=== PATIENT | male | born 1970 | race Hispanic/Latino ===

== ENCOUNTER 2018-04-25 10:19 | Observation (INO) | payer BC, SELFPAY ==
--- NOTE | 2018-04-25 11:34 | RAD REPORT ---
EXAM DESCRIPTION: RAD - Chest Pa And Lat (2 Views) - 04/25/2018 11:11 am CLINICAL HISTORY: COUGH Chest pain. COMPARISON: No comparisons FINDINGS: Moderate interstitial lung opacities are identified bilaterally, suspicious for interstiti al pneumonitis. The heart is mildly enlarged in size. No displaced fractures.
--- NOTE | 2018-04-25 12:10 | RAD REPORT ---
EXAM DESCRIPTION: US - Extrem Venous W Compress Dez - 04/25/2018 12:01 pm CLINICAL HISTORY: SOB;Swelling Bilateral leg edema and swelling. COMPARISON: No comparisons TECHNIQUE: Real-time sonographic interrogation of the left and right lower extremity deep venous sys tems was performed. FINDINGS: Normal compressibility, flow augmentation, phasic flow and spontaneous flow is identified in both the left and right lower extremity deep venous systems. IMPRESSION: No sonographic evidence of left or right lower extremity deep venous thrombosis.
[2018-04-25 12:23] LABS: Absolute Lymphocytes (CBC) 1.7 K/uL (0.7-4.9); Absolute Monocytes 0.5 K/uL (0.1-1.3); Absolute Neutrophil 5.7 K/uL (1.8-8.0); Basophils % 1.4 % (0-1.3); Eosinophils % 1.9 % (0-4.4); Lymphocytes % 20.3 % (15.3-44.8); MCH 31.3 pg (27.0-35.0); MCV 93.4 fL (80-100); MPV 10.9 fL (7.6-11.3); Monocytes % 6.4 % (3.3-12.3); RBC Red Blood Cell Count 4.29 M/uL (4.33-5.43)
[2018-04-25 12:29] LABS: Protime INR 1.07
[2018-04-25] MEDS ORDERED: METOPROLOL TARTRATE 5 MG/5 ML INJ IV ONE (13:04)
[2018-04-25 13:15] LABS: Bilirubin Direct 0.2 mg/dL (0-0.2); Bilirubin Total 0.5 mg/dL (0.2-1.0); Magnesium 2.1 mg/dL (1.8-2.4); Potassium 4.4 mmol/L (3.5-5.1)
[2018-04-25 13:19] LABS: Troponin (Emerg Dept Use Only) 0.91 ng/mL (0.0-0.045)
--- NOTE | 2018-04-25 13:34 | EDPHYS ---
Physician Documentation [facility] Name: Nabor Ny Age: 48 yrs Sex: Male : 1970 Arrival Date: 04/25/2018 Time: 10:23 Bed 8 Private MD: None, None ED Physician Randolph Noel HPI: 04/25 15:40 This 48 yrs old Male presents to ER via Ambulatory with complaints of kdr Shortness Of Breath. 15:40 The patient has shortness of breath at rest, with light activity. Onset: The kdr symptoms/episode began/occurred gradually, 1 month(s) ago. Duration: The symptoms are continuous, and are steadily getting worse. The patient's shortness of breath is aggravated by exertion, light activity, supine position. Associated signs and symptoms: Pertinent positives: chills and cold feeling. Severity of symptoms: At their worst the symptoms were mild moderate just prior to arrival, in the emergency department the symptoms are unchanged. The patient has not experienced similar symptoms in the past. The patient has not recently seen a physician. Historical: - Allergies: 10:34 No Known Allergies; aj - Home Meds: 10:34 Victoza 3-Joey 0.6 mg/0.1 mL (18 mg/3 mL) subcutaneous pnij 0.3 mL once daily [Active]; aj Metformin Oral [Active]; Lisinopril Oral [Active]; - PMHx: 10:34 Hypertension; Diabetes - NIDDM; aj - PSHx: 10:34 Knee surgery; aj - Immunization history:: Adult Immunizations up to date. - Social history:: Smoking status: Patient/guardian denies using tobacco. - Ebola Screening: : Patient negative for fever greater than or equal to 101.5 degrees Fahrenheit, and additional compatible Ebola Virus Disease symptoms Patient denies exposure to infectious person Patient denies travel to an Ebola-affected area in the 21 days before illness onset No symptoms or risks identified at this time. ROS: 15:40 Constitutional: Negative for fever, chills, and weight loss, Eyes: Negative for injury, kdr pain, redness, and discharge, Neck: Negative for injury, pain, and swelling, Cardiovascular: Negative for chest pain, palpitations, and edema, Abdomen/GI: Negative for abdominal pain, nausea, vomiting, diarrhea, and constipation, Back: Negative for injury and pain, : Negative for injury, bleeding, discharge, and swelling, MS/Extremity: Negative for injury and deformity, Skin: Negative for injury, rash, and discoloration, Neuro: Negative for headache, weakness, numbness, tingling, and seizure activity. Psych: Negative for depression, anxiety, suicide ideation, homicidal ideation, and hallucinations, Allergy/Immunology: Negative for hives, rash, and allergies, Endocrine: Negative for neck swelling, polydipsia, polyuria, polyphagia, and marked weight changes, Hematologic/Lymphatic: Negative for swollen nodes, abnormal bleeding, and unusual bruising. 15:40 MS/Extremity: Postive for swelling of both lower extrtemities right greater than left 15:40 Respiratory: Positive for cough, dyspnea on exertion, shortness of breath. Exam: 15:40 Constitutional: This is a well developed, well nourished patient who is awake, alert, kdr and in no acute distress. Head/Face: Normocephalic, atraumatic. Eyes: Pupils equal round and reactive to light, extra-ocular motions intact. Lids and lashes normal. Conjunctiva and sclera are non-icteric and not injected. Cornea within normal limits. Periorbital areas with no swelling, redness, or edema. Neck: Trachea midline, no thyromegaly or masses palpated, and no cervical lymphadenopathy. Supple, full range of motion without nuchal rigidity, or vertebral point tenderness. No Meningismus. Chest/axilla: Normal chest wall appearance and motion. Nontender with no deformity. No lesions are appreciated. Cardiovascular: Regular rate and rhythm with a normal S1 and S2. No gallops, murmurs, or rubs. Normal PMI, no JVD. No pulse deficits. Respiratory: Lungs have equal breath sounds bilaterally, clear to auscultation and percussion. No rales, rhonchi or wheezes noted. No increased work of breathing, no retractions or nasal flaring. Abdomen/GI: Soft, non-tender, with normal bowel sounds. No distension or tympany. No guarding or rebound. No evidence of tenderness throughout. Back: No spinal tenderness. No costovertebral tenderness. Full range of motion. Skin: Warm, dry with normal turgor. Normal color with no rashes, no lesions, and no evidence of cellulitis. MS/ Extremity: Pulses equal, no cyanosis. Neurovascular intact. Full, normal range of motion. Neuro: Awake and alert, GCS 15, oriented to person, place, time, and situation. Cranial nerves II-XII grossly intact. Motor strength 5/5 in all extremities. Sensory grossly intact. Cerebellar exam normal. Normal gait. Psych: Awake, alert, with orientation to person, place and time. Behavior, mood, and affect are within normal limits. Vital Signs: 10:34 BP 190 / 126; Pulse 110; Resp 19; Temp 99.3; Pulse Ox 98% on R/A; Weight 99.79 kg; aj Height 5 ft. 5 in. (165.10 cm); 12:53 BP 168 / 107; Pulse 105; Resp 18; Pulse Ox 99% on 2 lpm NC; tw2 13:04 BP 147 / 99; Pulse 92; Resp 17; Pulse Ox 99% on 2 lpm NC; tw2 13:09 BP 139 / 106; Pulse 94; Resp 15; Pulse Ox 97% on 2 lpm NC; tw2 13:18 BP 124 / 109; Pulse 91; Resp 17 S; Pulse Ox 99% ; sg 13:40 BP 141 / 109; Pulse 88; Pulse Ox 99% ; sg 14:02 BP 149 / 110; Pulse 86; Resp 17; Pulse Ox 99% on 3 lpm NC; Pain 0/10; jl7 15:04 BP 156 / 114; Pulse 89; Resp 23; Pulse Ox 99% on 3 lpm NC; jl7 16:00 BP 153 / 113; Pulse 90; Resp 20 S; Pulse Ox 98% on 3 lpm NC; sg 10:34 Body Mass Index 36.61 (99.79 kg, 165.10 cm) aj [place] Coma Score: 16:00 Eye Response: spontaneous(4). Verbal Response: oriented(5). Motor Response: obeys sg commands(6). Total: 15. MDM: 13:33 Patient medically screened. kdr 15:46 Data reviewed: vital signs, nurses notes, lab test result(s), EKG, radiologic studies. kdr Counseling: I had a detailed discussion with the patient and/or guardian regarding: the historical points, exam findings, and any diagnostic results supporting the discharge/admit diagnosis, lab results, radiology results, the need for outpatient follow up. 04/25 11:21 Order name: Basic Metabolic Panel; Complete Time: 13:26 kdr 04/25 11:21 Order name: CBC with Diff; Complete Time: 12:48 kdr 04/25 11:22 Order name: LFT's; Complete Time: 13:26 kdr 04/25 11:22 Order name: Magnesium; Complete Time: 13:26 kdr 04/25 11:22 Order name: NT PRO-BNP; Complete Time: 13:26 kdr 04/25 11:22 Order name: PT-INR; Complete Time: 12:48 kdr 04/25 10:36 Order name: Chest Pa And Lat (2 Views) XRAY; Complete Time: 12:48 aj 04/25 11:22 Order name: Ptt, Activated; Complete Time: 12:48 kdr 04/25 11:22 Order name: Troponin (emerg Dept Use Only); Complete Time: 13:26 kdr 04/25 11:22 Order name: US Extremity Venous W Compression Dez; Complete Time: 12:48 kdr 04/25 14:07 Order name: Urine Dipstick--Ancillary (enter results); Complete Time: 14:22 bd 04/25 14:50 Order name: Urine Microscopic Only kdr 04/25 15:23 Order name: Urine Culture EDMS 04/25 10:40 Order name: EKG; Complete Time: 10:40 snw 04/25 10:40 Order name: EKG - Nurse/Tech; Complete Time: 11:43 snw 04/25 11:22 Order name: Cardiac monitoring; Complete Time: 12:25 kdr 04/25 11:22 Order name: IV Saline Lock; Complete Time: 12:25 kdr 04/25 11:22 Order name: Labs collected and sent; Complete Time: 12:25 kdr 04/25 11:22 Order name: O2 Per Protocol; Complete Time: 11:43 kdr 04/25 11:22 Order name: O2 Sat Monitoring; Complete Time: 11:43 kdr 04/25 11:22 Order name: Urine Dipstick-Ancillary (obtain specimen); Complete Time: 15:16 kdr 04/25 13:33 Order name: Echo with Doppler EDMS 04/25 14:27 Order name: Diet Heart Healthy; Complete Time: 14:28 sg Administered Medications: 13:00 Drug: Lopressor 5 mg Route: IVP; Site: right antecubital; tw2 13:10 Drug: Lopressor 5 mg Route: IVP; Site: right antecubital; sg 13:48 Drug: Lopressor 5 mg Route: IVP; Site: right antecubital; sg 15:16 Follow up: Response: No adverse reaction; Blood pressure is unchanged sg 14:02 Drug: PlaVIX 300 mg Route: PO; sg 15:15 Follow up: Response: No adverse reaction sg 14:02 Drug: Lopressor 25 mg Route: PO; sg 15:15 Follow up: Response: No adverse reaction sg 14:20 Drug: Aspirin Chewable Tablet 324 mg Route: PO; sg 15:15 Follow up: Response: No adverse reaction sg 15:24 Drug: Lasix 40 mg Route: IVP; Site: right antecubital; sg 15:59 Follow up: Response: No adverse reaction sg Disposition: 04/25/18 13:33 Hospitalization ordered by Renata Cruz for Observation. Preliminary diagnosis is CHF, Shortness of breath, cardiac strain. - Bed requested for Telemetry/MedSurg (observation). - Status is Observation. aa5 - Condition is Fair. - Problem is an ongoing problem. - Symptoms have improved. UTI on Admission? No Signatures: Dispatcher [employer] EDMS Keli Lockhart Steven RN Sydney Cowart RN Randolph Pelaez MD MD kdr Therrien, Shelly, FNP-C [employer]-Owenw Trang Bravo RN RN aa5 Mary Jane Cristina RN RN tw2 Corrections: (The following items were deleted from the chart) 11:32 11:23 Chest Single View+RAD.RAD.BRZ ordered. EDVT EDMS 14:57 13:33 Hospitalization Ordered by Renata Cruz MD for Observation. Preliminary bd diagnosis is CHF, Shortness of breath, cardiac strain. Bed requested for Telemetry/MedSurg (observation). Status is Observation. Condition is Fair. Problem is an ongoing problem. Symptoms have improved. UTI on Admission? No. kdr 16:46 14:57 04/25/2018 13:33 Hospitalization Ordered by Renata Cruz MD for Observation. aa5 Preliminary diagnosis is CHF, Shortness of breath, cardiac strain. Bed requested for Telemetry/MedSurg (observation). Status is Observation. Condition is Fair. Problem is an ongoing problem. Symptoms have improved. UTI on Admission? No. bd
--- NOTE | 2018-04-25 13:34 | ER ---
Nurse's Notes [facility] Name: Nabor Ny Age: 48 yrs Sex: Male : 1970 Arrival Date: 04/25/2018 Time: 10:23 Bed 8 Private MD: None, None Diagnosis: CHF, Shortness of breath, cardiac strain Presentation: 04/25 10:31 Presenting complaint: Patient states: Cough for 3 weeks. Transition of care: patient aj was not received from another setting of care. Onset of symptoms was April 03, 2018. Risk Assessment: Do you want to hurt yourself or someone else? Patient reports no desire to harm self or others. Initial Sepsis Screen: Does the patient meet any 2 criteria? No. Patient's initial sepsis screen is negative. Does the patient have a suspected source of infection? No. Patient's initial sepsis screen is negative. Care prior to arrival: None. 10:31 Method Of Arrival: Ambulatory aj 10:31 Acuity: DEBBIE 2 aj 10:31 Note Patient reports poor compliance with HTN medications. aj Triage Assessment: 10:34 General: Appears in no apparent distress. comfortable, Behavior is calm, cooperative, aj appropriate for age. Pain: Denies pain. Neuro: Level of Consciousness is awake, alert, obeys commands, Oriented to person, place, time, situation, Appropriate for age. Respiratory: Reports cough that is non-productive, dry, persistent Airway is patent Respiratory effort is even, unlabored, Respiratory pattern is regular, symmetrical, Onset: The symptoms/episode began/occurred gradually, the patient has mild shortness of breath. Derm: Skin is intact, is healthy with good turgor, Skin is pink, warm \T\ dry. normal. Historical: - Allergies: 10:34 No Known Allergies; aj - Home Meds: 10:34 Victoza 3-Joey 0.6 mg/0.1 mL (18 mg/3 mL) subcutaneous pnij 0.3 mL once daily [Active]; aj Metformin Oral [Active]; Lisinopril Oral [Active]; - PMHx: 10:34 Hypertension; Diabetes - NIDDM; aj - PSHx: 10:34 Knee surgery; aj - Immunization history:: Adult Immunizations up to date. - Social history:: Smoking status: Patient/guardian denies using tobacco. - Ebola Screening: : Patient negative for fever greater than or equal to 101.5 degrees Fahrenheit, and additional compatible Ebola Virus Disease symptoms Patient denies exposure to infectious person Patient denies travel to an Ebola-affected area in the 21 days before illness onset No symptoms or risks identified at this time. Screenin:11 Abuse screen: Denies threats or abuse. Nutritional screening: No deficits noted. tw2 Tuberculosis screening: No symptoms or risk factors identified. Fall Risk None identified. Assessment: 13:10 Reassessment: Patient appears in no apparent distress at this time. Patient and/or sg family updated on plan of care and expected duration. Pain level reassessed. stills feel short of breath but reports small relief with NC o2 Patient denies pain at this time. Patient states symptoms have not improved. 15:12 Reassessment: Patient appears in no apparent distress at this time. Patient and/or sg family updated on plan of care and expected duration. Pain level reassessed. notified of pt BP, orders received to administer Lasix 40 mg IVP daily, first dose to be given in the ER. 15:17 Reassessment: attempt to call report for pt admission, nurse unbailable due to numerous sg recent admits, instructed to please call back in 15 mins. pt and pt family updated on POC. 15:43 Reassessment: Patient appears in no apparent distress at this time. Patient and/or sg family updated on plan of care and expected duration. Pain level reassessed. Patient is alert, oriented x 3, equal unlabored respirations, skin warm/dry/pink. pt given warm blankets, pt room temp adjusted for comfort, awaiting receiving nurse to be available for report at this time, no new orders received, will continue to monitor. 16:10 Reassessment: Patient appears in no apparent distress at this time. Patient and/or sg family updated on plan of care and expected duration. Pain level reassessed. Patient is alert, oriented x 3, equal unlabored respirations, skin warm/dry/pink. awaiting transport to upstairs at this time. Vital Signs: 10:34 BP 190 / 126; Pulse 110; Resp 19; Temp 99.3; Pulse Ox 98% on R/A; Weight 99.79 kg; aj Height 5 ft. 5 in. (165.10 cm); 12:53 BP 168 / 107; Pulse 105; Resp 18; Pulse Ox 99% on 2 lpm NC; tw2 13:04 BP 147 / 99; Pulse 92; Resp 17; Pulse Ox 99% on 2 lpm NC; tw2 13:09 BP 139 / 106; Pulse 94; Resp 15; Pulse Ox 97% on 2 lpm NC; tw2 13:18 BP 124 / 109; Pulse 91; Resp 17 S; Pulse Ox 99% ; sg 13:40 BP 141 / 109; Pulse 88; Pulse Ox 99% ; sg 14:02 BP 149 / 110; Pulse 86; Resp 17; Pulse Ox 99% on 3 lpm NC; Pain 0/10; jl7 15:04 BP 156 / 114; Pulse 89; Resp 23; Pulse Ox 99% on 3 lpm NC; jl7 16:00 BP 153 / 113; Pulse 90; Resp 20 S; Pulse Ox 98% on 3 lpm NC; sg 10:34 Body Mass Index 36.61 (99.79 kg, 165.10 cm) aj [place] Coma Score: 16:00 Eye Response: spontaneous(4). Verbal Response: oriented(5). Motor Response: obeys sg commands(6). Total: 15. ED Course: 10:23 Patient arrived in ED. mr 10:23 None, None is Private Physician. mr 10:33 Triage completed. aj 10:34 Arm band placed on left wrist. Patient placed in waiting room, Patient notified of wait aj time. 10:44 Randolph Noel MD is Attending Physician. kdr 11:08 X-ray completed. Patient tolerated procedure well. Patient moved to radiology sw AMBULATORY. Patient moved back from radiology. 11:09 Chest Pa And Lat (2 Views) XRAY In Process Unspecified. EDMS 11:10 Mary Jane Cristina RN is Primary Nurse. tw2 11:35 Patient taken to ultrasound. via wheelchair. hr 12:00 Ultrasound completed. Patient moved back from ultrasound. hr 12:01 US Extremity Venous W Compression Dez In Process Unspecified. EDMS 12:24 Initial lab(s) drawn, by me, sent to lab. Inserted saline lock: 20 gauge in right jb1 antecubital area, using aseptic technique. Blood collected. 13:10 Report given to RACHEL Noble. tw2 13:10 Patient has correct armband on for positive identification. Bed in low position. Call sg light in reach. Side rails up X2. satellite project site monitor on. Pulse ox on. NIBP on. 13:19 Notified ED physician of a critical lab result(s). Troponin 0.[address] Randolph Woods. dm5 13:23 Primary Nurse role handed off by Mary Jane Cristina RN sg 13:23 Real Hernandez, RN is Primary Nurse. sg 13:32 Renata Cruz MD is Hospitalizing Provider. kdr 15:55 No provider procedures requiring assistance completed. Patient admitted, IV remains in sg place. intact, No redness/swelling at site. Administered Medications: 13:00 Drug: Lopressor 5 mg Route: IVP; Site: right antecubital; tw2 13:10 Drug: Lopressor 5 mg Route: IVP; Site: right antecubital; sg 13:48 Drug: Lopressor 5 mg Route: IVP; Site: right antecubital; sg 15:16 Follow up: Response: No adverse reaction; Blood pressure is unchanged sg 14:02 Drug: PlaVIX 300 mg Route: PO; sg 15:15 Follow up: Response: No adverse reaction sg 14:02 Drug: Lopressor 25 mg Route: PO; sg 15:15 Follow up: Response: No adverse reaction sg 14:20 Drug: Aspirin Chewable Tablet 324 mg Route: PO; sg 15:15 Follow up: Response: No adverse reaction sg 15:24 Drug: Lasix 40 mg Route: IVP; Site: right antecubital; sg 15:59 Follow up: Response: No adverse reaction sg Outcome: 13:33 Decision to Hospitalize by Provider. kdr 15:54 Admitted to Tele accompanied by tech, via wheelchair, room 415, with oxygen, with sg chart, Report called to Francie RAMOS 15:54 Condition: stable 15:54 Instructed on the need for admit, safety practices, Demonstrated understanding of instructions, follow-up care. 16:46 Patient left the ED. aa5 Signatures: Dispatcher [employer] EDMS Barrett Vann Deana, RACHEL RN dm5 Real Hernandez, Sydney Cowart RN, RN RN aj Rittger, Kevin, MD MD kdr Rivera, Peyton mr Kiana Oliveira Trang Brown RN RN aa5 Marilyn Marvin Tara, RN RN tw2 Pamela Thomson RN RN jl7 Corrections: (The following items were deleted from the chart) 10:42 10:31 Acuity: DEBBIE 3 aj aj 15:04 14:02 BP 149 / 110; Pulse 86bpm; Resp 17bpm; Pulse Ox 32% 3 lpm Nasal Cannula; Pain jl7 0; sg
[2018-04-25] MEDS ORDERED: METOPROLOL TAR 25 MG TAB ONE (13:56)
[2018-04-25] MEDS ORDERED: CLOPIDOGREL 75 MG TABLET ONE (13:56)
[2018-04-25 14:19] LABS: Urine Blood 2+ (NEG); Urine Glucose TRACE (NEG); Urine Protein 3+ (NEG); Urine Specific Gravity >1.030 (1.005-1.030); Urine pH 6.5 (5.0-7.0)
[2018-04-25] MEDS ORDERED: ASPIRIN 81 MG CHEWABLE TABLET ONE (14:19)
--- NOTE | 2018-04-25 14:35 | P.HP ---
Certification for Inpatient Patient admitted to: Inpatient With expected LOS: >2 Midnights Practitioner: I am a practitioner with admitting privileges, knowledge of patient current condition, hospital course, and medical plan of care. Services: Services provided to patient in accordance with Admission requirements found in Title 42 Section 412.3 of the Code of Federal Regulations Patient History Date of Service: 04/25/18 Primary Care Provider: None Reason for admission: COugh History of Present Illness: This is a 48-year-old male with significant past medical history of hypertension and diabetes who presented to the ED complaining of having some shortness of breath that has been going on for about 3-4 weeks. Patient's family at bedside states that patient has been having shortness of breath that has got progressively worse to a point where he is not able to lay flat and has been sitting up to sleep at night time on the couch in the living room for past 2-3 weeks. Patient states that he started noticing that his feet were swollen and then got progressively worse as well for 1 week now. Patient states he never had similar symptoms in the past. The patient does say that he has been a smoker for over 15 years and smokes about half a pack a day. Patient also stated that he drinks about 3-4 months to drink today as well. Patient states that he is compliant with his medication at this time. No other complaints to offer. Denies having fever chills nausea vomiting abdominal pain or any chest pain at this time. Allergies No Known Allergies Allergy (Verified 07/08/15 09:40) Home medications list reviewed: Yes Home Medications: Lisinopril [Prinivil] 20 mg PO DAILY 07/08/15 Metformin HCl [Glucophage] 1,000 mg PO BID 07/08/15 Liraglutide [Victoza 2-Joey] 1.8 mg SQ DAILY 04/25/18 - Past Medical/Surgical History Has patient received pneumonia vaccine in the past: No Diabetic: Yes -: HTN -: Diabetes Past Surgical History: Reviewed- Non-Contributory - Family History Family History: Reviewed- Non-Contributory - Social History Smoking Status: Current every day smoker Counseled patient to stop smoking for: more than 10 minutes Smoking therapy provided: Yes Patient receptive to therapy: Yes Alcohol use: No CD- Drugs: No Caffeine use: No Place of Residence: Home Review of Systems 10-point ROS is otherwise unremarkable Physical Examination - Physical Exam General: Alert, Oriented x3, Mild distress HEENT: Atraumatic, PERRLA, EOMI, Sclerae nonicteric Neck: Supple, 2+ carotid pulse no bruit, No LAD, Without JVD or thyroid abnormality Respiratory: Normal air movement, Crackles/rales Cardiovascular: Regular rate/rhythm, Normal S1 S2 Gastrointestinal: Normal bowel sounds, No tenderness Musculoskeletal: Swelling (BL LE swelling noted. ) Integumentary: No rashes Neurological: Normal speech, Normal strength at 5/5 x4 extr, Normal tone Lymphatics: No axilla or inguinal lymphadenopathy - Studies Laboratory Data (last 24 hrs) 04/25/18 12:10: PT 12.6 H, INR 1.07, APTT 33.7 04/25/18 12:10: WBC 8.2, Hgb 13.4 L, Hct 40.0, Plt Count 213 04/25/18 12:10: Sodium 137, Potassium 4.4, BUN 16, Creatinine 1.80 H, Glucose 165 H, Magnesium 2.1, Total Bilirubin 0.5, AST 23, ALT 26, Alkaline Phosphatase 58 Assessment and Plan - Problems (Diagnosis) (1) SOB (shortness of breath) Current Visit: Yes Status: Acute Plan: Shortness of breath with bilateral lower leg swelling. -most likely secondary to volume overload secondary to CHF versus respiratory cause. -continuous pulse ox and oxygen. Wean oxygen as needed. -will get echocardiogram to rule out CHF. -Will start IV Lasix at this time. -Cardiology has also been consulted. (2) CHF (congestive heart failure) Current Visit: Yes Status: Suspected Plan: New onset congestive heart failure at this time. -will get echocardiogram done at this time. -IV Lasix b.i.d. ordered as well. -cardiology consulted as well. (3) HTN (hypertension) Current Visit: Yes Status: Chronic Plan: Restart home medication at this time Qualifiers: Hypertension type: essential hypertension Qualified Code(s): I10 - Essential (primary) hypertension - Plan Patient min to medical-surgical floor for further workup of his acute shortness of breath. Cardiology consultation as well as this time. Discharge Plan: Home Plan to discharge in: 48 Hours - Advance Directives Does patient have a Living Will: No Does patient have a Durable POA for Healthcare: No - Code Status/Comfort Care Code Status Assessed: Yes Critical Care: No
[2018-04-25 15:17] LABS: Urine RBC 20-50 /HPF (NONE SEEN)
[2018-04-25 15:19] LABS: Urine Bacteria <20 /HPF (NONE SEEN)
[2018-04-25 15:20] LABS: Urine Culture Reflex Order REFLEXED
[2018-04-25] MEDS ORDERED: FUROSEMIDE 40 MG/4 ML VIAL ONE (15:25)
[2018-04-25] MEDS: INSULIN -REGULAR HUMAN 50 UNIT/0.5 ML ML SQ SCH ×2 (16:59→21:00)
[2018-04-25] MEDS ORDERED: ONDANSETRON 4 MG/2 ML VIAL IV PRN (16:59)
[2018-04-25] MEDS ORDERED: ACETAMINOPHEN 500 MG TAB PO PRN (16:59)
[2018-04-25] MEDS: ENOXAPARIN 40 MG/0.4 ML SQ SCH (18:24)
[2018-04-25] MEDS: HYDRALAZINE HCL 20 MG/ML VIAL IV PRN (18:24)
[2018-04-25 19:28] LABS: Thyroid Stimulating Hormone 2.84 uIU/mL (0.360-3.740)
[2018-04-25 19:29] LABS: Troponin I 0.78 ng/mL (0.0-0.045)
[2018-04-25] MEDS ORDERED: FUROSEMIDE 40 MG/4 ML VIAL IV SCH (21:00)
[2018-04-25] MEDS: NICOTINE 14 MG/PAT TD SCH (21:15)
[2018-04-26] MEDS: HYDRALAZINE HCL 20 MG/ML VIAL IV PRN (01:48)
[2018-04-26 05:05] LABS: Absolute Lymphocytes (CBC) 1.7 K/uL (0.7-4.9); Absolute Monocytes 0.6 K/uL (0.1-1.3); Absolute Neutrophil 5.7 K/uL (1.8-8.0); Eosinophils % 2.6 % (0-4.4); Hematocrit 39.6 % (39.6-49.0); MCH 31.4 pg (27.0-35.0); MCV 93.4 fL (80-100); MPV 10.7 fL (7.6-11.3); Monocytes % 7.6 % (3.3-12.3); RBC Red Blood Cell Count 4.24 M/uL (4.33-5.43)
[2018-04-26 05:09] LABS: Albumin 2.9 g/dL (3.4-5.0); Bilirubin Total 0.8 mg/dL (0.2-1.0); Magnesium 1.9 mg/dL (1.8-2.4); Phosphorus 2.5 mg/dL (2.5-4.9); Potassium 3.9 mmol/L (3.5-5.1); Protein, Total 6.9 g/dL (6.4-8.2)
[2018-04-26] MEDS ORDERED: POTASSIUM CL SA 10 MEQ TAB PO ONE (05:55)
[2018-04-26] MEDS ORDERED: FUROSEMIDE 40 MG/4 ML VIAL IV SCH ×2 (06:00→09:00)
[2018-04-26 06:40] VITALS: BMI 37.2
[2018-04-26] MEDS: POTASS/SODIUM PHOSPHATE 1 PKT POWD.PACK PO SCH ×3 (06:51→09:26)
[2018-04-26] MEDS: INSULIN -REGULAR HUMAN 50 UNIT/0.5 ML ML SQ SCH ×2 (07:30→11:30)
--- NOTE | 2018-04-26 08:16 | ECHO ---
HEIGHT: 5 ft 5 in WEIGHT: 223 lb 14.4 oz DATE OF STUDY: 04/25/[address]: Renata Cruz MD 2-DIMENSIONAL: YES M.MODE: YES DOPPLER: YES COLOR FLOW: YES TDS: NO PORTABLE: YES DEFINITY: NO BUBBLE STUDY: NO DIAGNOSIS: SHORTNESS OF BREATH CARDIAC HISTORY: CATHERIZATION: NO SURGERY: NO PROSTHETIC VALVE: NO PACEMAKER: NO MEASUREMENTS (cm) DIASTOLIC (NORMALS) SYSTOLIC (NORMALS) IVSd 1.1 (0.6-1.2) LA Diam 4.5 (1.9-4.0) LVEF 25-30% LVIDd 7.0 (3.5-5.7) LVIDs 5.6 (2.0-3.5) %FS % LVPWd 1.1 (0.6-1.2) Ao Diam 3.4 (2.0-3.7) 2 DIMENSIONAL ASSESSMENT: RIGHT ATRIUM: NORMAL LEFT ATRIUM: DILATED RIGHT VENTRICLE: NORMAL LEFT VENTRICLE: DILATED TRICUSPID VALVE: NORMAL MITRAL VALVE: NORMAL PULMONIC VALVE: NORMAL AORTIC VALVE: NORMAL PERICARDIAL EFFUSION: NONE AORTIC ROOT: NORMAL LEFT VENTRICULAR WALL MOTION: SEVERE GLOBAL HYPOKINESIS. DOPPLER/COLOR FLOW: MILD MITRAL AND TRICUSPID REGURGITATION. COMMENTS: SEVERE GLOBAL HYPOKINESIS. MILD MITRAL AND TRICUSPID REGURGITATION. LEFT VENTRICULAR EJECTION FRACTION 25-30%. LEFT VENTRICULAR DILATATION. LEFT ATRIAL ENLARGEMENT. TECHNOLOGIST: Constance CHOWDARY
[2018-04-26] MEDS: NICOTINE 14 MG/PAT TD SCH (08:39)
[2018-04-26] MEDS: ENOXAPARIN 40 MG/0.4 ML SQ SCH (08:39)
[2018-04-26 10:51] VITALS: O2SAT 97
--- NOTE | 2018-04-26 14:26 | P.SSS ---
Patient History Date of Service: 04/26/18 Primary Care Provider: None Reason for admission: COugh History of Present Illness: This is a 48-year-old male with significant past medical history of hypertension and diabetes who presented to the ED complaining of having some shortness of breath that has been going on for about 3-4 weeks. Patient's family at bedside states that patient has been having shortness of breath that has got progressively worse to a point where he is not able to lay flat and has been sitting up to sleep at night time on the couch in the living room for past 2-3 weeks. Patient states that he started noticing that his feet were swollen and then got progressively worse as well for 1 week now. Patient states he never had similar symptoms in the past. The patient does say that he has been a smoker for over 15 years and smokes about half a pack a day. Patient also stated that he drinks about 3-4 months to drink today as well. Patient states that he is compliant with his medication at this time. No other complaints to offer. Denies having fever chills nausea vomiting abdominal pain or any chest pain at this time. Allergies No Known Allergies Allergy (Verified 07/08/15 09:40) Home Medications: Lisinopril [Prinivil] 20 mg PO DAILY 07/08/15 Metformin HCl [Glucophage] 1,000 mg PO BID 07/08/15 Liraglutide [Victoza 2-Joey] 1.8 mg SQ DAILY 04/25/18 - Past Medical/Surgical History Has patient received pneumonia vaccine in the past: No Diabetic: Yes -: HTN -: Diabetes -: kidney stones -: hirschsprung disease large intestine surgery - Family History Family History: Reviewed- Non-Contributory - Family History Father -: Hypertension, Diabetes Mother -: Lung disease, Diabetes, Cancer Notes: lung ca Sister -: Diabetes, Kidney disease Notes: HD sister - Social History Smoking Status: Current every day smoker Alcohol use: Yes CD- Drugs: No Caffeine use: Yes Place of Residence: Home Review of Systems 10-point ROS is otherwise unremarkable Physical Examination - Vital Signs Temperature: 98.9 F Blood Pressure: 158/92 Pulse: 85 Respirations: 18 Pulse Ox (%): 99 - Physical Exam General: Alert, In no apparent distress HEENT: Atraumatic, PERRLA, Mucous membr. moist/pink, EOMI, Sclerae nonicteric Neck: Supple, 2+ carotid pulse no bruit, No LAD, Without JVD or thyroid abnormality Respiratory: Clear to auscultation bilaterally, Normal air movement Cardiovascular: Regular rate/rhythm, Normal S1 S2 Gastrointestinal: Normal bowel sounds, No tenderness Musculoskeletal: No tenderness Integumentary: No rashes Neurological: Normal gait, Normal speech, Normal strength at 5/5 x4 extr, Normal tone, Normal affect Lymphatics: No axilla or inguinal lymphadenopathy - Diagnosis (Problem(s)) (1) SOB (shortness of breath) Onset Date: 04/26/18 Current Visit: Yes Status: Resolved (2) CHF (congestive heart failure) Onset Date: 04/26/18 Current Visit: Yes Status: Acute (3) HTN (hypertension) Onset Date: 04/26/18 Current Visit: Yes Status: Chronic Qualifiers: Hypertension type: essential hypertension Qualified Code(s): I10 - Essential (primary) hypertension Treatment Summary: Overall during the hospital stay patient remained stable Patient was initially admitted to the hospital for shortness of breath most likely related to underlying new onset congestive heart failure. Patient had an echocardiogram done here in the hospital which was consistent with ejection fraction of 30%. Patient probably has CHF secondary to uncontrolled high blood pressure and diabetes. Patient was also educated on abstaining from smoking along with energy drink. Patient demonstrated understanding. Patient was started on IV Lasix while he was admitted here in the hospital. Cardiology was consulted who recommended the patient be placed on PO Lasix 40 b.i.d. along with Coreg 3.125 daily b.i.d., spironolactone 25 mg daily and lisinopril. Patient will be seeing and Cardiology office for outpatient workup for stress test and heart catheterization. Patient had marked resolution of his shortness of breath upon getting IV Lasix that this was discharged home under stable condition. Patient was asked to continue taking his medication as prescribed by the dirt shoveler and all the new medications as given by us from here. Patient stated that he understands and will quit smoking now and not drink energy drinks anymore. - Disposition Disposition: ROUTINE DISCHARGE Condition: GOOD Patient Discharge Instructions: Please f.u with PCP and Cardiology in 1 to 2 week post discharge. New medication: Lasix 40mg bid. lisinopril home dosage continue. Coreg 3.125mg BID. Aldactone 25mg daily. You had a ECHO cardiogram done here in the hospital and was found to have EF of 25 %. You need to stop using monsters and Stop smoking as it will increase your mortality Diet: Regular Activity: Ad vincenzo
[2018-04-26 17:25] VITALS: BP 170/102; TEMP 98.7
--- NOTE | 2018-04-27 09:50 | CON ---
Date of Consultation: 04/26/2018 Reason For Consultation: Congestive heart failure. History Of Present Illness: Mr. Ny is a 48-year-old Latin-Tongan male with history of diabet es and hypertension for which he takes Victoza, lisinopril and Glucophage. Came in with dyspnea on e xertion at short distances. Chest x-ray showed possible interstitial pneumonitis. His BNP was 8004, troponin 0.91, creatinine is 1.9. He was hypertensive at 160/100. Complained of PND, orthopnea, pe ramakrishna edema. No palpitation, no syncope, no chest pain. Denied any fever or chills. Past Medical History: As stated earlier. Allergies: HE IS ALLERGIC TO NO MEDICATION. Review of Systems: Negative. Social History: Positive for alcohol. Medications At Home: Victoza, lisinopril and Glucophage. Family History: Positive for heart disease. Physical Examination: Vital Signs: Stable, afebrile. HEENT: Negative. Neck: Supple with no bruit, JVD, or thyromegaly. Chest: Revealed rales at both bases. Cardiac: Revealed a regular rhythm and rate with S3 gallops. Abdomen: Obese, but benign. Extremities: Revealed 1+ edema. Diagnostic Data: As stated earlier. Venous Doppler was negative. Impression And Plan: 1.Acute systolic congestive heart failure. 2.Diabetes. 3.Hypertension. 4.Renal insufficiency. 5.Elevated BNP and troponin secondary to congestive heart failure. Mr. Ny is unfortunate. We will see what his echocardiogram shows, but he will have to be treat ed rather aggressively with whatever he is taking at home including lisinopril. I will also add Core g and Lasix to his regimen. I am not so sure he is a candidate for Entresto, at this point, his crea tinine is 1.9. We will eventually need a stress test to rule out coronary artery disease. Whenever he is comfortable, he can go home and come to see me in the office. Case was discussed with Dr. Anyi CALDERON/GALEN Voice ID: [id number] Report ID: [id number]
== END 2018-04-26 17:55 | disposition home or self-care (01) ==
LOC: ER 10:19 → SUATTDRO 10:19 → 4TH 13:33
PROVIDERS: ADMIT Family Medicine; ATTEND Family Medicine
DX: I11.0 Hypertensive heart disease with heart failure (principal); I50.21 Acute systolic (congestive) heart failure; E11.9 Type 2 diabetes mellitus without complications; F17.210 Nicotine dependence, cigarettes, uncomplicated; Z82.49 Family history of ischemic heart disease and other diseases of the circulatory system
CPT/HCPCS: 36415; 71046; 80048; 80053; 80076; 81003; 81015; 82962; 83735; 83880; 84100; 84443; 84484; 85025; 85610; 85730; 87086; 87088; 93005; 93306; 93970; 94760; 96374; 96375; 99285; G0378; J0360; J1650

== ENCOUNTER 2018-05-21 12:23 | Inpatient (IN) | payer SELFPAY ==
[2018-05-21 12:56] LABS: Absolute Lymphocytes (CBC) 1.8 K/uL (0.7-4.9); Absolute Monocytes 0.6 K/uL (0.1-1.3); Absolute Neutrophil 4.8 K/uL (1.8-8.0); Basophils % 0.8 % (0-1.3); Eosinophils % 2.9 % (0-4.4); Hematocrit 44.8 % (39.6-49.0); Lymphocytes % 24.2 % (15.3-44.8); MCH 30.4 pg (27.0-35.0); MCV 90.5 fL (80-100); MPV 10.1 fL (7.6-11.3); Monocytes % 7.8 % (3.3-12.3); RBC Red Blood Cell Count 4.95 M/uL (4.33-5.43)
--- NOTE | 2018-05-21 12:58 | EKG ---
Test Date: 2018-05-21 Test Time: 12:46:32 Vendor Management Associate: NEERAJ MEASUREMENT RESULTS: Intervals: Rate: 76 [place]: 184 QRSD: 124 QT: 414 QTc: 465 [place]: P: 25 [place]: 184 QRS: -58 T: 71 INTERPRETIVE STATEMENTS: Normal sinus rhythm Left axis deviation Left ventricular hypertrophy with QRS widening Abnormal ECG Compared to ECG 07/08/2015 09:42:19 T-wave abnormality no longer present Electronically Signed On 05-21-18 12:57:35 CDT by Hermann Nunez
[2018-05-21 13:01] LABS: Protime INR 1.02
[2018-05-21] MEDS ORDERED: FOLIC ACID 5 MG/ML VIAL ONE (13:03)
[2018-05-21] MEDS ORDERED: NA CHLORIDE 0.9% 1,000 ML ONE (13:03)
--- NOTE | 2018-05-21 13:07 | RAD REPORT ---
EXAM DESCRIPTION: CT - Ct Stroke Brain Wo Cont - 05/21/2018 1:00 pm CLINICAL HISTORY: NUMBNESS CVA COMPARISON: No comparisons TECHNIQUE: All CT scans are performed using dose optimization technique as appropriate and may inclu de automated exposure control or mA/KV adjustment according to patient size. FINDINGS: No intracranial hemorrhage, hydrocephalus or extra-axial fluid collection.6 mm low-density area adjacent to the right caudate head. 9 mm low-density area seen along the right periventricular region. These may represent areas of subacute ischemia. The paranasal sinuses and mastoids are clear. The calvarium is intact. IMPRESSION: Rounded areas of diminished density adjacent to the right caudate head and right periven tricular region may represent subacute ischemia. MR brain followup would be recommended.
--- NOTE | 2018-05-21 13:08 | RAD REPORT ---
EXAM DESCRIPTION: RAD - Chest Single View - 05/21/2018 1:03 pm CLINICAL HISTORY: COUGH Chest pain. COMPARISON: Chest Pa And Lat (2 Views) dated 04/25/2018 FINDINGS: Portable technique limits examination quality. The lungs are grossly clear. The heart is normal in size. No displaced fractures. IMPRESSION: No acute intrathoracic process suspected.
[2018-05-21 13:18] LABS: ALT/SGPT 15 U/L (12-78); AST/SGOT 13 U/L (15-37); Albumin 3.7 g/dL (3.4-5.0); Alkaline Phosphatase 55 U/L (45-117); BUN Blood Urea Nitrogen 66 mg/dL (7-18); Bicarbonate 27 mmol/L (21-32); Bilirubin Direct 0.1 mg/dL (0-0.2); Bilirubin Total 0.5 mg/dL (0.2-1.0); C-Reactive Protein < 2.90 mg/L (<3.00); Glucose Level 148 mg/dL (74-106); Lipase 536 U/L (73-393); Magnesium 2.1 mg/dL (1.8-2.4); NT PRO-BNP 1128 pg/mL (<125); Potassium 5.2 mmol/L (3.5-5.1); Protein, Total 7.9 g/dL (6.4-8.2); Sodium Level 133 mmol/L (136-145); Troponin (Emerg Dept Use Only) < 0.02 ng/mL (0.0-0.045)
--- NOTE | 2018-05-21 13:32 | RAD REPORT ---
EXAM DESCRIPTION: MRI - Brain Wo Cont - 05/21/2018 1:19 pm CLINICAL HISTORY: Dizziness;Numbness CVA COMPARISON: Ct Stroke Brain Wo Cont dated 05/21/2018 TECHNIQUE: Multi-sequence, multiplanar MR imaging of the brain was performed without contrast. FINDINGS: No intracranial hemorrhage, hydrocephalus or extra-axial fluid collections.Small T2/FLAIR hyperintensities in the periventricular region are nonspecific. No edema or shift of midline structur es. No findings to suspect brain mass. Rounded area of restricted diffusion is identified in the post erior periventricular white matter measuring 11 x 10 mm. Linear areas of extension of this signal abn ormality into the posterior right basal ganglia noted. ADC map demonstrate is diminished signal in th is region compatible with acute CVA. No hemorrhagic component. Midline structures are normally formed. Mastoid air cells and paranasal sinuses are clear. IMPRESSION: Nonhemorrhagic acute CVA (11 x 10 mm) right posterior periventricular white matter exten ding into the posterior right basal ganglia. Findings were discussed with ER physician Dr. Cuevas 1:30 p.m. 05/21/2018 by telephone.
[2018-05-21] MEDS ORDERED: ASPIRIN 81 MG CHEWABLE TABLET ONE (13:47)
[2018-05-21] MEDS ORDERED: SOD POLYSTYREN SUL 15 GM/60 ML UCUP ONE (14:30)
--- NOTE | 2018-05-21 14:30 | ER ---
Nurse's Notes [facility] Name: Nabor Ny Age: 48 yrs Sex: Male : 1970 Arrival Date: 05/21/2018 Time: 12:27 Bed 5 Private MD: Fermín Huang F Diagnosis: Cerebral infarction;Unspecified kidney failure;Type 2 diabetes mellitus;Essential (primary) hypertension;Hyperkalemia Presentation: 05/21 12:34 Presenting complaint: Patient states: Numbness to his left arm and leg, along with aj1 trouble walking for the past 12 hours. Speech is clear, digital retoucher are equal bilaterally. Smile is even. Drift noted to left arm when patient holds his arms out for 10 seconds. Transition of care: patient was not received from another setting of care. Onset of symptoms was May 21, 2018 at 00:00. Risk Assessment: Do you want to hurt yourself or someone else? Patient reports no desire to harm self or others. Initial Sepsis Screen: Does the patient meet any 2 criteria? No. Patient's initial sepsis screen is negative. Does the patient have a suspected source of infection? No. Patient's initial sepsis screen is negative. Care prior to arrival: None. 12:34 Method Of Arrival: Ambulatory aj1 12:34 Acuity: DEBBIE 3 aj1 Triage Assessment: 12:36 General: Appears in no apparent distress. comfortable, Behavior is calm, cooperative, aj1 appropriate for age. Pain: Denies pain. Neuro: Level of Consciousness is awake, alert, obeys commands, Oriented to person, place, time, situation, Financial Services Consultant are equal bilaterally Moves all extremities. Weakness in left arm(s) leg(s) Gait is unsteady, Speech is normal, Facial symmetry appears normal, Reports numbness in left arm and left leg. Cardiovascular: Patient's skin is warm and dry. Respiratory: Airway is patent Respiratory effort is even, unlabored, Respiratory pattern is regular, symmetrical. Historical: - Allergies: 12:36 No Known Allergies; aj1 - Home Meds: 12:36 lisinopril Oral [Active]; Metformin Oral [Active]; Victoza 3-Joey 0.6 mg/0.1 mL (18 mg/3 aj1 mL) subcutaneous pnij 0.3 mL once daily [Active]; - PMHx: 12:36 Diabetes - NIDDM; Hypertension; aj1 - Immunization history:: Flu vaccine is not up to date. - Social history:: Smoking status: Patient/guardian denies using tobacco. - Ebola Screening: : Patient denies travel to an Ebola-affected area in the 21 days before illness onset. - Family history:: not pertinent. Screenin:48 Abuse screen: Denies threats or abuse. Nutritional screening: No deficits noted. tw2 Tuberculosis screening: No symptoms or risk factors identified. Fall Risk None identified. Assessment: 12:43 Reassessment: Notified Dr. Cuevas of patient with stroke like symptoms that started aj1 12 hours ago. Code stroke called per Dr. Cuevas. 12:49 General: Appears in no apparent distress. well groomed, Behavior is calm, cooperative, tw2 appropriate for age. Pain: Denies pain. Neuro: Level of Consciousness is awake, alert, obeys commands, Oriented to person, place, time, situation, Financial Services Consultant are equal bilaterally Moves all extremities. Gait is unsteady, Speech is normal, Facial symmetry appears normal, pt states "there is just a heaviness to my legs, i feel like i need to drag them and my left arm, it started last night, i was just diagnosed with CHF but i havent been able to see Dr. Nunez because my [employer] insurance has not kicked in yet". Cardiovascular: Denies chest pain, shortness of breath, Heart tones S1 S2 Capillary refill < 3 seconds Patient's skin is warm and dry. Respiratory: Airway is patent Respiratory effort is even, unlabored, Respiratory pattern is regular, symmetrical, Breath sounds are clear bilaterally. GI: No signs and/or symptoms were reported involving the gastrointestinal system. Abdomen is round non-distended, Bowel sounds present X 4 quads. : No signs and/or symptoms were reported regarding the genitourinary system. EENT: No signs and/or symptoms were reported regarding the EENT system. Derm: No signs and/or symptoms reported regarding the dermatologic system. Skin is intact, is healthy with good turgor, Skin is dry, Skin temperature is warm. Musculoskeletal: Range of motion: intact in all extremities. 13:47 Reassessment: Patient appears in no apparent distress at this time. Patient and/or tw2 family updated on plan of care and expected duration. Pain level reassessed. Patient is alert, oriented x 3, equal unlabored respirations, skin warm/dry/pink. Patient states feeling better. Patient states symptoms have improved. 15:13 Reassessment: Patient appears in no apparent distress at this time. Patient and/or tw2 family updated on plan of care and expected duration. Pain level reassessed. Patient is alert, oriented x 3, equal unlabored respirations, skin warm/dry/pink. 16:15 Reassessment: Patient appears in no apparent distress at this time. Patient and/or tw2 family updated on plan of care and expected duration. Pain level reassessed. Patient is alert, oriented x 3, equal unlabored respirations, skin warm/dry/pink. 17:04 Reassessment: Patient appears in no apparent distress at this time. Patient and/or tw2 family updated on plan of care and expected duration. Pain level reassessed. Patient is alert, oriented x 3, equal unlabored respirations, skin warm/dry/pink. Vital Signs: 12:36 BP 139 / 93; Pulse 78; Resp 18; Temp 97.5; Pulse Ox 99% on R/A; Weight 92.99 kg (R); aj1 Height 5 ft. 5 in. (165.10 cm) (R); Pain 0/10; 13:47 BP 145 / 92; Pulse 78; Resp 20; Pulse Ox 99% on R/A; tw2 15:13 BP 151 / 91; Pulse 71; Resp 16; Pulse Ox 100% on R/A; tw2 16:29 BP 137 / 90; Pulse 79; Resp 17; Pulse Ox 100% on R/A; tw2 12:36 Body Mass Index 34.11 (92.99 kg, 165.10 cm) aj1 NIH Stroke Scale Scores: 14:32 NIHSS Score: 2 [facility] ED Course: 12:27 Patient arrived in ED. as 12:28 Fermín Huang MD is Private Physician. as 12:35 Triage completed. aj1 12:36 Arm band placed on Patient placed in an exam room. aj1 12:39 Mary Jane Cristina, RACHEL is Primary Nurse. tw2 12:40 Rios Cuevas MD is Attending Physician. [facility] 12:40 Bed in low position. plastic fixture builder on. Pulse ox on. NIBP on. tw2 12:50 EKG done, by field technical specialist. reviewed by Rios Cuevas MD. at1 13:00 CT Stroke Brain w/o Contrast In Process Unspecified. EDMS 13:00 Patient moved to MRI via wheelchair. ka 13:01 Patient moved to MRI at this time. tw2 13:03 XRAY Chest (1 view) In Process Unspecified. EDMS 13:03 X-ray completed. Portable x-ray completed in exam room. jr1 13:08 Brain Wo Cont In Process Unspecified. EDMS 13:38 MRI completed. Patient tolerated well. Patient moved back from MRI. em2 14:28 Fermín Huang MD is Hospitalizing Provider. mónica 14:37 Patient taken to ultrasound. via wheelchair. tw2 14:57 Ultrasound completed. Patient tolerated well. Patient moved back from ultrasound. lc3 16:28 No provider procedures requiring assistance completed. Patient admitted, IV remains in tw2 place. 16:54 Awaiting: attempted to call report was told by Secretary Adelia that the nurse is on tw2 the phone, left on hold, unable to continue holding d/t critical care pts in the trauma area. Administered Medications: 13:00 Drug: NS 0.9% 1000 ml Route: IV; Rate: 1 bolus; Site: right antecubital; tw2 17:03 Follow up: Response: No adverse reaction; IV Status: Completed infusion; IV Intake: tw2 1000ml 13:00 Drug: foLIC Acid 1 mg Route: IVPB; Site: right antecubital; tw2 13:02 Follow up: Response: No adverse reaction; No adverse reaction, pt states "my symptoms tw2 have resolved, the numbness went away"; IV Status: Completed infusion 13:45 Drug: Aspirin Chewable Tablet 324 mg {Note: ok per Dr. Cuevas.} Route: PO; tw2 14:22 Follow up: Response: No adverse reaction tw2 14:30 Drug: Kayexalate 15 grams Route: PO; tw2 15:11 Follow up: Response: No adverse reaction tw2 15:11 Drug: Zocor 80 mg Route: PO; tw2 17:03 Follow up: Response: No adverse reaction tw2 15:12 Drug: PlaVIX 75 mg Route: PO; tw2 17:03 Follow up: Response: No adverse reaction tw2 Point of Care Testing: Blood Glucose: 12:48 Blood Glucose: 140 mg/dL; tw2 16:34 Blood Glucose: 96 mg/dL; tw2 Ranges: Intake: 17:03 IV: 1000ml; Total: 1000ml. tw2 Outcome: 14:29 Decision to Hospitalize by Provider. mónica 17:02 Admitted to Med/surg accompanied by tech, via wheelchair, room 424, Report called to tw2 RACHEL Gloria 17:02 Condition: stable 17:02 Instructed on the need for admit. 17:21 Patient left the ED. tw2 NIH Stroke Scale - NIH Stroke Score Date: 05/21/2018 Time: 14:32 Total Score = 2 1a. Level of Consciousness (LOC) - 0(Alert) 1b. Level of Consciousness (LOC) (Year \\T\\ Age) - 0(Both) 1c. LOC Commands (Open \\T\\ Closes Eyes/Dredge Operator) - 0(Both) 2. Best Gaze (Lateral Gaze Paresis) - 0(Normal) 3. Visual Field Loss - 0(No visual loss) 4. Facial Palsy - 0(Normal) 5a. Left Arm: Motor (10-second hold) - 0(No drift) 5b. Right Arm: Motor (10-second hold) - 0(No drift) 6a. Left Leg: Motor (5-second hold - always test supine) - 0(No drift) 6b. Right Leg: Motor (5-second hold - always test supine) - 0(No drift) 7. Limb Ataxia (finger/nose \\T\\ heel/marroquin - test with eyes open) - 1(Present in one limb) 8. Sensory Loss (pinprick arms/legs/face) - 1(Mild to moderate loss) 9. Best Language: Aphasia (description/naming/reading) - 0(No aphasia) 10. Dysarthria (speech clarity - read or repeat words) - 0(Normal) 11. Extinction and Inattention (visual/tactile/auditory/spatial/personal) - 0(No abnormality) Initials: mónica Signatures: Dispatcher [employer] Sonal Colmenares, RN RN aj1 Rios Cuevas MD MD cha Ringgold, [place] jr1 Apoorva Callahan Enrique em2 Sydney Abad, wirer passenger car EKG Tat1 Arthur Houston Katelyn ka Wise, Tara, RN RN tw2
--- NOTE | 2018-05-21 14:30 | EDPHYS ---
Physician Documentation [facility] Name: Nabor Ny Age: 48 yrs Sex: Male : 1970 Arrival Date: 05/21/2018 Time: 12:27 Bed 5 Private MD: Fermín Huang F ED Physician Rios Cuevas HPI: 05/21 14:19 This 48 yrs old Male presents to ER via Ambulatory with complaints of Numbness mónica - l arm/leg. 14:19 The patient's problem is reported as weakness, in the left upper extremity, in the left mónica lower extremity. Onset: The symptoms/episode began/occurred last night. Duration: The episode is continuous. Context: the episode(s) was witnessed, by a friend. The symptoms are alleviated by nothing. The symptoms are aggravated by nothing. Associated signs and symptoms: The patient has no apparent associated signs or symptoms. Severity of symptoms: At their worst the symptoms were mild moderate. Patient's baseline: Neuro: alert and fully oriented. The patient has not experienced similar symptoms in the past. Historical: - Allergies: 12:36 No Known Allergies; aj1 - Home Meds: 12:36 lisinopril Oral [Active]; Metformin Oral [Active]; Victoza 3-Joey 0.6 mg/0.1 mL (18 mg/3 aj1 mL) subcutaneous pnij 0.3 mL once daily [Active]; - PMHx: 12:36 Diabetes - NIDDM; Hypertension; aj1 - Immunization history:: Flu vaccine is not up to date. - Social history:: Smoking status: Patient/guardian denies using tobacco. - Ebola Screening: : Patient denies travel to an Ebola-affected area in the 21 days before illness onset. - Family history:: not pertinent. ROS: 14:19 Constitutional: Negative for fever, chills, and weight loss, Eyes: Negative for injury, mónica pain, redness, and discharge, ENT: Negative for injury, pain, and discharge, Neck: Negative for injury, pain, and swelling, Cardiovascular: Negative for chest pain, palpitations, and edema, Respiratory: Negative for shortness of breath, cough, wheezing, and pleuritic chest pain, Abdomen/GI: Negative for abdominal pain, nausea, vomiting, diarrhea, and constipation, Back: Negative for injury and pain, : Negative for injury, bleeding, discharge, and swelling, MS/Extremity: Negative for injury and deformity, Skin: Negative for injury, rash, and discoloration, Psych: Negative for depression, anxiety, suicide ideation, homicidal ideation, and hallucinations, Allergy/Immunology: Negative for hives, rash, and allergies, Endocrine: Negative for neck swelling, polydipsia, polyuria, polyphagia, and marked weight changes, Hematologic/Lymphatic: Negative for swollen nodes, abnormal bleeding, and unusual bruising. 14:19 Neuro: Positive for gait disturbance, numbness, weakness, of the left arm and left leg. Exam: 14:19 Radiologist reports: see report mónica 14:19 Constitutional: This is a well developed, well nourished patient who is awake, alert, and in no acute distress. Head/Face: Normocephalic, atraumatic. Eyes: Pupils equal round and reactive to light, extra-ocular motions intact. Lids and lashes normal. Conjunctiva and sclera are non-icteric and not injected. Cornea within normal limits. Periorbital areas with no swelling, redness, or edema. ENT: Nares patent. No nasal discharge, no septal abnormalities noted. Tympanic membranes are normal and external auditory canals are clear. Oropharynx with no redness, swelling, or masses, exudates, or evidence of obstruction, uvula midline. Mucous membranes moist. Neck: Trachea midline, no thyromegaly or masses palpated, and no cervical lymphadenopathy. Supple, full range of motion without nuchal rigidity, or vertebral point tenderness. No Meningismus. Chest/axilla: Normal chest wall appearance and motion. Nontender with no deformity. No lesions are appreciated. Cardiovascular: Regular rate and rhythm with a normal S1 and S2. No gallops, murmurs, or rubs. Normal PMI, no JVD. No pulse deficits. Respiratory: Lungs have equal breath sounds bilaterally, clear to auscultation and percussion. No rales, rhonchi or wheezes noted. No increased work of breathing, no retractions or nasal flaring. Abdomen/GI: Soft, non-tender, with normal bowel sounds. No distension or tympany. No guarding or rebound. No evidence of tenderness throughout. Back: No spinal tenderness. No costovertebral tenderness. Full range of motion. Skin: Warm, dry with normal turgor. Normal color with no rashes, no lesions, and no evidence of cellulitis. MS/ Extremity: Pulses equal, no cyanosis. Neurovascular intact. Full, normal range of motion. Psych: Awake, alert, with orientation to person, place and time. Behavior, mood, and affect are within normal limits. 14:19 Neuro: Orientation: is normal, appropriate for stated age, no acute changes, Mentation: is normal, appropriate for stated age, no acute changes, Memory: is normal, appropriate for stated age, no acute changes, Cranial nerves: grossly normal, is grossly normal based on the patient's age, no acute changes, Cerebellar function: dysmetria is noted on the left, Motor: is normal, is grossly normal based on the patient's age, no acute changes, moves all fours, strength is normal, Sensation: is normal, no obvious gross deficits, appropriate no acute changes, Gait: not tested. Deep tendon reflexes are 2+ (normal) in the bilateral brachioradialis, bicep, tricep and patellar and Achilles tendons, seizure activity, is not displayed by the patient. 14:32 Neuro: not a tpa candidate, symptoms began last night, [address] patino aspirin and mónica plavix, folic acid, no tpa. Vital Signs: 12:36 BP 139 / 93; Pulse 78; Resp 18; Temp 97.5; Pulse Ox 99% on R/A; Weight 92.99 kg (R); aj1 Height 5 ft. 5 in. (165.10 cm) (R); Pain 0/10; 13:47 BP 145 / 92; Pulse 78; Resp 20; Pulse Ox 99% on R/A; tw2 15:13 BP 151 / 91; Pulse 71; Resp 16; Pulse Ox 100% on R/A; tw2 16:29 BP 137 / 90; Pulse 79; Resp 17; Pulse Ox 100% on R/A; tw2 12:36 Body Mass Index 34.11 (92.99 kg, 165.10 cm) aj1 NIH Stroke Scale Scores: 14:32 NIHSS Score: 2 mónica MDM: 12:41 Patient medically screened. [facility] 14:27 Data reviewed: vital signs, nurses notes, lab test result(s), EKG, radiologic studies, [facility] CT scan, MRI, plain films. 05/21 12:44 Order name: Basic Metabolic Panel; Complete Time: 14:16 mónica 10/02 12:44 Order name: CBC with Diff; Complete Time: 14:16 [facility] 05/21 12:44 Order name: LFT's; Complete Time: 14:16 [facility] 05/21 12:44 Order name: Magnesium; Complete Time: 14:16 [facility] 05/21 12:44 Order name: NT PRO-BNP; Complete Time: 14:16 [facility] 05/21 12:44 Order name: PT-INR; Complete Time: 14:16 [facility] 05/21 12:44 Order name: Troponin (emerg Dept Use Only); Complete Time: 14:16 [facility] 05/21 12:44 Order name: Sed Rate; Complete Time: 14:16 [facility] 05/21 12:44 Order name: CRP; Complete Time: 14:16 [facility] 05/21 12:44 Order name: Lipase; Complete Time: 14:16 [facility] 05/21 14:42 Order name: CKMB Creatine Kinase MB [facility] 05/21 14:42 Order name: CKMB Creatine Kinase MB [facility] 05/21 14:42 Order name: Creatine Phosphokinase [facility] 05/21 14:42 Order name: Creatine Phosphokinase [facility] 05/21 12:44 Order name: XRAY Chest (1 view); Complete Time: 14:16 [facility] 05/21 12:56 Order name: CT Stroke Brain w/o Contrast; Complete Time: 14:16 [facility] 05/21 13:06 Order name: Brain Wo Cont; Complete Time: 14:16 [facility] 05/21 14:27 Order name: US Carotid Artery Bilateral [facility] 05/21 14:42 Order name: Lipid Profile [facility] 05/21 14:42 Order name: Lipid Profile [facility] 05/21 14:42 Order name: Troponin I [facility] 05/21 14:42 Order name: Troponin I [facility] 05/21 15:01 Order name: Glucose, Ancillary Testing [facility] 05/21 15:07 Order name: US [facility] 05/21 12:44 Order name: EKG; Complete Time: 12:45 [facility] 05/21 12:44 Order name: Cardiac monitoring; Complete Time: 12:53 [facility] 05/21 12:44 Order name: EKG - Nurse/Tech; Complete Time: 12:53 [facility] 05/21 12:44 Order name: IV Saline Lock; Complete Time: 12:53 [facility] 05/21 12:44 Order name: Labs collected and sent; Complete Time: 12:53 [facility] 05/21 12:44 Order name: O2 Per Protocol; Complete Time: 12:53 [facility] 05/21 12:44 Order name: O2 Sat Monitoring; Complete Time: 12:53 [facility] 05/21 14:42 Order name: CONS Physician Consult [facility] 05/21 14:42 Order name: NPO [facility] 05/21 14:42 Order name: NPO [facility] 05/21 14:42 Order name: NPO [facility] 05/21 15:10 Order name: Diet Heart Healthy; Complete Time: 15:10 ss Administered Medications: 13:00 Drug: NS 0.9% 1000 ml Route: IV; Rate: 1 bolus; Site: right antecubital; tw2 17:03 Follow up: Response: No adverse reaction; IV Status: Completed infusion; IV Intake: tw2 1000ml 13:00 Drug: foLIC Acid 1 mg Route: IVPB; Site: right antecubital; tw2 13:02 Follow up: Response: No adverse reaction; No adverse reaction, pt states "my symptoms tw2 have resolved, the numbness went away"; IV Status: Completed infusion 13:45 Drug: Aspirin Chewable Tablet 324 mg {Note: ok per Dr. Cuevas.} Route: PO; tw2 14:22 Follow up: Response: No adverse reaction tw2 14:30 Drug: Kayexalate 15 grams Route: PO; tw2 15:11 Follow up: Response: No adverse reaction tw2 15:11 Drug: Zocor 80 mg Route: PO; tw2 17:03 Follow up: Response: No adverse reaction tw2 15:12 Drug: PlaVIX 75 mg Route: PO; tw2 17:03 Follow up: Response: No adverse reaction tw2 Point of Care Testing: Blood Glucose: 12:48 Blood Glucose: 140 mg/dL; tw2 16:34 Blood Glucose: 96 mg/dL; tw2 Ranges: Critical Glucose Levels:Adult <50 mg/dl or >400 mg/dl <40 mg/dl or >180 mg/dl Disposition: 05/21/18 14:29 Hospitalization ordered by Fermín Huang for Inpatient Admission. Preliminary diagnosis are Cerebral infarction, Unspecified kidney failure, Type 2 diabetes mellitus, Essential (primary) hypertension, Hyperkalemia. - Bed requested for Telemetry/MedSurg (Inpatient). - Status is Inpatient Admission. tw2 - Condition is Fair. - Problem is new. - Symptoms have improved. UTI on Admission? No NIH Stroke Scale - NIH Stroke Score Date: 05/21/2018 Time: 14:32 Total Score = 2 1a. Level of Consciousness (LOC) - 0(Alert) 1b. Level of Consciousness (LOC) (Year \\T\\ Age) - 0(Both) 1c. LOC Commands (Open \\T\\ Closes Eyes/Hand Tennis Ball Coverer) - 0(Both) 2. Best Gaze (Lateral Gaze Paresis) - 0(Normal) 3. Visual Field Loss - 0(No visual loss) 4. Facial Palsy - 0(Normal) 5a. Left Arm: Motor (10-second hold) - 0(No drift) 5b. Right Arm: Motor (10-second hold) - 0(No drift) 6a. Left Leg: Motor (5-second hold - always test supine) - 0(No drift) 6b. Right Leg: Motor (5-second hold - always test supine) - 0(No drift) 7. Limb Ataxia (finger/nose \\T\\ heel/marroquin - test with eyes open) - 1(Present in one limb) 8. Sensory Loss (pinprick arms/legs/face) - 1(Mild to moderate loss) 9. Best Language: Aphasia (description/naming/reading) - 0(No aphasia) 10. Dysarthria (speech clarity - read or repeat words) - 0(Normal) 11. Extinction and Inattention (visual/tactile/auditory/spatial/personal) - 0(No abnormality) Initials: mónica Signatures: Dispatcher [employer] [facility] Sonal Mullins RN RN aj1 Bhavana Lim RN RN dw Anderson, Corey, MD MD cha Wise, Tara RN RN tw2 Corrections: (The following items were deleted from the chart) 13:06 12:45 MR STROKE PROTOCOL+MRI.RAD.CARISSA ordered. [facility] EDMS 14:39 14:27 EC Echo Doppler W/Color Flow+ECHO.RAD.CARISSA ordered. [facility] EDMS 15:51 14:29 Hospitalization Ordered by Fermín Huang MD for Inpatient Admission. dw Preliminary diagnosis is Cerebral infarction; Unspecified kidney failure; Type 2 diabetes mellitus; Essential (primary) hypertension; Hyperkalemia. Bed requested for Telemetry/MedSurg (Inpatient). Status is Inpatient Admission. Condition is Fair. Problem is new. Symptoms have improved. UTI on Admission? No. mónica 17:21 15:51 05/21/2018 14:29 Hospitalization Ordered by Fermín Huang MD for tw2 Inpatient Admission. Preliminary diagnosis is Cerebral infarction; Unspecified kidney failure; Type 2 diabetes mellitus; Essential (primary) hypertension; Hyperkalemia. Bed requested for Telemetry/MedSurg (Inpatient). Status is Inpatient Admission. Condition is Fair. Problem is new. Symptoms have improved. UTI on Admission? No. dw
[2018-05-21] MEDS ORDERED: CLOPIDOGREL 75 MG TABLET ONE (14:45)
[2018-05-21] MEDS ORDERED: D50W 25 GM/50 ML SYRINGE IV PRN ×2 (14:48→20:30)
[2018-05-21] MEDS ORDERED: GLUCAGON 1 MG/VIAL IM PRN ×2 (14:48→20:30)
[2018-05-21] MEDS ORDERED: ATORVASTATIN 40 MG TAB PO ONE (15:00)
[2018-05-21] MEDS ORDERED: NA CHLORIDE 0.9% 1,000 ML IV SCH (15:00)
--- NOTE | 2018-05-21 15:05 | RAD REPORT ---
EXAM DESCRIPTION: US - CP - 05/21/2018 2:55 pm CLINICAL HISTORY: Weakness;Dizziness;Numbness CVA COMPARISON: No comparisons TECHNIQUE: Real-time sonographic evaluation of both carotid systems was performed. Doppler interroga tion was performed with waveform tracing bilaterally. FINDINGS: Normal high resistance waveforms are noted in both external carotid arteries. The common c arotid arteries and internal carotid arteries show normal low resistance waveforms. No significant plaquing is suspected. Peak systolic and end diastolic velocity values and the ICA/CCA ratios are in the non-hemodynamically significant range. Antegrade flow seen in both vertebral arteries. Multiple nonspecific lymph nodes are seen in the neck, greater on the right. IMPRESSION: No significant plaquing is seen. No evidence of a hemodynamically significant stenosis.
[2018-05-21] MEDS ORDERED: INSULIN -REGULAR HUMAN 50 UNIT/0.5 ML ML SQ SCH ×2 (16:30)
[2018-05-21] MEDS: FUROSEMIDE 40 MG TABLET PO SCH (18:49)
[2018-05-21] MEDS: ENOXAPARIN 40 MG/0.4 ML SQ SCH (18:52)
[2018-05-21] MEDS: INSULIN -REGULAR HUMAN 50 UNIT/0.5 ML ML SQ SCH (20:39)
[2018-05-21] MEDS: CARVEDILOL 3.125 MG TAB PO SCH (20:40)
[2018-05-21 22:07] VITALS: BMI 34.1
--- NOTE | 2018-05-22 02:53 | HP ---
Date of Admission: 05/21/2018 History Of Present Illness: A 48-year-old male with multiple medical problems including type 2 diabe zoila mellitus and last time I saw the patient was back in August of 2016. The patient apparently mov ed out of state as he said today and he was seeing a physician in [place] and when he came back to this area and last month he was admitted to the hospital because of acute systolic congestive heart failure, was discharged. The patient did not come to follow up with me yet; however, this morning, tiffany dubois woke up with a complaint of feeling weakness in the left upper and lower extremity. He came to [facility] room and was found to have a cerebrovascular accident; however, at this time, the patient comp lained of weakness in the upper and lower extremities have resolved. The patient has no increased sh ortness of breath. No paroxysmal nocturnal dyspnea. No orthopnea. He has no chest pain. Voiced no other complaints. Review of Systems: Cardiovascular: No complaint. Genitourinary: No complaint. Skeletomuscular: No complaint. Neurological: As above. Gastrointestinal: No complaint. Past Medical History: 1.As above. 2.Type 2 diabetes mellitus. 3.Congestive heart failure with recent left ventricular ejection fraction of 26%. 4.Hypertension. Social History: Denies smoking, alcohol, or drug abuse history. Family History: Noncontributory. Medications: Coreg 3.125 mg p.o. b.i.d., Lasix 40 mg p.o. b.i.d., Victoza 1.8 mg subcutaneous daily, lisinopril 20 mg p.o. daily, spironolactone 25 mg p.o. daily, and metformin 1000 mg p.o. b.i.d. Allergies: NO KNOWN DRUG ALLERGIES. Physical Examination: Vital Signs: Blood pressure 140/90, pulse 78, respiratory rate 18, temperature 97.5. Heart: Regular rate and rhythm. No gallop. Neck: Carotid showed no bruit. Chest: Clear to auscultation. Abdomen: Soft, benign. Bowel sounds are normoactive. Extremities: No edema. No cyanosis. Peripheral pulses are felt. Neurological: The patient is alert, oriented x4, ambulating well. His cranial nerves 2 through 12 i ntact. Sensory intact. Motor 5/5 and deep tendon reflexes 2/4. Diagnostic Data: Chest x-ray, no acute pathology. EKG, normal sinus rhythm, left axis deviation, le ft ventricular hypertrophy, QRS widening. MRI of the brain showed nonhemorrhagic acute CVA 11 x 10 m m in the right posterior periventricular white matter extending into the posterior right basal gangli a. Brain CT noted no bleeding also. The patient had carotid ultrasound and doppler showed no signif icant hemodynamic narrowing. On his blood workup, CBC nonrevealing. PT/INR within normal. Chemistr y: Sodium 133, BUN 66, creatinine 2.70, GFR down to 26. BNP 1128. Lipase is 536. Troponin less th an 0.02. Assessment/plan: 1.Right cerebrovascular accident. At this time, no residual weakness affecting the left side. The patient is stable and doing well from that standpoint. Neurology was consulted. We will put the pat ient on neuro checks. Admit him to the hospital. Dr. Vaca will see the patient. 2.The patient has been put on enoxaparin, Lovenox 40 mg subcutaneous daily, put him on insulin slidi ng scale and check his blood sugar fingersticks q.a.c. and h.s. We will hold on his metformin and be cause of his chronic renal insufficiency, I do not think this will be renewed. 3.The patient's potassium is 5.2. We will hold on his lisinopril at this time and we will follow up his potassium. We will also hold on spironolactone and follow up his potassium and then gradually p ut back those medicines and with close monitoring of his potassium. We will continue the patient on Lasix. Monitor his electrolytes and we will continue his carvedilol. Look orders for details. MFS/MODL Voice ID: [id number]
[2018-05-22 04:59] LABS: Absolute Lymphocytes (CBC) 2.4 K/uL (0.7-4.9); Absolute Monocytes 0.5 K/uL (0.1-1.3); Absolute Neutrophil 3.6 K/uL (1.8-8.0); Eosinophils % 2.5 % (0-4.4); Hematocrit 42.7 % (39.6-49.0); Lymphocytes % 35.7 % (15.3-44.8); MCV 91.7 fL (80-100); MPV 10.8 fL (7.6-11.3); Monocytes % 7.5 % (3.3-12.3); RBC Red Blood Cell Count 4.65 M/uL (4.33-5.43)
[2018-05-22 05:17] LABS: BUN Blood Urea Nitrogen 55 mg/dL (7-18); Bicarbonate 23 mmol/L (21-32); CKMB Creatine Kinase MB < 1.0 ng/mL (0.3-3.6); Creatine Phosphokinase 75 U/L (39-308); Glucose Level 113 mg/dL (74-106); HDL Cholesterol 24 mg/dL (40-60); LDL Cholesterol, Calculated 87 (<130); Potassium 4.3 mmol/L (3.5-5.1); Sodium Level 138 mmol/L (136-145); Troponin I < 0.02 ng/mL (0.0-0.045)
[2018-05-22] MEDS: INSULIN -REGULAR HUMAN 50 UNIT/0.5 ML ML SQ SCH ×4 (07:30→21:00)
--- NOTE | 2018-05-22 08:08 | RAD REPORT ---
EXAM DESCRIPTION: CT - Ct Stroke Brain Wo Cont - 05/22/2018 7:39 am CLINICAL HISTORY: Acute onset left-sided weakness, history of recent CVA Exam was initially only available in the exception folder. Findings telephoned to Dr. Bullock 7:42 a.m . CLINICAL HISTORY: MRI May 21, CT head May 21 TECHNIQUE: Axial 5 millimeter thick images of the head were obtained without IV contrast. All CT scans are performed using dose optimization technique as appropriate and may include automated exposure control or mA/KV adjustment according to patient size. FINDINGS: No intracranial hemorrhage has developed. No mass effect, edema or shift of midline struct ures. No acute cortical based infarction seen. There is no cortical edema or sulcal effacement. Approximately 10 mm area of diminished attenuation is seen in the deep periventricular white matter r ight frontal lobe and posterior margin of the basal ganglia. This is the correlate to the acute CVA s een on the recent MRI study. No evidence on CT imaging for extension of the infarction. Patient has p atchy diminished attenuation scattered in the white matter again matching the MRI findings. Mastoid air cells are clear. No new or significant paranasal sinus finding. IMPRESSION: No intracranial hemorrhage is present and no new infarction changes are identifiable. The nonhemorrhagic infarctions seen on the MRI study is identifiable on this study. There is no evide nce for enlargement.
[2018-05-22 08:36] LABS: Urine Appearance CLEAR; Urine Bilirubin NEGATIVE (NEG); Urine Blood 1+ (NEG); Urine Color YELLOW; Urine Glucose NEGATIVE (NEG); Urine Protein 2+ (NEG); Urine Specific Gravity 1.015 (1.005-1.030); Urine Urobilinogen 0.2 mg/dL (0.2-1.0); Urine pH 5.5 (5.0-7.0)
[2018-05-22 08:38] LABS: Urine Microscopic Reflex ORDER UMIC
[2018-05-22 08:40] LABS: Absolute Lymphocytes (CBC) 2.1 K/uL (0.7-4.9); Absolute Monocytes 0.5 K/uL (0.1-1.3); Absolute Neutrophil 3.8 K/uL (1.8-8.0); Eosinophils % 3.3 % (0-4.4); Hematocrit 42.8 % (39.6-49.0); Lymphocytes % 30.7 % (15.3-44.8); MCH 31.1 pg (27.0-35.0); MPV 10.4 fL (7.6-11.3); Monocytes % 7.9 % (3.3-12.3); Potassium 4.6 mmol/L (3.5-5.1)
[2018-05-22 08:43] LABS: Protime INR 1.08
[2018-05-22 08:45] LABS: Urine Bacteria <20 /HPF (NONE SEEN); Urine Culture Reflex Order NOT NEEDED; Urine RBC <5 /HPF (NONE SEEN)
[2018-05-22] MEDS ORDERED: INFLUENZA VACCINE (for 3y+) 0.5 ML DOSE IMVAC ONE (09:00)
[2018-05-22] MEDS: CARVEDILOL 3.125 MG TAB PO SCH ×2 (09:00→17:39)
--- NOTE | 2018-05-22 09:09 | RAD REPORT ---
EXAM DESCRIPTION: RAD - Chest Single View - 05/22/2018 8:25 am CLINICAL HISTORY: Code stroke chest film COMPARISON: May 21 TECHNIQUE: AP portable chest image was obtained 0732 hours . FINDINGS: Lungs are clear. Heart and vasculature are normal. No measurable pleural effusion and no p neumothorax. No gross bony abnormality seen. No acute aortic findings suspected. IMPRESSION: No acute cardiopulmonary process. No significant interval change.
[2018-05-22] MEDS: FUROSEMIDE 40 MG TABLET PO SCH ×2 (10:44→17:36)
[2018-05-22] MEDS: ASPIRIN EC 81 MG TAB PO SCH (10:44)
[2018-05-22] MEDS: CLOPIDOGREL 75 MG TABLET PO SCH (10:44)
--- NOTE | 2018-05-22 10:45 | EKG ---
Test Date: 2018-05-22 Test Time: 07:41:48 Nursing Informatics Analyst: NEERAJ MEASUREMENT RESULTS: Intervals: Rate: 67 WA: 184 QRSD: 120 QT: 426 QTc: 450 [place]: P: 34 WA: 184 QRS: -54 T: 66 INTERPRETIVE STATEMENTS: Normal sinus rhythm Left anterior fascicular block Left ventricular hypertrophy with QRS widening Nonspecific T wave abnormality Abnormal ECG Compared to ECG 05/21/2018 12:46:32 Left anterior fascicular block now present T-wave abnormality now present Left-axis deviation no longer present Electronically Signed On 05-22-18 10:44:40 CDT by Juan Mcclellan
[2018-05-22] MEDS: ENOXAPARIN 40 MG/0.4 ML SQ SCH (10:46)
[2018-05-22] MEDS: LIRAGLUTIDE 18 MG/3 ML SQ SCH (10:53)
[2018-05-22] MEDS: FOLIC ACID 1 MG TABLET PO SCH (14:14)
--- NOTE | 2018-05-22 15:20 | ECHO ---
HEIGHT: 5 ft 5 in WEIGHT: 205 lb 0 oz DATE OF STUDY: 05/22/[address]: Atilio Vaca MD 2-DIMENSIONAL: YES M.MODE: YES DOPPLER: YES COLOR FLOW: YES TDS: PORTABLE: DEFINITY: BUBBLE STUDY: DIAGNOSIS: NEW STROKE, HX CARDIAC. CARDIAC HISTORY: CATHERIZATION: NO SURGERY: NO PROSTHETIC VALVE: NO PACEMAKER: NO MEASUREMENTS (cm) DIASTOLIC (NORMALS) SYSTOLIC (NORMALS) IVSd 0.9 (0.6-1.2) LA Diam 4.1 (1.9-4.0) LVEF 26% LVIDd 6.5 (3.5-5.7) LVIDs 5.7 (2.0-3.5) %FS 12% LVPWd 1.4 (0.6-1.2) Ao Diam 3.7 (2.0-3.7) 2 DIMENSIONAL ASSESSMENT: RIGHT ATRIUM: DILATED LEFT ATRIUM: DILATED RIGHT VENTRICLE: DILATED LEFT VENTRICLE: DILATED TRICUSPID VALVE: NORMAL MITRAL VALVE: NORMAL PULMONIC VALVE: NORMAL AORTIC VALVE: NORMAL PERICARDIAL EFFUSION: NONE AORTIC ROOT: NORMAL LEFT VENTRICULAR WALL MOTION: SEVERE GLOBAL HYPOKENISIS DOPPLER/COLOR FLOW: MILD MITRAL AND TRICUSPID REGURGITATION. NORMAL RIGHT VENTRICULAR SYSTOLIC PRESSURE. COMMENTS: FOUR CHAMBER DILATION. DEPRESSED LEFT VENTRICULAR EJECTION FRACTION. MILD MITRAL AND TRICUSPID REGURGITATION. NO CHANGE SINCE 04-25-2018. TECHNOLOGIST: AV CHOWDARY
--- NOTE | 2018-05-22 17:57 | PN ---
Subjective: The patient this morning reporting that he is feeling heaviness in his left upper and lo wer extremity. However, little bit of tingling in his fingertips on the left side. The patient said that this morning he had genuine and more effort to move his limbs and so he felt that the differenc e between his both sides. He had no other complaint. Objective: Vital Signs: Blood pressure 140/90, pulse 77, temperature 98.1. Heart: Regular rate and rhythm. Chest: Clear to auscultation. Abdomen: Soft, benign. Bowel sounds are active. Extremities: No edema. No cyanosis. Peripheral pulses are felt. Neurological examination: Alert and oriented x4. Cranial nerves 2 through 12 intact. Motor 4/5 on the left upper and lower extremity and 5/5 on the right upper and lower extremity. DTRs 2/4. Babins ki on the left is equal equivocal. Diagnostic Studies: Repeated head CT scan this morning showed no new infarction and no increase in t he infarcted area that was showing yesterday CT. No new change. CBC today is noted. Chemistry; BUN 57, creatinine 2.3. Blood sugar fingersticks noted. Lipid profile also noted. Assessment And Plan: 1.Cerebrovascular accident with left-sided weakness. No apparent. No evolving CVA think at this ti me. The patient had more effort than yesterday to show different in strength between both sides. Ho wever with physical therapy and management I think that weakness will improve. 2.Congestive heart failure. The patient is clinically stable from that standpoint. We will keep hi m on furosemide. 3.Renal insufficiency, chronic have worsened, recently it is have worsened slightly. However, we wi ll monitor his BUN and creatinine, I think it will improve still. 4.Hypertension, controlled. 5.Pending Neurology recommendations. We will continue current treatment. The patient is on Plavix, aspirin and on Lovenox. I think the patient remained stable. The discharge for him tomorrow will b e adequate. Look orders for details. MFS/MODL Voice ID: [id number] Report ID: [id number]
[2018-05-22] MEDS: NICOTINE 14 MG/PAT TD SCH (21:08)
--- NOTE | 2018-05-22 22:12 | CON ---
Reason For Consultation: Consultation called because of stroke. History Of Present Illness: Mr. Ny is a 48-year-old patient with hypertension and aditya betes, who is poorly compliant with medications and has a long history of smoking 1 pack a day for ab out 30 years. The patient was doing well until this weekend on Sunday when he developed some numbnes s of the left leg and arm which he initially ignored that persisted and became worse on Sunday. The patient did not seek medical advice at that point. He eventually was brought in by family after the left arm and leg became weaker and he had difficulty with his coordination, balance, and gait. At [facility] he had imaging including a brain MRI which showed an 11 x 10 mm nonhemorrhagic acut e stroke in the right posterior periventricular white matter region extending into the posterior righ t basal ganglia. His blood pressure on admission was around the 130s to 150s systolic over the 90s d iastolic. He does have a history of congestive heart failure with a low ejection fraction of around 25% to 26%. Blood work included a normal complete blood count with differential. Coagulation panel was unremarkable. Chemistries did show elevated creatinine of 2.3 indicating significant dehydration and renal dysfunction. His sugars did range up to 225. After admission, triglycerides were found e levated 213, LDL cholesterol was 87, HDL cholesterol low at 24. His cholesterol to HDL ratio was munira vated at 6.42. His electrocardiogram showed normal sinus rhythm with left axis deviation. The patient was not taking aspirin or any antiplatelet medication. In the emergency room, he was giv en 2 aspirin and put on Plavix 75 mg along with folic acid, high-dose statin, and DVT prophylaxis wit h Lovenox and admitted. Past Medical History: As indicated above. Allergies: NO KNOWN DRUG ALLERGIES. Medications: At home which the patient is poorly compliant includes lisinopril and metformin along w ith Victoza. Family History: Stroke runs in his family per the patient. Social History: Admits to smoking about a pack a day for perhaps up to 30 years. Review of Systems: He denies any recent fevers, chills, nausea, vomiting, myalgias, arthralgias, rash, headache, weight change. No psychiatric problems or gastrointestinal or genitourinary issues. Physical Examination: Vital Signs: Blood pressure 143/90, pulse of 77, respiratory rate 18, temperature 98.1, oxygen satur ation 96% on room air, weight 205 pounds, height 5 feet 5 inches, BMI 34.1. General: Mr. Ny is resting comfortably in bed. He is in no acute distress. He is normocephal ic, atraumatic. Sclerae are anicteric. Oropharynx is moist and pink. Neck: Supple. Chest: Clear. Heart: Regular. Extremities: Show no edema, cyanosis, or clubbing. Neurological: He is alert and oriented to person, place, time, and situation. He has no expressive or receptive aphasias. He has full visual jones to confrontation. His pupils are equally round and reactive to light and accommodation. His extraocular movements are intact. His facial sensation is intact to light touch, pinprick, and temperature bilaterally. Tongue and palate are in the midline. Hearing intact to finger rub bilaterally. Motor examination, despite the stroke, he has very subtl e weakness in the left arm around 4+ to 5- proximally and distally, on the right side 5/5 strength pr oximally and distally. In the lower extremities, similarly he has 4+/5 strength in the left proximal and distal lower extremity and . Coordination is intact in the upper and lower extremitie s. Reflexes are symmetric at 2+ in the upper and lower extremities. Gait, he does have a tendency t o fall to the left side. He had a negative Romberg test. He has decreased arm swing and stride laura th. His NIH Stroke Scale is 2. Assessment: Mr. Ny is a 48-year-old patient with stroke risk factors of etb-ejlbrtj-gjmcahiqo diabetes mellitus and hypertension, who is poorly compliant with medications along with congestive he art failure and low ejection fraction of around 26%. The patient is not taking antiplatelet medicati ons or statins. Plan: 1.High-dose statin daily. 2.Continue aspirin 81 mg daily. 3.Plavix 75 mg daily. 4.Folate 1 mg daily. 5.DVT prophylaxis with Lovenox 40 mg subcutaneously daily. 6.Continue with Lasix twice daily, although the patient should have his volume status evaluated. 7.The patient will be ambulated with physical therapy and determine the need for physical therapy af ter stroke. At this point, he appears to be well enough for outpatient physical therapy. He has no issues with swallowing and does not require speech therapy. He may also benefit from occupational th erapy. After his discharge, the patient should follow up with Dr. Vaca in clinic in 1 month. YVONNE Voice ID: [id number] Report ID: [id number]
[2018-05-23] MEDS: CARVEDILOL 3.125 MG TAB PO SCH (06:00)
[2018-05-23 06:19] LABS: Potassium 4.1 mmol/L (3.5-5.1)
[2018-05-23] MEDS: INSULIN -REGULAR HUMAN 50 UNIT/0.5 ML ML SQ SCH ×2 (07:30→11:30)
[2018-05-23] MEDS: LIRAGLUTIDE 18 MG/3 ML SQ SCH (09:30)
[2018-05-23] MEDS: ENOXAPARIN 40 MG/0.4 ML SQ SCH (09:34)
[2018-05-23] MEDS: FOLIC ACID 1 MG TABLET PO SCH (09:35)
[2018-05-23] MEDS: CLOPIDOGREL 75 MG TABLET PO SCH (09:35)
[2018-05-23] MEDS: FUROSEMIDE 40 MG TABLET PO SCH (09:35)
[2018-05-23] MEDS: ASPIRIN EC 81 MG TAB PO SCH (09:35)
[2018-05-23] MEDS: NICOTINE 14 MG/PAT TD SCH (09:37)
[2018-05-23 09:45] VITALS: O2SAT 97
[2018-05-23 18:31] VITALS: BP 161/98; TEMP 97.3
--- NOTE | 2018-05-24 04:34 | DS ---
Date of Discharge: 05/23/2018 History Of Present Illness: A 48-year-old male with diabetes and multiple other medical problems, wa s admitted to the hospital because of CVA that is causing left upper and lower extremity weakness. Past Medical History: As per admit note. Social History: As per admit note. Family History: As per admit note. Medications: As per admit note. Allergies: PER ADMIT NOTE. Physical Examination: As per admit note. Diagnostic Data: As per admit note. Hospital Course: The patient was admitted to the hospital, was put through neuro checks. Dr. Triplett ll, Neurology, has seen him and the patient was put on Plavix and aspirin and also Lovenox. The dayanna ent's motor weakness remained at 4/5 in the left upper and lower extremity, being stabilized that he had some numbness also in his left hand and that has not changed over the past 24 hours. The patient is doing well. We will monitor his blood sugar and put him on regular insulin sliding scale. The p krysten has chronic renal insufficiency, so I held on his metformin and Victoza, and we will put him o n Lantus. We will start with 5-10 units subcutaneous daily, and I have asked the patient to check hi s blood sugar fingersticks q.a.c. for 3 days and bring those numbers with him on followup with me nex t week. The patient to continue his blood pressure medication and the rest of his home medicines, ex cept for spironolactone because his potassium was a little bit high when he came in here. I kept him on Lasix 40 mg p.o. b.i.d. and we will check on his chemistry next Sunday when I see him, look orders for details. MFS/MODL Voice ID: [id number] Report ID: [id number]
== END 2018-05-23 17:19 | disposition home or self-care (01) | DRG 66 ==
LOC: ER 12:23 → ERHOLD 14:35 → 4TH 17:02
PROVIDERS: ADMIT Internal Medicine; ATTEND Internal Medicine
DX: I63.9 Cerebral infarction, unspecified (principal); E11.9 Type 2 diabetes mellitus without complications; I50.9 Heart failure, unspecified; I10 Essential (primary) hypertension; F17.200 Nicotine dependence, unspecified, uncomplicated
CPT/HCPCS: 36415; 70450; 70551; 71045; 80048; 80061; 80076; 81003; 81015; 82550; 82553; 82962; 83036; 83690; 83735; 83880; 84484; 85025; 85610; 85652; 85730; 86140; 87086; 87088; 93005; 93306; 93880; 94760; 96361; 96374; 97163; 99285; J1650; J7030

== ENCOUNTER 2018-08-06 08:29 | Day surgery (SDC) | payer OTHER ==
[2018-08-02 10:30] LABS: Potassium 4.6 mmol/L (3.5-5.1)
[2018-08-02 10:43] LABS: Absolute Lymphocytes (CBC) 1.8 K/uL (0.7-4.9); Absolute Monocytes 0.6 K/uL (0.1-1.3); Absolute Neutrophil 4.9 K/uL (1.8-8.0); Basophils % 0.9 % (0-1.3); Eosinophils % 2.2 % (0-4.4); Lymphocytes % 24.1 % (15.3-44.8); MPV 10.6 fL (7.6-11.3); Monocytes % 7.7 % (3.3-12.3); Protime INR 0.99; RBC Red Blood Cell Count 3.87 M/uL (4.33-5.43)
[2018-08-06] MEDS ORDERED: NA CHLORIDE 0.9% 500 ML ONE (08:44)
[2018-08-06] MEDS ORDERED: FENTANYL CITR 100 MCG/2 ML ONE (10:19)
[2018-08-06] MEDS ORDERED: MIDAZOLAM HCL 2 MG/2 ML INJ ONE (10:19)
[2018-08-06] MEDS ORDERED: NA CHLORIDE 0.9% 0 ML ONE (10:19)
[2018-08-06] MEDS ORDERED: ATROPINE SULF 1 MG/10 ML SYR IV ONE (10:19)
[2018-08-06] MEDS ORDERED: ACETAMINOPHEN 325 MG TABLET ONE (11:31)
[2018-08-06 12:15] VITALS: O2SAT 99
[2018-08-06] MEDS ORDERED: HEPA 1000U/500MLS 1,000 UNIT/500 ML BAG IV ONE (12:34)
--- NOTE | 2018-08-06 12:34 | OP ---
Surgeon: Hermann Nunez MD Delivery Crew Worker: Allan Sotelo. Procedure: Left heart catheterization with selective coronary arteriogram and left ventriculogram. Indication: New onset congestive heart failure with ejection fraction of 25-30%. That was noted on April 2018. Procedure In Detail: The patient was brought into the labor contract analyst today as an outpatient, prepped and d raped in the routine sterile fashion, given 4 mg of Versed and 50 mg of fentanyl for sedation. 6-Matthew nch sheath introduced in the right common femoral artery. Angiography there was normal. Angio-Seal was used to close the case. Simona catheter left and right were used, 6-Canadian, to do the injection for the left main and the right main. He was found to have normal coronary arteries. Left ventricu logram was done showing an ejection fraction about 40-45%, improved, since April 2018, on appropr iate medication. His end-diastolic pressure was 4 mmHg. There were no complications. Blood Loss: 5 cc. Total conscious sedation was 30 minutes. Final Diagnosis: Idiopathic dilated cardiomyopathy, improving, normal coronaries. Plan: To continue medical therapy with PHILIP inhibitors, aspirin lisinopril, and beta-blockers. He wi ll be going home today in 2 hours after bedrest and see me in the office in 2 weeks. KVNG/GALEN Voice ID: [id number] Report ID: [id number]
[2018-08-06 12:38] VITALS: BP 147/83; TEMP 98.4
== END 2018-08-06 12:36 | disposition home or self-care (01) ==
LOC: CCL 08:29
DX: I42.0 Dilated cardiomyopathy (principal); I11.0 Hypertensive heart disease with heart failure; I50.21 Acute systolic (congestive) heart failure; E78.6 Lipoprotein deficiency; E11.9 Type 2 diabetes mellitus without complications; I25.2 Old myocardial infarction; Z79.82 Long term (current) use of aspirin; Z79.02 Long term (current) use of antithrombotics/antiplatelets; Z79.4 Long term (current) use of insulin; Z79.899 Other long term (current) drug therapy; Z86.73 Personal history of transient ischemic attack (TIA), and cerebral infarction without residual deficits; Z87.891 Personal history of nicotine dependence
CPT/HCPCS: 36415; 80048; 82962; 85025; 85610; 85730; 93458; C1760; C1893; J0583; J2250; J3010

== ENCOUNTER 2022-05-12 14:37 | Inpatient (IN) | payer SELFPAY ==
[2022-05-12 15:46] LABS: Absolute Lymphocytes (CBC) 1.5 K/uL (0.7-4.9); Lymphocytes % 13.3 % (15.3-44.8); MCV 85.1 fL (80-100); MPV 9.1 fL (7.6-11.3); RBC Red Blood Cell Count 3.76 M/uL (4.33-5.43)
[2022-05-12 15:46] LABS: Specific Gravity 1.011 (1.005-1.030); Urine Bilirubin NEGATIVE (Negative); Urine Blood 2+ (Negative); Urine Clarity Clear (Clear); Urine Color Light-Yellow (Yellow); Urine Glucose 4+ (Over) (Negative); Urine Protein 3+ (Negative); Urine RBC <5 /HPF (None Seen); Urine Urobilinogen Normal (Normal)
[2022-05-12 15:54] LABS: SARS-CoV-2 Antigen Rapid Res Negative (Negative)
[2022-05-12 16:03] LABS: UR PROTEIN 890.9 mg/dL (<11.9); Urine Protein/Creatinine Ratio 8.33 ratio (<0.15)
[2022-05-12 16:03] LABS: ALT/SGPT 16 U/L (12-78); AST/SGOT 6 U/L (15-37); Albumin 2.2 g/dL (3.4-5.0); Alkaline Phosphatase 71 U/L (45-117); BUN Blood Urea Nitrogen 84 mg/dL (7-18); Bicarbonate 27 mmol/L (21-32); Bilirubin Total 0.3 mg/dL (0.2-1.0); Creatine Phosphokinase 200 U/L (39-308); Glomerular Filtration Rate 6 ml/min (=/>90); Glucose Level 220 mg/dL (74-106); Protein, Total 6.6 g/dL (6.4-8.2); Sodium Level 132 mmol/L (136-145)
[2022-05-12 16:05] LABS: Bilirubin Direct < 0.1 mg/dL (0-0.2)
[2022-05-12 16:12] LABS: Potassium 2.5 mmol/L (3.5-5.1)
[2022-05-12] MEDS ORDERED: NACHLORIDE 0.45% 1,000 ML IV SCH ×2 (17:00→18:00)
[2022-05-12] MEDS ORDERED: GLUCAGON 1 MG/VIAL IM PRN (17:25)
[2022-05-12] MEDS ORDERED: DEXTROSE 10%-WATER 500 ML IV BAG IV PRN (17:32)
--- NOTE | 2022-05-12 17:55 | RAD REPORT ---
EXAM DESCRIPTION: RAD - Chest Pa And Lat (2 Views) - 05/12/2022 5:46 pm CLINICAL HISTORY: direct admit Chest pain. COMPARISON: Chest Single View dated 05/22/2018; Chest Single View dated 05/21/2018; Chest Pa And Lat ( 2 Views) dated 04/25/2018 FINDINGS: The lungs are clear. Small hiatal hernia. The heart is normal in size. No displaced fractu res. IMPRESSION: No acute or concerning finding suspected.
[2022-05-12] MEDS ORDERED: POLYETHYL GLY 3350 17 GM/DOSE PO PRN (18:00)
[2022-05-12] MEDS ORDERED: LOPERAMIDE HCL 2 MG CAPSULE PO PRN (18:00)
[2022-05-12] MEDS ORDERED: DIPHENHYDRAMINE 25 MG TAB/CAP PO PRN (18:00)
[2022-05-12] MEDS ORDERED: PNEUMOCOCCAL VACCINE 0.5 ML IMVAC ONE (18:00)
[2022-05-12] MEDS ORDERED: ONDANSETRON 4 MG (ODT) TAB PO PRN (18:00)
[2022-05-12] MEDS ORDERED: KCL 20 MEQ/100 mL IVPB 20 MEQ/100 ML BAG IV SCH (18:00)
[2022-05-12] MEDS ORDERED: ACETAMINOPHEN 325 MG TABLET PO PRN (18:00)
[2022-05-12] MEDS ORDERED: POTASSIUM CL SA 10 MEQ TAB PO SCH (18:00)
[2022-05-12] MEDS ORDERED: ONDANSETRON 4 MG/2 ML VIAL IV PRN (18:00)
[2022-05-12] MEDS: ENOXAPARIN 30 MG/0.3 ML SQ SCH (18:18)
[2022-05-12] MEDS: KCL 20 MEQ/100 mL IVPB 20 MEQ/100 ML BAG IV SCH ×2 (20:00→22:00)
[2022-05-12] MEDS ORDERED: NA CHLORIDE 0.9% 500 ML with POTASSIUM CL 40 MEQ IV ONE ×2 (20:00)
[2022-05-12] MEDS: INSULIN -REGULAR HUMAN 50 UNIT/0.5 ML ML SQ SCH (21:22)
[2022-05-12] MEDS: NACHLORIDE 0.45% 1,000 ML IV SCH (22:43)
[2022-05-13 03:38] LABS: Specific Gravity 1.009 (1.005-1.030); Urine Bacteria <20 /HPF (<20); Urine Bilirubin NEGATIVE (Negative); Urine Blood 1+ (Negative); Urine Clarity Clear (Clear); Urine Color Colorless (Yellow); Urine Glucose 4+ (Over) (Negative); Urine Mucus Slight /HPF (None Seen); Urine Protein 3+ (Negative); Urine RBC <5 /HPF (None Seen); Urine Urobilinogen Normal (Normal); Urine pH 6.5 (5.0-7.0)
[2022-05-13 04:20] LABS: Albumin 1.9 g/dL (3.4-5.0); Phosphorus 7.5 mg/dL (2.5-4.9); Potassium 2.7 mmol/L (3.5-5.1)
[2022-05-13] MEDS: INSULIN -REGULAR HUMAN 50 UNIT/0.5 ML ML SQ SCH ×4 (08:41→21:36)
[2022-05-13] MEDS: ENOXAPARIN 30 MG/0.3 ML SQ SCH (08:41)
[2022-05-13] MEDS: NACHLORIDE 0.45% 1,000 ML IV SCH (09:04)
[2022-05-13] MEDS ORDERED: POTASSIUM CL 40 MEQ in NA CHLORIDE 0.9% 500 ML IV SCH (10:00)
--- NOTE | 2022-05-13 11:01 | RAD REPORT ---
EXAM DESCRIPTION: US - Abdomen Pelvis Scan US - 05/13/2022 8:03 am CLINICAL HISTORY: High blood pressure renal failure COMPARISON: Abdomen Pelvis Scan US dated 07/03/2018 FINDINGS: The bilateral kidneys are normal in size, the right measuring 9.0 x 5.2 x 5.0 cm and the l eft measuring 10.3 x 6.2 x 4.7 cm. Aortic velocity: 45 cm/second Right proximal renal artery: 60 cm/second Right mid renal artery: 34 cm/second Right distal renal artery: 20 cm/second Right renal arcuate artery resistive index: 0.8 Right renal artery / aorta ratio: 1.3 Left proximal renal artery: 77 cm/second Left mid renal artery: 59 cm/second Left distal renal artery: 24 cm/second Left renal arcuate artery resistive index: 0.8 Left renal artery/aorta ratio: 1.8 Normal waveforms demonstrated within the bilateral renal arteries. IMPRESSION: No evidence of hemodynamically significant stenosis within the bilateral renal arteries.
--- NOTE | 2022-05-13 11:06 | RAD REPORT ---
EXAM DESCRIPTION: US - Urinary Bladder - 05/13/2022 8:04 am CLINICAL HISTORY: Check for PVR Pelvic pain COMPARISON: CT MULTIPLANAR RECONSTRUCTION dated 05/04/2015 TECHNIQUE: Real-time sonographic evaluation of the urinary bladder with pre and postvoid volume miguel urements was performed. FINDINGS: Prostate gland is mildly prominent projecting into the bladder base. No bladder mass or ur eterocele is evident. Prevoid bladder volume 200 mL. Postvoid bladder volume 35 mL. IMPRESSION: Mild PVR is noted.
--- NOTE | 2022-05-13 14:54 | P.PN ---
Subjective Date of Service: 05/13/22 Chief Complaint: FEELS BETTER. Subjective: Improving HE HAS NO CHEST PAIN. HIS FATIGUE IS LOT BETTER. Review of Systems 10-point ROS is otherwise unremarkable General: Weakness Physical Examination - Vital Signs Temperature: 98.4 F Blood Pressure: 167/85 Pulse: 76 Respirations: 16 Pulse Ox (%): 97 - Physical Exam General: Oriented x2, Comatose HEENT: Atraumatic, PERRLA, EOMI Neck: Supple, JVD not distended Respiratory: Clear to auscultation bilaterally, Normal air movement Cardiovascular: Regular rate/rhythm, Normal S1 S2 Gastrointestinal: Normal bowel sounds, No tenderness Musculoskeletal: No tenderness Integumentary: No rashes Neurological: Normal speech, Normal tone, Normal affect Lymphatics: No axilla or inguinal lymphadenopathy - Studies Laboratory Data (last 24 hrs) 05/13/22 08:05: Potassium 2.8 L* 05/13/22 03:30: Sodium 135 L, Potassium 2.7 L*, BUN 79 H, Creatinine 8.44 H*, Glucose 221 H, Phosphorus 7.5 H 05/12/22 16:43: WBC Cancelled, Hgb Cancelled, Hct Cancelled, Plt Count Cancelled 05/12/22 15:07: Sodium Cancelled, Potassium Cancelled, BUN Cancelled, Creatinine Cancelled, Glucose Cancelled, Magnesium 1.7 L, Total Bilirubin Cancelled, AST Cancelled, ALT Cancelled, Alkaline Phosphatase Cancelled 05/12/22 15:07: Sodium 132 L, Potassium 2.5 L*, BUN 84 H, Creatinine 9.21 H*, Glucose 220 H, Total Bilirubin 0.3, AST 6 L, ALT 16, Alkaline Phosphatase 71 05/12/22 15:07: WBC 11.40 H, Hgb 10.7 L, Hct 32.0 L, Plt Count 322 Medications List Reviewed: Yes Assessment And Plan - Current Problems (Diagnosis) (1) Dehydration Current Visit: Yes Status: Acute Plan: IV FLUIDS STABLE. REAT IS DOWN TO 8. (2) Hypokalemia Current Visit: Yes Status: Acute Plan: REPLACE K. DAILY CHECK. (3) Nephrotic syndrome Current Visit: Yes Status: Acute Plan: THIS IS NEW ISSUE NEED TO BE CONFIRED. MAY NEED RENAL BIOSPY. RENAL DOCTOR ON CASE.
[2022-05-13 17:34] LABS: Absolute Lymphocytes (CBC) 1.4 K/uL (0.7-4.9); Hematocrit 29.9 % (39.6-49.0); Lymphocytes % 14.4 % (15.3-44.8); MCV 87.1 fL (80-100); MPV 8.8 fL (7.6-11.3); RBC Red Blood Cell Count 3.43 M/uL (4.33-5.43)
[2022-05-13 17:51] LABS: Magnesium 1.5 mg/dL (1.8-2.4); Potassium 2.8 mmol/L (3.5-5.1)
[2022-05-13] MEDS: KCL 20 MEQ/100 mL IVPB 20 MEQ/100 ML BAG IV SCH ×2 (18:44→21:14)
[2022-05-13] MEDS ORDERED: KCL 20 MEQ/100 mL IVPB 200 ML IV ONE (18:52)
--- NOTE | 2022-05-13 20:25 | CON ---
Date of Consultation: 05/13/2022 Chief Complaint: Severe acute kidney injury, elevated BUN and creatinine. History Of Present Illness: The patient has multiple medical problems including history of diabetes mellitus and hypertension. Previously he was treated for congestive heart failure and required hospital admission. Back in 2018, serum creatinine level was 1.4-1.6. On arrival to the hospital, patient had severe hyperazotemia and creatinine level was 9.2, BUN 85, sodium 132, potassium 2.5, chloride 92, and CO2 27. The patient has diabetes mellitus and his hemoglobin A1c previously was checked in 2018 and was 7.6. The patient has history of noncompliance. Renal ultrasound was done on admission and did not show obstructive uropathy and there is no evidence of renal artery stenosis. Patient had bladder scan done to rule out increased postvoid residual, but there was mild volume residual noted although prevoid bladder volume was 200 and postvoid bladder was 35 mL. The patient denies difficulty with urination and he denies prostate problems. He previously had a cardiac catheterization done back in 2018 and was diagnosed with congestive heart failure. Recently, his medication was changed and routine lab work showed severe hyperazotemia and advanced kidney insufficiency and acute kidney injury was a concern and patient was admitted to the hospital. Patient states that the urine output has not declined. He was not using nonsteroidal anti-inflammatory medication in the recent past and he did not have exposure to contrast. Back in 2018, his ultrasound also did not show hydronephrosis. He although has history of hypertension, diabetes mellitus, and history of smoking 1 pack per day for at least 35 years. The patient has history of nonhemorrhagic acute stroke in 2018. He was seen by a neurologist in the hospital and MRI of the brain showed 11 x 10 mm small nonhemorrhagic acute stroke in the right posterior periventricular white matter region extending into posterior right basal ganglia. On admission his blood pressure was somewhat elevated. Patient has severe congestive heart failure with low ejection fraction about 25%-26% and this was diagnosed back in 2018. During this admission cardiac echo is pending and Cardiology consultation was requested. In 2019, creatinine level on occasion was up to 2.3 and at that time, patient had volume depletion and was treated for acute kidney injury. The patient is not a good historian, although he said that recently his medications were changed and subsequently he was found to have worsening of the renal function. The patient previously when he was diagnosed with congestive heart failure, Lasix was recommended. He was on Plavix as well as aspirin and statin daily. Review of Systems: General: Denies fever or chills. Eyes: Denies vision changes. Ears, Nose and Throat: Denies sore throat or earache. Respiratory: Denies PND or orthopnea. Cardiovascular: Denies chest pain, palpitations, or syncope. GI: Denies nausea or vomiting. : Denies dysuria or hematuria. Musculoskeletal: Denies muscle aches or joint swelling. All other systems reviewed and all are negative. Past Medical History: Diabetes mellitus, hypertension, coronary artery disease, hyperlipidemia, history of myocardial infarction, congestive heart failure, severe systolic dysfunction, and chronic kidney disease stage 3 advancing to stage 4. Social History: Denies tobacco, alcohol, or illicit drugs. Physical Examination: General: Patient is oriented x3, not in acute distress. Eyes: Anicteric sclerae. EOMI. Ears, Nose, Mouth and Throat: Oral mucosa moist. No pallor. Neck: Supple. No bruits. Lungs: Clear to auscultation bilaterally. Heart: S1, S2. Abdomen: Soft. Extremities: No edema. Laboratory Data: Sodium 135, potassium 2.7, creatinine level 8.4, BUN 79, glucose 221. Magnesium 1.7. On 12 of May, potassium 2.5, sodium 132, creatinine 9.21, glucose 220. Hemoglobin is 10.7, hematocrit 32.0, platelet count is 322. Impression And Plan: 1. Chronic kidney disease associated with severe proteinuria. Urinalysis did not show hematuria, although there is a positive blood on the urinalysis. Patient will have CK level evaluated to rule out rhabdomyolysis. Patient has severe proteinuria and plan is to rule out monoclonal gammopathy of unknown significance. Proteinuria may represent diabetic kidney disease, although other etiology like membranous glomerulonephritis may need to be ruled out and patient may need a renal biopsy. The patient presented to the hospital with severe hypovolemia and is started on IV fluids. He has nonoliguric urine output. He will continue IV fluids and he will have potassium replacement and hypokalemia likely is secondary to diuretic. Currently, he is not fluid overloaded and tolerated IV fluids. 2. Hypokalemia. Replace potassium. Check magnesium and continue to address electrolytes disorder accordingly. 3. Diabetes mellitus. Continue insulin. The patient is not a candidate for metformin due to chronic kidney disease. 4. Nephrotic syndrome. Patient has severe proteinuria. Workup is started to rule out monoclonal gammopathy of unknown significance. Patient may need a renal biopsy. 5. Acute kidney injury on chronic kidney disease. Monitor renal function and plan dialysis if renal function does not improve. EB/MODL Voice ID: [id number] Report ID: [id number] LUIS
[2022-05-13] MEDS: HYDRALAZINE HCL 25 MG TABLET PO SCH (21:09)
[2022-05-13] MEDS ORDERED: HYDRALAZINE HCL 25 MG TABLET ONE (21:17)
[2022-05-13] MEDS: cloNIDine HCL 0.1 MG TAB PO PRN (23:03)
[2022-05-13] MEDS ORDERED: cloNIDine HCL 0.1 MG TAB ONE (23:12)
[2022-05-14] MEDS: NACHLORIDE 0.45% 1,000 ML IV SCH ×3 (01:03→15:00)
[2022-05-14] MEDS: cloNIDine HCL 0.1 MG TAB PO PRN ×5 (01:08→21:00)
[2022-05-14] MEDS ORDERED: cloNIDine HCL 0.1 MG TAB ONE ×3 (01:11→08:56)
[2022-05-14] MEDS: KCL 20 MEQ/100 mL IVPB 20 MEQ/100 ML BAG IV SCH ×3 (01:30→07:42)
[2022-05-14] MEDS ORDERED: KCL 20 MEQ/100 mL IVPB 100 ML IV ONE ×2 (04:49→07:50)
[2022-05-14] MEDS: ENOXAPARIN 30 MG/0.3 ML SQ SCH (08:48)
[2022-05-14] MEDS: HYDRALAZINE HCL 25 MG TABLET PO SCH ×3 (08:48→20:59)
[2022-05-14] MEDS: INSULIN -REGULAR HUMAN 50 UNIT/0.5 ML ML SQ SCH ×4 (08:48→21:00)
[2022-05-14] MEDS: INSULIN GLARGINE 100 UNIT/ML SQ SCH (10:32)
[2022-05-14] MEDS: CLOPIDOGREL 75 MG TABLET PO SCH (10:32)
[2022-05-14] MEDS ORDERED: CLOPIDOGREL 75 MG TABLET ONE (10:36)
[2022-05-14] MEDS ORDERED: INSULIN GLARGINE 100 UNIT/ML SQ ONE (10:37)
[2022-05-14] MEDS ORDERED: POTASSIUM 25 MEQ EFFERV TAB PO ONE (14:03)
--- NOTE | 2022-05-14 14:58 | P.PN ---
Subjective Date of Service: 05/14/22 Chief Complaint: FEELS BETTER. Subjective: Improving HE HAS NO CHEST PAIN. HIS FATIGUE IS LOT BETTER. HE IS BETTER. DENIES PAIN. NO FEVER. Review of Systems 10-point ROS is otherwise unremarkable General: Weakness, Malaise Physical Examination - Vital Signs Temperature: 97.4 F Blood Pressure: 147/82 Pulse: 58 Respirations: 16 Pulse Ox (%): 99 - Physical Exam General: Oriented x3, Mild distress, Obese HEENT: Atraumatic, PERRLA, EOMI Neck: Supple, JVD not distended Respiratory: Clear to auscultation bilaterally, Normal air movement Cardiovascular: Regular rate/rhythm, Normal S1 S2 Gastrointestinal: Normal bowel sounds, No tenderness Musculoskeletal: No tenderness Integumentary: No rashes Neurological: Normal speech, Normal tone, Normal affect Lymphatics: No axilla or inguinal lymphadenopathy - Studies Laboratory Data (last 24 hrs) 05/14/22 13:05: Potassium 3.2 L 05/14/22 01:27: Potassium 2.9 L* 05/13/22 17:30: Magnesium Cancelled 05/13/22 17:19: Potassium 2.8 L*, Magnesium 1.5 L 05/13/22 17:19: WBC 9.60, Hgb 10.1 L, Hct 29.9 L, Plt Count 279 Medications List Reviewed: Yes Assessment And Plan - Current Problems (Diagnosis) (1) Dehydration Current Visit: Yes Status: Acute Plan: IV FLUIDS STABLE. REAT IS DOWN TO 8. (2) Hypokalemia Current Visit: Yes Status: Acute Plan: REPLACE K. DAILY CHECK. REPLACE. K MAY HAVE THIS FROM PRIMARY HYPERALDOSTERONISM AND SO WILL NEED ALDACTONE WHEN CREATININE COMES DOWN. (3) Nephrotic syndrome Current Visit: Yes Status: Chronic Plan: THIS IS NEW ISSUE NEED TO BE CONFIRED. MAY NEED RENAL BIOSPY. RENAL DOCTOR ON CASE. BIOPSY LATER WHEN STABLE.
[2022-05-14 16:58] VITALS: BMI 33.6
[2022-05-14 17:08] LABS: Absolute Lymphocytes (CBC) 1.5 K/uL (0.7-4.9); Hematocrit 31.5 % (39.6-49.0); Lymphocytes % 17.5 % (15.3-44.8); MCV 87.4 fL (80-100); MPV 9.2 fL (7.6-11.3); RBC Red Blood Cell Count 3.61 M/uL (4.33-5.43)
[2022-05-14] MEDS ORDERED: POTASSIUM CL SA 10 MEQ TAB PO ONE (20:42)
[2022-05-14] MEDS: ATORVASTATIN 40 MG TAB PO SCH (20:59)
[2022-05-14] MEDS: carvediloL 12.5 MG TAB PO SCH (21:00)
[2022-05-14] MEDS ORDERED: MAGNESIUM SULFATE 1 gm IVPB 1 GM/100 ML BAG IV ONE (21:48)
--- NOTE | 2022-05-15 01:55 | PN ---
Date of Progress Note: 05/14/2022 Chief Complaint: Severe acute kidney injury, nonoliguric, elevated BUN and creatinine. The patient has multiple medical problems including history of diabetes mellitus with renal manifestation, hypert ension. Previously, he was treated for congestive heart failure, the compensation required hospital admission for severe shortness of breath back in 2019, creatinine level was ranging from 1.4-1.6 elenita esponding with chronic kidney disease stage 3. The patient was found to have hyperazotemia. Creatin ine level was 9.2, BUN 85. Electrolytes as follows. Sodium 142, potassium 2.5, chloride 92, CO2 27. The patient has history of diabetes mellitus, and hemoglobin A1c was checked back in 2019 was 7.6. He has history of noncompliance. Renal ultrasound did not show obstructive uropathy, although there was some indication of increased postvoid residual volume. The patient denies dysuria, hematuria. Patient has nonoliguric urine output. Renal ultrasound previously did not show hydronephrosis and at this time, there is no hydronephrosis. The patient on previous occasion back in 2018 was admitted f or non-hemorrhagic acute stroke. Review of Systems: Denies fever or chills. Physical Examination: Lungs: Clear to auscultation bilaterally. Heart: S1, S2. Abdomen: Soft. Extremities: No edema. Impression And Plan: 1.Chronic kidney disease with severe proteinuria associated with acute kidney injury of unknown etio logy. The patient has nonoliguric urine output, very severe proteinuria, nephrotic syndrome patient will need renal biopsy and kidney function has improved. 2.Patient is treated for hypokalemia and likely he has hypokalemia secondary to diuretic effect. 3.Diabetes mellitus. Continue insulin. 4.Nephrotic syndrome. Patient is undergoing workup to rule out monoclonal gammopathy of unknown sig nificance. The patient may need a renal biopsy and plan is to consider dialysis if renal function do es not improve. EB/MODL Voice ID: [id number] Report ID: [id number]
[2022-05-15 03:07] LABS: Absolute Lymphocytes (CBC) 1.6 K/uL (0.7-4.9); Hematocrit 29.9 % (39.6-49.0); Lymphocytes % 15.5 % (15.3-44.8); MCV 86.5 fL (80-100); RBC Red Blood Cell Count 3.46 M/uL (4.33-5.43)
[2022-05-15 03:26] LABS: Potassium 3.2 mmol/L (3.5-5.1)
[2022-05-15] MEDS ORDERED: POTASSIUM CL SA 10 MEQ TAB PO ONE ×2 (03:37→19:21)
[2022-05-15] MEDS: NACHLORIDE 0.45% 1,000 ML IV SCH ×2 (04:05→17:15)
[2022-05-15] MEDS: INSULIN -REGULAR HUMAN 50 UNIT/0.5 ML ML SQ SCH ×4 (07:30→21:45)
[2022-05-15] MEDS ORDERED: CLOPIDOGREL 75 MG TABLET PO SCH (09:00)
[2022-05-15] MEDS ORDERED: INSULIN GLARGINE 100 UNIT/ML SQ SCH ×2 (09:00)
[2022-05-15] MEDS ORDERED: ASPIRIN EC 81 MG TAB PO SCH (09:00)
[2022-05-15] MEDS: ENOXAPARIN 30 MG/0.3 ML SQ SCH (09:09)
[2022-05-15] MEDS: CLOPIDOGREL 75 MG TABLET PO SCH (09:10)
[2022-05-15] MEDS: HYDRALAZINE HCL 25 MG TABLET PO SCH ×3 (09:10→21:40)
[2022-05-15] MEDS: carvediloL 12.5 MG TAB PO SCH ×2 (09:10→21:41)
[2022-05-15] MEDS: INSULIN GLARGINE 100 UNIT/ML SQ SCH (09:10)
[2022-05-15 17:17] LABS: Absolute Lymphocytes (CBC) 1.2 K/uL (0.7-4.9); Hematocrit 30.5 % (39.6-49.0); Lymphocytes % 10.2 % (15.3-44.8); MCV 87.4 fL (80-100); MPV 8.9 fL (7.6-11.3); RBC Red Blood Cell Count 3.49 M/uL (4.33-5.43)
--- NOTE | 2022-05-15 18:30 | P.PN ---
Subjective Date of Service: 05/15/22 Chief Complaint: FEELS BETTER. Subjective: Improving HE HAS NO CHEST PAIN. HIS FATIGUE IS LOT BETTER. HE IS BETTER. DENIES PAIN. NO FEVER. HE HAS NO NEW ISSUES. Physical Examination - Vital Signs Temperature: 97.9 F Blood Pressure: 155/82 Pulse: 71 Respirations: 14 Pulse Ox (%): 99 - Physical Exam General: Oriented x3, Mild distress HEENT: Atraumatic, PERRLA, EOMI Neck: Supple, JVD not distended Respiratory: Clear to auscultation bilaterally, Normal air movement Cardiovascular: Regular rate/rhythm, Normal S1 S2 Gastrointestinal: Normal bowel sounds, No tenderness Musculoskeletal: No tenderness Integumentary: No rashes Neurological: Normal speech, Normal tone, Normal affect Lymphatics: No axilla or inguinal lymphadenopathy - Studies Laboratory Data (last 24 hrs) 05/15/22 16:59: Magnesium 1.8 05/15/22 16:59: WBC 11.60 H, Hgb 10.0 L, Hct 30.5 L, Plt Count 258 05/15/22 09:32: Potassium 3.6 05/15/22 03:00: Potassium Cancelled 05/15/22 02:45: Sodium 133 L, Potassium 3.2 L, BUN 77 H, Creatinine 6.70 H*, Glucose 160 H 05/15/22 02:45: WBC 10.50, Hgb 10.2 L, Hct 29.9 L, Plt Count 258 05/14/22 20:04: Potassium 3.1 L Medications List Reviewed: Yes Assessment And Plan - Current Problems (Diagnosis) (1) Dehydration Current Visit: Yes Status: Acute Plan: IV FLUIDS STABLE. REAT IS DOWN TO 8. IMPROVING WELL SO FAR (2) Hypokalemia Current Visit: Yes Status: Acute Plan: REPLACE K. DAILY CHECK. REPLACE. K MAY HAVE THIS FROM PRIMARY HYPERALDOSTERONISM AND SO WILL NEED ALDACTONE WHEN CREATININE COMES DOWN. (3) Nephrotic syndrome Current Visit: Yes Status: Chronic Plan: THIS IS NEW ISSUE NEED TO BE CONFIRED. MAY NEED RENAL BIOSPY. RENAL DOCTOR ON CASE. BIOPSY LATER WHEN STABLE. (4) Uncontrolled hypertension Current Visit: Yes Status: Chronic Plan: HE MAY HAVE PRIMARY HYPERALDOSTERONISM. WILL FU WITH MEDS AFTER CREAT IS CORRECTED.
[2022-05-15] MEDS: ATORVASTATIN 40 MG TAB PO SCH (21:42)
[2022-05-16 03:35] VITALS: O2SAT 99
[2022-05-16 04:54] LABS: Absolute Lymphocytes (CBC) 1.2 K/uL (0.7-4.9); Hematocrit 28.9 % (39.6-49.0); Lymphocytes % 10.2 % (15.3-44.8); MCV 86.6 fL (80-100); MPV 9.2 fL (7.6-11.3); RBC Red Blood Cell Count 3.34 M/uL (4.33-5.43)
--- NOTE | 2022-05-16 04:58 | PN ---
Date of Progress Note: 05/15/2022 Chief Complaint: Severe acute kidney injury, nonoliguric. Over the last 48 hours, renal function moody s improved somewhat. Patient is treated for severe hypokalemia. Potassium level has improved. Prio r to this admission, the patient was using diuretics for leg edema and history of congestive heart fa ilure. Patient has history of noncompliance. He has history of diabetes mellitus back in 2019. Hem oglobin level was 7.6. Creatinine level was ranging from 1.4-1.6 on previous occasion, although duri ng this admission creatinine level is severely elevated and BUN was 85, creatinine 9.2 on admission. Patient does not have uremic symptomatology. Review of Systems: Denies fever or chills. Physical Examination: Lungs: Clear to auscultation bilaterally. Heart: S1-S2. Abdomen: Soft. Extremities: No edema. Impression And Plan: 1.Chronic kidney disease with severe proteinuria associated with acute kidney injury of unknown etio logy, likely ATN secondary to diuretics, although there is severe proteinuria. Patient may need biop sy and this can be done in 7-10 days. Patient was taken off aspirin. Patient is treated for hypokal emia; likely hypokalemia is secondary to diuretic effect, although hyperaldosteronism is 1 of the dif ferential diagnosis. 2.Diabetes mellitus, continue insulin. 3.Nephrotic syndrome, patient is undergoing workup to rule out monoclonal gammopathy of unknown significance and biopsy will be scheduled for next week. EB/MODL Voice ID: [id number] Report ID: [id number]
[2022-05-16 05:20] LABS: Potassium 3.4 mmol/L (3.5-5.1)
[2022-05-16] MEDS ORDERED: POTASSIUM CL SA 10 MEQ TAB PO ONE (05:27)
[2022-05-16] MEDS: NACHLORIDE 0.45% 1,000 ML IV SCH ×2 (06:35→10:09)
[2022-05-16] MEDS: INSULIN -REGULAR HUMAN 50 UNIT/0.5 ML ML SQ SCH ×4 (07:30→21:00)
[2022-05-16] MEDS: INSULIN GLARGINE 100 UNIT/ML SQ SCH (09:00)
[2022-05-16] MEDS: carvediloL 12.5 MG TAB PO SCH ×2 (09:25→21:23)
[2022-05-16] MEDS: CLOPIDOGREL 75 MG TABLET PO SCH (09:25)
[2022-05-16] MEDS: HYDRALAZINE HCL 25 MG TABLET PO SCH ×3 (09:25→21:23)
[2022-05-16] MEDS: ENOXAPARIN 30 MG/0.3 ML SQ SCH (09:26)
--- NOTE | 2022-05-16 11:53 | RAD REPORT ---
EXAM DESCRIPTION: RAD - Chest Single View - 05/16/2022 11:39 am CLINICAL HISTORY: COPD COMPARISON: Chest Pa And Lat (2 Views) dated 05/12/2022; Chest Single View dated 05/22/2018; Chest Sin gle View dated 05/21/2018; Chest Pa And Lat (2 Views) dated 04/25/2018 FINDINGS: Lines: None. Lungs: No evidence of edema or pneumonia. Pleural: No significant pleural effusions or pneumothorax. Cardiac: The heart size is within normal limits. Mediastinum: Within normal limits. Bones: No acute fractures. Other: None IMPRESSION: No acute cardiopulmonary disease.
[2022-05-16] MEDS ORDERED: CALCITROL 0.25 MCG CAP PO SCH (14:00)
[2022-05-16 14:05] LABS: CKMB Creatine Kinase MB 3.2 ng/mL (1.0-3.6); Troponin High Sensitivity 11.9 pg/mL (<58.9)
--- NOTE | 2022-05-16 14:37 | PN ---
Date of Progress Note: 05/16/2022 Subjective: The patient was admitted with acute kidney injury possibly secondary to progression of d isease/prerenal secondary to over diuresis. The patient was started on gentle hydration. Kidney fun ction gradually started improving. The patient has significant proteinuria with some hematuria witho ut any RBC, even though rhabdo has been ruled out. Upon admission, creatinine was 9.2, currently mery n to 6, still GFR below 15. The patient does not have any shortness of breath. No hyperkalemia. No acidosis. The patient last time had aspirin was before he got admitted. Physical Examination: Vital Signs: When I saw the patient; blood pressure 143/71, pulse of 72, afebrile. Chest: Clear to auscultation. Heart: S1, S2. Regular. Abdomen: Soft, nontender. Extremity: Trace edema. Neurologic: No focality. Laboratory Data: Sodium 133, potassium 3.4, bicarb 21, BUN 59, creatinine 6.4, GFR of 10, calcium 7. 7. Serum protein electrophoresis is still pending. PTH 822. Aldosterone still pending. Plasma layne in activity still pending. Urinalysis negative for infection, positive for blood. Renal ultrasound showed no hydronephrosis, normal size kidney 04/29.3. Chest x-ray; no cardiomegaly, no congestion as of today. Current Medications: The patient on include; 1.Plavix. 2.Lovenox. 3.Carvedilol 12.5. 4.Clonidine. 5.Hydralazine. 6.Zofran. 7.Normal saline at 75 per hour. Assessment And Plan: 1.Acute kidney injury, normal-sized kidney, proteinuric with hematuria, possible secondary to preren al given the significant decline in the kidney function with only marginal improvement in the GFR and presence of proteinuria and hematuria. We will proceed with kidney biopsy. The patient's last aspi rin he received was as home medications. I am going to hold Plavix and keep holding aspirin . We will plan for kidney biopsy on Sunday, decrease IV fluid to 50 per hour, plan to discontinue an d we will continue to monitor the patient. We will follow up serology and serum protein electrophore sis. 2.Hypertension, controlled, optimal. Keep avoiding any PHILIP inhibitor or ARB. Keep holding diuresis . 3.Edema, possible secondary to nephrotic range of proteinuria. We will follow up quantification of proteinuria and we will follow up urine protein electrophoresis and serum protein electrophoresis, es pecially with the presence of the anemia. Keep holding PHILIP inhibitor. 4.Anemia with the presence of acute kidney injury as above. We will follow up serum protein electro phoresis. 5.Hypokalemia. We will continue supplement. I am going to check magnesium level for the patient. 6.Secondary hyperparathyroidism. We will start the patient on calcitriol. 7.Diabetes as by primary. MARY/GALEN Voice ID: [id number] Report ID: [id number]
[2022-05-16 17:06] LABS: Troponin High Sensitivity 12.5 pg/mL (<58.9)
--- NOTE | 2022-05-16 17:27 | EKG ---
Test Date: 2022-05-16 Test Time: 08:39:05 Die Repair: NEERAJ MEASUREMENT RESULTS: Intervals: Rate: 72 ND: 188 QRSD: 100 QT: 424 QTc: 464 [place]: P: 50 ND: 188 QRS: -47 T: -13 INTERPRETIVE STATEMENTS: Normal sinus rhythm Left axis deviation Inferior infarct, age undetermined Abnormal ECG Compared to ECG 05/22/2018 07:41:48 Left-axis deviation now present Myocardial infarct finding now present Left anterior fascicular block no longer present Left ventricular hypertrophy no longer present T-wave abnormality no longer present Electronically Signed On 05-16-22 17:26:09 CDT by Shay Cai
[2022-05-16 17:54] LABS: Albumin, (SPE) 2.3 g/dL (3.8-4.8); Alpha-1-Globulins 0.3 g/dL (0.2-0.3); Gamma Globulins 0.9 g/dL (0.8-1.7); INTERPRETATION REPORT
[2022-05-16] MEDS: ATORVASTATIN 40 MG TAB PO SCH (21:24)
--- NOTE | 2022-05-16 21:43 | CON ---
Date of Consultation: 05/16/2022 Reason For Consultation: Questionable cardiac event. History Of Present Illness: This is a 52-year-old male with advanced kidney disease and being worked up. This morning, he had an episode of diaphoresis and nausea and he has a history of diabetes, so primary care physician was concerned for cardiac event. Patient again denies having any chest pain a nd troponin is negative. Past Medical History: Advanced kidney failure, diabetes, hypertension. Medications: Refer reconciliation sheet for detailed list. Allergies: NO KNOWN DRUG ALLERGIES. Family History: No premature coronary artery disease or cancer. Social History: Does not smoke or drink. Does not use any drugs. Review of Systems: All systems reviewed are negative. Physical Examination: Vital Signs: Temperature is 98.1, pulse 72, breathing at 18, blood pressure 143/71, saturating 97% o n room air. General: Pleasant young male, in no apparent distress. Head and Neck: Pupils are equal and reactive to light. Intact eye movements. No JVD. No cervical lymphadenopathy. Neck is supple. Thyroid is not enlarged. Lungs: Clear to auscultation bilaterally. No rhonchi, rales, or crackles. No accessory muscle use. Heart: Regular rate and rhythm. No extra sounds. Abdomen: Soft, nontender. Bowel sounds positive. No organomegaly. No masses or hernia. No rigidi ty or rebound. Extremities: No edema, clubbing, or cyanosis. Intact pulses. Skin: No rashes. Neurologic: Alert, awake, and oriented x3. No acute focal deficit appreciated. Lymph Nodes: No cervical or axillary lymphadenopathy. Investigations: Troponin is 3.2, BUN is 59, creatinine 6.45. Assessment And Recommendations: Nausea and diaphoresis with multiple risk factors. First set of car diac enzymes negative. EKG without specific abnormalities. Repeat one more set of cardiac enzymes. If negative, no further cardiac workup will be required during this hospital stay and I will follow the patient as an outpatient. /GALEN Voice ID: [id number] Report ID: [id number]
--- NOTE | 2022-05-16 21:52 | P.PN ---
Subjective Date of Service: 05/16/22 Chief Complaint: DIAPHORESIS TODAY WITH NAUSEA Subjective: Improving HE HAS NO CHEST PAIN. HIS FATIGUE IS LOT BETTER. HE IS BETTER. DENIES PAIN. NO FEVER. HE HAS NO NEW ISSUES. HE IS BETTER EXCEPT FOR DIAPHORESIS AND NAUSEA THIS AM. I DID EKG CE AND ASKED FOR DR. VINES TO SEE HIM. Physical Examination - Vital Signs Temperature: 98.0 F Blood Pressure: 140/81 Pulse: 70 Respirations: 18 Pulse Ox (%): 98 - Physical Exam General: Mild distress HEENT: Atraumatic, PERRLA, EOMI Neck: Supple, JVD not distended Respiratory: Clear to auscultation bilaterally, Normal air movement Cardiovascular: Regular rate/rhythm, Normal S1 S2 Gastrointestinal: Normal bowel sounds, No tenderness Musculoskeletal: No tenderness Integumentary: No rashes Neurological: Normal speech, Normal tone, Normal affect Lymphatics: No axilla or inguinal lymphadenopathy - Studies Laboratory Data (last 24 hrs) 05/16/22 13:24: Potassium 4.1 D 05/16/22 04:20: Sodium 133 L, Potassium 3.4 L, BUN 59 H, Creatinine 6.45 H*, Glucose 144 H 05/16/22 04:20: WBC 12.10 H, Hgb 9.8 L, Hct 28.9 L, Plt Count 265 Medications List Reviewed: Yes Assessment And Plan - Current Problems (Diagnosis) (1) Dehydration Current Visit: Yes Status: Acute Plan: IV FLUIDS STABLE. REAT IS DOWN TO 8. IMPROVING WELL SO FAR (2) Hypokalemia Current Visit: Yes Status: Acute Plan: REPLACE K. DAILY CHECK. REPLACE. K MAY HAVE THIS FROM PRIMARY HYPERALDOSTERONISM AND SO WILL NEED ALDACTONE WHEN CREATININE COMES DOWN. K US UP TO 4. HE WAS SEVERELY AND INTRACELLULAR DEPLETION AND TOOK DAYS TO CORRECT. (3) Nephrotic syndrome Current Visit: Yes Status: Chronic Plan: THIS IS NEW ISSUE NEED TO BE CONFIRED. MAY NEED RENAL BIOSPY. RENAL DOCTOR ON CASE. BIOPSY LATER WHEN STABLE. (4) Uncontrolled hypertension Current Visit: Yes Status: Chronic Plan: HE MAY HAVE PRIMARY HYPERALDOSTERONISM. WILL FU WITH MEDS AFTER CREAT IS CORRECTED. BP BETTER. (5) Diabetes mellitus Onset Date: 05/22/18 Current Visit: No Status: Acute Plan: GLUCOSE IS LOT BETTER WITH INSULIN.
[2022-05-17 01:19] LABS: Troponin High Sensitivity 14.6 pg/mL (<58.9)
[2022-05-17] MEDS: NACHLORIDE 0.45% 1,000 ML IV SCH (01:30)
[2022-05-17 04:10] LABS: Absolute Lymphocytes (CBC) 1.7 K/uL (0.7-4.9); Hematocrit 27.2 % (39.6-49.0); Lymphocytes % 18.4 % (15.3-44.8); MCV 87.7 fL (80-100); MPV 8.8 fL (7.6-11.3); RBC Red Blood Cell Count 3.11 M/uL (4.33-5.43)
[2022-05-17 04:32] LABS: Rheumatoid Factor NEG (NEG)
[2022-05-17 05:11] LABS: Albumin 1.7 g/dL (3.4-5.0); Ferritin 140.5 ng/mL (26-388); Folic Acid, (Folate) 8.8 ng/mL (3.1-17.5); Magnesium 1.7 mg/dL (1.8-2.4); Phosphorus 5.8 mg/dL (2.5-4.9); Potassium 3.5 mmol/L (3.5-5.1); Thyroid Stimulating Hormone 3.11 uIU/mL (0.360-3.740); Uric Acid 7.5 mg/dL (3.5-7.2)
[2022-05-17] MEDS: INSULIN -REGULAR HUMAN 50 UNIT/0.5 ML ML SQ SCH ×3 (07:30→16:30)
[2022-05-17 08:36] LABS: KAPPA LIGHT CHAIN, FREE SERUM 143.6 mg/L (3.3-19.4)
[2022-05-17] MEDS ORDERED: POTASSIUM CL SA 10 MEQ TAB PO ONE (09:00)
[2022-05-17] MEDS: INSULIN GLARGINE 100 UNIT/ML SQ SCH (09:00)
[2022-05-17] MEDS: HYDRALAZINE HCL 25 MG TABLET PO SCH ×2 (10:40→13:00)
[2022-05-17] MEDS: carvediloL 12.5 MG TAB PO SCH (10:40)
[2022-05-17] MEDS: ENOXAPARIN 30 MG/0.3 ML SQ SCH (10:41)
[2022-05-17] MEDS ORDERED: EPOETIN ALFA-EPBX 10,000 UNIT/ML VIAL SQ ONE (13:00)
[2022-05-17 16:25] VITALS: BP 154/82; TEMP 98
[2022-05-17] MEDS ORDERED: CALCIUM CARBONATE CHEW 500MG TAB PO SCH (16:30)
--- NOTE | 2022-05-17 16:31 | PN ---
Date of Progress Note: 05/17/2022 Subjective: The patient was admitted with acute kidney injury secondary to over-diuresis apparently on chronic kidney disease. The patient found to have nephrotic range of proteinuria. Kidney functio n not improved. The patient did not have any clear insult except the diuresis, but after hydration, kidney function stayed the same. The patient had good kidney function back in 2019. Physical Examination: Vital Signs: When I saw the patient; blood pressure 152/72, pulse of 72, afebrile. The patient had good urine output of 2700. Chest: Clear to auscultation. Heart: S1, S2. Regular. Abdomen: Soft, nontender. Extremity: Trace edema. Neurological: Alert, oriented x3. No tremor. No focality. Laboratory Data: WBC 9.5, H and H 9.3/27.2. Sodium 132, potassium 3.5, bicarb 21, BUN 60, creatinin e 6.4, uric acid 7.5, calcium 7.7, phosphorus 5.8, magnesium 1.7. Iron saturation of 30, albumin 1.7 . Corrected calcium is 9.3. PTH 328. Current Medications: The patient on include Lovenox, diphenhydramine, atorvastatin, carvedilol 12.5 b.i.d. clonidine 0.1 p.r.n., hydralazine 50 t.i.d., Tylenol, Zofran, insulin, normal saline. Assessment And Plan: 1.Acute kidney injury on chronic kidney disease, nephrotic range proteinuria. Serology still pendin g. No significant ratio between kappa and lambda, only 0.7. Possible it is secondary to progression of diabetes nephropathy. The patient not funded. We will plan for kidney biopsy and we will follow up. 2.Hypertension, controlled, optimal. Continue current treatment. 3.Secondary hyperparathyroidism. Continue binder. For the time being, I am going to start the dayanna ent on calcium carbonate. Continue calcitriol. 4.Anemia of chronic kidney disease. We will start the patient on Retacrit. Light chain disease has been ruled out. 5.Nephrotic range of proteinuria, possible secondary to diabetes. Light chain disease has been rule d out. Serology is pending. We will follow up with kidney biopsy. MIKAL Voice ID: [id number] Report ID: [id number]
[2022-05-19 15:28] LABS: HIV AG/AB 4TH GEN Non-reactive (Non-reactive)
== END 2022-05-17 17:12 | disposition home or self-care (01) | DRG 683 ==
LOC: 4TH 16:25 → OBSVTOIN 05-13 10:44
PROVIDERS: ADMIT Internal Medicine; ATTEND Internal Medicine
DX: N17.9 Acute kidney failure, unspecified (principal); I50.22 Chronic systolic (congestive) heart failure; I13.2 Hypertensive heart and chronic kidney disease with heart failure and with stage 5 chronic kidney disease, or end stage renal disease; N18.5 Chronic kidney disease, stage 5; E11.22 Type 2 diabetes mellitus with diabetic chronic kidney disease; D63.1 Anemia in chronic kidney disease; E87.6 Hypokalemia; N25.81 Secondary hyperparathyroidism of renal origin; E86.0 Dehydration; I25.2 Old myocardial infarction; I25.10 Atherosclerotic heart disease of native coronary artery without angina pectoris; T50.2X5A Adverse effect of carbonic-anhydrase inhibitors, benzothiadiazides and other diuretics, initial encounter; R31.9 Hematuria, unspecified; Z79.4 Long term (current) use of insulin; Z86.73 Personal history of transient ischemic attack (TIA), and cerebral infarction without residual deficits; Z79.82 Long term (current) use of aspirin; Z79.02 Long term (current) use of antithrombotics/antiplatelets; Z87.891 Personal history of nicotine dependence; Z79.899 Other long term (current) drug therapy; Z20.822 Contact with and (suspected) exposure to COVID-19
CPT/HCPCS: 36415; 71045; 71046; 76857; 80048; 80069; 80076; 81001; 82088; 82550; 82553; 82570; 82607; 82728; 82746; 82947; 83520; 83540; 83735; 83880; 83935; 83970; 84132; 84156; 84165; 84166; 84244; 84300; 84443; 84466; 84484; 84550; 85025; 85044; 85302; 86021; 86038; 86160; 86225; 86334; 86430; 86704; 86706; 86803; 87040; 87340; 87389; 87811; 93005; 93975; G0378; G0379; J1650; J1815; J3475; J3480; J7040; Q5106

== ENCOUNTER 2022-06-06 07:06 | Emergency (ER) | payer SELFPAY ==
[2022-06-06] MEDS ORDERED: D10W 250 ML IV ONE (07:45)
[2022-06-06 07:52] LABS: Absolute Lymphocytes (CBC) 0.5 K/uL (0.7-4.9); Hematocrit 27.3 % (39.6-49.0); Lymphocytes % 5.4 % (15.3-44.8); MCV 89.4 fL (80-100); MPV 8.2 fL (7.6-11.3); RBC Red Blood Cell Count 3.06 M/uL (4.33-5.43)
[2022-06-06 07:53] LABS: Protime INR 1.13
[2022-06-06 08:23] LABS: Albumin 1.6 g/dL (3.4-5.0); Bilirubin Direct 0.1 mg/dL (0-0.2); Bilirubin Total 0.4 mg/dL (0.2-1.0); Magnesium 1.8 mg/dL (1.8-2.4); Protein, Total 5.5 g/dL (6.4-8.2); Troponin High Sensitivity 17.1 pg/mL (<58.9)
[2022-06-06 08:24] LABS: Potassium 2.8 mmol/L (3.5-5.1)
[2022-06-06] MEDS ORDERED: POTASSIUM 25 MEQ EFFERV TAB ONE (08:48)
--- NOTE | 2022-06-06 08:56 | ER ---
Nurse's Notes [facility] Name: Nabor Ny Age: 52 yrs Sex: Male : 1970 Arrival Date: 06/06/2022 Time: 07:21 Bed 6 Private MD: Diagnosis: Hypokalemia;Adverse effect of insulin and oral hypoglycemic [antidiabetic] drugs;End stage renal disease-on HD T,TH,SAT Presentation: 06/06 07:14 Chief complaint: EMS states: toned out for unresponsive PT. Upon arrival FBS was 27, tp1 EMS inserted 22 G RAC, administered D10 250 mL bolus, FBS 241. PT denies pain. 07:14 Method Of Arrival: EMS: [facility] tp1 07:14 Coronavirus screen: Vaccine status: Patient reports receiving the 2nd dose of the covid tp1 vaccine. Ebola Screen: Patient denies exposure to infectious person. Patient denies travel to an Ebola-affected area in the 21 days before illness onset. Initial Sepsis Screen: Does the patient meet any 2 criteria? No. Patient's initial sepsis screen is negative. Does the patient have a suspected source of infection? No. Patient's initial sepsis screen is negative. Risk Assessment: Do you want to hurt yourself or someone else? Patient reports no desire to harm self or others. Onset of symptoms was June 06, 2022. 07:14 Acuity: DEBBIE 3 tp1 07:14 Care prior to arrival: Medication(s) given: D10 250 mL IV initiated. 22 GA, in the tp1 right antecubital area, Glucose check: 27. Triage Assessment: 07:14 General: Appears in no apparent distress. comfortable, Behavior is calm, cooperative, tp1 drowsy. Pain: Denies pain. EENT: No signs and/or symptoms were reported regarding the EENT system. Neuro: Level of Consciousness is awake, alert, obeys commands, Oriented to person, place, time, situation. Cardiovascular: Patient's skin is warm and dry. Cardiovascular: Dialysis shunt: port located to the right subclavian, dressing dry and clean. . Respiratory: Airway is patent Respiratory effort is even, unlabored. GI: Abdomen is round non-distended, Abd is soft and non tender. : No signs and/or symptoms were reported regarding the genitourinary system. Derm: Skin is pink, warm \T\ dry. Bruising that is dark purple, on right lower quadrant. Musculoskeletal: Circulation, motion, and sensation intact. Historical: - Allergies: 07:29 No Known Allergies; tp1 - Home Meds: 07:29 lisinopril Oral [Active]; tp1 07:35 sodium bicarbonate 650 mg Oral tab [Active]; calcitriol 0.25 mcg oral cap [Active]; vg1 atorvastatin 20 mg oral tab [Active]; carvedilol 12.5 mg oral tab [Active]; clopidogrel 75 mg oral tab [Active]; Lantus 35 units Sub-Q daily [Active]; hydralazine 25 mg Oral tab 3 x/day [Active]; - PMHx: 07:29 Diabetes - NIDDM; Hypertension; kidney disease; Hirschsprung's disease; Kidney stone; tp1 - PSHx: :29 Colostomy; tp1 - Immunization history:: Client reports receiving the 2nd dose of the Covid vaccine. - Social history:: Smoking status: Patient denies any tobacco usage or history of. Screenin:14 Abuse screen: Denies threats or abuse. Denies injuries from another. Nutritional tp1 screening: No deficits noted. Tuberculosis screening: No symptoms or risk factors identified. Fall Risk No fall in past 12 months (0 pts). No secondary diagnosis (0 pts). IV access (20 points). Ambulatory Aid- None/Bed Rest/Nurse Assist (0 pts). Gait- Normal/Bed Rest/Wheelchair (0 pts) Mental Status- Oriented to own ability (0 pts). Assessment: 07:14 Reassessment: see triage assessment. tp1 07:40 Reassessment: PT CO nausea and unable to eat, provider notified. tp1 08:15 Reassessment: Patient appears in no apparent distress at this time. No changes from tp1 previously documented assessment. Patient and/or family updated on plan of care and expected duration. Pain level reassessed. Patient is alert, oriented x 3, equal unlabored respirations, skin warm/dry/pink. 08:40 Reassessment: meal tray at bedside. tp1 Vital Signs: 07:14 BP 158 / 38; Pulse 60; Resp 16; Temp 97.2; Pulse Ox 95% on R/A; Weight 88.45 kg; Height tp1 5 ft. 5 in. (165.10 cm); Pain 0/10; 08:45 BP 172 / 80; Pulse 58; Resp 16; Pulse Ox 98% on R/A; tp1 07:14 Body Mass Index 32.45 (88.45 kg, 165.10 cm) tp1 ED Course: 07:14 Arm band placed on. tp1 07:14 Patient has correct armband on for positive identification. Bed in low position. Call tp1 light in reach. Adult w/ patient. 07:21 Patient arrived in ED. vg1 07:22 Toma Delgado, RN is Primary Nurse. tp1 07:28 Rios Cuevas MD is Attending Physician. [facility] 07:29 Triage completed. tp1 07:34 Maintain EMS IV. Dressing intact. Good blood return noted. Site clean \T\ dry. Gauge \T\ tp 1 site: 22G RAC. 08:44 XRAY Chest (1 view) In Process Unspecified. EDMS 09:01 No provider procedures requiring assistance completed. tp1 09:23 IV discontinued, intact, bleeding controlled, No redness/swelling at site. Pressure tp1 dressing applied. Administered Medications: 07:50 Drug: D10 in Water [2 mL/kg] 250 ml Route: IVP; Site: right antecubital; tp1 09:24 Follow up: Response: Blood sugar is elevated tp1 09:18 Drug: Potassium Effervescent Tablet 50 mEq Route: PO; tp1 09:24 Follow up: Response: Medication administered at discharge. tp1 Medication: 09:00 VIS not applicable for this client. tp1 Outcome: 08:56 Discharge ordered by . [facility] 09:23 Discharged to home ambulatory, with family. tp1 09:23 Condition: good 09:23 Discharge instructions given to patient, family, Instructed on discharge instructions, follow up and referral plans. Demonstrated understanding of instructions, follow-up care. 09:23 Patient left the ED. tp1 Signatures: Dispatcher [employer] EDRios Lara MD MD cha Garcia, Victoria, RN RN vg1 Toma Delgado, RACHEL RN tp1
--- NOTE | 2022-06-06 08:56 | EDPHYS ---
Physician Documentation [facility] Name: Nabor Ny Age: 52 yrs Sex: Male : 1970 Arrival Date: 06/06/2022 Time: 07:21 Bed 6 Private MD: ED Physician Rios Cuevas HPI: 06/06 08:51 This 52 yrs old Male presents to ER via EMS with complaints of Low Blood Sugar.mónica 08:51 The patient or guardian reports hypoglycemia. Onset: The symptoms/episode mónica began/occurred just prior to arrival, this morning. Associated signs and symptoms: Pertinent positives: anorexia. Current symptoms: In the emergency department the patient's symptoms have improved, mildly. The patient has experienced similar episodes in the past, several times. Historical: - Allergies: 07:29 No Known Allergies; tp1 - Home Meds: 07:29 lisinopril Oral [Active]; tp1 07:35 sodium bicarbonate 650 mg Oral tab [Active]; calcitriol 0.25 mcg oral cap [Active]; vg1 atorvastatin 20 mg oral tab [Active]; carvedilol 12.5 mg oral tab [Active]; clopidogrel 75 mg oral tab [Active]; Lantus 35 units Sub-Q daily [Active]; hydralazine 25 mg Oral tab 3 x/day [Active]; - PMHx: 07:29 Diabetes - NIDDM; Hypertension; kidney disease; Hirschsprung's disease; Kidney stone; tp1 - PSHx: 07:29 Colostomy; tp1 - Immunization history:: Client reports receiving the 2nd dose of the Covid vaccine. - Social history:: Smoking status: Patient denies any tobacco usage or history of. ROS: 08:53 Constitutional: Negative for fever, chills, and weight loss, Eyes: Negative for injury, mónica pain, redness, and discharge, ENT: Negative for injury, pain, and discharge, Neck: Negative for injury, pain, and swelling, Cardiovascular: Negative for chest pain, palpitations, and edema, Respiratory: Negative for shortness of breath, cough, wheezing, and pleuritic chest pain, Abdomen/GI: Negative for abdominal pain, nausea, vomiting, diarrhea, and constipation, Back: Negative for injury and pain, : Negative for injury, bleeding, discharge, and swelling, MS/Extremity: Negative for injury and deformity, Skin: Negative for injury, rash, and discoloration, Psych: Negative for depression, anxiety, suicide ideation, homicidal ideation, and hallucinations, Allergy/Immunology: Negative for hives, rash, and allergies, Endocrine: Negative for neck swelling, polydipsia, polyuria, polyphagia, and marked weight changes, Hematologic/Lymphatic: Negative for swollen nodes, abnormal bleeding, and unusual bruising. 08:53 Neuro: Positive for altered mental status. 08:53 Endocrine: Exam: 08:53 Constitutional: This is a well developed, well nourished patient who is awake, alert, mónica and in no acute distress. Head/Face: Normocephalic, atraumatic. Eyes: Pupils equal round and reactive to light, extra-ocular motions intact. Lids and lashes normal. Conjunctiva and sclera are non-icteric and not injected. Cornea within normal limits. Periorbital areas with no swelling, redness, or edema. ENT: Nares patent. No nasal discharge, no septal abnormalities noted. Tympanic membranes are normal and external auditory canals are clear. Oropharynx with no redness, swelling, or masses, exudates, or evidence of obstruction, uvula midline. Mucous membranes moist. Neck: Trachea midline, no thyromegaly or masses palpated, and no cervical lymphadenopathy. Supple, full range of motion without nuchal rigidity, or vertebral point tenderness. No Meningismus. Chest/axilla: Normal chest wall appearance and motion. Nontender with no deformity. No lesions are appreciated. Cardiovascular: Regular rate and rhythm with a normal S1 and S2. No gallops, murmurs, or rubs. Normal PMI, no JVD. No pulse deficits. Respiratory: Lungs have equal breath sounds bilaterally, clear to auscultation and percussion. No rales, rhonchi or wheezes noted. No increased work of breathing, no retractions or nasal flaring. Abdomen/GI: Soft, non-tender, with normal bowel sounds. No distension or tympany. No guarding or rebound. No evidence of tenderness throughout. Back: No spinal tenderness. No costovertebral tenderness. Full range of motion. Male : Normal genitalia with no discharge or lesions. Skin: Warm, dry with normal turgor. Normal color with no rashes, no lesions, and no evidence of cellulitis. MS/ Extremity: Pulses equal, no cyanosis. Neurovascular intact. Full, normal range of motion. Neuro: Awake and alert, GCS 15, oriented to person, place, time, and situation. Cranial nerves II-XII grossly intact. Motor strength 5/5 in all extremities. Sensory grossly intact. Cerebellar exam normal. Normal gait. Psych: Awake, alert, with orientation to person, place and time. Behavior, mood, and affect are within normal limits. 08:53 ECG was reviewed by the Attending Physician. Vital Signs: 07:14 BP 158 / 38; Pulse 60; Resp 16; Temp 97.2; Pulse Ox 95% on R/A; Weight 88.45 kg; Height tp1 5 ft. 5 in. (165.10 cm); Pain 0/10; 08:45 BP 172 / 80; Pulse 58; Resp 16; Pulse Ox 98% on R/A; tp1 07:14 Body Mass Index 32.45 (88.45 kg, 165.10 cm) tp1 MDM: 07:29 Patient medically screened. [facility] 06/06 07:33 Order name: Basic Metabolic Panel; Complete Time: 08:36 [facility] 06/06 07:33 Order name: CBC with Diff; Complete Time: 08:36 [facility] 06/06 07:33 Order name: LFT's; Complete Time: 08:36 [facility] 06/06 07:33 Order name: Magnesium; Complete Time: 08:36 [facility] 06/06 07:33 Order name: NT PRO-BNP; Complete Time: 08:36 [facility] 06/06 07:33 Order name: PT-INR; Complete Time: 08:36 [facility] 06/06 07:33 Order name: Troponin HS; Complete Time: 08:36 [facility] 06/06 07:33 Order name: XRAY Chest (1 view) [facility] 06/06 07:33 Order name: EKG; Complete Time: 07:34 [facility] 06/06 07:33 Order name: Cardiac monitoring; Complete Time: 07:35 [facility] 06/06 07:33 Order name: Diet Regular; Complete Time: 07:34 [facility] 06/06 07:36 Order name: Glucose, Ancillary Testing; Complete Time: 08:36 [facility] 06/06 07:33 Order name: EKG - Nurse/Tech; Complete Time: 08:35 [facility] 06/06 07:33 Order name: IV Saline Lock; Complete Time: 08:35 [facility] 06/06 07:33 Order name: Labs collected and sent; Complete Time: 08:35 [facility] 06/06 07:33 Order name: O2 Per Protocol; Complete Time: :35 [facility] 06/06 07:33 Order name: O2 Sat Monitoring; Complete Time: :35 mónica EC:53 Rate is 55 beats/min. Rhythm is regular. QRS [place] is Normal. [place] interval is prolonged mónica at 230 msec. QRS interval is normal. QT interval is normal. No Q waves. T waves are Normal. No ST changes noted. Clinical impression: Abnormal EKG without significant change and No evidence of ischemia. Administered Medications: 07:50 Drug: D10 in Water [2 mL/kg] 250 ml Route: IVP; Site: right antecubital; tp1 09:24 Follow up: Response: Blood sugar is elevated tp1 09:18 Drug: Potassium Effervescent Tablet 50 mEq Route: PO; tp1 09:24 Follow up: Response: Medication administered at discharge. tp1 Disposition Summary: 06/06/22 08:56 Discharge Ordered Location: Home mónica Problem: new mónica Symptoms: have improved mónica Condition: Stable mónica Diagnosis - Hypokalemia mónica - Adverse effect of insulin and oral hypoglycemic [antidiabetic] drugs mónica - End stage renal disease - on HD T,TH,SAT mónica Followup: mónica - With: Private Physician - When: Today - Reason: Recheck today's complaints, Continuance of care, Re-evaluation by your physician Discharge Instructions: - Discharge Summary Sheet mónica - Potassium Content of Foods mónica - Hypoglycemia mónica - Dialysis mónica - Chronic Kidney Disease, Adult, Rsgq-de-Xaue mónica - Chronic Kidney Disease, Adult mónica - Hypoglycemia, Rivh-ca-Dkju mónica - Hypokalemia mónica - Eating Plan for Dialysis, Hnho-cl-Zmct mónica - Hemodialysis mónica - Eating Plan for Dialysis mónica - Hemodialysis, Tvel-es-Auup mónica - Preventing Hypoglycemia mónica Forms: - Medication Reconciliation Form mónica - Thank You Letter mónica - Antibiotic Education mónica - Prescription Opioid Use mónica Signatures: Dispatcher [employer] Rios Bearden MD MD cha Garcia, Victoria, RN RN vg1 Toma Delgado RN RN tp1
[2022-06-06 09:36] VITALS: TEMP 97.2
[2022-06-06 09:37] VITALS: BP 172/80; O2SAT 98
--- NOTE | 2022-06-06 09:46 | RAD REPORT ---
EXAM DESCRIPTION: RAD - Chest Single View - 06/06/2022 8:42 am CLINICAL HISTORY: COUGH Chest pain. COMPARISON: Chest Single View dated 05/23/2022; Chest Single View dated 05/21/2022; Chest Single View dated 05/16/2022; Chest Pa And Lat (2 Views) dated 05/12/2022 FINDINGS: Portable technique limits examination quality. The lungs are grossly clear. The heart is mildly enlarged in size. No displaced fractures.Right-sided venous catheter its tip in the SVC. IMPRESSION: No acute intrathoracic process suspected.
--- NOTE | 2022-06-06 14:01 | EKG ---
Test Date: 2022-06-06 Test Time: 07:54:08 Pest Control Operator: BARDLEY MEASUREMENT RESULTS: Intervals: Rate: 55 [place]: 230 QRSD: 104 QT: 504 QTc: 482 [place]: P: 29 [place]: 230 QRS: -54 T: -33 INTERPRETIVE STATEMENTS: Sinus bradycardia with 1st degree AV block Left axis deviation Inferior infarct, age undetermined Anterolateral infarct, age undetermined Abnormal ECG Compared to ECG 05/22/2022 09:33:57 First degree AV block now present Sinus rhythm no longer present Myocardial infarct finding still present Electronically Signed On 06-06-22 14:00:12 CDT by Shay Cai
== END 2022-06-06 09:23 | disposition home or self-care (01) ==
LOC: ER 07:06
DX: E87.6 Hypokalemia (principal); T38.3X5A Adverse effect of insulin and oral hypoglycemic [antidiabetic] drugs, initial encounter; E11.22 Type 2 diabetes mellitus with diabetic chronic kidney disease; I12.0 Hypertensive chronic kidney disease with stage 5 chronic kidney disease or end stage renal disease; N18.6 End stage renal disease; Z99.2 Dependence on renal dialysis
CPT/HCPCS: 36415; 71045; 80048; 80076; 82947; 83735; 83880; 84484; 85025; 85610; 93005; 99283

== ENCOUNTER 2022-09-16 15:02 | Emergency (ER) | payer OTHER ==
--- OUTSIDE RECORDS SUMMARY | 2022-09-16 15:08 | XMS REPORT | Continuity of Care Document ---
:1970 Author Organization [facility] t Address [address] [place] [address] Care Team Providers Name Role Phone Marisol Callahan Attending Clinician Unavailable Triny RN, Leighann Attending Clinician Unavailable JARAD EVERETT Attending Clinician Unavailable Payers Payer Name Policy Type Policy Number Effective Date Expiration Date S ource MEDICARE A B [id number] 2022 00:00:00 MEDICARE PART A [id number] 2022 AND B 00:00:00 Problems This patient has no known problems. Allergies, Adverse Reactions, Alerts This patient has no known allergies or adverse reactions. Social History Social Habit Start Date Stop Date Quantity Comments Source Sex Ass[birth year] YALA Stein [facility] Medications This patient has no known medications. Vital Signs Vital Name Observation Time Observation Value Comments Source Body weight 2022-08-31 07:34:00 88.996 kg [facility] BMI 2022-08-31 07:34:00 31.67 kg/m2 [facility] Body height 2022-08-31 07:34:00 167.6 cm [facility] Procedures Procedure Date / Time Performed Performing Clinician Malachi dubois HEPATITIS B SURFACE 2022-05-17 03:53:00 [facility] ANTIGEN [facility] HEPATITIS B SURFACE 2022-05-17 03:53:00 [facility] ANTIBODY [facility] HEPATITIS B CORE 2022-05-17 03:53:00 [facility] s ANTIBODY, TOTAL [facility] HEPATITIS C PCR, 2022-05-17 03:53:[address] [facility] Plan of Care Planned Activity Planned Date Details Comments Source Future Scheduled 2022-08-[address] [facility] Test 00:00:00 (12+) [code = Medical Center DEPRESSION SCREENING (12+)] Future Scheduled 2022-08-20 Medicare IPPE (WELCOME [facility] 00:00:00 TO MEDICARE) [code = [facility] Medicare IPPE (WELCOME TO MEDICARE)] Future Scheduled 2022-04-20 INFLUENZA VACCINE (#1) [facility] 00:00:00 [code = INFLUENZA Medical Ce nter VACCINE (#1)] Future Scheduled 2022 SHINGLES VACCINES ([address] [facility] Test 00:00:00 2) [code = SHINGLES Medical Center VACCINES (1 of 2)] Future Scheduled 2007 Lipid panel (procedure) [facility] Test 00:00:00 [code = 41662665] Medical Ce nter Future Scheduled 1991 DTAP/TDAP/TD VACCINES [facility] 00:00:00 (1 - Tdap) [code = Medical C enter DTAP/TDAP/TD VACCINES (1 - Tdap)] Future Scheduled [address] [facility] Test 00:00:00 Counseling and Medical Cente r Screening (12+) [code = Tobacco Cessation Counseling and Screening (12+)] Future Scheduled 1970 COVID-19 VACCINE (#1) [facility] 00:00:00 [code = COVID-[address] VACCINE (#1)] Future Scheduled 1972 CT Colonography (combo) [facility] Test 00:00:00 [code = CT Colonography [facility] (combo)] Future Scheduled 1970 Screening for malignant [facility] Test 00:00:00 neoplasm of colon Medical Ce nter (procedure) [code = 510995550] Future Scheduled 1970 Screening for malignant [facility] Test 00:00:00 neoplasm of colon Medical Ce nter (procedure) [code = 793738149] Future Scheduled 1970 Screening for malignant [facility] Test 00:00:00 neoplasm of colon Medical Ce nter (procedure) [code = 475243861] Future Scheduled 1972 Screening for malignant [facility] Test 00:00:00 neoplasm of colon Medical Ce nter (procedure) [code = 247876259] Future Scheduled 1970 Sigmoidoscopy [code = [facility] 00:[facility] S[facility]oscopy] Medical Cente r Encounters Start End Encounter Admission Attending Care Care Encounter Source Date/Time Date/Time Type Type Clinicians Facility Department ID 2022-07-11 Outpatient [facility] [id number] [place] 14:53:52 [id number] [facility] 2022-07-05 Outpatient [facility] [id number] [place] 08:31:43 [id number] [facility] 2022-06-19 Outpatient [facility] [id number] [place] 16:57:00 [id number] [facility] 2022-06-16 Outpatient [facility] [id number] [place] 10:28:00 [id number] [facility] 2022-09-28 2022-09-28 Outpatient [facility] [id number] [address] [place] [address] 00:00:00 00:00:00 2022-09-05 2022-09-05 Mauro Callahan [facility] [id number] 20 [id number] AYLA Garcia 00:00:00 00:00:00 [facility] 2022-08-31 2022-08-31 Mauro Callahan [facility] [id number] [id number] 00:00:00 00:00:00 [facility] 2022-08-31 2022-08-31 Abstract Triny [facility] [id number] AYLA Garcia 00:00:00 00:00:00 [facility] 2022-08-31 2022-08-31 [place] [facility] [id number] 00:00:00 00:00:00 [facility] 2022-08-31 2022-08-31 [place] [facility] [id number] 00:00:00 00:00:00 [facility] 2022-08-29 2022-08-29 Outpatient [facility] [id number] [place] 10:30:00 10:30:00 [facility] 2022-07-04 2022-07-05 Outpatient KARLOS, [facility] [id number] [place] 13:30:00 08:32:27 [facility] 2022-06-26 2022-06-26 Outpatient KARLOS, [facility] [id number] [place] 10:15:00 10:15:00 [facility] 2022-05-17 2022-05-17 Lab [facility] [id number] [facility] 00:00:00 00:00:00 [facility] Results Test Description Test Time Test Comments Results Result Comments Source Hepatitis C PCR, Quantitative 2022-05-19 14:24:46 Test Item Value Reference Range Interpretation Comme nts HCV PCR, Quantitative (test code HCV RNA not detected HCV RNA not d etected = 84826-5) PREMA (test code = PREMA) This test uses a Real-Time Polymerase Chain Reaction (RT-PCR) methodology and was performed using FARSHAD Ampliprep/FARSHAD TaqMan HCV test kit version 2.0 ([employer]). Reportable range for this assay is 15 - 100,000,000 IU per mL (1.18 - 8.00 Log IU/mL). Lab Interpretation (test code = Normal 87476-9) [facility] [id number] 14:24:46 Test Item Value Reference Range Interpretation Comments HCV RESULT COMPONENT HCV RNA not detected HCV RNA not detected (BEAKER) (test code = 2699) This test uses a Real-Time Polymerase Chain Reaction (RT-PCR) methodology and was performed using F[employer]SHAD Ampliprep/FARSHAD TaqMan HCV test kit version 2.0 ([employer]).Reportable range for this assay is 15 - 100,000,000 IU per mL (1.18 - 8.00 Log IU/mL).Hepatitis B surface [id number] 16:31:21 Test Item Value Reference Range Interpretation Comments Hep B S Ab (test code <8.0 See_Comment [Auto mated = 27428-2) message] The system which generated this result transmit fletcher reference range : <8.0 mIU/mL. e reference range was not used to interpret this result as normal/abnormal . PREMA (test code = PREMA) Content Development Specialist ID - ED Lab Interpretation Normal (test code = 00631-2) [facility] [id number] 16:31:21 Test Item Value Reference Range Interpretation Comments HEPATITIS B SURFACE ANTIBODY < mIU/mL <8.0 (BEAKER) (test code = 647) Content Development Specialist ID - EDHepatitis B surface [id number] 16:21:45 Test Item Value Reference Range Interpretation Comments Hepatitis B surface Nonreactive Nonreactive antigen (test code = 5195-3) PREMA (test code = PREMA) Specimen is considered negative for HBsAg. Lab Interpretation (test Normal code = 25343-5) [facility] antibody, [id number] 16:21:45 Test Item Value Reference Range Interpretation Comments Hep B Core Total Ab (test Nonreactive Nonreactive code = 09776-3) PREMA (test code = PREMA) Content Development Specialist ID - ED Lab Interpretation (test Normal code = 96768-1) [facility] [id number] 16:21:45 Test Item Value Reference Range Interpretation Comments HEPATITIS B SURFACE ANTIGEN (2) Nonreactive Nonreactive (BEAKER) (test code = 2585) Specimen is considered negative for HBsAg.HEPATITIS B CORE ANTIBODY, TOTAL 2022-05-17 16:21:45 Test Item Value Reference Range Interpretation Comments HEPATITIS B CORE TOTAL ANTIBODY Nonreactive Nonreactive (BEAKER) (test code = 497) Content Development Specialist ID - ED
--- NOTE | 2022-09-16 16:55 | RAD REPORT ---
EXAM DESCRIPTION: CT - Head Brain Wo Cont - 09/16/2022 4:40 pm CLINICAL HISTORY: Head injury status post fall COMPARISON: 2018 TECHNIQUE: Computed axial tomography of the head was obtained. IV contrast was not requested. All CT scans are performed using dose optimization technique as appropriate and may include automated exposure control or mA/KV adjustment according to patient size. FINDINGS: An intracranial bleed is not seen . The ventricles are normal in caliber. No extra-axial fluid collection is noted. 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 Small old infarction right arboleda radiata. Fluid within the sinuses/ mastoids is not seen. IMPRESSION: No acute intracranial abnormality is seen. If patient's symptoms persist MRI of the bra in would be recommended.
--- NOTE | 2022-09-16 16:55 | RAD REPORT ---
EXAM DESCRIPTION: RAD - Thoracic Spine Ap/Lat - 09/16/2022 4:05 pm CLINICAL HISTORY: Back pain FINDINGS: The bones are osteoporotic. Mild to moderate spondylosis involves the thoracic spine. No fracture or dislocation is seen. Limited evaluation of T1 secondary to overlying shoulders
--- NOTE | 2022-09-16 17:37 | ER ---
Nurse's Notes [facility] Name: Nabor Ny Age: 52 yrs Sex: Male : 1970 Arrival Date: 09/16/2022 Time: 15:06 Bed 9 Private MD: Deepak Harvey V Diagnosis: Fall on same level from slipping, tripping and stumbling without subsequent striking against object;Pain in thoracic spine;Pain in left shoulder Presentation: 09/16 15:09 Chief complaint: Fell out of golf cart and landed supine, c/o upper back and left hb shoulder pain /10. Unknown LOC. Coronavirus screen: At this time, the client does not indicate any symptoms associated with coronavirus-19. Ebola Screen: No symptoms or risks identified at this time. Initial Sepsis Screen: Does the patient meet any 2 criteria? No. Patient's initial sepsis screen is negative. Does the patient have a suspected source of infection? No. Patient's initial sepsis screen is negative. Risk Assessment: Do you want to hurt yourself or someone else? Patient reports no desire to harm self or others. Onset of symptoms was September 16, 2022. 15:09 Method Of Arrival: Ambulatory hb 15:09 Acuity: DEBBIE 3 hb Triage Assessment: 15:26 General: Appears in no apparent distress. uncomfortable, Behavior is calm, cooperative, eh3 appropriate for age. Pain: Complains of pain in left trapezius, left scapular area and right scapular area. Historical: - Allergies: 15:10 No Known Allergies; hb - Home Meds: 15:25 atorvastatin 20 mg Oral tab [Active]; calcitriol 0.25 mcg Oral cap [Active]; carvedilol eh3 12.5 mg Oral tab [Active]; hydralazine 25 mg Oral tab 3 x/day [Active]; Lantus 35 units Sub-Q daily [Active]; Metformin Oral [Active]; sodium bicarbonate 650 mg Oral tab [Active]; Victoza 3-Joey 0.6 mg/0.1 mL (18 mg/3 mL) subcutaneous pnij 0.3 mL once daily [Active]; 15:38 lisinopril 10 mg oral tab once daily [Active]; eh3 - PMHx: 15:25 Diabetes - NIDDM; Hirschsprung's disease; Hypertension; kidney disease; Kidney stone; eh3 - PSHx: 15:25 Colostomy; eh3 - Immunization history:: Adult Immunizations up to date. - Social history:: Smoking status: Patient denies any tobacco usage or history of. Screenin:27 [facility] ED Fall Risk Assessment (Adult) History of falling in the last 3 months, eh3 including since admission Yes- single mechanical fall (1 pt) Confusion or Disorientation No (0 pts) Intoxicated or Sedated No (0 pts) Impaired Gait No (0 pts) Mobility Assist Device Used No (0 pt) Altered Elimination No (0 pt) Score/Fall Risk Level 0 - 2 = Low Risk. Abuse screen: Denies threats or abuse. Denies injuries from another. Nutritional screening: No deficits noted. Tuberculosis screening: No symptoms or risk factors identified. Assessment: 15:20 General: Appears in no apparent distress. uncomfortable, Behavior is calm, cooperative, eh3 appropriate for age. Pain: Complains of pain in right scapular area and left scapular area and left shoulder, left knee Aggravated by back pain aggravated upon inspiration. Neuro: Level of Consciousness is awake, alert, obeys commands, Oriented to person, place, time, situation. Cardiovascular: Capillary refill < 3 seconds Patient's skin is warm and dry. Respiratory: Airway is patent Respiratory effort is even, unlabored, Respiratory pattern is regular, symmetrical. GI: No signs and/or symptoms were reported involving the gastrointestinal system. GI: Abdomen is round non-distended. : No signs and/or symptoms were reported regarding the genitourinary system. EENT: No signs and/or symptoms were reported regarding the EENT system. Derm: No signs and/or symptoms reported regarding the dermatologic system. Skin is pink, warm \T\ dry. Musculoskeletal: Circulation, motion, and sensation intact. Range of motion: intact in all extremities. 16:15 Reassessment: Patient appears in no apparent distress at this time. Patient and/or eh3 family updated on plan of care and expected duration. Pain level reassessed. Patient is alert, oriented x 3, equal unlabored respirations, skin warm/dry/pink. 17:15 Reassessment: Patient appears in no apparent distress at this time. Patient and/or eh3 family updated on plan of care and expected duration. Pain level reassessed. Patient is alert, oriented x 3, equal unlabored respirations, skin warm/dry/pink. Vital Signs: 15:09 BP 175 / 86; Pulse 70; Resp 16; Temp 97.7; Pulse Ox 100% ; Weight 86.18 kg; Height 5 hb ft. 5 in. (165.10 cm); Pain 7/10; 15:30 BP 185 / 81; Pulse 68; Resp 18; Pulse Ox 98% on R/A; eh3 16:15 BP 186 / 80; Pulse 69; Resp 16; Pulse Ox 99% on R/A; eh3 17:15 BP 185 / 81; Pulse 71; Resp 18; Pulse Ox 100% on R/A; eh3 15:09 Body Mass Index 31.62 (86.18 kg, 165.10 cm) hb ED Course: 15:06 Patient arrived in ED. rg4 15:06 Deepak Harvey MD is Private Physician. rg4 15:10 Triage completed. hb 15:10 Arm band placed on. hb 15:11 Sandra Betancur [facility]C [facility]. kb 15:11 Randolph Noel MD is Attending Physician. kb 15:25 Conchita Suarez RN is Primary Nurse. eh3 15:27 Patient has correct armband on for positive identification. Bed in low position. Call eh3 light in reach. Side rails up X2. Pulse ox on. NIBP on. Door closed. Noise minimized. Warm blanket given. 16:06 Thoracic Spine Ap/Lat In Process Unspecified. EDMS 16:42 CT Head Brain wo Cont In Process Unspecified. EDMS 17:59 No provider procedures requiring assistance completed. Patient did not have IV access eh3 during this emergency room visit. Administered Medications: No medications were administered Medication: 17:59 VIS not applicable for this client. eh3 Outcome: 17:36 Discharge ordered by . kb 18:00 Discharged to home ambulatory, with family. eh3 18:00 Condition: stable 18:00 Discharge instructions given to patient, family, Instructed on discharge instructions, follow up and referral plans. medication usage, Demonstrated understanding of instructions, follow-up care, medications, Prescriptions given X 1. 18:00 Patient left the ED. eh3 Signatures: Dispatcher [employer] EDMS Sandra Betancur FNP-C FNP-Ckb Baxter, Heather RN RN Nguyen Moe 4 Conchita Suarez RN RN 3 Corrections: (The following items were deleted from the chart) : 15:25 Home Meds: clopidogrel 75 mg Oral tab; 3 3 39 15:25 Home Meds: lisinopril Oral; 3 3
--- NOTE | 2022-09-16 17:37 | EDPHYS ---
Physician Documentation [facility] Name: Nabor Ny Age: 52 yrs Sex: Male : 1970 Arrival Date: 09/16/2022 Time: 15:06 Bed 9 Private MD: Deepak Harvey V ED Physician Randolph Noel HPI: 09/16 22:52 This 52 yrs old Male presents to ER via Ambulatory with complaints of Fall kb Injury. 22:52 Details of fall: The patient fell from a height, out of golfcart. Onset: The kb symptoms/episode began/occurred just prior to arrival. Associated injuries: The patient sustained injury to the head, pain, upper back injury, pain, pain with movement, tenderness, posterior aspect of left shoulder, abrasion. Severity of symptoms: At their worst the symptoms were mild, moderate, in the emergency department the symptoms are unchanged. The patient has not experienced similar symptoms in the past. The patient has not recently seen a physician. Patient reports he fell out of golf cart in the garage just prior to arrival onto left side. Reports abrasion to posterior left shoulder, pain to thoracic spine. Reports he hit his head on the wall in the garage. denies LOC.. Historical: - Allergies: 15:10 No Known Allergies; hb - Home Meds: 15:25 atorvastatin 20 mg Oral tab [Active]; calcitriol 0.25 mcg Oral cap [Active]; carvedilol eh3 12.5 mg Oral tab [Active]; hydralazine 25 mg Oral tab 3 x/day [Active]; Lantus 35 units Sub-Q daily [Active]; Metformin Oral [Active]; sodium bicarbonate 650 mg Oral tab [Active]; Victoza 3-Joey 0.6 mg/0.1 mL (18 mg/3 mL) subcutaneous pnij 0.3 mL once daily [Active]; 15:38 lisinopril 10 mg oral tab once daily [Active]; eh3 - PMHx: 15:25 Diabetes - NIDDM; Hirschsprung's disease; Hypertension; kidney disease; Kidney stone; eh3 - PSHx: 15:25 Colostomy; eh3 - Immunization history:: Adult Immunizations up to date. - Social history:: Smoking status: Patient denies any tobacco usage or history of. ROS: 22:52 Constitutional: Negative for fever, chills, and weight loss. kb 22:52 Back: Positive for pain at rest, pain with movement, of the thoracic area. 22:52 MS/extremity: Positive for abrasion, of the posterior aspect of left shoulder. 22:52 Neuro: Positive for headache. 22:52 All other systems are negative. Exam: 22:52 Constitutional: This is a well developed, well nourished patient who is awake, alert, kb and in no acute distress. Head/Face: Normocephalic, atraumatic. Eyes: Pupils equal round and reactive to light, extra-ocular motions intact. Lids and lashes normal. Conjunctiva and sclera are non-icteric and not injected. Cornea within normal limits. Periorbital areas with no swelling, redness, or edema. ENT: Moist Mucous membranes Cardiovascular: Regular rate and rhythm with a normal S1 and S2. No gallops, murmurs, or rubs. No pulse deficits. Respiratory: Respirations even and unlabored. No increased work of breathing. Talking in full sentences Abdomen/GI: Soft, non-tender. No distention Skin: Warm, dry with normal turgor. Normal color. MS/ Extremity: Pulses equal, no cyanosis. Neurovascular intact. Full, normal range of motion. Neuro: Awake and alert, GCS 15, oriented to person, place, time, and situation. Moves all extremities. Normal gait. Psych: Awake, alert, with orientation to person, place and time. Behavior, mood, and affect are within normal limits. 22:52 Back: vertebral tenderness, is appreciated at T5 and T6. 22:52 Skin: injury, abrasion(s), small abrasion noted, of the posterior aspect of left shoulder. Vital Signs: 15:09 BP 175 / 86; Pulse 70; Resp 16; Temp 97.7; Pulse Ox 100% ; Weight 86.18 kg; Height 5 hb ft. 5 in. (165.10 cm); Pain 7/10; 15:30 BP 185 / 81; Pulse 68; Resp 18; Pulse Ox 98% on R/A; eh3 16:15 BP 186 / 80; Pulse 69; Resp 16; Pulse Ox 99% on R/A; eh3 17:15 BP 185 / 81; Pulse 71; Resp 18; Pulse Ox 100% on R/A; eh3 15:09 Body Mass Index 31.62 (86.18 kg, 165.10 cm) MDM: 15:12 Patient medically screened. kb 22:52 Differential diagnosis: abrasion, closed head injury, contusion, fracture. Data kb reviewed: vital signs, nurses notes. Counseling: I had a detailed discussion with the patient and/or guardian regarding: the historical points, exam findings, and any diagnostic results supporting the discharge/admit diagnosis, radiology results, the need for outpatient follow up, a family practitioner, to return to the emergency department if symptoms worsen or persist or if there are any questions or concerns that arise at home. 09/16 15:34 Order name: Thoracic Spine Ap/Lat; Complete Time: 16:56 EDRI 09/16 15:43 Order name: CT Head Brain wo Cont; Complete Time: 16:56 kb Administered Medications: No medications were administered Disposition Summary: 09/16/22 17:36 Discharge Ordered Location: Home kb Condition: Stable kb Diagnosis - Fall on same level from slipping, tripping and stumbling without subsequent kb striking against object - Pain in thoracic spine kb - Pain in left shoulder kb Followup: kb - With: Emergency Department - When: As needed - Reason: Recheck today's complaints, Continuance of care, Re-evaluation by your physician Followup: kb - With: Private Physician - When: 2 - 3 days - Reason: Recheck today's complaints, Continuance of care, Re-evaluation by your physician Discharge Instructions: - Discharge Summary Sheet kb - Musculoskeletal Pain kb - Shoulder Pain, [id number] kb Forms: - Medication Reconciliation Form kb - Thank You Letter kb - Antibiotic Education kb - Prescription Opioid Use kb Prescriptions: - Cyclobenzaprine 10 mg Oral Tablet - take 1 tablet by ORAL route every 8 hours As needed; 21 tablet; Refills: 0, kb Product Selection Permitted Signatures: Dispatcher [employer] EDRI Sandra Betancur FNP-C FNP-Ckb Baxter, Heather, RN RN Conchita Barnett RN RN 3 Corrections: (The following items were deleted from the chart) 15:39 15:25 Home Meds: clopidogrel 75 mg Oral tab; 3 3 15:39 15:25 Home Meds: lisinopril Oral; 3 3
[2022-09-16 18:11] VITALS: TEMP 97.7
[2022-09-16 18:14] VITALS: BP 185/81; O2SAT 100
== END 2022-09-16 18:00 | disposition home or self-care (01) ==
LOC: ER 15:02
DX: M54.6 Pain in thoracic spine (principal); M25.512 Pain in left shoulder; W01.0XXA Fall on same level from slipping, tripping and stumbling without subsequent striking against object, initial encounter; I10 Essential (primary) hypertension; E11.9 Type 2 diabetes mellitus without complications
CPT/HCPCS: 70450; 72070; 99283

== ENCOUNTER 2022-10-10 10:35 | Inpatient (IN) | payer OTHER ==
--- OUTSIDE RECORDS SUMMARY | 2022-10-10 10:38 | XMS REPORT | Continuity of Care Document ---
:1970 Author Organization [facility] t Address [address] [place] [address] Care Team Providers Name Role Phone JARAD EVERETT Attending Clinician Unavailable Conchita Gauthier MA Attending Clinician Unavailable Leighann Agosto RN Attending Clinician Unavailable Marisol Callahan Attending Clinician Unavailable Payers Payer Name Policy Type Policy Number Effective Date Expiration Date S [email or web address] MEDICARE PART A [id number] 2022 AND B 00:00:00 Problems This patient has no known problems. Allergies, Adverse Reactions, Alerts This patient has no known allergies or adverse reactions. Social History Social Habit Start Date Stop Date Quantity Comments Source Sex Assigned At [birth year] [facility]x 00:00:00 00:00:00 [facility] Medications This patient has no known medications. Vital Signs Vital Name Observation Time Observation Value Comments Source Body height 2022-08-31 07:34:00 167.6 cm [facility] Body weight 2022-08-31 07:34:00 88.996 kg [facility] BMI 2022-08-31 07:34:00 31.67 kg/m2 [facility] Procedures Procedure Date / Time Performed Performing Clinician Malachi dubois HEPATITIS B SURFACE 2022-05-17 03:53:00 [facility] ANTIGEN [facility] HEPATITIS B SURFACE 2022-05-17 03:53:00 [facility] ANTIBODY [facility] HEPATITIS B CORE 2022-05-17 03:53:00 [facility] s ANTIBODY, TOTAL [facility] HEPATITIS C PCR, 2022-05-17 03:53:[address] [facility] Plan of Care Planned Activity Planned Date Details Comments Source Future Scheduled 2022-08-[address] [facility] 00:00:00 (12+) [code = [facility] DEPRESSION SCREENING (12+)] Future Scheduled 2022-08-20 Medicare IPPE (WELCOME [facility] 00:00:00 TO MEDICARE) [code = [facility] Medicare IPPE (WELCOME TO MEDICARE)] Future Scheduled 2022-08-[address] [facility] 00:00:00 (12+) [code = [facility] DEPRESSION SCREENING (12+)] Future Scheduled 2022-08-20 Medicare IPPE (WELCOME [facility] 00:00:00 TO MEDICARE) [code = Medical Center Medicare IPPE (WELCOME TO MEDICARE)] Future Scheduled 2022-04-20 INFLUENZA VACCINE (#1) [facility] 00:00:00 [code = INFLUENZA Medical Ce [facility]ter VACCINE (#1)] Future Scheduled 2022-04-20 INFLUENZA VACCINE (#1) [facility] 00:00:00 [code = INFLUENZA Medical Ce nter VACCINE (#1)] Future Scheduled 2022 SHINGLES VACCINES ([address] [facility] 00:00:00 2) [code = SHINGLES [facility] VACCINES (1 of 2)] Future Scheduled 2022 SHINGLES VACCINES ([address] [facility] 00:00:00 2) [code = SHINGLES [facility] VACCINES (1 of 2)] Future Scheduled 2007 Lipid panel (procedure) [facility] 00:00:00 [code = 50311504] Medical Ce nter Future Scheduled 2007 Lipid panel (procedure) [facility] 00:00:00 [code = 98763894] Medical Ce nter Future Scheduled 1991 DTAP/TDAP/TD VACCINES [facility] 00:00:00 (1 - Tdap) [code = Medical C enter DTAP/TDAP/TD VACCINES (1 - Tdap)] Future Scheduled 1991 DTAP/TDAP/TD VACCINES [facility] 00:00:00 (1 - Tdap) [code = Medical C enter DTAP/TDAP/TD VACCINES (1 - Tdap)] Future Scheduled [address] [facility] 00:00:00 [facility] Screening (12+) [code = Tobacco Cessation Counseling and Screening (12+)] Future Scheduled [address] [facility] 00:00:00 [facility] r Screening (12+) [code = Tobacco Cessation Counseling and Screening (12+)] Future Scheduled 1972 COVID-19 VACCINE (#1) [facility] 00:00:00 [code = COVID-[address] VACCINE (#1)] Future Scheduled 1972 COVID-19 VACCINE (#1) [facility] 00:00:00 [code = COVID-[address] VACCINE (#1)] Future Scheduled 1972 CT Colonography (combo) [facility] 00:00:00 [code = CT Colonography [facility] (combo)] Future Scheduled 1972 Screening for malignant [facility] 00:00:00 neoplasm of colon Medical Ce [facility]ter (procedure) [code = 938028171] Future Scheduled 1972 Screening for malignant [facility] 00:00:00 neoplasm of colon Medical Ce [facility]ter (procedure) [code = 378308148] Future Scheduled 1972 Screening for malignant [facility] 00:00:00 neoplasm of colon Medical Ce [facility]ter (procedure) [code = 286656592] Future Scheduled 1972 Screening for malignant [facility] 00:00:00 neoplasm of colon Medical Ce [facility]ter (procedure) [code = 967432118] Future Scheduled 1970 Sigmoidoscopy [code = [facility] S[facility]oscopy] Medical Cente r Future Scheduled 1972 CT Colonography (combo) [facility] 00:00:00 [code = CT Colonography [facility] (combo)] Future Scheduled 1972 Screening for malignant [facility] 00:00:00 neoplasm of colon Medical Ce nter (procedure) [code = 374538677] Future Scheduled 1972 Screening for malignant [facility] 00:00:00 neoplasm of colon Medical Ce [facility]ter (procedure) [code = 367687498] Future Scheduled 1972 Screening for malignant [facility] 00:00:00 neoplasm of colon Medical Ce nter (procedure) [code = 565322674] Future Scheduled 1972 Screening for malignant [facility] 00:00:00 neoplasm of colon Medical Ce nter (procedure) [code = 323546214] Future Scheduled 1970 Sigmoidoscopy [code = [facility] 00:[facility] S[facility]oscopy] Medical Cente r Encounters Start End Encounter Admission Attending Care Care Encounter Source Date/Time Date/Time Type Type Clinicians Facility Department ID 2022-09-28 Outpatient [facility] [id number] [place] 11:17:06 [id number] [facility] 2022-09-22 Outpatient [facility] [id number] [place] 13:29:04 [id number] [facility] 2022-09-20 Outpatient [facility] [id number] [place] 10:03:28 [id number] [facility] 2022-07-11 Outpatient [facility] [id number] [place] 14:53:52 [id number] [facility] 2022-07-05 Outpatient [facility] [id number] [place] 08:31:43 [id number] [facility] 2022-06-19 Outpatient [facility] [id number] [place] 16:57:00 [id number] [facility] 2022-06-16 Outpatient [facility] [id number] [place] 10:28:00 [id number] [facility] 2022-11-07 2022-11-07 [id number] [place] 09:30:00 09:30:00 JARAD [facility] 2022-10-12 2022-10-12 Outpatient [facility] [id number] [place] 13:00:00 13:00:00 [facility] 2022-10-09 2022-10-09 Documentat Abrahan [facility] [id number] [facility] 00[facility]00 [facility] 2022-10-07 2022-10-07 Abstract Triny [facility] [id number] 00:[facility] 00[facility]00 [facility] 2022-09-28 2022-09-28 Outpatient [facility] [id number] [facility] 00:00:00 00:00:00 2022-09-05 2022-09-05 Mauro Callahan [facility] [id number] [facility] 00[facility]00 [facility] 2022-09-05 2022-09-05 Mauro Callahan [facility] [id number] [id number] [facility] 00[facility]00 [facility] 2022-08-31 2022-08-31 Abstract [place] [facility] [id number] 00:[facility] 00:00:00 [facility] 2022-08-31 2022-08-31 Mauro Callahan [facility] [id number] [id number] 00:[facility] 00:00:00 [facility] 2022-08-31 2022-08-31 Abstract Triny [facility] [id number] 00:00[facility]00 00:00:00 [facility] 2022-08-31 2022-08-31 Mauro Callahan [facility] [id number] 00:[facility] 00:00:00 [facility] 2022-08-31 2022-08-31 Sky Agosto [facility] [id number] 00:00[facility]00 00:00:00 [facility] 2022-08-31 2022-08-31 Telephone [place] [facility] [id number] 00:[facility] 00:00:00 [facility] 2022-08-31 2022-08-31 Abstract [place] [facility] [id number] 00:00[facility]00 00:00:00 [facility] 2022-08-31 2022-08-31 Telephone [place] [facility] [id number] 00:[facility] 00:00:00 [facility] 2022-08-29 2022-08-29 Outpatient KARLOS, [facility] [id number] [place] 10:30:00 10:30:00 [facility] 2022-07-04 2022-07-05 Outpatient KARLOS, [facility] [id number] [place] 13:30:00 08:32:27 [facility] 2022-06-26 2022-06-26 [facility] [id number] [place] 10:15:00 10:15:00 [facility] 2022-05-17 2022-05-17 Lab [facility] [id number] 00:00[facility]00 00:00:00 [facility] 2022-05-17 2022-05-17 Lab [facility] [id number] 00:00:00 00:00:00 [facility] Results Test Description Test Time Test Comments Results Result Comments Source Hepatitis C PCR, Quantitative 2022-05-19 14:24:46 Test Item Value Reference Range Interpretation Comme nts HCV PCR, Quantitative (test code HCV RNA not detected HCV RNA not d etected = 59177-4) PREMA (test code = PREMA) This test uses a Real-Time Polymerase Chain Reaction (RT-PCR) methodology and was performed using FARSHAD Ampliprep/FARSHAD TaqMan HCV test kit version 2.0 ([employer]). Reportable range for this assay is 15 - 100,000,000 IU per mL (1.18 - 8.00 Log IU/mL). Lab Interpretation (test code = Normal 73952-4) [facility] C PCR, [id number] 14:24:46 Test Item Value Reference Range Interpretation Comments HCV PCR, Quantitative HCV RNA not detected HCV RNA not (test code = 11040-7) detected PREMA (test code = PREMA) This test uses a Real-Time Polymerase Chain Reaction (RT-PCR) methodology and was performed using FARSHAD Ampliprep/FARSHAD TaqMan HCV test kit version 2.0 ([employer]). Reportable range for this assay is 15 - 100,000,000 IU per mL (1.18 - 8.00 Log IU/mL). Lab Interpretation Normal (test code = 89070-5) [facility] C PCR, [id number] 14:24:46 Test Item Value Reference Range Interpretation Comments HCV RESULT COMPONENT HCV RNA not detected HCV RNA not detected (SHARAKER) (test code = 2699) This test uses a Real-Time Polymerase Chain Reaction (RT-PCR) methodology and was performed using FARSHAD Ampliprep/FARSHAD TaqMan HCV test kit version 2.0 ([employer]).Reportable range for this assay is 15 - 100,000,000 IU per mL (1.18 - 8.00 Log IU/mL).Hepatitis B surface [id number] 16:31:21 Test Item Value Reference Range Interpretation Comments Hep B S Ab (test code <8.0 See_Comment [Auto mated = 26221-5) message] The system which generated this result transmit fletcher reference range : <8.0 mIU/mL. Th e reference range was not used to interpret this result as normal/abnormal . 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 Th e reference range was not used to interpret this result as normal/abnormal . 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 Lab Interpretation (test Normal code = 22449-7) [facility] B core antibody, [id number] 16:21:45 Test Item Value Reference Range Interpretation Comments Hep B Core Total Ab (test Nonreactive Nonreactive code = 85635-7) PREMA (test code = PREMA) [employer] Director [employer] ID - ED Lab Interpretation (test Normal code = 28410-5) [facility] [id number] 16:21:45 Test Item Value Reference Range Interpretation Comments Hepatitis B surface Nonreactive Nonreactive antigen (test code = 5195-3) PREMA (test code = PREMA) Specimen is considered negative for HBsAg. Lab Interpretation (test Normal code = 45640-8) [facility] antibody, [id number] 16:21:45 Test Item Value Reference Range Interpretation Comments Hep B Core Total Ab (test Nonreactive Nonreactive code = 25491-5) PREMA (test code = PREMA) [employer] Director [employer] ID - ED Lab Interpretation (test Normal code = 43286-3) [facility] [id number] 16:21:45 Test Item Value Reference Range Interpretation Comments HEPATITIS B SURFACE ANTIGEN (2) Nonreactive Nonreactive (BEAKER) (test code = 2585) Specimen is considered negative for HBsAg.HEPATITIS B CORE ANTIBODY, TOTAL 2022-05-17 16:21:45 Test Item Value Reference Range Interpretation Comments HEPATITIS B CORE TOTAL ANTIBODY Nonreactive Nonreactive (BEAKER) (test code = 497) [employer] - ED
[2022-10-10 11:33] LABS: Absolute Lymphocytes (CBC) 1.3 K/uL (0.7-4.9); Hematocrit 36.1 % (39.6-49.0); Lymphocytes % 16.4 % (15.3-44.8); MCV 89.1 fL (80-100); MPV 8.3 fL (7.6-11.3); RBC Red Blood Cell Count 4.05 M/uL (4.33-5.43)
[2022-10-10] MEDS ORDERED: HYDRALAZINE HCL 20 MG/ML VIAL ONE ×3 (11:34→14:08)
[2022-10-10 11:37] LABS: Protime INR 1.18
--- NOTE | 2022-10-10 11:37 | ER ---
Nurse's Notes [facility] Name: Nabor Ny Age: 52 yrs Sex: Male : 1970 Arrival Date: 10/10/2022 Time: 10:36 Bed 5 Private MD: Deeapk Harvey V Diagnosis: Essential (primary) hypertension;End stage renal disease-on hd ;Weakness;Anorexia;Hypokalemia-Hypophosphatemia Presentation: 10/10 10:36 Chief complaint: Patient states: "I haven't been able to eat well for the past month [facility] because I get nausea". Pt's states "sometimes he goes 2 or 3 days without eating and when he finally eats it's only a little bit". Pt reports he had endoscopy scheduled for this morning with Dr. Nance but was unable to completed due to "low potassium level". Reports last Dialysis was yesterday and reports he has not taken home meds in 3 days. 10:36 Coronavirus screen: nausea. Ebola Screen: Patient denies travel to an Ebola-affected [facility] area in the 21 days before illness onset. Initial Sepsis Screen: Does the patient meet any 2 criteria? No. Patient's initial sepsis screen is negative. Does the patient have a suspected source of infection? No. Patient's initial sepsis screen is negative. Risk Assessment: Do you want to hurt yourself or someone else? Patient reports no desire to harm self or others. Onset of symptoms was 2022. 10:36 Acuity: DEBBIE 2 aa5 10:36 Method Of Arrival: Ambulatory aa5 Historical: - Allergies: 10:36 No Known Allergies; aa5 - Home Meds: 13:56 atorvastatin 20 mg Oral tab [Active]; calcitriol 0.25 mcg Oral cap [Active]; carvedilol ph 12.5 mg Oral tab [Active]; hydralazine 25 mg Oral tab 3 x/day [Active]; Lantus 35 units Sub-Q daily [Active]; lisinopril 10 mg Oral tab once daily [Active]; Metformin Oral [Active]; sodium bicarbonate 650 mg Oral tab [Active]; Victoza 3-Joey 0.6 mg/0.1 mL (18 mg/3 mL) subcutaneous pnij 0.3 mL once daily [Active]; - PMHx: 10:36 Diabetes - NIDDM; Hirschsprung's disease; Hypertension; kidney disease; Kidney stone; aa5 Renal Failure; Dialysis; CVA; CHF 2018; - PSHx: 10:36 Colostomy; Dialysis catheter; aa5 - Immunization history:: Adult Immunizations unknown. - Social history:: Smoking status: Reported history of juuling and/or vaping. - Family history:: not pertinent. Screenin:54 [facility] ED Fall Risk Assessment (Adult) History of falling in the last 3 months, ph including since admission No falls in past 3 months (0 pts) Confusion or Disorientation No (0 pts) Intoxicated or Sedated No (0 pts) Impaired Gait No (0 pts) Mobility Assist Device Used No (0 pt) Altered Elimination Yes (1 pt) Score/Fall Risk Level 0 - 2 = Low Risk Oriented to surroundings, Maintained a safe environment, Hourly rounding (assess needs \\T\\ fall precautionary measures) done. Abuse screen: Denies threats or abuse. Denies injuries from another. Nutritional screening: No deficits noted. Tuberculosis screening: No symptoms or risk factors identified. Assessment: 11:00 General: Appears in no apparent distress. comfortable, well groomed, Behavior is calm, ph cooperative, appropriate for age, Denies fever. Pain: Denies pain. Cardiovascular: Reports fatigue, lightheadedness, nausea, Capillary refill < 3 seconds in bilateral fingers Patient's skin is warm and dry. Dialysis shunt: in the anterior aspect of right upper chest. Respiratory: Airway is patent Respiratory effort is even, labored. GI: Reports nausea, Patient currently denies abdominal pain, diarrhea, vomiting. : No signs and/or symptoms were reported regarding the genitourinary system. Derm:. Musculoskeletal: Circulation, motion, and sensation intact. Range of motion: intact in all extremities. 13:52 Reassessment: Patient appears in no apparent distress at this time. Patient and/or ph family updated on plan of care and expected duration. Pain level reassessed. Pt resting quietly w/ eyes closed, respirations even and unlabored. Vital Signs: 10:36 BP 223 / 113; Pulse 65; Resp 18 S; Temp 98.7(O); Pulse Ox 100% on R/A; Weight 83.91 kg aa5 (R); Height 5 ft. 5 in. (165.10 cm) (R); Pain 0/10; 13:02 BP 196 / 92; Pulse 72; Resp 16; Pulse Ox 98% on R/A; sg5 13:45 BP 189 / 97; Pulse 76; Resp 18; Temp 97.9; Pulse Ox 97% on R/A; ph 14:17 BP 185 / 83; Pulse 81; Resp 18; Temp 97.9; Pulse Ox 97% on R/A; ph 10:36 Body Mass Index 30.79 (83.91 kg, 165.10 cm) aa5 ED Course: 10:36 Patient arrived in ED. rg4 10:36 Deepak Harvey MD is Private Physician. rg4 10:36 Arm band placed on. aa5 10:37 Rios Cuevas MD is Attending Physician. mónica 10:50 Triage completed. aa5 10:54 Patient has correct armband on for positive identification. Bed in low position. Call ph light in reach. Side rails up X 1. Client placed on continuous cardiac and pulse oximetry monitoring. NIBP monitoring applied. 11:26 Chary Suarez, RN is Primary Nurse. ph 11:36 Deepak Harvey MD is Hospitalizing Provider. mónica 13:43 No provider procedures requiring assistance completed. Patient admitted, IV remains in ph place. Administered Medications: 11:45 Drug: hydrALAZINE 10 mg Route: IVP; Site: left antecubital; ph 14:51 Follow up: Response: No adverse reaction ph 13:42 Drug: Potassium Effervescent Tablet 25 mEq Route: PO; ph 14:50 Follow up: Response: No adverse reaction ph 13:42 Drug: Phos-NaK Packet 280 mg-160 mg-250 mg 1 packets Route: PO; ph 14:50 Follow up: Response: No adverse reaction ph 14:14 Drug: hydrALAZINE 20 mg Route: IVP; Site: left antecubital; ph 14:50 Follow up: Response: No adverse reaction ph 14:14 Drug: Coreg (carvedilol) 12.5 mg Route: PO; ph 14:50 Follow up: Response: No adverse reaction ph 14:14 Drug: Lisinopril 10 mg Route: PO; ph 14:50 Follow up: Response: No adverse reaction ph 14:49 Not Given (Other Intervention Used): hydrALAZINE 20 mg IVP once ph Medication: 10:55 VIS not applicable for this client. ph Outcome: 11:37 Decision to Hospitalize by Provider. mónica 14:51 Admitted to Med/surg accompanied by tech, family with patient, via wheelchair, with ph chart. 14:51 Condition: good 14:51 Patient left the ED. ph Signatures: Rios Cuevas MD MD cha Calderon, Audri, RN RN aa5 Chary Suarez RN RN ph Garcia, Rubi 4 Tita Navas RN RN sg5
--- NOTE | 2022-10-10 11:38 | EDPHYS ---
Physician Documentation [facility] Name: Nabor Ny Age: 52 yrs Sex: Male : 1970 Arrival Date: 10/10/2022 Time: 10:36 Bed 5 Private MD: Deepak Moreira V ED Physician Rios Cuevas HPI: 10/10 11:32 This 52 yrs old Male presents to ER via Ambulatory with complaints of Sent by mónica Moreira, Abnormal Lab Results. 11:32 The patient presents with anorexia. Onset: The symptoms/episode began/occurred 7 day(s) mónica ago. The patient presents to the emergency department with nausea. Onset: The symptoms/episode began/occurred 7 day(s) ago. Possible causes: unknown. The symptoms are aggravated by nothing. The symptoms are alleviated by nothing. weak, loosing weight, no pain. Associated signs and symptoms: Pertinent positives: anorexia, nausea. Modifying factors: The symptoms are alleviated by nothing, the symptoms are aggravated by nothing. Severity of pain: At its worst the pain was very mild in the emergency department the pain is unchanged. Historical: - Allergies: 10:36 No Known Allergies; aa5 - Home Meds: 13:56 atorvastatin 20 mg Oral tab [Active]; calcitriol 0.25 mcg Oral cap [Active]; carvedilol ph 12.5 mg Oral tab [Active]; hydralazine 25 mg Oral tab 3 x/day [Active]; Lantus 35 units Sub-Q daily [Active]; lisinopril 10 mg Oral tab once daily [Active]; Metformin Oral [Active]; sodium bicarbonate 650 mg Oral tab [Active]; Victoza 3-Joey 0.6 mg/0.1 mL (18 mg/3 mL) subcutaneous pnij 0.3 mL once daily [Active]; - PMHx: 10:36 Diabetes - NIDDM; Hirschsprung's disease; Hypertension; kidney disease; Kidney stone; aa5 Renal Failure; Dialysis; CVA; CHF 2018; - PSHx: 10:36 Colostomy; Dialysis catheter; aa5 - Immunization history:: Adult Immunizations unknown. - Social history:: Smoking status: Reported history of juuling and/or vaping. - Family history:: not pertinent. ROS: 11:32 Constitutional: Negative for fever, chills, and weight loss, Eyes: Negative for injury, mónica pain, redness, and discharge, ENT: Negative for injury, pain, and discharge, Neck: Negative for injury, pain, and swelling, Cardiovascular: Negative for chest pain, palpitations, and edema, Respiratory: Negative for shortness of breath, cough, wheezing, and pleuritic chest pain, Back: Negative for injury and pain, : Negative for injury, bleeding, discharge, and swelling, MS/Extremity: Negative for injury and deformity, Neuro: Negative for headache, weakness, numbness, tingling, and seizure, Psych: Negative for depression, anxiety, suicide ideation, homicidal ideation, and hallucinations, Allergy/Immunology: Negative for hives, rash, and allergies, Endocrine: Negative for neck swelling, polydipsia, polyuria, polyphagia, and marked weight changes, Hematologic/Lymphatic: Negative for swollen nodes, abnormal bleeding, and unusual bruising. 11:32 Abdomen/GI: Positive for anorexia. 11:32 Skin: Positive for pallor. Exam: 11:32 Constitutional: This is a well developed, well nourished patient who is awake, alert, mónica and in no acute distress. Head/Face: Normocephalic, atraumatic. Eyes: Pupils equal round and reactive to light, extra-ocular motions intact. Lids and lashes normal. Conjunctiva and sclera are non-icteric and not injected. Cornea within normal limits. Periorbital areas with no swelling, redness, or edema. ENT: Nares patent. No nasal discharge, no septal abnormalities noted. Tympanic membranes are normal and external auditory canals are clear. Oropharynx with no redness, swelling, or masses, exudates, or evidence of obstruction, uvula midline. Mucous membranes moist. Neck: Trachea midline, no thyromegaly or masses palpated, and no cervical lymphadenopathy. Supple, full range of motion without nuchal rigidity, or vertebral point tenderness. No Meningismus. Chest/axilla: Normal chest wall appearance and motion. Nontender with no deformity. No lesions are appreciated. Cardiovascular: Regular rate and rhythm with a normal S1 and S2. No gallops, murmurs, or rubs. Normal PMI, no JVD. No pulse deficits. Respiratory: Lungs have equal breath sounds bilaterally, clear to auscultation and percussion. No rales, rhonchi or wheezes noted. No increased work of breathing, no retractions or nasal flaring. Abdomen/GI: Soft, non-tender, with normal bowel sounds. No distension or tympany. No guarding or rebound. No evidence of tenderness throughout. Back: No spinal tenderness. No costovertebral tenderness. Full range of motion. Male : Normal genitalia with no discharge or lesions. MS/ Extremity: Pulses equal, no cyanosis. Neurovascular intact. Full, normal range of motion. Neuro: Awake and alert, GCS 15, oriented to person, place, time, and situation. Cranial nerves II-XII grossly intact. Motor strength 5/5 in all extremities. Sensory grossly intact. Cerebellar exam normal. Normal gait. Psych: Awake, alert, with orientation to person, place and time. Behavior, mood, and affect are within normal limits. 11:32 Skin: Appearance: Color: pale, Temperature: normal temperature, Moisture: normal moisture, petechiae, not noted, ecchymosis, not noted. Vital Signs: 10:36 BP 223 / 113; Pulse 65; Resp 18 S; Temp 98.7(O); Pulse Ox 100% on R/A; Weight 83.91 kg aa5 (R); Height 5 ft. 5 in. (165.10 cm) (R); Pain 0/10; 13:02 BP 196 / 92; Pulse 72; Resp 16; Pulse Ox 98% on R/A; sg5 13:45 BP 189 / 97; Pulse 76; Resp 18; Temp 97.9; Pulse Ox 97% on R/A; ph 14:17 BP 185 / 83; Pulse 81; Resp 18; Temp 97.9; Pulse Ox 97% on R/A; ph 10:36 Body Mass Index 30.79 (83.91 kg, 165.10 cm) aa5 MDM: 10:37 Patient medically screened. mónica 11:35 Differential diagnosis: diverticulitis, viral gastroenteritis, gastroenteritis, bowel mónica obstruction, Cholelithiasis, diverticulitis, non-specific abd pain, pancreatitis, Prostatitis, urinary tract infection. Data reviewed: vital signs, nurses notes, lab test result(s), EKG, radiologic studies, plain films. Consideration of Admission/Observation Patient was admitted/placed on observation. Management of patient was discussed with the following: Primary Care Provider: dr moreira. Test considered but Not performed: CT: ct abd pelvis, dr moreira will order. Care significantly affected by the following chronic conditions: Diabetes, Hypertension, Chronic Kidney Disease. 10/10 11:03 Order name: Basic Metabolic Panel [facility] 10/10 11:03 Order name: CBC with Diff [facility] 10/10 11:03 Order name: LFT's [facility] 10/10 11:03 Order name: Magnesium [facility] 10/10 11:03 Order name: NT PRO-BNP [facility] 10/10 11:03 Order name: PT-INR [facility] 10/10 11:03 Order name: Troponin HS [facility] 10/10 11:03 Order name: Lipase [facility] 10/10 11:03 Order name: Phosphorus [facility] 10/10 11:03 Order name: SARS RAPID [facility] 10/10 11:34 Order name: CBC with Automated Diff; Complete Time: 11:55 EDMN 10/10 11:37 Order name: Protime (+INR); Complete Time: 11:55 EDMN 10/10 11:44 Order name: SARS-COV-2 Antigen Rapid; Complete Time: 11:55 EDMN 10/10 12:04 Order name: Basic Metabolic Panel; Complete Time: 12:18 EDMN 10/10 11:03 Order name: XRAY Chest (1 view) [facility] 10/10 11:03 Order name: EKG; Complete Time: 11:04 [facility] 10/10 12:04 Order name: Liver (Hepatic) Function; Complete Time: 12:18 EDMN 10/10 12:04 Order name: Phosphorus; Complete Time: 12:19 EDMN 10/10 12:04 Order name: Troponin High Sensitivity; Complete Time: 12:19 EDMN 10/10 12:04 Order name: NT PRO-BNP; Complete Time: 12:19 EDMN 10/10 12:04 Order name: Magnesium; Complete Time: 12:19 EDMN 10/10 12:04 Order name: Lipase; Complete Time: 12:19 EDMN 10/10 12:29 Order name: RAD; Complete Time: 13:58 EDMN 10/10 11:03 Order name: Cardiac monitoring; Complete Time: 11:27 [facility] 10/10 11:03 Order name: EKG - Nurse/Tech; Complete Time: 14:16 [facility] 10/10 11:03 Order name: IV Saline Lock; Complete Time: 11:27 [facility] 10/10 11:03 Order name: Labs collected and sent; Complete Time: 11:27 mónica 10/10 11:03 Order name: O2 Per Protocol; Complete Time: : mónica 10/10 11:03 Order name: O2 Sat Monitoring; Complete Time: : mónica Administered Medications: 11:45 Drug: hydrALAZINE 10 mg Route: IVP; Site: left antecubital; ph 14:51 Follow up: Response: No adverse reaction ph 13:42 Drug: Potassium Effervescent Tablet 25 mEq Route: PO; ph 14:50 Follow up: Response: No adverse reaction ph 13:42 Drug: Phos-NaK Packet 280 mg-160 mg-250 mg 1 packets Route: PO; ph 14:50 Follow up: Response: No adverse reaction ph 14:14 Drug: hydrALAZINE 20 mg Route: IVP; Site: left antecubital; ph 14:50 Follow up: Response: No adverse reaction ph 14:14 Drug: Coreg (carvedilol) 12.5 mg Route: PO; ph 14:50 Follow up: Response: No adverse reaction ph 14:14 Drug: Lisinopril 10 mg Route: PO; ph 14:50 Follow up: Response: No adverse reaction ph 14:49 Not Given (Other Intervention Used): hydrALAZINE 20 mg IVP once ph Disposition Summary: 10/10/22 11:37 Hospitalization Ordered Provider: Deepak Moreira cha Condition: Fair mónica Problem: new mónica Symptoms: have improved mónica Bed/Room Type: Standard mónica Hospitalization Status: Inpatient Admission(10/10/22 13:59) mónica Location: Telemetry/MedSurg (Inpatient)(10/10/22 13:59) mónica Room Assignment: (10/10/22 13:59) mónica Diagnosis - Essential (primary) hypertension mónica - End stage renal disease - on hd mónica - Weakness mónica - Anorexia mónica - Hypokalemia - Hypophosphatemia mónica Forms: - Medication Reconciliation Form mónica - SBAR form mónica Signatures: Dispatcher [employer] Rios Bearden MD MD cha Calderon, Audri, RN RN aa5 Chary Suarez RN RN Arron Cardona RN RACHEL [email or web address] Corrections: (The following items were deleted from the chart) 13:09 11:37 mónica ja1 13:59 11:37 Observation mónica mónica 13:59 11:37 Telemetry/MedSurg (observation) formerly [facility], 1928–1983 :59 13:09 231 ja1 mónica
[2022-10-10 11:43] LABS: SARS-CoV-2 Antigen Rapid Res Negative (Negative)
[2022-10-10 12:02] LABS: ALT/SGPT < 10 U/L (16-61); AST/SGOT 8 U/L (15-37); Albumin 1.8 g/dL (3.4-5.0); Alkaline Phosphatase 65 U/L (45-117); BUN Blood Urea Nitrogen 12 mg/dL (7-18); Bicarbonate 27 mmol/L (21-32); Bilirubin Direct 0.3 mg/dL (0-0.2); Bilirubin Total 0.5 mg/dL (0.2-1.0); Glomerular Filtration Rate 13 ml/min (=/>90); Glucose Level 123 mg/dL (74-106); Lipase 55 U/L (73-393); Magnesium 1.8 mg/dL (1.6-2.4); NT PRO-BNP 41919 pg/mL (<125); Phosphorus 2.2 mg/dL (2.5-4.9); Protein, Total 5.5 g/dL (6.4-8.2); Sodium Level 136 mmol/L (136-145)
[2022-10-10 12:03] LABS: Potassium 2.7 mmol/L (3.5-5.1)
--- NOTE | 2022-10-10 12:29 | RAD REPORT ---
EXAM DESCRIPTION: RAD - Chest Single View - 10/10/2022 11:50 am CLINICAL HISTORY: COUGH Chest pain. COMPARISON: Chest Single View dated 06/06/2022; Chest Single View dated 05/23/2022; Chest Single View dated 05/21/2022; Chest Single View dated 05/16/2022 FINDINGS: Portable technique limits examination quality. Mild interstitial pulmonary edema. The heart is mildly enlarged in size. No displaced fractures.Right -sided dialysis catheter has tip in the SVC. IMPRESSION: Mild CHF.
--- NOTE | 2022-10-10 12:39 | P.HP ---
Certification for Inpatient Patient admitted to: Inpatient With expected LOS: >2 Midnights Practitioner: I am a practitioner with admitting privileges, knowledge of patient current condition, hospital course, and medical plan of care. Services: Services provided to patient in accordance with Admission requirements found in Title 42 Section 412.3 of the Code of Federal Regulations Patient History Date of Service: 10/10/22 Reason for admission: WEAK, NOT EATING, SEVERE INTRACTABLE NAUSEA. History of Present Illness: I ASKED HIM TO COME TO ER WITH SYMPTOMS ABOVE THAT ARE FAILING TO IMPROVE ON OUTPATIENT BASIS. HE IS NOT EATING AT ALL FOR DAYS. HE HAS EDEMA THAT IS FROM LOW ALBUMIN. HE HAS SEVERE NAUSEA AND WAS TO HAVE EGD TODAY BUT COULD NOT BE DONE HE HAS VERY LOW K. HE ALSO HAS DM WITH CKD ON HD NOW. Allergies No Known Allergies Allergy (Verified 07/08/15 09:40) Home medications list reviewed: Yes Home Medications: Atorvastatin Calcium 20 mg PO BEDTIME 05/12/22 Carvedilol [Coreg] 12.5 mg PO BID 05/12/22 Clopidogrel Bisulfate [Clopidogrel] 75 mg PO DAILY 05/12/22 Insulin Glargine,Hum.rec.anlog [Lantus Solostar] 35 units SQ DAILY 05/12/22 Calcitrol [Rocaltrol*] 0.25 mcg PO DIRECTED #30 cap 05/17/22 Sodium Bicarbonate 650 mg PO BID #30 tab 05/17/22 Hydralazine [Apresoline*] 25 mg PO TID 05/22/22 - Past Medical/Surgical History Diabetic: Yes -: HTN -: Diabetes metformin & juanvia -: CVA with initally numbness to left side 05/21/18 -: CHF -: kidney stones -: hirschsprung disease large intestine surgery - Family History Father -: Hypertension, Diabetes Mother -: Lung disease, Diabetes, Cancer Notes: lung ca Sister -: Diabetes, Kidney disease Notes: HD sister - Social History Alcohol use: Yes CD- Drugs: No Caffeine use: No Review of Systems 10-point ROS is otherwise unremarkable General: Weakness, Malaise Gastrointestinal: Nausea Physical Examination - Physical Exam General: Oriented x3, Mild distress, Moderate distress HEENT: Atraumatic, PERRLA, Mucous membr. moist/pink, EOMI, Sclerae nonicteric Neck: Supple, 2+ carotid pulse no bruit, No LAD, Without JVD or thyroid abnormality Respiratory: Clear to auscultation bilaterally, Normal air movement Cardiovascular: Regular rate/rhythm, Normal S1 S2, Edema Gastrointestinal: Normal bowel sounds, No tenderness Musculoskeletal: No tenderness Integumentary: No rashes Neurological: Normal gait, Normal speech, Normal strength at 5/5 x4 extr, Normal tone, Normal affect Lymphatics: No axilla or inguinal lymphadenopathy - Studies Laboratory Data (last 24 hrs) 10/10/22 11:22: PT 13.0 H, INR 1.18 10/10/22 11:22: WBC 8.00, Hgb 12.0 L, Hct 36.1 L, Plt Count 194 10/10/22 11:22: Sodium 136, Potassium 2.7 L*, BUN 12, Creatinine 5.06 H*, Glucose 123 H, Phosphorus 2.2 L, Magnesium 1.8, Total Bilirubin 0.5, AST 8 L, ALT < 10 L, Alkaline Phosphatase 65, Lipase 55 L Assessment and Plan - Problems (Diagnosis) (1) Severe nausea Current Visit: Yes Status: Acute Plan: EGD PENDING REPLACE K. DAILY LAB PROTONIX IV DAILY. CT CHEST ABDOMEN AND PELVIS IT IS NOT CLEAR WHY HE HAS QUIT EATING (2) Anorexia Current Visit: Yes Status: Acute (3) Weight loss, unintentional Current Visit: Yes Status: Acute (4) Anasarca associated with disorder of kidney Current Visit: Yes Status: Chronic Plan: DR. Saul ON CASE HE HAS DIABETIC NEPHROTIC SYNDROME AND NOW MALNUTRITION ON TOP OF THAT (5) Diabetes mellitus with stage 5 chronic kidney disease Current Visit: Yes Status: Chronic Plan: CONT HD. - Advance Directives Does patient have a Living Will: No Does patient have a Durable POA for Healthcare: No
[2022-10-10] MEDS ORDERED: POTASSIUM 25 MEQ EFFERV TAB ONE (13:04)
[2022-10-10] MEDS ORDERED: POTASS/SODIUM PHOSPHATE 1 PKT POWD.PACK ONE (13:43)
[2022-10-10] MEDS ORDERED: carvediloL 6.25 MG TAB ONE (14:07)
[2022-10-10] MEDS ORDERED: lisinopriL 10 MG TAB ONE (14:07)
[2022-10-10 15:02] VITALS: BMI 30.7
[2022-10-10] MEDS ORDERED: METOCLOPRAMIDE 10 MG/2mL INJ IV PRN (15:05)
[2022-10-10] MEDS ORDERED: KCL 20 MEQ/100 mL IVPB 20 MEQ/100 ML BAG IV SCH (15:07)
--- NOTE | 2022-10-10 15:10 | P.CNS ---
Date of Consult: 10/10/22 Reason for Consult: ESRD , hypokalemia Chief Complaint: WEAK, NOT EATING, SEVERE INTRACTABLE NAUSEA. History of Present Illness: A 52 Y/o with PMHx of ESRD on HD MWF via [facility]DC, HTN , obesity , DM with retinopathy pt presented with nausea, vomiting , hypokalemia and HTN Pt with Hx of chronic nausea, vomiting and poor oral intake, he was scheduled for EGD today, yesterday seen by Dr Harvey, noticed to have facial edema, labs today showed low potassium of 2.7 and SBP >200, pt sent to ER ROS Head and Neck: No red eye. No ear pain. GI: nausea, voimiting : No polyuria. No dysuria. No hematuria. Photographer Motion Picture: No vaginal discharge. Respiratory: denied shortness of breath.or cough Cardiovascular: No chest pain. or leg swelling. Endocrine: No polydipsia. Skin: No rash. Neuro: Has weakness. Wobbly gait. Musculoskeletal: Generalized fatigue. Physical exam General: Awake, NAD HEENT: Atraumatic, Normocephalic Neck: Supple, no elevated JVD Respiratory: rt basal rales Cardiovascular: No rubs, No murmurs Gastrointestinal: Soft and benign, Non-distended Musculoskeletal: No clubbing Integumentary: No warmth Neurological: Normal tone, Sensation intact Lymphatics: No axilla or inguinal lymphadenopathy Urinary: Other (no bladder distention) A/P # ESRD on HD MWF HD tomorrow renal diet renal dose meds #Hypokalemia. will replace HD with 4k bath #DM SSI #HTN Bp elevatd cont current meds will add Nifedipine #nausea will add reglan pt was scheduled for EGD Allergies No Known Allergies Allergy (Verified 07/08/15 09:40) Home Medications: Atorvastatin Calcium 20 mg PO BEDTIME 05/12/22 Carvedilol [Coreg] 12.5 mg PO BID 05/12/22 Clopidogrel Bisulfate [Clopidogrel] 75 mg PO DAILY 05/12/22 Insulin Glargine,Hum.rec.anlog [Lantus Solostar] 35 units SQ DAILY 05/12/22 Calcitrol [Rocaltrol*] 0.25 mcg PO DIRECTED #30 cap 05/17/22 Sodium Bicarbonate 650 mg PO BID #30 tab 05/17/22 Hydralazine [Apresoline*] 25 mg PO TID 05/22/22 - Past Medical/Surgical History Diabetic: Yes -: HTN -: Diabetes metformin & juanvia -: CVA with initally numbness to left side 05/21/18 -: CHF -: kidney stones -: hirschsprung disease large intestine surgery - Family History Father Medical History: Hypertension, Diabetes Mother Medical History: Lung disease, Diabetes, Cancer Notes: lung ca Sister Medical History: Diabetes, Kidney disease Notes: HD sister - Social History Alcohol use: Yes CD- Drugs: No Caffeine use: No Physical Examination Temp Pulse Resp BP Pulse Ox 97.9 F 81 18 185/83 H 10/10/22 14:17 10/10/22 14:17 10/10/22 14:17 10/10/22 14:17 Laboratory Data (last 24 hrs) 10/10/22 11:22: PT 13.0 H, INR 1.18 10/10/22 11:22: WBC 8.00, Hgb 12.0 L, Hct 36.1 L, Plt Count 194 10/10/22 11:22: Sodium 136, Potassium 2.7 L*, BUN 12, Creatinine 5.06 H*, Glucose 123 H, Phosphorus 2.2 L, Magnesium 1.8, Total Bilirubin 0.5, AST 8 L, ALT < 10 L, Alkaline Phosphatase 65, Lipase 55 L
[2022-10-10] MEDS ORDERED: NA CHLORIDE 0.9% 250 ML ONE (15:20)
[2022-10-10] MEDS ORDERED: ONDANSETRON 4 MG/2 ML VIAL IV PRN (16:04)
[2022-10-10] MEDS ORDERED: ACETAMINOPHEN 500 MG TAB PO PRN (16:04)
[2022-10-10] MEDS ORDERED: MORPHINE 2 MG/ML SYR IV PRN (16:28)
[2022-10-10] MEDS: HYDRALAZINE HCL 25 MG TABLET PO SCH ×2 (16:39→21:19)
[2022-10-10 17:45] LABS: Potassium 2.9 mmol/L (3.5-5.1); Troponin High Sensitivity 38.5 pg/mL (<58.9)
[2022-10-10] MEDS: POTASSIUM 25 MEQ EFFERV TAB PO SCH (21:18)
[2022-10-10] MEDS: lisinopriL 20 MG TAB PO SCH (21:19)
[2022-10-10] MEDS: NIFEDIPINE XL 60 MG TABLET PO SCH (21:19)
[2022-10-11 03:54] LABS: Absolute Lymphocytes (CBC) 1.6 K/uL (0.7-4.9); Lymphocytes % 17.9 % (15.3-44.8); MCV 88.6 fL (80-100); MPV 8.7 fL (7.6-11.3); RBC Red Blood Cell Count 3.84 M/uL (4.33-5.43)
[2022-10-11 04:16] LABS: Magnesium 1.8 mg/dL (1.6-2.4)
[2022-10-11 04:24] LABS: Potassium 2.9 mmol/L (3.5-5.1)
[2022-10-11 05:26] LABS: Hepatitis B Surface Ab - Quant < 3.10 mIU/mL (<8.0); Hepatitis B surface AG Interp. Nonreactive (Nonreactive)
[2022-10-11] MEDS ORDERED: ONDANSETRON 4 MG (ODT) TAB PO PRN (06:33)
[2022-10-11] MEDS ORDERED: CALCITROL 0.25 MCG CAP PO SCH (07:00)
[2022-10-11] MEDS ORDERED: KCL 20 MEQ/100 mL IVPB 20 MEQ/100 ML BAG IV SCH (07:00)
[2022-10-11] MEDS: carvediloL 12.5 MG TAB PO SCH ×2 (09:00→20:00)
[2022-10-11] MEDS: NIFEDIPINE XL 60 MG TABLET PO SCH ×2 (09:00→20:02)
[2022-10-11] MEDS: lisinopriL 20 MG TAB PO SCH ×2 (09:00→20:02)
[2022-10-11] MEDS: HYDRALAZINE HCL 25 MG TABLET PO SCH ×3 (09:00→20:02)
[2022-10-11] MEDS ORDERED: lisinopriL 20 MG TAB PO SCH (09:00)
[2022-10-11] MEDS: MEGESTROL 40 MG TAB PO SCH (09:22)
[2022-10-11] MEDS: ASPIRIN EC 81 MG TAB PO SCH (09:22)
[2022-10-11] MEDS: POTASSIUM 25 MEQ EFFERV TAB PO SCH ×3 (09:22→20:32)
[2022-10-11] MEDS ORDERED: CLONIDINE 0.1 MG/PATCH TD SCH ×2 (11:00→16:00)
[2022-10-11] MEDS: METOCLOPRAMIDE 10 MG/2mL INJ IV SCH ×2 (12:08→16:42)
[2022-10-11 12:43] VITALS: O2SAT 97
--- NOTE | 2022-10-11 14:05 | PN ---
Date of Progress Note: 10/11/2022 Subjective: The patient was admitted with malnourish, intractable nausea and vomiting. The patient supposed to have EGD yesterday, was postponed because of the blood pressure and the hypertension. Th e patient still has nausea. According to the patient, the patient has nausea, not related to the aditya lysis, persistent all days, not related to specific food. Physical Examination: Vital Signs: Blood pressure 147/70, pulse of 86, afebrile. Chest: Clear to auscultation. Heart: S1, S2. Regular. Abdomen: Soft, nontender. Extremity: No edema. Neuro: Alert. No focality. Laboratory Data: Hemoglobin 11.3. Sodium 137, potassium 3.3, bicarb 26, BUN 13, creatinine 5.7, GFR of 11, calcium 7.6, magnesium 1.8. Current Medications: The patient on include carvedilol 12.5 b.i.d., atorvastatin, lisinopril 20 b.i. d., nifedipine 60 b.i.d., pantoprazole, KCl, multivitamin, and calcitriol. Assessment And Plan: 1.End-stage renal disease. We will continue the patient on dialysis Sunday[facility] Sunday[facility] We will follow up. 2.Secondary hyperparathyroidism. Continue calcitriol. 3.Hypokalemia. The patient is going to be having supplement and we will dialyze on high potassium b ath. 4.Hyponatremia, going to be corrected with dialysis. 5.Hypertension. Given the need for EGD, I am going to avoid rebound. I am going to place the patie nt on clonidine patch and we will follow up the patient. 6.Possible gastroparesis. We will follow up with GI, plan for EGD. We will follow up CT. We will dialyze after CT. I am going to start the patient on pantoprazole. I am going to start the patient on metoclopramide as scheduled. 7.Malnourished. The patient is going to be started on PPN. MA/MODL Voice ID: [id number] Report ID: [id number]
[2022-10-11] MEDS ORDERED: POTASSIUM CL SA 10 MEQ TAB PO ONE (16:19)
[2022-10-11] MEDS ORDERED: AA 4.25 %/D5W/ELECTROLYTES 2,000 ML, Lipids 20% 250 ML with MULTIVITAMINS INJ 10 ML IV SCH ×3 (17:00)
[2022-10-11] MEDS ORDERED: PANTOPRAZOLE 40MG TABLET PO SCH (21:00)
[2022-10-11] MEDS ORDERED: ATORVASTATIN 20 MG TAB PO SCH (21:00)
--- NOTE | 2022-10-11 21:30 | P.PN ---
Subjective Date of Service: 10/11/22 Chief Complaint: WEAK, NOT EATING, SEVERE INTRACTABLE NAUSEA. Subjective: No new changes Review of Systems 10-point ROS is otherwise unremarkable General: Weakness Physical Examination - Vital Signs Temperature: 99.0 F Blood Pressure: 153/67 Pulse: 87 Respirations: 18 Pulse Ox (%): 94 - Physical Exam General: Oriented x3, Mild distress HEENT: Atraumatic, PERRLA, EOMI Neck: Supple, JVD not distended Respiratory: Clear to auscultation bilaterally, Normal air movement Cardiovascular: Regular rate/rhythm, Normal S1 S2 Gastrointestinal: Normal bowel sounds, No tenderness Musculoskeletal: No tenderness Integumentary: No rashes Neurological: Normal speech, Normal tone, Normal affect Lymphatics: No axilla or inguinal lymphadenopathy - Studies Medications List Reviewed: Yes Assessment And Plan - Current Problems (Diagnosis) (1) Severe nausea Current Visit: Yes Status: Acute Plan: EGD PENDING REPLACE K. DAILY LAB PROTONIX IV DAILY. CT CHEST ABDOMEN AND PELVIS IT IS NOT CLEAR WHY HE HAS QUIT EATING CT SCAN DONE REPORT IS STILL NOT READY I WILL CALL RADIOLOGIST. NEEDS EGD OUTPATIENT. HE IS NOT DEPRESSED. (2) Anorexia Current Visit: Yes Status: Acute (3) Weight loss, unintentional Current Visit: Yes Status: Acute (4) Anasarca associated with disorder of kidney Current Visit: Yes Status: Chronic Plan: DR. Saul ON CASE HE HAS DIABETIC NEPHROTIC SYNDROME AND NOW MALNUTRITION ON TOP OF THAT (5) Diabetes mellitus with stage 5 chronic kidney disease Current Visit: Yes Status: Chronic Plan: CONT HD. K IS NORMAL NOW.
--- NOTE | 2022-10-12 08:14 | RAD REPORT ---
EXAM DESCRIPTION: CTChest Abdomen Pelvis W Cont - 10/11/2022 9:01 am CLINICAL HISTORY: ESRD COMPARISON: No comparisons TECHNIQUE: CT of the chest, abdomen, and pelvis was performed with IV contrast. All CT scans are performed using dose optimization technique as appropriate and may include automated exposure control or mA/KV adjustment according to patient size. FINDINGS: Thorax: Chest Wall: No abnormal mass right IJ approach dialysis catheter. Lungs: No acute abnormality. Pleura: Small pleural effusions and underlying atelectasis. Gabbi/Mediastinum: No lymphadenopathy. Aorta/Pulmonary Arteries: Unremarkable Heart: Normal size. Abdomen/Pelvis: Liver: No acute abnormality or suspicious lesions. Biliary: No biliary ductal dilatation. Stomach: No significant focal abnormality. Duodenum: No significant focal abnormality. Pancreas: No significant abnormality. Spleen: No significant abnormality. Adrenal: No suspicious lesions. Kidney/ureter: No hydronephrosis. No renal calculi. Retroperitoneum: No retroperitoneal adenopathy. Vascular: No aneurysm. Atherosclerosis. Bowel: No significant focal abnormality. Peritoneum: No ascites or free air. Bladder: Grossly unremarkable. Reproductive: No adnexal masses. Bones: No acute fracture. Other: Body wall edema. IMPRESSION: No acute findings within the chest, abdomen, or pelvis. Anasarca including small pleural effusions and body wall edema.
[2022-10-12] MEDS: carvediloL 12.5 MG TAB PO SCH (08:17)
[2022-10-12] MEDS: METOCLOPRAMIDE 10 MG/2mL INJ IV SCH (08:17)
[2022-10-12] MEDS: POTASSIUM 25 MEQ EFFERV TAB PO SCH (08:18)
[2022-10-12] MEDS: ASPIRIN EC 81 MG TAB PO SCH (08:18)
[2022-10-12] MEDS: lisinopriL 20 MG TAB PO SCH (08:18)
[2022-10-12] MEDS: MEGESTROL 40 MG TAB PO SCH (08:18)
[2022-10-12] MEDS: NIFEDIPINE XL 60 MG TABLET PO SCH (08:18)
[2022-10-12] MEDS: HYDRALAZINE HCL 25 MG TABLET PO SCH (08:19)
[2022-10-12 10:01] VITALS: BP 156/76; TEMP 98.7
--- NOTE | 2022-10-12 11:44 | RAD REPORT ---
EXAM DESCRIPTION: MRI - Brain Wo Cont - 10/12/2022 11:28 am CLINICAL HISTORY: CVA/vomiting COMPARISON: MRI 2018 TECHNIQUE: Axial, sagittal, and coronal magnetic resonance images of the brain were obtained. FINDINGS: Small old infarct right periventricular white matter. Old left occipital lobe infarct. Old lacunar infarcts right caudate, left thalamus and left basal ganglia Diffusion-weighted/ADC mapping does not reveal evidence of acute infarction. The ventricles are normal caliber. An extra-axial fluid collection is not noted. Fluid within the sinuses/mastoids is not seen IMPRESSION: No acute intracranial abnormality noted
[2022-10-12] MEDS ORDERED: AA 4.25 %/D5W/ELECTROLYTES 2,000 ML IV SCH (17:00)
--- NOTE | 2022-10-12 21:25 | P.DS ---
Admission Date: 10/10/22 Discharge Date: 10/12/22 Disposition: ROUTINE DISCHARGE Discharge Condition: FAIR Reason for Admission: WEAK, NOT EATING, SEVERE INTRACTABLE NAUSEA. - Problems (1) Severe nausea Status: Acute (2) Anorexia Status: Acute (3) Weight loss, unintentional Status: Acute (4) Anasarca associated with disorder of kidney Status: Chronic (5) Diabetes mellitus with stage 5 chronic kidney disease Status: Chronic Brief History of Present Illness: I ASKED HIM TO COME TO ER WITH SYMPTOMS ABOVE THAT ARE FAILING TO IMPROVE ON OUTPATIENT BASIS. HE IS NOT EATING AT ALL FOR DAYS. HE HAS EDEMA THAT IS FROM LOW ALBUMIN. HE HAS SEVERE NAUSEA AND WAS TO HAVE EGD TODAY BUT COULD NOT BE DONE HE HAS VERY LOW K. HE ALSO HAS DM WITH CKD ON HD NOW. Hospital Course: ARIELLA HAS SVERE NAUSEA AND NOT ABLE TO EAT. ALL ORAL MEDS FAILED. HE HAD SEVERE LOW K AND HIGH BP AND SO WAS SENT TO ER. HE FEELS NO DIFFERENT WE DID C CHEST ABDOMEN WITH NORMAL FINDINGS AND SAME FOR MRI BRAIN. I TALKED TO DR. DE PAZ AND HE WILL DO EGD ON SUNDAY OR SUNDAY. Vital Signs/Physical Exam: Temp Pulse Resp BP Pulse Ox 98.7 F 79 18 156/76 H 95 10/12/22 08:00 10/12/22 08:00 10/12/22 08:00 10/12/22 08:00 10/12/22 08:00 Laboratory Data at Discharge: WBC 8.90 K/uL (4.3-10.9) 10/11/22 03:19 Hgb 11.3 g/dL (13.6-17.9) L 10/11/22 03:19 Hct 34.0 % (39.6-49.0) L 10/11/22 03:19 Plt Count 210 K/uL (152-406) 10/11/22 03:19 PT 13.0 SECONDS (9.5-12.5) H 10/10/22 11:22 INR 1.18 10/10/22 11:22 Sodium 137 mmol/L (136-145) 10/11/22 03:19 Potassium 3.3 mmol/L (3.5-5.1) L 10/12/22 03:32 BUN 13 mg/dL (7-18) 10/11/22 03:19 Creatinine 5.78 mg/dL (0.70-1.30) H* 10/11/22 03:19 Glucose 101 mg/dL (74-106) 10/11/22 03:19 Phosphorus 2.2 mg/dL (2.5-4.9) L 10/10/22 11:22 Magnesium Cancelled 10/11/22 06:00 Total Bilirubin 0.5 mg/dL (0.2-1.0) 10/10/22 11:22 AST 8 U/L (15-37) L 10/10/22 11:22 ALT < 10 U/L (16-61) L 10/10/22 11:22 Alkaline Phosphatase 65 U/L (45-117) 10/10/22 11:22 Lipase 55 U/L (73-393) L 10/10/22 11:22 Home Medications: Atorvastatin Calcium 20 mg PO BEDTIME 05/12/22 Carvedilol [Coreg] 12.5 mg PO BID 05/12/22 Calcitrol [Rocaltrol*] 0.25 mcg PO DIRECTED #30 cap 05/17/22 Hydralazine [Apresoline*] 0.5 tab PO TID 05/22/22 Lisinopril [Zestril] 20 mg PO BID 10/11/22 Megestrol [Megace*] 40 mg PO DAILY 10/11/22 Metoclopramide [Reglan*] 5 mg PO TID 10/11/22 Ondansetron [Zofran (Odt)*] 4 mg PO Q6H PRN 10/11/22 Pantoprazole [Protonix Tab] 40 mg PO BEDTIME 10/11/22 Followup: Deepak Harvey MD [Primary Care Provider] - 1 Week
== END 2022-10-12 12:05 | disposition home or self-care (01) | DRG 641 ==
LOC: ER 10:35 → ERHOLD 12:06 → 2ND 14:17
PROVIDERS: ADMIT Internal Medicine; ATTEND Internal Medicine
PROC: 5A1D70Z Performance of Urinary Filtration, Intermittent, Less than 6 Hours Per Day (ICD-10-PCS; principal; 2022-10-11)
PROC: 3E0336Z Introduction of Nutritional Substance into Peripheral Vein, Percutaneous Approach (ICD-10-PCS; 2022-10-11)
DX: E87.6 Hypokalemia (principal); I12.0 Hypertensive chronic kidney disease with stage 5 chronic kidney disease or end stage renal disease; N18.5 Chronic kidney disease, stage 5; N25.81 Secondary hyperparathyroidism of renal origin; E87.1 Hypo-osmolality and hyponatremia; E11.22 Type 2 diabetes mellitus with diabetic chronic kidney disease; E11.319 Type 2 diabetes mellitus with unspecified diabetic retinopathy without macular edema; E83.39 Other disorders of phosphorus metabolism; R63.4 Abnormal weight loss; R63.0 Anorexia; Z79.4 Long term (current) use of insulin; Z93.3 Colostomy status; Z99.2 Dependence on renal dialysis; Z79.02 Long term (current) use of antithrombotics/antiplatelets; Z79.84 Long term (current) use of oral hypoglycemic drugs; Z68.30 Body mass index [BMI] 30.0-30.9, adult; Z86.73 Personal history of transient ischemic attack (TIA), and cerebral infarction without residual deficits; Z79.899 Other long term (current) drug therapy; Z20.822 Contact with and (suspected) exposure to COVID-19
CPT/HCPCS: 36415; 70551; 71045; 71260; 74177; 80048; 80076; 82947; 83690; 83735; 83880; 84100; 84132; 84484; 85025; 85610; 86706; 87340; 87811; 90935; 96374; 99285; J0360; J1644; J2765; J3480; J7050; Q0162; Q9967

== ENCOUNTER 2022-11-10 12:07 | Emergency (ER) | payer OTHER ==
--- OUTSIDE RECORDS SUMMARY | 2022-11-10 12:20 | XMS REPORT | Continuity of Care Document ---
:1970 Author Organization [facility] t Address [address] [place] [address] [place] [address] Care Team Providers Name Role Phone JARAD EVERETT Attending Clinician Unavailable AGAPITO HOWARD Attending Clinician Unavailable Chanel Morrissey Attending Clinician Unavailable Conchita Gauthier MA Attending Clinician Unavailable Leighann Agosto RN Attending Clinician Unavailable Marisol Callahan Attending Clinician Unavailable Payers Payer Name Policy Type Policy Number Effective Date Expiration Date [facility]IC[facility] PART A [id number] 2022 AND B 00:00:00 [employer] MEDICARE [id number] 2022 ADV 00:00:00 Problems This patient has no known problems. Allergies, Adverse Reactions, Alerts This patient has no known allergies or adverse reactions. Social History Social Habit Start Date Stop Date Quantity Comments Source Sex Assigned At [birth year] [facility] Medications This patient has no known medications. Vital Signs Vital Name Observation Time Observation Value Comments Source Body height 2022-08-31 07:34:00 167.6 cm [facility] Body weight 2022-08-31 07:34:00 88.996 kg [facility] BMI 2022-08-31 07:34:00 31.67 kg/m2 [facility] Procedures Procedure Date / Time Performed Performing Clinician Malachi dubois HEPATITIS B SURFACE 2022-05-17 03:53:00 [facility] ANTIGEN [facility] HEPATITIS B SURFACE 2022-05-17 03:53:[address] [facility] HEPATITIS B CORE 2022-05-17 03:53:[address] [facility] ANTIBODY, TOTAL [facility] Center HEPATITIS C PCR, 2022-05-17 03:53:[address] [facility] QUANTITATIVE [facility] Plan of Care Planned Activity Planned Date [...] Center VACCINES (1 of 2)] Future Scheduled 2022 SHINGLES VACCINES ([address] [facility] Test 00:00:00 2) [code = SHINGLES Medical Center VACCINES (1 of 2)] Future Scheduled 2022 SHINGLES VACCINES ([address] [facility] Test 00:00:00 2) [facility] Future Scheduled 2007 Lipid panel (procedure) [facility] Test 00:00:00 [code = 66764634] Medical Ce nter Future Scheduled 2007 Lipid panel (procedure) [facility] Test 00:00:00 [code = 30563876] Medical Ce nter Future Scheduled 2007 Lipid panel (procedure) [facility] Test 00:00:00 [code = 29979281] Medical Ce nter Future Scheduled 1991 DTAP/TDAP/TD [...] Test 00:00:00 [code = CT [facility] ([facility])] Future Scheduled 1972 Screening for malignant [facility] Test 00:00:00 neoplasm of colon Medical Ce nter (procedure) [code = 364495916] Future Scheduled 1972 Screening for malignant [facility] Test 00:00:00 neoplasm of colon Medical Ce [facility]ter (procedure) [code = 149818463] Future Scheduled 1972 Screening for malignant [facility] Test 00:00:00 neoplasm of colon Medical Ce [facility]ter (procedure) [code = 086153687] Future Scheduled 1972 Screening for malignant [facility] Test 00:00:00 neoplasm of colon Medical Ce nter (procedure) [code = 024126474] Future Scheduled 1970 Sigmoidoscopy [facility]code = [facility]] Medical Cent[facility] r Future Scheduled 1972 CT Colonography (combo) [facility] Test 00:00:00 [code = CT Colonography Medi [facility] (combo)] Future Scheduled 1972 Screening for malignant [facility] Test 00:00:00 neoplasm of colon Medical Ce nter (procedure) [code = 958202965] Future Scheduled 1972 Screening for malignant [facility] Test 00:00:00 neoplasm of colon Medical Ce nter (procedure) [code = 944526133] Future Scheduled 1972 Screening for malignant [facility] Test 00:00:00 neoplasm of colon Medical Ce nter (procedure) [code = 122841981] Future Scheduled 1972 Screening for malignant [facility] Test 00:00:00 neoplasm of colon Medical Ce nter (procedure) [code = 438844160] Future Scheduled 1972 Sigmoidoscopy [facility]code = [facility] 00:[facility] S[facility]oidoscopy] Medical Cente r Future Scheduled 1972 CT Colonography (combo) [facility] Test 00:00:00 [code = CT Colonography [facility] (combo)] Future Scheduled 1972 Screening for malignant [facility] Test 00:00:00 neoplasm of colon Medical Ce nter (procedure) [code = 397806767] Future Scheduled 1972 Screening for malignant [facility] Test 00:00:00 neoplasm of colon Medical Ce nter (procedure) [code = 653672518] Future Scheduled 1972 Screening for malignant [facility] Test 00:00:00 neoplasm of colon Medical Ce nter (procedure) [code = 263606163] Future Scheduled 1972 Screening for malignant [facility] Test 00:00:00 neoplasm of colon Medical Ce nter (procedure) [code = 897553832] Future Scheduled 1972 Sigmoidoscopy [facility]code [facility] 00:[facility] S[facility]oscopy] Medical Yolette r Encounters Start End Encounter Admission Attending Care Care Encounter Source Date/Time Date/Time Type Type Clinicians Facility Department ID 2022-11-[address] [facility] [id number] [place] 10:41:29 [id number] [facility] 2022-09-[address] [facility] [id number] [place] 11:17:06 [id number] [facility] 2022-09-[address] [facility] [id number] [place] 13:29:04 [id number] [facility] 2022-09-[address] [facility] [id number] [place] 10:03:28 [id number] [facility] 2022-07-[address] [facility] [id number] [place] 14:53:52 [id number] [facility] 2022-07-[address] [facility] [id number] [place] 08:31:43 [id number] [facility] 2022-06-[address] [facility] [id number] [place] 16:57:00 [id number] [facility] 2022-06-[address] [facility] [id number] [place] 10:28:00 [id number] [facility] 2023-01-02 2023-01-[address] [facility] [id number] [place] 09:30:00 09:30:00 JARAD [facility] 2022-12-19 2022-12-19 Outpatient [facility] [id number] [facility] 00:00:00 00:00:00 BHAMIDIPATI 2022-12-19 2022-12-19 Outpatient [facility] [id number] [facility] 00:00:00 00:00:00 BHAMIDIPATI 2022-12-19 2022-12-19 Outpatient [facility], [facility] [id number] [facility] 00:00:00 00:00:00 BHAMIDIPATI 2022-12-19 2022-12-19 Outpatient [facility] [id number] [facility] 00:00:00 00:00:00 AMIDIPATI 2022-12-12 2022-12-[address] [facility] [id number] 13:00:00 13:00:00 Health 2022-11-09 2022-11-09 Outpatient EL [facility] [id number] [facility] 00:00:00 00:00:00 2022-11-09 2022-11-09 Outpatient EL [facility] [id number] [facility] 00:00:00 00:00:00 2022-11-09 2022-11-09 Outpatient EL [facility] [id number] [facility] 00:00:00 00:00:00 2022-11-09 2022-11-09 Outpatient EL [facility] [id number] [facility] 00:00:00 00:00:00 2022-11-09 2022-11-09 Outpatient EL [facility] [id number] [facility] 00:00:00 00:00:00 2022-11-07 2022-11-07 Outpatient [facility] [id number] [place] 09:30:00 09:30:00 [facility] 2022-11-07 2022-11-07 Telephone Ghanshyam [facility] [id number] [facility] 00[facility]00 [facility] 2022-10-19 2022-10-19 Telephone Ghanshyam [facility] [id number] [facility] 00[facility]00 [facility] 2022-10-12 2022-10-[address] [facility] [id number] [place] 13:00:00 13:00:00 Health 2022-10-09 2022-10-09 Documenttiff Gauthier [facility] [id number] 00:00[facility] 00:00:00 [facility] 2022-10-09 2022-10-09 Documenttiff Gauthier [facility] [id number] 00:[facility] 00:00:00 [facility] 2022-10-07 2022-10-07 Abstract Triny [facility] [id number] 00:00[facility]00 00:00:00 [facility] 2022-10-07 2022-10-07 Sky Agosto [facility] [id number] 00:00[facility]00 00:00:00 [facility] 2022-09-28 2022-09-28 Outpatient [facility] [id number] [facility] 00:00:00 00:00:00 2022-09-05 2022-09-05 Mauro Callahan [facility] [id number] 00:00[facility]00 00:00:00 [facility] 2022-09-05 2022-09-05 Mauro Callahan [facility] [id number] 00:00:00 00:00:00 [facility] 2022-08-31 2022-08-31 [place] [facility] [id number] 00:00:00 00:00:00 [facility] 2022-08-31 2022-08-31 Abstract [place] [facility] [id number] 00:00[facility]00 00:00:00 [facility] 2022-08-31 2022-08-31 Mauro Callahan [facility] [id number] 00:[facility] 00:00:00 [facility] 2022-08-31 2022-08-31 Sky Agosto [facility] [id number] 00:00[facility]00 00:00:00 [facility] 2022-08-31 2022-08-31 Abstract [place] [facility] [id number] 00:00:00 00:00:00 [facility] 2022-08-31 2022-08-31 Documentat [place] [facility] [id number] 00:00[facility]00 00:00:00 [facility] 2022-08-31 2022-08-31 Abstract Triny [facility] [id number] 00:00:00 00:00:00 [facility] 2022-08-31 2022-08-31 Telephone [place] [facility] [id number] 00:00[facility]00 00:00:00 [facility] 2022-08-29 2022-08-29 Outpatient [facility] [id number] [place] 10:30:00 10:30:00 [facility] 2022-07-04 2022-07-05 Outpatient [facility] [id number] UT 13:30:00 08:32:27 [facility] 2022-06-26 2022-06-26 Outpatient [facility] [id number] [place] 10:15:00 10:15:00 [facility] 2022-05-17 2022-05-17 Lab [facility] [id number] 00:00[facility]00 00:00:00 [facility] 2022-05-17 2022-05-17 Lab [facility] [id number] 00:00:00 00:00:00 [facility] Results Test Description Test Time Test Comments Results Result Comments Source Hepatitis C PCR, Quantitative 2022-05-19 14:24:46 Test Item Value Reference Range Interpretation Comme nts HCV PCR, Quantitative (test code HCV RNA not detected HCV RNA not d etected = 92777-2) PREMA (test code = PREMA) This test uses a Real-Time Polymerase Chain Reaction (RT-PCR) methodology and was performed using FARSHAD Juristatiprep/FARSHAD TaqMan HCV test kit version 2.0 ([employer]). Reportable range for this assay is 15 - 100,000,000 IU per mL (1.18 - 8.00 Log IU/mL). Lab Interpretation (test code = Normal 14518-2) [facility] C PCR, [id number] 14:24:46 Test Item Value Reference Range Interpretation Comments HCV PCR, Quantitative HCV RNA not detected HCV RNA not (test code = 70294-1) detected PREMA (test code = PREMA) This test uses a Real-Time Polymerase Chain Reaction (RT-PCR) methodology and was performed using F[employer] Ampliprep/FARSHAD TaqMan HCV test kit version 2.0 ([employer]). Reportable range for this assay is 15 - 100,000,000 IU per mL (1.18 - 8.00 Log IU/mL). Lab Interpretation Normal (test code = 03816-8) [facility] C PCR, [id number] 14:24:46 Test Item Value Reference Range Interpretation Comments HCV PCR, Quantitative HCV RNA not detected HCV RNA not (test code = 34048-6) detected PREMA (test code = PREMA) This test uses a Real-Time Polymerase Chain Reaction (RT-PCR) methodology and was performed using F[employer] Ampliprep/FARSHAD TaqMan HCV test kit version 2.0 ([employer]). Reportable range for this assay is 15 - 100,000,000 IU per mL (1.18 - 8.00 Log IU/mL). Lab Interpretation Normal (test code = 98602-7) [facility] C PCR, [id number] 14:24:46 Test Item Value Reference Range Interpretation Comments HCV RESULT COMPONENT HCV RNA not detected HCV RNA not detected (BEAKER) (test code = 2699) This test uses a Real-Time Polymerase Chain Reaction (RT-PCR) methodology and was performed using F[employer] Ampliprep/FARSHAD TaqMan HCV test kit version 2.0 ([employer]).Reportable range for this assay is 15 - 100,000,000 IU per mL (1.18 - 8.00 Log IU/mL).Hepatitis B surface [id number] 16:31:21 Test Item Value Reference Range Interpretation Comments Hep B S Ab (test code See_Comment [Auto mated = 48672-9) message] The system which generated this result transmit fletcher reference range : <8.0 mIU/mL. Th e reference range was not used to interpret this result as normal/abnormal . PREMA (test code = PREMA) Splicer Helper ID - ED Lab Interpretation Normal (test code = 20573-0) [facility] [id number] 16:31:21 Test Item Value Reference Range Interpretation Comments Hep B S Ab (test code <8.0 See_Comment [Auto mated = 50148-9) message] The system which generated this result transmit fletcher reference range : <8.0 mIU/mL. Th e reference range was not used to interpret this result as normal/abnormal . PREMA (test code = PREMA) Splicer Helper ID - ED Lab Interpretation Normal (test code = 97435-0) [facility] B surface [id number] 16:31:21 Test Item Value Reference Range Interpretation Comments Hep B S Ab (test code <8.0 See_Comment [Auto mated = 13475-4) message] The system which generated this result transmit fletcher reference range : <8.0 mIU/mL. Th e reference range was not used to interpret this result as normal/abnormal . PREMA (test code = PREMA) Splicer Helper ID - ED Lab Interpretation Normal (test code = 12632-4) [facility] B SURFACE [id number] 16:31:21 Test Item Value Reference Range Interpretation Comments HEPATITIS B SURFACE ANTIBODY < mIU/mL <8.0 (BEAKER) (test code = 647) Splicer Helper ID - EDHepatitis B surface [id number] 16:21:45 Test Item Value Reference Range Interpretation Comments Hepatitis B surface Nonreactive Nonreactive antigen (test code = 5195-3) PREMA (test code = PREMA) Specimen is considered negative for HBsAg. Lab Interpretation (test Normal code = 26419-3) [facility], [id number] 16:21:45 Test Item Value Reference Range Interpretation Comments Hep B Core Total Ab (test Nonreactive Nonreactive code = 40950-3) PREMA (test code = PREMA) Splicer Helper ID - ED Lab Interpretation (test Normal code = 18224-9) [facility] [id number] 16:21:45 Test Item Value Reference Range Interpretation Comments Hepatitis B surface Nonreactive Nonreactive antigen (test code = 5195-3) PREMA (test code = PREMA) Specimen is considered negative for HBsAg. Lab Interpretation (test Normal code = 60516-4) [facility], [id number] 16:21:45 Test Item Value Reference Range Interpretation Comments Hep B Core Total Ab (test Nonreactive Nonreactive code = 69262-2) PREMA (test code = PREMA) Splicer Helper ID - ED Lab Interpretation (test Normal code = 99269-1) [facility] [id number] 16:21:45 Test Item Value Reference Range Interpretation Comments Hepatitis B surface Nonreactive Nonreactive antigen (test code = 5195-3) PREMA (test code = PREMA) Specimen is considered negative for HBsAg. Lab Interpretation (test Normal code = 50222-5) [facility], [id number] 16:21:45 Test Item Value Reference Range Interpretation Comments Hep B Core Total Ab (test Nonreactive Nonreactive code = 10861-9) PREMA (test code = PREMA) Splicer Helper ID - ED Lab Interpretation (test Normal code = 15554-7) [facility] [id number] 16:21:45 Test Item Value Reference Range Interpretation Comments HEPATITIS B SURFACE ANTIGEN (2) Nonreactive Nonreactive (BEAKER) (test code = 2585) Specimen is considered negative for HBsAg.HEPATITIS B CORE ANTIBODY, TOTAL 2022-05-17 16:21:45 Test Item Value Reference Range Interpretation Comments HEPATITIS B CORE TOTAL ANTIBODY Nonreactive Nonreactive (BEAKER) (test code = 497) Splicer Helper ID - ED
--- NOTE | 2022-11-10 12:47 | RAD REPORT ---
EXAM DESCRIPTION: CT - Abdomen Pelvis Wo Contrast - 11/10/2022 12:32 pm CLINICAL HISTORY: Abdominal pain COMPARISON: September 2019. TECHNIQUE: Computed axial tomography of the abdomen and pelvis was obtained. IV and oral contrast we re not requested. All CT scans are performed using dose optimization technique as appropriate and may include automated exposure control or mA/KV adjustment according to patient size. FINDINGS: The evaluation of solid organs, vessels and bowel is limited secondary to the lack of con trast administration. The liver, spleen, pancreas, adrenals and kidneys appear grossly normal. The wall of the rectum appears thickened. No evidence diverticulitis. Diffuse edema within subcutaneous tissues Borderline thickening of the appendix. No surrounding edema. This is unchanged from the prior exam an d presumably is not significant. This should correlated clinically Trace amount ascites IMPRESSION: Wall of the rectum appears thickened. This may indicate inflammation.
[2022-11-10 14:25] LABS: Absolute Lymphocytes (CBC) 0.9 K/uL (0.7-4.9); Hematocrit 34.1 % (39.6-49.0); Lymphocytes % 14.7 % (15.3-44.8); MCV 88.2 fL (80-100); MPV 9.8 fL (7.6-11.3); RBC Red Blood Cell Count 3.87 M/uL (4.33-5.43)
[2022-11-10] MEDS ORDERED: AMLODIPINE 10 MG TAB ONE (14:37)
[2022-11-10 14:53] LABS: Bilirubin Total 0.5 mg/dL (0.2-1.0); Magnesium 1.9 mg/dL (1.6-2.4); Potassium 3.2 mEq/L (3.5-5.1); Protein, Total 5.7 g/dL (6.4-8.2); Troponin High Sensitivity 18.2 pg/mL (<58.9)
[2022-11-10] MEDS ORDERED: POTASSIUM CL SA 10 MEQ TAB PO ONE (15:21)
--- NOTE | 2022-11-10 16:01 | ER ---
Nurse's Notes [facility] Name: Nabor Ny Age: 52 yrs Sex: Male : 1970 Arrival Date: 11/10/2022 Time: 12:11 Bed 19 Private MD: Deepak Harvey V Diagnosis: Nausea;Hypokalemia Presentation: 11/10 12:24 Chief complaint: Nausea and decreased appetite x 3 months, has had 30 pound jl7 unintentional weight loss in that time due to nausea. HD MWF, last session was Sunday, with 1L off. Coronavirus screen: At this time, the client does not indicate any symptoms associated with coronavirus-19. Ebola Screen: No symptoms or risks identified at this time. Initial Sepsis Screen: Does the patient meet any 2 criteria? No. Patient's initial sepsis screen is negative. Does the patient have a suspected source of infection? No. Patient's initial sepsis screen is negative. Risk Assessment: Do you want to hurt yourself or someone else? Patient reports no desire to harm self or others. Onset of symptoms was August 2022. 12:24 Method Of Arrival: Wheelchair jl7 12:24 Acuity: DEBBIE 3 jl7 Historical: - Allergies: 12:25 No Known Allergies; jl7 - Immunization history:: Adult Immunizations up to date. - Family history:: not pertinent. - Social history:: Smoking status: Patient denies any tobacco usage or history of. Screenin:58 [facility] ED Fall Risk Assessment (Adult) History of falling in the last 3 months, kr3 including since admission No falls in past 3 months (0 pts) Confusion or Disorientation No (0 pts) Intoxicated or Sedated No (0 pts) Impaired Gait Yes (1 pt) Mobility Assist Device Used Yes (1 pt) Altered Elimination Yes (1 pt) Score/Fall Risk Level 3 or more points = High Risk Oriented to surroundings, Maintained a safe environment, Educated pt \T\ family on fall prevention, incl call for assistance when getting out of bed, Assessed \T\ reinforced patient's understanding of fall precautions, Provided non-skid footwear, Hourly rounding (assess needs \T\ fall precautionary measures) done, Used ambulatory aids as needed (educated on \T\ assisted with), Implemented a Fall Risk Plan of Care, Offered frequent toileting (1:1 observation), Remained with patient while ambulating, Utilized family, sitter, or virtual auto phone installer as indicated. Abuse screen: Denies threats or abuse. Nutritional screening: No deficits noted. Tuberculosis screening: No symptoms or risk factors identified. Assessment: 13:21 Reassessment: moved to er 19. kr3 13:25 General: Appears in no apparent distress. uncomfortable, Behavior is calm, cooperative, kr3 appropriate for age. Pain: Complains of pain in abdomen. Neuro: Level of Consciousness is awake, alert, obeys commands, Oriented to person, place, time, situation. Cardiovascular: Patient's skin is warm and dry. Respiratory: Airway is patent Respiratory effort is even, unlabored, Respiratory pattern is regular, symmetrical. GI: Abdomen is round non-distended. : No signs and/or symptoms were reported regarding the genitourinary system. EENT: No signs and/or symptoms were reported regarding the EENT system. Derm: No signs and/or symptoms reported regarding the dermatologic system. 14:25 Reassessment: Patient appears in no apparent distress at this time. Patient and/or kr3 family updated on plan of care and expected duration. Pain level reassessed. Patient is alert, oriented x 3, equal unlabored respirations, skin warm/dry/pink. 15:26 Reassessment: Patient appears in no apparent distress at this time. Patient and/or kr3 family updated on plan of care and expected duration. Pain level reassessed. Patient is alert, oriented x 3, equal unlabored respirations, skin warm/dry/pink. 15:59 GI: Bowel sounds present X 4 quads. kr3 Vital Signs: 12:24 BP 186 / 88; Pulse 74; Resp 16; Temp 98.3; Pulse Ox 99% on R/A; Weight 79.38 kg; Height jl7 5 ft. 5 in. ; Pain 0/10; 13:30 BP 217 / 95; Pulse 67; Resp 17; Pulse Ox 99% on R/A; kr3 14:30 BP 214 / 88; Pulse 66; Resp 17; Pulse Ox 98% on R/A; kr3 15:15 BP 195 / 91; Pulse 72; Resp 17; Pulse Ox 98% on R/A; kr3 16:01 BP 198 / 85; Pulse 69; Resp 17; Pulse Ox 98% on R/A; kr3 12:24 Body Mass Index 29.12 (79.38 kg, 165.1 cm) jl7 12:24 Pain Scale: Adult jl7 ED Course: 12:11 Patient arrived in ED. mr 12:11 Deepak Harvey MD is Private Physician. mr 12:13 Matthias Adkins MD is Attending Physician. rt 12:25 Triage completed. jl7 12:26 Arm band placed on. jl7 12:34 CT Abd/Pelvis - Without Contrast In Process Unspecified. EDMS 13:13 Yolie Maloney, RACHEL is Primary Nurse. kr3 13:18 Patient has correct armband on for positive identification. Placed in gown. Bed in low mm9 position. Call light in reach. Side rails up X 1. Adult w/ patient. Warm blanket given. Pulse ox on. NIBP on. 13:25 Inserted saline lock: 22 gauge in right forearm, using aseptic technique. Blood kr3 collected. 15:13 Deepak Harvey MD is Referral Physician. rt 15:13 Silverio Reyes MD is Referral Physician. rt 15:59 No provider procedures requiring assistance completed. IV discontinued, intact, kr3 bleeding controlled, No redness/swelling at site. Pressure dressing applied. Administered Medications: 14:41 Drug: amLODIPine PO 10 mg Route: PO; kr3 15:23 Follow up: Response: No adverse reaction kr3 15:20 Drug: Potassium Chloride PO 40 mEq Route: PO; kr3 16:00 Follow up: Response: No adverse reaction kr3 Medication: 16:00 VIS not applicable for this client. kr3 Outcome: 15:13 Discharge ordered by . rt 15:59 Discharged to home via wheelchair. kr3 15:59 Condition: stable 15:59 Discharge instructions given to patient, Instructed on discharge instructions, follow up and referral plans. Demonstrated understanding of instructions, follow-up care. 16:01 Patient left the ED. kr3 Signatures: Dispatcher [employer] EDMA Annie MartinPamela, RACHEL RN jl7 Yolie Maloney, RACHEL RN kr3 Peyton Callahan mm9 Matthias Adkins MD MD rt Corrections: (The following items were deleted from the chart) 12:26 12:24 Chief complaint: Nausea and decreased appetite x 3 months, has had 30 pound jl7 unintentional weight loss in that time due to nausea. jl7
--- NOTE | 2022-11-10 16:01 | EDPHYS ---
Physician Documentation [facility] Name: Nabor Ny Age: 52 yrs Sex: Male : 1970 Arrival Date: 11/10/2022 Time: 12:11 Bed 19 Private MD: Deepak Harvey V ED Physician Matthias Adkins HPI: 11/10 14:22 This 52 yrs old Male presents to ER via Wheelchair with complaints of rt Decreased Appetite, Abdominal Pain. 14:22 Patient who is on Sunday dialysis presents to the ED with nausea, rt decreased appetite for about 3 months now. Patient went to dialysis today, they did not start dialysis, requesting that he come to the ED to have his levels checked. He denies any significant abdominal pain. He denies other acute complaints at this time, symptoms are moderate in severity, no other aggravating or alleviating factors.. Historical: - Allergies: 12:25 No Known Allergies; jl7 - Immunization history:: Adult Immunizations up to date. - Family history:: not pertinent. - Social history:: Smoking status: Patient denies any tobacco usage or history of. ROS: 14:22 Constitutional: Negative for fever, chills, and weight loss, Cardiovascular: Negative rt for chest pain, palpitations, and edema, Respiratory: Negative for shortness of breath, cough, wheezing, and pleuritic chest pain, MS/Extremity: Negative for injury and deformity, Skin: Negative for injury, rash, and discoloration, Neuro: Negative for headache, weakness, numbness, tingling, and seizure, Psych: Negative for depression, anxiety, suicide ideation, homicidal ideation, and hallucinations. 14:22 Constitutional: Positive for weight loss, Negative for fatigue. 14:22 Abdomen/GI: Positive for Nausea, decreased appetite. Exam: 14:22 Constitutional: This is a well developed, well nourished patient who is awake, alert, rt and in no acute distress. Head/Face: Normocephalic, atraumatic. Chest/axilla: Normal chest wall appearance and motion. Nontender with no deformity. No lesions are appreciated. Cardiovascular: Regular rate and rhythm with a normal S1 and S2. No gallops, murmurs, or rubs. Normal PMI, no JVD. No pulse deficits. Respiratory: Lungs have equal breath sounds bilaterally, clear to auscultation and percussion. No rales, rhonchi or wheezes noted. No increased work of breathing, no retractions or nasal flaring. Abdomen/GI: Soft, non-tender, with normal bowel sounds. No distension or tympany. No guarding or rebound. No evidence of tenderness throughout. MS/ Extremity: Pulses equal, no cyanosis. Neurovascular intact. Full, normal range of motion. Neuro: Awake and alert, GCS 15, oriented to person, place, time, and situation. Cranial nerves II-XII grossly intact. Motor strength 5/5 in all extremities. Sensory grossly intact. Cerebellar exam normal. Normal gait. Psych: Awake, alert, with orientation to person, place and time. Behavior, mood, and affect are within normal limits. 14:22 ECG was reviewed by the Attending Physician. Vital Signs: 12:24 BP 186 / 88; Pulse 74; Resp 16; Temp 98.3; Pulse Ox 99% on R/A; Weight 79.38 kg; Height jl7 5 ft. 5 in. ; Pain 0/10; 13:30 BP 217 / 95; Pulse 67; Resp 17; Pulse Ox 99% on R/A; kr3 14:30 BP 214 / 88; Pulse 66; Resp 17; Pulse Ox 98% on R/A; kr3 15:15 BP 195 / 91; Pulse 72; Resp 17; Pulse Ox 98% on R/A; kr3 16:01 BP 198 / 85; Pulse 69; Resp 17; Pulse Ox 98% on R/A; kr3 12:24 Body Mass Index 29.12 (79.38 kg, 165.1 cm) jl7 12:24 Pain Scale: Adult jl7 MDM: 12:34 Patient medically screened. rt 15:14 Differential diagnosis: cholecystitis, pancreatitis, Electrolyte disturbance. rt 15:14 Data reviewed: vital signs, nurses notes, lab test result(s), EKG, radiologic studies. rt Consideration of Admission/Observation Escalation of care including admission/observation considered. Management of patient was discussed with the following: Office Services Assistant: Spoke with nephrology, recommends 1 dose of oral potassium and then discharge.. Primary Care Provider: Spoke with patient's primary care, no indications for admission at this time, patient to follow-up for elective cholecystectomy.. I considered the following discharge prescriptions or medication management in the emergency department Medications were administered in the Emergency Department. See MAR. Test considered but Not performed: Ultrasound Unremarkable LFTs, ultrasound of the gallbladder not indicated. Care significantly affected by the following chronic conditions: Chronic Kidney Disease. Counseling: I had a detailed discussion with the patient and/or guardian regarding: the historical points, exam findings, and any diagnostic results supporting the discharge/admit diagnosis, lab results, radiology results, the need for outpatient follow up. 11/10 12:22 Order name: CBC with Diff; Complete Time: 14:53 rt 11/10 12:22 Order name: CMP; Complete Time: 14:53 rt 11/10 12:22 Order name: Troponin High Sensitivity; Complete Time: 14:53 rt 11/10 12:22 Order name: Magnesium; Complete Time: 14:53 rt 11/10 12:22 Order name: CT Abd/Pelvis - Without Contrast; Complete Time: 12:53 rt 11/10 12:22 Order name: EKG; Complete Time: 12:23 rt 11/10 12:22 Order name: EKG - Nurse/Tech; Complete Time: 14:16 rt EC: Rate is 70 beats/min. Rhythm is regular, Normal Sinus Rhythm with No ectopy. QRS [place] rt is Normal. ID interval is normal. QRS interval is normal. QT interval is normal. Clinical impression: NSR w/ Non-specific ST/T Changes. Administered Medications: 14:41 Drug: amLODIPine PO 10 mg Route: PO; kr3 15:23 Follow up: Response: No adverse reaction kr3 15:20 Drug: Potassium Chloride PO 40 mEq Route: PO; kr3 16:00 Follow up: Response: No adverse reaction kr3 Disposition Summary: 11/10/22 15:13 Discharge Ordered Location: Home rt Problem: an ongoing problem rt Symptoms: are unchanged rt Condition: Stable rt Diagnosis - Nausea rt - Hypokalemia rt Followup: rt - With: Deepak Harvey MD - When: 5 - 6 days - Reason: Followup: rt - With: Silverio Reyes MD - When: 5 - 6 days - Reason: Discharge Instructions: - Discharge Summary Sheet rt - Nausea, Adult rt - Hypokalemia rt Forms: - Medication Reconciliation Form rt - Thank You Letter rt - Antibiotic Education rt - Prescription Opioid Use rt Signatures: Dispatcher [employer] EDPamela Novak, RN RN jl7 Yolie Maloney, RN RN kr3 Matthias Adkins MD MD rt
[2022-11-10 16:23] VITALS: TEMP 98.3
[2022-11-10 16:30] VITALS: O2SAT 98
[2022-11-10 16:32] VITALS: BP 198/85
--- NOTE | 2022-11-13 12:35 | EKG ---
Test Date: 2022-11-10 Test Time: 14:03:21 Visual Associate: JEANNIE MEASUREMENT RESULTS: Intervals: Rate: 70 VT: 184 QRSD: 104 QT: 460 QTc: 496 [place]: P: 58 VT: 184 QRS: -63 T: -3 INTERPRETIVE STATEMENTS: Normal sinus rhythm Left anterior fascicular block Compared to ECG 06/06/2022 07:54:08 Left anterior fascicular block now present Sinus bradycardia no longer present First degree AV block no longer present Left-axis deviation no longer present Myocardial infarct finding no longer present Electronically Signed On 11-13-22 12:28:09 CDT by Shay Cai
== END 2022-11-10 16:01 | disposition home or self-care (01) ==
LOC: ER 12:07
DX: R11.0 Nausea (principal); E87.6 Hypokalemia; Z99.2 Dependence on renal dialysis
CPT/HCPCS: 36415; 74176; 80053; 83735; 84484; 85025; 93005; 99284

== ENCOUNTER 2022-12-31 16:26 | Inpatient (IN) | payer OTHER ==
--- OUTSIDE RECORDS SUMMARY | 2022-12-31 16:37 | XMS REPORT | Continuity of Care Document ---
:1970 Author Organization [facility] t Address [address] [place] [address] [place] [id number] Care Team Providers Name Role Phone KARLOS JARAD Attending Clinician Unavailable Adan Brenner MD Attending Clinician ADAN BRENNER Attending Clinician Unavailable AGAPITO HOWARD Attending Clinician Unavailable Chanel Morrissey Attending Clinician Unavailable Conchita Gauthier MA Attending Clinician Unavailable Leighann Agosto RN Attending Clinician Unavailable Marisol Callahan Attending Clinician Unavailable Payers Payer Name Policy Type Policy Number Effective Date Expiration Date S [email or web address] MEDICARE PART A [id number] 2022 2022 AND B 00:00:00 00:00:00 [employer] MEDICARE [id number] 2022 ADVANTAGE PPO 00:00:00 Problems This patient has no known problems. Allergies, Adverse Reactions, Alerts Allergy Allergy Status Severity Reaction(s) Onset Inactive Treating Comm ents Source Name Type Date Date Clinician NO KNOWN Allergy Active [facility] Social History Social Habit Start Date Stop Date Quantity Comments Source Sex Assigned At [birth year] [facility] 00:[facility]:00 [facility]00 [facility] Medications Ordered Filled Start Stop Current Ordering Indication Dosage Frequency Signature Comments Components Source Medication Medication Date Date Medication? Clinician (SIG) Name Name metoclopram 10mg [id number] Take [address] [facility] HCl 5-04 05- [id number] tablet (10 [facility] (REGLAN) 10 00:00: 23:59 3D mg total) Medical MG tablet 00 :00 by mouth Center in the morning and 1 tablet (10 mg total) at noon and 1 tablet (10 mg total) in the evening. Do all this for 5 days. metoclopram 0 2023- No 10mg Take [address] [facility] HCl -11 22-04 tablet (10 [facility] (REGLAN) 10 00:00: 00:00 mg total) Medical MG tablet 00 :00 by mouth Center every 6 (six) hours for 8 days. chlorproMAZ Yes Take by [facility]E 3-30 mouth. [facility] (THORAZINE) 00:00: Medica l 25 MG 00 Center tablet potassium Yes 10meq QD Take 1 [facility] chloride 3-13 tablet (10 [facility] (KLOR-CON-M 00:00: mEq total) Medical ) 10 MEQ CR 00 by mouth Cent er tablet in the morning. lisinopriL [address] [facility] (PRINIVIL,Z 2-22 [facility] ESTRIL) 20 00:00: Medical MG tablet 00 Center pantoprazol 0 Yes AT BEDTIME [facility] e 2-22 [facility] (PROTONIX) 00:00: Medical 40 MG 00 Center tablet hydrALAZINE Yes TWICE [facility] (APRESOLINE 9-28 DAILY [facility] ) 25 MG 00:00: Medical tablet 00 [place] calcitrioL [address] [facility] (ROCALTROL) 9-27 Directed Luke [facility] 0.25 MCG 00:00: Medical capsule 00 [place] carvediloL [address] [facility] (Coreg) 9-22 DAILY [facility] 12.5 MG 00:00: Medical tablet 00 Center Vital Signs Vital Name Observation Time Observation Value Comments Source HEIGHT 2022-12-20 16:09:00 165.1 cm WEIGHT 2022-12-20 16:09:00 79.379 kg HEIGHT 2022-12-20 16:09:00 165.1 cm WEIGHT 2022-12-20 16:09:00 79.379 kg HEIGHT 2022-12-20 16:09:00 165.1 cm WEIGHT 2022-12-20 16:09:00 79.379 kg Systolic blood 2022-12-21 03:00:00 197 mm[Hg] [facility] Diastolic blood 2022-12-21 03:00:00 105 mm[Hg] [facility] Heart rate 2022-12-21 03:00:00 84 /min [facility] Body temperature 2022-12-21 03:00:00 36.89 Mony [facility] Respiratory rate 2022-12-21 03:00:00 18 /min [facility] Oxygen saturation in 2022-12-21 03:00:00 99 /min [facility] Arterial blood by Medical Ce nter Pulse oximetry Body height 2022-12-20 16:09:00 165.1 cm [facility] Body weight 2022-12-20 16:09:00 79.379 kg [facility] BMI 2022-12-20 16:09:00 29.12 kg/m2 [facility] Body height 2022-08-31 07:34:00 167.6 cm [facility] Body weight 2022-08-31 07:34:00 88.996 kg [facility] BMI 2022-08-31 07:34:00 31.67 kg/m2 [facility] Procedures Procedure Date / Time Performed Performing Clinician Sour e HIGH SENSITIVITY 2022-12-20 23:22:00 Adan Brenner [facility] TROPONIN I [facility] CT BRAIN WITHOUT IV 2022-12-20 22:57:00 Mark Wren [facility] CONTRAST [facility] CT NECK SOFT TISSUE 2022-12-20 22:57:00 Adan Brenner [facility] WITHOUT IV CONTRAST Medical [facility] er CT CHEST WITHOUT IV 2022-12-20 22:57:00 Adan Brenner [facility] CONTRAST [facility] CT ABDOMEN/PELVIS 2022-12-20 22:57:[address] [facility] S [facility] WITHOUT IV CONTRAST Medical [facility] er XR CHEST 1 VIEW PORTABLE 2022-12-20 16:42:00 Mark Wren [facility] / BEDSIDE [facility] Center CBC W/PLT COUNT & AUTO 2022-12-20 16:19:00 Mark Wren [facility] DIFFERENTIAL [facility] BASIC METABOLIC PANEL 2022-12-20 16:19:00 Mark Wren C HI [facility] HEPATIC FUNCTION PANEL 2022-12-20 16:19:00 Mark Wren [facility] LIPASE 2022-12-20 16:19:00 Mark Wren [facility] PROTHROMBIN TIME/INR 2022-12-20 16:19:00 Mark Wren CH I [facility] HIGH SENSITIVITY 2022-12-20 16:19:00 Mark Wren [facility] TROPONIN I [facility] B-TYPE NATRIURETIC 2022-12-20 16:19:00 Mark Wren [facility] FACTOR (BNP) Medical Center MAGNESIUM 2022-12-20 16:19:00 Mark Wren [facility] PHOSPHORUS 2022-12-20 16:19:00 Mark Wren [facility] BLOOD GAS, VENOUS 2022-12-20 16:19:00 Mark Wren [facility] CBC W/PLT COUNT & AUTO 2022-12-20 16:19:00 Mark Wren [facility] DIFFERENTIAL [facility] HEPATITIS B SURFACE 2022-05-17 03:53:00 [facility] ANTIGEN [facility] HEPATITIS B SURFACE 2022-05-17 03:53:00 [facility] ANTIBODY [facility] Center HEPATITIS B CORE 2022-05-17 03:53:00 [facility] s ANTIBODY, TOTAL [facility] Center HEPATITIS C PCR, 2022-05-17 03:53:00 [facility] s QUANTITATIVE [facility] Center Plan of Care Planned Activity Planned Date Details Comments Source Future Scheduled 2023-04-[address] [facility] Test 00:00:00 (Season Ended) [code = Medic al Center INFLUENZA VACCINE (Season Ended)] Future Scheduled 2023-04-[address] [facility] Test 00:00:00 (Season Ended) [code = Medic al Center INFLUENZA VACCINE (Season Ended)] Future Scheduled 2022-08-[address] [facility] 00:00:00 [code = 17009930] Medical Ce nter Future Scheduled 2007 Lipid panel (procedure) [facility] Test 00:00:00 [code = 44085042] Medical Ce nter Future Scheduled 2007 Lipid panel (procedure) [facility] Test 00:00:00 [code = 57246062] Medical Ce nter Future Scheduled 2007 Lipid panel (procedure) [facility] Test 00:00:00 [code = 10477556] Medical Ce nter Future Scheduled 2007 Lipid panel (procedure) [facility] Test 00:00:00 [code = 02130119] Medical Ce nter Future Scheduled 1991 DTAP/TDAP/TD [...] colon Medical Ce nter (procedure) [code = 673735311] Future Scheduled 1972 Screening for malignant [facility] Test 00:00:00 neoplasm of colon Medical Ce nter (procedure) [code = 882722617] Future Scheduled 1972 Screening for malignant [facility] Test 00:00:00 neoplasm of colon Medical Ce nter (procedure) [code = 318835284] Future Scheduled 1972 Screening for malignant [facility] Test 00:00:00 neoplasm of colon Medical Ce nter (procedure) [code = 596595775] Future Scheduled 1970 Sigmoidoscopy [code = [facility] 00:00:00 Sigmoidoscopy] Medical Cente r Future Scheduled 1972 CT Colonography (combo) [facility] Test 00:00:00 [code = CT Colonography [facility] (combo)] Future Scheduled 1972 Screening for malignant [facility] Test 00:00:00 neoplasm of colon Medical Ce nter (procedure) [code = 453227282] Future Scheduled 1972 Screening for malignant [facility] Test 00:00:00 neoplasm of colon Medical Ce nter (procedure) [code = 140812558] Future Scheduled 1972 Screening for malignant [facility] Test 00:00:00 neoplasm of colon Medical Ce nter (procedure) [code = 212665385] Future Scheduled 1972 Screening for malignant [facility] Test 00:00:00 neoplasm of colon Medical Ce nter (procedure) [code = 494896910] Future Scheduled 1970 Sigmoidoscopy [code = [facility] 00:00:00 Sigmoidoscopy] Medical Cente r Future Scheduled 1972 CT Colonography (combo) [facility] Test 00:00:00 [code = CT Colonography [facility] (combo)] Future Scheduled 1972 Screening for malignant [facility] Test 00:00:00 neoplasm of colon Medical Ce nter (procedure) [code = 062439141] Future Scheduled 1972 Screening for malignant [facility] Test 00:00:00 neoplasm of colon Medical Ce nter (procedure) [code = 363918404] Future Scheduled 1972 Screening for malignant [facility] Test 00:00:00 neoplasm of colon Medical Ce nter (procedure) [code = 661437567] Future Scheduled 1972 Screening for malignant [facility] Test 00:00:00 neoplasm of colon Medical Ce nter (procedure) [code = 418444566] Future Scheduled 1970 Sigmoidoscopy [code = [facility] 00:00:00 Sigmoidoscopy] [facility] Yolette kelly Future Scheduled 1972 CT Colonography (combo) [facility] Test 00:00:00 [code = CT Colonography [facility] (combo)] Future Scheduled 1972 Screening for malignant [facility] Test 00:00:00 neoplasm of colon Medical Ce nter (procedure) [code = 465095906] Future Scheduled 1972 Screening for malignant [facility] Test 00:00:00 neoplasm of colon Medical Ce nter (procedure) [code = 867514400] Future Scheduled 1972 Screening for malignant [facility] Test 00:00:00 neoplasm of colon Medical Ce nter (procedure) [code = 498329660] Future Scheduled 1972 Screening for malignant [facility] Test 00:00:00 neoplasm of colon Medical Ce nter (procedure) [code = 444192019] Future Scheduled 1970 Sigmoidoscopy [code = [facility] 00:00:00 Sigmoidoscopy] [facility] Yolette kelly Future Scheduled 1972 CT Colonography (combo) [facility] Test 00:00:00 [code = CT Colonography Medi [facility] (combo)] Future Scheduled 1972 Screening for malignant [facility] Test 00:00:00 neoplasm of colon Medical Ce nter (procedure) [code = 389392422] Future Scheduled 1972 Screening for malignant [facility] Test 00:00:00 neoplasm of colon Medical Ce nter (procedure) [code = 704847832] Future Scheduled 1972 Screening for malignant [facility] Test 00:00:00 neoplasm of colon Medical Ce nter (procedure) [code = 934517000] Future Scheduled 1972 Screening for malignant [facility] Test 00:00:00 neoplasm of colon Medical Ce nter (procedure) [code = 794262417] Future Scheduled 1970 Sigmoidoscopy [code = [facility] 00:00:00 Sigmoidoscopy] Medical Cente r Encounters Start End Encounter Admission Attending Care Care Encounter Source Date/Time Date/Time Type Type Clinicians Facility Department ID 2022-11-28 Outpatient [facility] [id number] [place] 08:29:08 [id number] [facility] 2022-11-24 Outpatient [facility] [id number] [place] 08:28:47 [id number] [facility] 2022-11-10 Outpatient [facility] [id number] [place] 10:41:29 [id number] [facility] 2022-09-28 Outpatient [facility] [id number] [place] 11:17:06 [id number] [facility] 2022-09-22 Outpatient [facility] [id number] [place] 13:29:04 [id number] [facility] 2022-09-20 Outpatient [facility] [id number] [place] 10:03:28 [id number] [facility] 2022-07-11 Outpatient [facility] [id number] [place] 14:53:52 [id number] [facility] 2022-07-05 Outpatient [facility] [id number] [place] 08:31:43 [id number] [facility] 2022-06-19 Outpatient [facility] [id number] [place] 16:57:00 [id number] [facility] 2022-06-16 Outpatient [facility] [id number] [place] 10:28:00 [id number] [facility] 2023-01-02 2023-01-02 Outpatient [facility] [id number] [place] 09:30:00 09:30:00 JARAD [facility] 2022-12-20 2022-12-21 Emergency [place], [facility] [id number] [facility] 17:50:00 03:58:00 Adan [facility] 2022-12-20 2022-12-21 Emergency ER JOSE BRENNER Emergency [id number] [facility] 17:50:00 03:58:00 ADAN 2022-12-19 2022-12-19 Outpatient EL LEE, [facility] [id number] [facility] 00:00:00 00:00:00 BHAMIDIPATI 2022-12-19 2022-12-19 Outpatient [facility] LEE, [facility] [id number] [facility] 00:00:00 00:00:00 BHAMIDIPATI 2022-12-19 2022-12-19 Outpatient EL LEE, [facility] [id number] [facility] 00:00:00 00:00:00 BHAMIDIPATI 2022-12-19 2022-12-19 Outpatient EL LEE, [facility] [id number] [facility] 00:00:00 00:00:00 AMIDIPATI 2022-12-12 2022-12-12 Outpatient [facility] [id number] [place] 13:00:00 13:00:00 [facility] 2022-11-09 2022-11-09 Outpatient EL [facility] [id number] [facility] 00:00:00 00:00:00 2022-11-09 2022-11-09 Outpatient EL [facility] [id number] [facility] 00:00:00 00:00:00 2022-11-09 2022-11-09 Outpatient EL [facility] [id number] [facility] 00:00:00 00:00:00 2022-11-09 2022-11-09 Outpatient EL [facility] [id number] [facility] 00:00:00 00:00:00 2022-11-09 2022-11-09 Outpatient EL [facility] [id number] [facility] 00:00:00 00:00:00 2022-11-07 2022-11-07 Outpatient [facility] [id number] [place] 09:30:00 09:30:00 [facility] 2022-11-07 2022-11-07 Telephone Ghanshyam [facility] [id number] 00:[facility] 00[facility]00[facility]00 [facility] 2022-11-07 2022-11-07 Telephone Ghanshyam [facility] [id number] 00:[facility] 00:00:00 [facility] 2022-10-19 2022-10-19 Rishi Morrissey [facility] [id number] 00:[facility] 00:00:00 [facility] 2022-10-19 2022-10-19 Rishi Morrissey [facility] [id number] 00:00[facility] 00:00:00 [facility] 2022-10-12 2022-10-12 Outpatient [facility] [id number] [place] 13:00:00 13:00:00 Health 2022-10-09 2022-10-09 Mauro Gauthier [facility] [id number] 00:00[facility]00 00:00:00 [facility] 2022-10-09 2022-10-09 Mauro Gauthier [facility] [id number] 00:00[facility]00 00:00:00 [facility] 2022-10-07 2022-10-07 Sky Agosto [facility] [id number] 00:00:00 00:00:00 [facility] 2022-10-07 2022-10-07 Sky Agosto [facility] [id number] 00:00:00 00:00:00 [facility] 2022-09-28 2022-09-28 Outpatient SLE SLE [id number] [facility] 00:00:00 00:00:00 2022-09-05 2022-09-05 Mauro Callahan [facility] [id number] 00:00[facility] 00:00:00 [facility] 2022-09-05 2022-09-05 Mauro Callahan [facility] [id number] 00:00[facility] 00:00:00 [facility] 2022-08-31 2022-08-31 [place] [facility] [id number] 00:00:00 00:00:00 [facility] 2022-08-31 2022-08-31 Abstract [place] [facility] [id number] 00:00:00 00:00:00 [facility] 2022-08-31 2022-08-31 Documentat [place] [facility] [id number] 00:00:00 00:00:00 [facility] 2022-08-31 2022-08-31 Abstract Triny [facility] [id number] 00:00:00 00:00:00 [facility] 2022-08-31 2022-08-31 Telephone [place] [facility] [id number] 00:00[facility]00 00:00:00 [facility] 2022-08-31 2022-08-31 Abstract [place] [facility] [id number] 00:00:00 00:00:00 [facility] 2022-08-31 2022-08-31 Documenttiff Callahan [facility] [id number] 00:00[facility]00 00:00:00 [facility] 2022-08-31 2022-08-31 Abstract Triny [facility] [id number] 00:00:00 00:00:00 [facility] 2022-08-29 2022-08-29 Outpatient [facility] [id number] [place] 10:30:00 10:30:00 [facility] 2022-07-04 2022-07-05 Outpatient [facility] [id number] UT 13:30:00 08:32:27 [facility] 2022-06-26 2022-06-26 Outpatient [facility] [id number] [place] 10:15:00 10:15:00 [facility] 2022-05-17 2022-05-17 Lab [facility] [id number] 00:00:00 00:00:00 [facility] 2022-05-17 2022-05-17 [facility] [id number] 00:00:00 00:00:00 [facility] Results Test Description Test Time Test Comments Results Result [facility] e Comments CT, CHEST, 2022-12-21 Unlisted Reason WITHOUT CONTRAST 00:53:00 for Exam - Click Yes and Enter [facility] Below[facility] 1970 Sex: M FI NAL REPORT CLINICAL HISTORY: Unlisted Reason for Exam FINDINGS: Multiple axial images of the chest, abdomen and pelvis were performed without IV contrast. Oral contrast was not given. This exam was performed according to our departmental dose-optimization program, which includes automated exposure control, adjustment of the mA and/or kV according to patient size and/or use of the iterative reconstruction technique. Comparison: None. Chest: Lung parenchyma: Bilateral dependent/compressive atelectasis. Pleural effusion: Moderate right and small left pleural effusions. Pneumothorax: None. Tracheobronchial tree: No significant findings. Pulmonary vasculature: No significant findings. Cardiac contours and great vessels: Atherosclerotic calcifications of the coronary arteries. Low density blood in the cardiac chambers suggesting anemia. Mediastinum: No significant findings. Lymph Nodes: No adenopathy in the mediastinum or rosa. Skeleton: Age indeterminate mild compression deformity of the superior endplate of T5. Other:Tunneled right IJ dialysis catheter in place. Diffuse subcutaneous edema. Abdomen and pelvis: Liver: No significant findings. Gallbladder and biliary tree: Prior cholecystectomy. Spleen: No significant findings. Adrenal Glands: No significant findings. Kidneys and ureters: No significant findings. Stomach and Duodenum: No significant findings. Pancreas: No significant findings. Bowel: No significant findings. Appendix: Nonvisualized Bladder: No significant findings. Major vascular structures: Scattered atherosclerotic calcifications. Reproductive organs: No significant findings. Other: Diffuse subcutaneous edema. Skeleton: No acute bony abnormality. IMPRESSION: Moderate right and small left pleural effusions. Diffuse subcutaneous edema. CT evidence of anemia. Prior cholecystectomy. Age indeterminate mild compression deformity of the superior endplate of T5. Please correlate with history. Signed: Scooter Clay MDReport Verified Date/Time: 12/21/2022 00:53:49 , ABDOMEN 2022-12-21 Unlisted Reason 00:53:00 for Exam - Click Yes and Enter [facility] Reason [facility] Below->NoProtocol CENTERName: Kandy FREY : 1970 Specify:->Standar Sex: d ProtocolWill M this procedure require oral FI contrast?->No NAL REPORT CLINICAL HISTORY: Unlisted Reason for Exam FINDINGS: Multiple axial images of the chest, abdomen and pelvis were performed without IV contrast. Oral contrast was not given. This exam was performed according to our departmental dose-optimization program, which includes automated exposure control, adjustment of the mA and/or kV according to patient size and/or use of the iterative reconstruction technique. Comparison: None. Chest: Lung parenchyma: Bilateral dependent/compressive atelectasis. Pleural effusion: Moderate right and small left pleural effusions. Pneumothorax: None. Tracheobronchial tree: No significant findings. Pulmonary vasculature: No significant findings. Cardiac contours and great vessels: Atherosclerotic calcifications of the coronary arteries. Low density blood in the cardiac chambers suggesting anemia. Mediastinum: No significant findings. Lymph Nodes: No adenopathy in the mediastinum or rosa. Skeleton: Age indeterminate mild compression deformity of the superior endplate of T5. Other:Tunneled right IJ dialysis catheter in place. Diffuse subcutaneous edema. Abdomen and pelvis: Liver: No significant findings. Gallbladder and biliary tree: Prior cholecystectomy. Spleen: No significant findings. Adrenal Glands: No significant findings. Kidneys and ureters: No significant findings. Stomach and Duodenum: No significant findings. Pancreas: No significant findings. Bowel: No significant findings. Appendix: Nonvisualized Bladder: No significant findings. Major vascular structures: Scattered atherosclerotic calcifications. Reproductive organs: No significant findings. Other: Diffuse subcutaneous edema. Skeleton: No acute bony abnormality. IMPRESSION: Moderate right and small left pleural effusions. Diffuse subcutaneous edema. CT evidence of anemia. Prior cholecystectomy. Age indeterminate mild compression deformity of the superior endplate of T5. Please correlate with history. Signed: Scooter Clay MDReport Verified Date/Time: 12/21/2022 00:53:49 , SOFT TISSUE 2022-12-21 Unlisted Reason NECK, WO CONTRAST 00:31:00 for Exam - Click Yes and Enter [facility] Reason [facility] Below->YesUnliste CENTERName: jaclyn FREY Reason for ARIELLA : 1970 Exam->dysphagia Sex: nausea M FI NAL REPORT CT, SOFT TISSUE NECK, WO CONTRAST INDICATION: "Unlisted Reason for Examdysphagia nausea" TECHNIQUE: Noncontrast CT images of the cervical soft tissues were obtained. Multiplanar reformatted images were generated. DOSE REDUCTION: Dose modulation, iterative reconstruction, and/or weight-based adjustment of the mA/kV was utilized to reduce the radiation dose to as low as reasonably achievable. COMPARISON: None FINDINGS: The nasopharynx, oropharynx, hypopharynx are clear. The parotid glands, submandibular glands, and thyroid gland are unremarkable. The tonsillar tissue is normal. There is atherosclerotic calcification of the carotid arteries. The skull base and orbits are unremarkable. No acute abnormality of the cervical spine. There are mild cervical degenerative changes, most prominent at C5-C6 without mild associated canal and neural foraminal stenosis. There are multiple missing and partially eroded teeth. IMPRESSION: Examination is limited by the lack of IV contrast. No acute abnormality to explain the patient's symptoms. Signed: Scooter Clay MDReport Verified Date/Time: 12/21/2022 00:31:39 SENSITIVITY TROPONIN I 2022-12-20 23:51:26 Test Item Value Reference Range Interpretation Comme nts HIGH SENSITIVITY TROPONIN I (test code = 2115262) 29 pg/ml <=35 Optical Coating Technician ID - ADMINThe HEAD BONE GRINDER STAT High Sensitivity Troponin-I results should be used in conjunction with other diagnostic information such as ECG, clinical observations and information, and patientsymptoms to aid in the diagnosis of MO. CT, BRAIN, WITHOUT [id number] 23:11:00 [facility] : 1970 Sex: MFINAL REPORT CLINICAL HISTORY: Mental status change, unknown cause COMPARISON: None Multiple axial images of the brain were performed without IV contrast. This exam was performed according to our departmental dose- optimization program, which includes automated exposure control, adjustment of the mA and/or kV according to patient size and/or use of the iterative reconstruction technique. Intracranial hemorrhage: None. Brain parenchyma: Chronic postischemic changes in the left occipital lobe.Diffuse parenchymal volume loss. Scattered subcortical and periventricular non-specific white matter and deep doss matter hypodensities suggestive of microangiopathy. Ventricles, sulci and basal cisterns: Normal for age. Extra-axial spaces: Normal. Midline shift: None. Visualized vasculature: Atherosclerotic calcifications. Cranium: No significant findings. Skullbase: No significant findings. Paranasal sinuses: No significant findings. IMPRESSION: No definite acute intracranial abnormality. There is no mass lesion, intracranial hemorrhage or CT evidence of acute stroke. Chronic postischemic, microvascular and involutional changes. Please note that CT is insensitive in the detection of acute ischemia. Signed: Scooter Clay MDReport Verified Date/Time: 12/20/2022 23:11:58 RAD, CHEST, 1 VIEW, NON [id number] 17:49:00Reason for exam:->Nausea and vomitingShould this be performed at the bedside?->Yes[facility] : 1970 Sex: MFINAL REPORT AP view of the chest dated 12/20/2022 CLINICAL INFORMATION: Nausea and vomiting Comment: Heart is normal in size. Right IJ central venous catheter is present. Pulmonary vasculature is unremarkable. Lungs are clear. No pulmonary infiltrate, pneumothorax, or pleural effusion is present. Impression: No active cardiopulmonary disease. Signed: Luna Stroy MDReport Verified Date/Time:12/20/2022 17:49:19 B-TYPE NATRIURETIC FACTOR (BNP)2022-12-20 17:29:28 Test Item Value Reference Range Interpretation Comments B-TYPE NATRIURETIC PEPTIDE 1169 pg/mL 0-100 H (BEAKER) (test code = 700) Optical Coating Technician ID - ADMINBASIC METABOLIC [id number] 17:27:26 Test Item Value Reference Range Interpretation Comments SODIUM (BEAKER) 130 meq/L 136-145 L (test code = 381) POTASSIUM 4.2 meq/L 3.5-5.1 Specimen marked ly (BEAKER) (test hemolyzed code = 379) CHLORIDE (BEAKER) 99 meq/L 98-107 (test code = 382) CO2 (BEAKER) 26 meq/L 22-29 (test code = 355) BLOOD UREA 8 mg/dL 7-21 NITROGEN (BEAKER) (test code = 354) CREATININE 3.63 mg/dL 0.57-1.25 H Specimen marked ly (BEAKER) (test hemolyzed code = 358) GLUCOSE RANDOM 111 mg/dL 70-105 H (BEAKER) (test code = 652) CALCIUM (BEAKER) 7.4 mg/dL 8.4-10.2 L (test code = 697) EGFR (BEAKER) 20 Interpretatio n of eGFR (test code = mL/min/1.73 values Stage De scription 1092) sq m Result G1 Amanda l or high >=90 G2 Mildly decreased 60-89 G3a Mildl y to moderately 45-5 9 G3b Moderately to s everely 30-44 G4 Severl y decreased 15-29 G5 Kidney failure <15Reported eGF R is based on the CKD-EPI 2020 equation that d oes not use a race coefficientEsti mated GFR is not as accur ate as Creatinine Citlaly concepcion in predicting glom erular filtration rate . Estimated GFR is not appl icable for dialysis patien ts Optical Coating Technician ID - ADMINHIGH SENSITIVITY TROPONIN [id number] 17:27:21 Test Item Value Reference Range Interpretation Comments HIGH SENSITIVITY TROPONIN I (test 19 pg/ml <=35 code = 9576190) Optical Coating Technician ID - ADMINThe HEAD BONE GRINDER STAT High Sensitivity Troponin-I results should be used in conjunction with other diagnostic information such as ECG, clinical observations and information, and patientsymptoms to aid in the diagnosis of MO. [id number] 17:25:00 Test Item Value Reference Range Interpretation Comments LIPASE (BEAKER) (test code = 749) 14 U/L 8-78 Optical Coating Technician ID - [id number] 17:24:59 Test Item Value Reference Range Interpretation Comments MAGNESIUM (BEAKER) 1.6 mg/dL 1.6-2.6 Specimen markedly (test code = 627) hemolyzed Optical Coating Technician ID - [id number] 17:24:59 Test Item Value Reference Range Interpretation Comments PHOSPHORUS (BEAKER) 1.6 mg/dL 2.3-4.7 L Specimen markedly (test code = 604) hemolyzed Optical Coating Technician ID - ADMINHEPATIC FUNCTION [id number] 17:24:59 Test Item Value Reference Range Interpretation Comments TOTAL PROTEIN (BEAKER) 5.9 gm/dL 6.0-8.3 L Speci men markedly (test code = 770) hemolyzed ALBUMIN (BEAKER) (test 2.0 g/dL 3.5-5.0 L Speci men markedly code = 1145) hemolyzed BILIRUBIN TOTAL 0.7 mg/dL 0.2-1.2 Specimen mar kedly (BEAKER) (test code = hemoly zed 377) BILIRUBIN DIRECT 0.2 mg/dL 0.1-0.5 Specimen ma rkedly (BEAKER) (test code = hemoly zed 706) ALKALINE PHOSPHATASE 60 U/L 40-150 (BEAKER) (test code = 346) AST (SGOT) (BEAKER) 18 U/L 5-34 Specimen markedly (test code = 353) hemolyzed ALT (SGPT) (BEAKER) 6 U/L 6-55 Specimen markedly (test code = 347) hemolyzed Optical Coating Technician ID - ADMINPROTHROMBIN [id number] 17:02:15 Test Item Value Reference Range Interpretation Comments PROTIME (BEAKER) (test code = 15.8 seconds 11.9-14.2 H 759) INR (BEAKER) (test code = 370) 1.29 <=5.90 RECOMMENDED COUMADIN/WARFARIN INR THERAPY RANGESSTANDARD DOSE: 2.0 - 3.0 Includes: PROPHYLAXIS for venous thrombosis, systemic embolization; TREATMENT for venous thrombosis and/or pulmonary embolus.HIGH RISK: Target INR is 2.5-3.5 for patients with mechanical heart valves.CBC W/PLT COUNT & AUTO [id number] 16:56:02 Test Item Value Reference Range Interpretation Comments WHITE BLOOD CELL COUNT (BEAKER) 7.1 K/ L 3.5-10.5 (test code = 775) RED BLOOD CELL COUNT (BEAKER) 3.20 M/ L 4.63-6.08 L (test code = 761) HEMOGLOBIN (BEAKER) (test code = 9.8 GM/DL 13.7-17.5 L 410) HEMATOCRIT (BEAKER) (test code = 28.6 % 40.1-51.0 L 411) MEAN CORPUSCULAR VOLUME (BEAKER) 89 fL 79-92 (test code = 753) MEAN CORPUSCULAR HEMOGLOBIN 30.6 pg 25.7-32.2 (BEAKER) (test code = 751) MEAN CORPUSCULAR HEMOGLOBIN CONC 34.3 GM/DL 32.3-36.5 (BEAKER) (test code = 752) RED CELL DISTRIBUTION WIDTH 19.3 % 11.6-14.4 H (BEAKER) (test code = 412) PLATELET COUNT (BEAKER) (test 237 K/CU MM 150-450 code = 756) MEAN PLATELET VOLUME (BEAKER) 13.1 fL 9.4-12.4 H (test code = 754) NUCLEATED RED BLOOD CELLS 0 /100 WBC 0-0 (BEAKER) (test code = 413) NEUTROPHILS RELATIVE PERCENT 83 % (BEAKER) (test code = 429) LYMPHOCYTES RELATIVE PERCENT 10 % (BEAKER) (test code = 430) MONOCYTES RELATIVE PERCENT 6 % (BEAKER) (test code = 431) EOSINOPHILS RELATIVE PERCENT 0 % (BEAKER) (test code = 432) BASOPHILS RELATIVE PERCENT 0 % (BEAKER) (test code = 437) NEUTROPHILS ABSOLUTE COUNT 5.88 K/ L 1.78-5.38 H (BEAKER) (test code = 670) LYMPHOCYTES ABSOLUTE COUNT 0.72 K/ L 1.32-3.57 L (BEAKER) (test code = 414) MONOCYTES ABSOLUTE COUNT (BEAKER) 0.39 K/ L 0.30-0.82 (test code = 415) EOSINOPHILS ABSOLUTE COUNT 0.02 K/ L 0.04-0.54 L (BEAKER) (test code = 416) BASOPHILS ABSOLUTE COUNT (BEAKER) 0.02 K/ L 0.01-0.08 (test code = 417) IMMATURE GRANULOCYTES-RELATIVE 0.60 % 0.00-1.00 PERCENT (BEAKER) (test code = 2801) BLOOD GAS, [id number] 16:42:18 Test Item Value Reference Range Interpretation Comments PH VENOUS (BEAKER) (test code = 7.46 7.32-7.42 H 701) PCO2 VENOUS (BEAKER) (test code = 41 mm Hg 41-51 755) PO2 VENOUS (BEAKER) (test code = 33 mm Hg 25-40 702) O2 SATURATION VENOUS (BEAKER) 67.0 % 40.0-70.0 (test code = 703) HCO3 VENOUS (BEAKER) (test code = 28 mmol/L 21-29 705) BASE EXCESS VENOUS (BEAKER) (test 4.0 mmol/L -2.0-3.0 H code = 704) PATIENT TEMPERATURE (BEAKER) (test 37.0 code = 1818) FIO2 (BEAKER) (test code = 1819) 21.0 Hepatitis C PCR, [id number] 14:24:46 Test Item Value Reference Range Interpretation Comments HCV PCR, Quantitative HCV RNA not detected HCV RNA not (test code = 08313-0) detected PREMA (test code = PREMA) This test uses a Real-Time Polymerase Chain Reaction (RT-PCR) methodology and was performed using FARSHAD Ampliprep/FARSHAD TaqMan HCV test kit version 2.0 ([employer]). Reportable range for this assay is 15 - 100,000,000 IU per mL (1.18 - 8.00 Log IU/mL). Lab Interpretation Normal (test code = 65116-7) [facility], [id number] 14:24:46 Test Item Value Reference Range Interpretation Comments HCV PCR, Quantitative HCV RNA not detected HCV RNA not (test code = 02570-8) detected PREMA (test code = PREMA) This test uses a Real-Time Polymerase Chain Reaction (RT-PCR) methodology and was performed using FAR[employer] Ampliprep/FARSHAD TaqMan HCV test kit version 2.0 ([employer]). Reportable range for this assay is 15 - 100,000,000 IU per mL (1.18 - 8.00 Log IU/mL). Lab Interpretation Normal (test code = 08636-9) [facility] C PCR, [id number] 14:24:46 Test Item Value Reference Range Interpretation Comments HCV PCR, Quantitative HCV RNA not detected HCV RNA not (test code = 48884-6) detected PREMA (test code = PREMA) This test uses a Real-Time Polymerase Chain Reaction (RT-PCR) methodology and was performed using [employer] Ampliprep/FARSHAD TaqMan HCV test kit version 2.0 ([employer]). Reportable range for this assay is 15 - 100,000,000 IU per mL (1.18 - 8.00 Log IU/mL). Lab Interpretation Normal (test code = 91396-2) [facility] C PCR, [id number] 14:24:46 Test Item Value Reference Range Interpretation Comments HCV PCR, Quantitative HCV RNA not detected HCV RNA not (test code = 27962-5) detected PREMA (test code = PREMA) This test uses a Real-Time Polymerase Chain Reaction (RT-PCR) methodology and was performed using [employer] Ampliprep/FAR[employer]AD TaqMan HCV test kit version 2.0 ([employer]). Reportable range for this assay is 15 - 100,000,000 IU per mL (1.18 - 8.00 Log IU/mL). Lab Interpretation Normal (test code = 87516-6) [facility] C PCR, [id number] 14:24:46 Test Item Value Reference Range Interpretation Comments HCV PCR, Quantitative HCV RNA not detected HCV RNA not (test code = 49753-8) detected PREMA (test code = PREMA) This test uses a Real-Time Polymerase Chain Reaction (RT-PCR) methodology and was performed using F[employer] Ampliprep/FARSHAD TaqMan HCV test kit version 2.0 ([employer]). Reportable range for this assay is 15 - 100,000,000 IU per mL (1.18 - 8.00 Log IU/mL). Lab Interpretation Normal (test code = 13165-3) [place] C PCR, [id number] 14:24:46 Test Item Value Reference Range Interpretation Comments HCV RESULT COMPONENT HCV RNA not detected HCV RNA not detected (SHARAKER) (test code = 2699) This test uses a Real-Time Polymerase Chain Reaction (RT-PCR) methodology and was performed using [employer] Ampliprep/FARSHAD TaqMan HCV test kit version 2.0 ([employer]).Reportable range for this assay is 15 - 100,000,000 IU per mL (1.18 - 8.00 Log IU/mL).Hepatitis B surface [id number] 16:31:21 Test Item Value Reference Range Interpretation Comments Hep B S Ab (test code See_Comment [Auto mated = 13064-2) message] The system which generated this result transmit fletcher reference range : <8.0 mIU/mL. Th e reference range was not used to interpret this result as normal/abnormal . PREMA (test code = PREMA) Optical Coating Technician ID - ED Lab Interpretation Normal (test code = 21860-2) [facility] B surface [id number] 16:31:21 Test Item Value Reference Range Interpretation Comments Hep B S Ab (test code <8.0 See_Comment [Auto mated = 38563-5) message] The system which generated this result transmit fletcher reference range : <8.0 mIU/mL. Th e reference range was not used to interpret this result as normal/abnormal . PREMA (test code = PREMA) Optical Coating Technician ID - ED Lab Interpretation Normal (test code = 58021-6) [facility] B surface [id number] 16:31:21 Test Item Value Reference Range Interpretation Comments Hep B S Ab (test code <8.0 See_Comment [Auto mated = 23897-5) message] The system which generated this result transmit fletcher reference range : <8.0 mIU/mL. Th e reference range was not used to interpret this result as normal/abnormal . PREMA (test code = PREMA) Optical Coating Technician ID - ED Lab Interpretation Normal (test code = 73795-0) [facility] [id number] 16:31:21 Test Item Value Reference Range Interpretation Comments Hep B S Ab (test code See_Comment [Auto mated = 00067-5) message] The system which generated this result transmit fletcher reference range : <8.0 mIU/mL. Th e reference range was not used to interpret this result as normal/abnormal . PREMA (test code = PREMA) Optical Coating Technician ID - ED Lab Interpretation Normal (test code = 89383-5) [facility] surface [id number] 16:31:21 Test Item Value Reference Range Interpretation Comments Hep B S Ab (test code See_Comment [Auto mated = 12186-2) message] The system which generated this result transmit fletcher reference range : <8.0 mIU/mL. Th e reference range was not used to interpret this result as normal/abnormal . PREMA (test code = PREMA) Optical Coating Technician ID - ED Lab Interpretation Normal (test code = 22220-8) [facility] [id number] 16:31:21 Test Item Value Reference Range Interpretation Comments HEPATITIS B SURFACE ANTIBODY < mIU/mL <8.0 (BEAKER) (test code = 647) Optical Coating Technician [facility] surface [id number] 16:21:45 Test Item Value Reference Range Interpretation Comments Hepatitis B surface Nonreactive Nonreactive antigen (test code = 5195-3) PREMA (test code = PREMA) Specimen is considered negative for HBsAg. Lab Interpretation (test Normal code = 79873-8) [facility] B core antibody, [id number] 16:21:45 Test Item Value Reference Range Interpretation Comments Hep B Core Total Ab (test Nonreactive Nonreactive code = 90432-0) PREMA (test code = PREMA) Optical Coating Technician ID - ED Lab Interpretation (test Normal code = 41334-8) [facility] surface [id number] 16:21:45 Test Item Value Reference Range Interpretation Comments Hepatitis B surface Nonreactive Nonreactive antigen (test code = 5195-3) PREMA (test code = PREMA) Specimen is considered negative for HBsAg. Lab Interpretation (test Normal code = 91145-3) [facility] B core antibody, [id number] 16:21:45 Test Item Value Reference Range Interpretation Comments Hep B Core Total Ab (test Nonreactive Nonreactive code = 72145-3) PREMA (test code = PREMA) Optical Coating Technician ID - ED Lab Interpretation (test Normal code = 20857-5) [facility] [id number] 16:21:45 Test Item Value Reference Range Interpretation Comments Hepatitis B surface Nonreactive Nonreactive antigen (test code = 5195-3) PREMA (test code = PREMA) Specimen is considered negative for HBsAg. Lab Interpretation (test Normal code = 89816-9) [facility] B core antibody, [id number] 16:21:45 Test Item Value Reference Range Interpretation Comments Hep B Core Total Ab (test Nonreactive Nonreactive code = 15286-9) PREMA (test code = PREMA) Optical Coating Technician ID - ED Lab Interpretation (test Normal code = 99530-1) [facility] surface [id number] 16:21:45 Test Item Value Reference Range Interpretation Comments Hepatitis B surface Nonreactive Nonreactive antigen (test code = 5195-3) PREMA (test code = PREMA) Specimen is considered negative for HBsAg. Lab Interpretation (test Normal code = 17312-5) [facility], [id number] 16:21:45 Test Item Value Reference Range Interpretation Comments Hep B Core Total Ab (test Nonreactive Nonreactive code = 40436-9) PREMA (test code = PREMA) Optical Coating Technician ID - ED Lab Interpretation (test Normal code = 90473-4) [facility] [id number] 16:21:45 Test Item Value Reference Range Interpretation Comments Hepatitis B surface Nonreactive Nonreactive antigen (test code = 5195-3) PREMA (test code = PREMA) Specimen is considered negative for HBsAg. Lab Interpretation (test Normal code = 33159-5) [facility] antibody, [id number] 16:21:45 Test Item Value Reference Range Interpretation Comments Hep B Core Total Ab (test Nonreactive Nonreactive code = 82532-8) PREMA (test code = PREMA) Optical Coating Technician ID - ED Lab Interpretation (test Normal code = 16143-0) [facility] [id number] 16:21:45 Test Item Value Reference Range Interpretation Comments HEPATITIS B SURFACE ANTIGEN (2) Nonreactive Nonreactive (BEAKER) (test code = 2585) Specimen is considered negative for HBsAg.HEPATITIS B CORE ANTIBODY, TOTAL 2022-05-17 16:21:45 Test Item Value Reference Range Interpretation Comments HEPATITIS B CORE TOTAL ANTIBODY Nonreactive Nonreactive (BEAKER) (test code = 497) Optical Coating Technician ID - ED
[2022-12-31] MEDS ORDERED: ONDANSETRON 4 MG/2 ML VIAL ONE (17:05)
[2022-12-31 17:07] LABS: Absolute Lymphocytes (CBC) 0.7 K/uL (0.7-4.9); Hematocrit 25.4 % (39.6-49.0); Lymphocytes % 12.1 % (15.3-44.8); MCV 90.3 fL (80-100); MPV 9.9 fL (7.6-11.3); RBC Red Blood Cell Count 2.81 M/uL (4.33-5.43)
[2022-12-31 17:09] LABS: Protime INR 1.28
--- NOTE | 2022-12-31 17:15 | RAD REPORT ---
EXAM DESCRIPTION: CT - Head Brain Wo Cont - 12/31/2022 5:07 pm CLINICAL HISTORY: SLURRED SPEECH Headache, drowsiness COMPARISON: Renal Ultrasound-Complete dated 11/05/2017Head Brain Wo Cont dated 09/16/2022; Head Brain Wo Cont dated 05/21/2022 TECHNIQUE: All CT scans are performed using dose optimization technique as appropriate and may inclu de automated exposure control or mA/KV adjustment according to patient size. FINDINGS: No intracranial hemorrhage, hydrocephalus or extra-axial fluid collection.Mild generalized brain atrophy is present with mild periventricular and deep white matter chronic microvascular ische jae changes.No areas of brain edema or evidence of midline shift. The paranasal sinuses and mastoids are clear. The calvarium is intact. IMPRESSION: No acute intracranial abnormality.
[2022-12-31 17:34] LABS: AST/SGOT 10 U/L (15-37); Albumin 1.6 g/dL (3.4-5.0); Alkaline Phosphatase 61 U/L (45-117); BUN Blood Urea Nitrogen 8 mg/dL (7-18); Bicarbonate 29 mEq/L (21-32); Bilirubin Direct 0.3 mg/dL (0-0.2); Bilirubin Indirect, Calculated 0.4 mg/dL (0.2-0.8); Bilirubin Total 0.7 mg/dL (0.2-1.0); Glomerular Filtration Rate 23 ml/min (=/>90); Glucose Level 98 mg/dL (74-106); Magnesium 1.4 mg/dL (1.6-2.4); Potassium 3.5 mEq/L (3.5-5.1); Protein, Total 4.7 g/dL (6.4-8.2); Sodium Level 131 mEq/L (136-145)
[2022-12-31 17:39] LABS: ALT/SGPT < 10 U/L (16-61); NT PRO-BNP > 35000 pg/mL (<125)
[2022-12-31 17:41] LABS: Blood Morphology Comment NOT SEEN (NOT SEEN); Platelet Estimate DECR; White Blood Cell Scan OK (OK)
[2022-12-31 17:42] LABS: Troponin High Sensitivity 120.8 pg/mL (<58.9)
--- NOTE | 2022-12-31 18:17 | RAD REPORT ---
EXAM DESCRIPTION: RAD - Chest Single View - 12/31/2022 6:05 pm CLINICAL HISTORY: hx Chest pain. COMPARISON: Chest Single View dated 10/10/2022; Chest Single View dated 06/06/2022; Chest Single View dated 05/23/2022; Chest Single View dated 05/21/2022 FINDINGS: Portable technique limits examination quality. Mild interstitial pulmonary edema. Trace bilateral pleural effusions. The heart is mildly prominent i n size. No displaced fractures.Right-sided venous catheter tip in the SVC. IMPRESSION: Mild CHF.
[2022-12-31] MEDS ORDERED: MAGNESIUM SULFATE 1 gm IVPB 1 GM/100 ML BAG IV ONE (18:27)
[2022-12-31] MEDS ORDERED: ENOXAPARIN 80 MG/0.8 ML SQ ONE (19:38)
--- NOTE | 2022-12-31 20:11 | EDPHYS ---
Physician Documentation [facility] Name: Nabor Ny Age: 52 yrs Sex: Male : 1970 Arrival Date: 12/31/2022 Time: 16:26 Bed 6 Private MD: ED Physician Randolph Noel HPI: 12/31 17:11 This 52 yrs old Male presents to ER via EMS with complaints of General snw Weakness. 17:12 Onset: The symptoms/episode began/occurred gradually, yesterday. Duration: This was a snw single incident. Context: the episode(s) was witnessed, by family, , occurred at home, Possible contributing factors include: Dialysis Sun, Sun, Sunday. Had full dialysis Sunday (4 hours), some nausea and fatigue on Sunday with some slurred speech.. Severity of symptoms: At their worst the symptoms were moderate. The patient has not experienced similar symptoms in the past. Pt has hx of CVA. Historical: - Allergies: 16:42 No Known Allergies; ld1 - Home Meds: 16:42 carvedilol 12.5 mg Oral tab [Active]; lisinopril 10 mg Oral tab once daily [Active]; ld1 hydralazine 25 mg Oral tab 3 x/day [Active]; calcitriol 0.25 mcg Oral cap [Active]; pantoprazole 20 mg oral tablet, delayed release (enteric coated) daily [Active]; Klor-Con 10 10 mEq Oral tablet, extended release daily [Active]; ondansetron HCl 4 mg Oral tablet 4 times per day [Active]; - PMHx: 16:42 CHF 2018; CVA; Diabetes - NIDDM; Dialysis; Hirschsprung's disease; Hypertension; kidney ld1 disease; Kidney stone; RENAL FAILURE; - PSHx: 16:42 Colostomy; Dialysis Catheter; Cholecystectomy; ld1 - Immunization history:: Adult Immunizations up to date, Client reports receiving the 2nd dose of the Covid vaccine. - Social history:: Smoking status: Patient denies any tobacco usage or history of. Patient/guardian denies using alcohol. ROS: 17:11 Constitutional: Negative for fever, chills, and weight loss, Eyes: Negative for injury, snw pain, redness, and discharge, ENT: Negative for injury, pain, and discharge, Neck: Negative for injury, pain, and swelling, Cardiovascular: Negative for chest pain, palpitations, and edema, Respiratory: Negative for shortness of breath, cough, wheezing, and pleuritic chest pain, Abdomen/GI: Negative for abdominal pain, nausea, vomiting, diarrhea, and constipation, Back: Negative for injury and pain, : Negative for injury, bleeding, discharge, and swelling, MS/Extremity: Negative for injury and deformity, Skin: Negative for injury, rash, and discoloration, Psych: Negative for depression, anxiety, suicide ideation, homicidal ideation, and hallucinations. 17:11 Neuro: Positive for speech changes, weakness, generalized weakness, slurred speech, and mildly edematous tongue. Exam: 17:07 Eyes: Pupils equal round and reactive to light, extra-ocular motions intact. Lids and snw lashes normal. Conjunctiva and sclera are non-icteric and not injected. Cornea within normal limits. Periorbital areas with no swelling, redness, or edema. 17:07 Neck: Trachea midline, no thyromegaly or masses palpated, and no cervical lymphadenopathy. Supple, full range of motion without nuchal rigidity, or vertebral point tenderness. No Meningismus. Chest/axilla: Normal chest wall appearance and motion. Nontender with no deformity. No lesions are appreciated. 17:07 Respiratory: Lungs have equal breath sounds bilaterally, clear to auscultation and percussion. No rales, rhonchi or wheezes noted. No increased work of breathing, no retractions or nasal flaring. 17:07 Back: No spinal tenderness. No costovertebral tenderness. Full range of motion. Skin: Warm, dry with normal turgor. Normal color with no rashes, no lesions, and no evidence of cellulitis. MS/ Extremity: Pulses equal, no cyanosis. Neurovascular intact. Full, normal range of motion. Psych: Awake, alert, with orientation to person, place and time. Behavior, mood, and affect are within normal limits. 17:07 Constitutional: The patient appears alert, awake, anxious. 17:07 Head/face: Noted is swelling, that is moderate, of the right cheek. 17:07 ENT: Nose: is normal, Mouth: Oral mucosa: normal, Tongue: is swollen. 17:07 Cardiovascular: Rate: tachycardic, Pulses: no pulse deficits are appreciated, Heart sounds: murmur, systolic, grade 3 over 6, Edema: 1+ edema to level of left ankle and right ankle. 17:07 Abdomen/GI: Inspection: scar(s), recent cholecystectomy, area with 1/4 area of serous drainage to proximal area of scar. 17:07 Neuro: Orientation: is normal, Mentation: is normal, Motor: is grossly normal based on the patient's age, Gait: not tested. Abnormal movements: there are no abnormal movements. 20:11 Radiologist reports: negative for acute snw Vital Signs: 16:39 BP 185 / 104; Pulse 96; Resp 11; Temp 98.7(O); Pulse Ox 100% on R/A; Weight 79.38 kg; ld1 Height 5 ft. 5 in. ; Pain 0/10; 17:30 BP 185 / 102; Pulse 87; Resp 17; Pulse Ox 99% on R/A; eh3 18:00 BP 190 / 105; Pulse 87; Resp 12; Pulse Ox 98% on R/A; eh3 18:30 BP 170 / 124; Pulse 86; Resp 18; Pulse Ox 98% on R/A; eh3 19:00 BP 185 / 105; Pulse 85; Resp 12; Pulse Ox 98% on R/A; eh3 19:30 BP 184 / 105; Pulse 84; Resp 12; Pulse Ox 99% on R/A; eh3 20:00 BP 179 / 104; Pulse 84; Resp 10; Pulse Ox 99% on R/A; eh3 20:30 BP 171 / 104; Pulse 85; Resp 12; Pulse Ox 98% on R/A; eh3 21:00 BP 184 / 110; Pulse 90; Resp 12; Pulse Ox 98% on R/A; eh3 16:39 Body Mass Index 29.12 (79.38 kg, 165.1 cm) ld1 16:39 Pain Scale: Adult ld1 NIH Stroke Scale Scores: 17:07 NIHSS Score: 1 snw MDM: 16:35 Patient medically screened. snw 18:11 Differential diagnosis: CVA, TIA, metabolic disorder. Data reviewed: vital signs, snw nurses notes, lab test result(s), EKG, radiologic studies. Consideration of Admission/Observation Escalation of care including admission/observation considered. will await completion of lab results. 19:23 Management of patient was discussed with the following: Primary Care Provider: Dr. shala Harvey. awaiting return call. I considered the following discharge prescriptions or medication management in the emergency department Medications were administered in the Emergency Department. See MAR. Historians other than the Patient: Spouse/Significant Other: . 12/31 16:42 Order name: Basic Metabolic Panel; Complete Time: 17:44 snw 12/31 16:42 Order name: CBC with Diff; Complete Time: 17:44 snw 12/31 16:42 Order name: LFT's; Complete Time: 17:44 snw 12/31 16:42 Order name: Magnesium; Complete Time: 17:44 snw 12/31 16:42 Order name: NT PRO-BNP; Complete Time: 17:44 snw 12/31 16:42 Order name: PT-INR; Complete Time: 17:13 snw 12/31 16:42 Order name: Troponin HS; Complete Time: 17:44 snw 12/31 17:10 Order name: CBC Smear Scan; Complete Time: 17:44 EDMS 12/31 16:42 Order name: CT Head Brain wo Cont; Complete Time: 17:18 snw 12/31 16:42 Order name: XRAY Chest (1 view); Complete Time: 18:26 snw 12/31 16:42 Order name: EKG; Complete Time: 16:43 snw 12/31 16:42 Order name: Cardiac monitoring; Complete Time: 16:45 snw 12/31 16:42 Order name: EKG - Nurse/Tech; Complete Time: 17:29 snw 12/31 16:42 Order name: IV Saline Lock; Complete Time: 16:59 w 12/31 16:42 Order name: Labs collected and sent; Complete Time: 16:59 snw 12/31 16:42 Order name: O2 Per Protocol; Complete Time: 16:45 snw 12/31 16:42 Order name: O2 Sat Monitoring; Complete Time: 16:45 snw EC:35 Rate is 86 beats/min. Rhythm is irregular. Left axis deviation noted. QT interval is snw prolonged. Clinical impression: Abnormal EKG without significant change. Administered Medications: 17:00 Drug: Ondansetron IVP 4 mg Route: IVP; Site: right antecubital; ld1 18:00 Follow up: Response: No adverse reaction eh3 17:00 Not Given (Duplicate Order): Ondansetron PO 4 mg PO once ld1 18:28 Drug: Magnesium Sulfate IVPB 500 mg Route: IVPB; Infused Over: 1 hrs; Site: right eh3 antecubital; 19:30 Follow up: Response: No adverse reaction; IV Status: Completed infusion; IV Intake: [id number] 20:15 Drug: Enoxaparin Sub-Q 80 mg Route: Sub-Q; Site: right lower abdomen; eh3 21:00 Follow up: Response: No adverse reaction eh3 Disposition Summary: 12/31/22 20:11 Hospitalization Ordered Hospitalization Status: Inpatient Admission snw Provider: Deepak Harvey [place] Location: Telemetry/MedSurg (Inpatient) snw Condition: Fair snw Problem: an acute exacerbation snw Symptoms: have worsened snw Bed/Room Type: Standard snw Room Assignment: 215(12/31/22 20:26) cg Diagnosis - Subsequent non-ST elevation (NSTEMI) myocardial infarction snw - Hypertensive heart and chronic kidney disease with heart failure and with stage 5 snw chronic kidney disease, or end stage renal disease - Muscle weakness (generalized) snw - Anemia in chronic kidney disease snw Forms: - Medication Reconciliation Form snw - SBAR form snw NIH Stroke Scale - NIH Stroke Score Date: 12/31/2022 Time: 17:07 Total Score = 1 10. Dysarthria (speech clarity - read or repeat words) - 0(Normal) 11. Extinction and Inattention (visual/tactile/auditory/spatial/personal) - 0(No abnormality) 1a. Level of Consciousness (LOC) - 0(Alert) 1b. Level of Consciousness (LOC) (Month \T\ Age) - 0(Both) 1c. LOC Commands (Open \T\ Closes Eyes/Camp Dining Room Attendant) - 0(Both) 2. Best Gaze (Lateral Gaze Paresis) - 0(Normal) 3. Visual Field Loss - 0(No visual loss) 4. Facial Palsy - 0(Normal) 5a. Left Arm: Motor (10-second hold) - 0(No drift) 5b. Right Arm: Motor (10-second hold) - 0(No drift) 6a. Left Leg: Motor (5-second hold - always test supine) - 0(No drift) 6b. Right Leg: Motor (5-second hold - always test supine) - 0(No drift) 7. Limb Ataxia (finger/nose \T\ heel/marroquin - test with eyes open) - 0(Absent) 8. Sensory Loss (pinprick arms/legs/face) - 0(Normal) 9. Best Language: Aphasia (description/naming/reading) - 1(Mild to moderate aphasia) Initials: snw Signatures: Dispatcher [employer] EDMS Rere Henao, DELIVERY RECRUITER-C DELIVERY RECRUITER-Csnw Sarah Moe, RN RN cg Kelsea Rosa RN RN ld1 Conchita Suarez RN RN eh3 Corrections: (The following items were deleted from the chart) 20:26 20:11 snw cg
--- NOTE | 2022-12-31 20:11 | ER ---
Nurse's Notes [facility] Name: Nabor Ny Age: 52 yrs Sex: Male : 1970 Arrival Date: 12/31/2022 Time: 16:26 Bed 6 Private MD: Diagnosis: Subsequent non-ST elevation (NSTEMI) myocardial infarction;Hypertensive heart and chronic kidney disease with heart failure and with stage 5 chronic kidney disease, or end stage renal disease;Muscle weakness (generalized);Anemia in chronic kidney disease Presentation: 12/31 16:39 Chief complaint: EMS states: toned out to patient home for general weakness. Pt reports ld1 tongue feeling "weird", weakness, loss of appetite. Coronavirus screen: At this time, the client does not indicate any symptoms associated with coronavirus-19. Ebola Screen: No symptoms or risks identified at this time. Initial Sepsis Screen: Does the patient meet any 2 criteria? No. Patient's initial sepsis screen is negative. Does the patient have a suspected source of infection? No. Patient's initial sepsis screen is negative. Risk Assessment: Do you want to hurt yourself or someone else? Patient reports no desire to harm self or others. Onset of symptoms was December 31, 2022. 16:39 Method Of Arrival: EMS: [facility] ld1 16:39 Acuity: DEBBIE 3 ld1 Triage Assessment: 16:42 General: Appears in no apparent distress. comfortable, Behavior is calm, cooperative, ld1 appropriate for age. Pain: Denies pain. EENT: No signs and/or symptoms were reported regarding the EENT system. Neuro: Level of Consciousness is awake, alert, obeys commands, Oriented to person, place, time, situation. Cardiovascular: Capillary refill < 3 seconds Patient's skin is warm and dry. Respiratory: Airway is patent Respiratory effort is even, unlabored. GI: Abdomen is round non-distended. : No signs and/or symptoms were reported regarding the genitourinary system. Derm: No signs and/or symptoms reported regarding the dermatologic system. Musculoskeletal: No signs and/or symptoms reported regarding the musculoskeletal system. Historical: - Allergies: 16:42 No Known Allergies; ld1 - Home Meds: 16:42 carvedilol 12.5 mg Oral tab [Active]; lisinopril 10 mg Oral tab once daily [Active]; ld1 hydralazine 25 mg Oral tab 3 x/day [Active]; calcitriol 0.25 mcg Oral cap [Active]; pantoprazole 20 mg oral tablet, delayed release (enteric coated) daily [Active]; Klor-Con 10 10 mEq Oral tablet, extended release daily [Active]; ondansetron HCl 4 mg Oral tablet 4 times per day [Active]; - PMHx: 16:42 CHF 2018; CVA; Diabetes - NIDDM; Dialysis; Hirschsprung's disease; Hypertension; kidney ld1 disease; Kidney stone; RENAL FAILURE; - PSHx: 16:42 Colostomy; Dialysis Catheter; Cholecystectomy; ld1 - Immunization history:: Adult Immunizations up to date, Client reports receiving the 2nd dose of the Covid vaccine. - Social history:: Smoking status: Patient denies any tobacco usage or history of. Patient/guardian denies using alcohol. Screenin:44 [facility] ED Fall Risk Assessment (Adult) History of falling in the last 3 months, ld1 including since admission No falls in past 3 months (0 pts). Abuse screen: Denies threats or abuse. Denies injuries from another. Nutritional screening: No deficits noted. Tuberculosis screening: No symptoms or risk factors identified. Assessment: 16:44 Reassessment: See triage assessment. ld1 17:30 Reassessment: Patient appears in no apparent distress at this time. Patient and/or eh3 family updated on plan of care and expected duration. Pain level reassessed. Patient is alert, oriented x 3, equal unlabored respirations, skin warm/dry/pink. 18:30 Reassessment: Patient appears in no apparent distress at this time. Patient and/or eh3 family updated on plan of care and expected duration. Pain level reassessed. Patient is alert, oriented x 3, equal unlabored respirations, skin warm/dry/pink. 19:30 Reassessment: Patient appears in no apparent distress at this time. Patient and/or eh3 family updated on plan of care and expected duration. Pain level reassessed. Patient is alert, oriented x 3, equal unlabored respirations, skin warm/dry/pink. 20:30 Reassessment: Patient appears in no apparent distress at this time. Patient and/or eh3 family updated on plan of care and expected duration. Pain level reassessed. Patient is alert, oriented x 3, equal unlabored respirations, skin warm/dry/pink. 21:04 Reassessment: Nurse to nurse report received by Zack on 2nd floor. 3 21:30 Reassessment: Patient appears in no apparent distress at this time. Patient and/or 3 family updated on plan of care and expected duration. Pain level reassessed. Patient is alert, oriented x 3, equal unlabored respirations, skin warm/dry/pink. Vital Signs: 16:39 BP 185 / 104; Pulse 96; Resp 11; Temp 98.7(O); Pulse Ox 100% on R/A; Weight 79.38 kg; ld1 Height 5 ft. 5 in. ; Pain 0/10; 17:30 BP 185 / 102; Pulse 87; Resp 17; Pulse Ox 99% on R/A; eh3 18:00 BP 190 / 105; Pulse 87; Resp 12; Pulse Ox 98% on R/A; eh3 18:30 BP 170 / 124; Pulse 86; Resp 18; Pulse Ox 98% on R/A; eh3 19:00 BP 185 / 105; Pulse 85; Resp 12; Pulse Ox 98% on R/A; eh3 19:30 BP 184 / 105; Pulse 84; Resp 12; Pulse Ox 99% on R/A; eh3 20:00 BP 179 / 104; Pulse 84; Resp 10; Pulse Ox 99% on R/A; eh3 20:30 BP 171 / 104; Pulse 85; Resp 12; Pulse Ox 98% on R/A; eh3 21:00 BP 184 / 110; Pulse 90; Resp 12; Pulse Ox 98% on R/A; eh3 16:39 Body Mass Index 29.12 (79.38 kg, 165.1 cm) ld1 16:39 Pain Scale: Adult ld1 NIH Stroke Scale Scores: 17:07 NIHSS Score: 1 snw ED Course: 16:30 Patient arrived in ED. ld1 16:34 [facility]C [facility] snw 16:34 Randolph Noel MD is Attending Physician. snw 16:42 Triage completed. ld1 16:42 Arm band placed on right wrist. ld1 16:44 Patient has correct armband on for positive identification. Placed in gown. Bed in low ld1 position. Call light in reach. Side rails up X2. site monitor on. Pulse ox on. NIBP on. Door closed. Noise minimized. Warm blanket given. 16:44 No provider procedures requiring assistance completed. ld1 16:59 Conchita Suarez, RN is Primary Nurse. 3 16:59 Inserted saline lock: 20 gauge in right antecubital area, using aseptic technique. 3 Blood collected. 17:09 CT Head Brain wo Cont In Process Unspecified. EDMS 18:07 XRAY Chest (1 view) In Process Unspecified. EDMS 20:10 Deepak Harvey MD is Hospitalizing Provider. snw 21:40 Patient admitted, IV remains in place. 3 Administered Medications: 17:00 Drug: Ondansetron IVP 4 mg Route: IVP; Site: right antecubital; ld1 18:00 Follow up: Response: No adverse reaction 3 17:00 Not Given (Duplicate Order): Ondansetron PO 4 mg PO once ld1 18:28 Drug: Magnesium Sulfate IVPB 500 mg Route: IVPB; Infused Over: 1 hrs; Site: right 3 antecubital; 19:30 Follow up: Response: No adverse reaction; IV Status: Completed infusion; IV Intake: [id number] 20:15 Drug: Enoxaparin Sub-Q 80 mg Route: Sub-Q; Site: right lower abdomen; 3 21:00 Follow up: Response: No adverse reaction [facility] Medication: 21:40 VIS not applicable for this client. 3 Intake: 19:30 IV: 25ml; Total: 25ml. 3 Outcome: 20:11 Decision to Hospitalize by Provider. snw 21:40 Patient left the ED. 3 21:40 Admitted to Med/surg accompanied by nurse, family with patient, via stretcher, room 3 215, Report called to Zack 21:40 Condition: stable 21:40 Instructed on the need for admit. NIH Stroke Scale - NIH Stroke Score Date: 12/31/2022 Time: 17:07 Total Score = 1 10. Dysarthria (speech clarity - read or repeat words) - 0(Normal) 11. Extinction and Inattention (visual/tactile/auditory/spatial/personal) - 0(No abnormality) 1a. Level of Consciousness (LOC) - 0(Alert) 1b. Level of Consciousness (LOC) (Month \\T\\ Age) - 0(Both) 1c. LOC Commands (Open \\T\\ Closes Eyes/Chemist Steroids) - 0(Both) 2. Best Gaze (Lateral Gaze Paresis) - 0(Normal) 3. Visual Field Loss - 0(No visual loss) 4. Facial Palsy - 0(Normal) 5a. Left Arm: Motor (10-second hold) - 0(No drift) 5b. Right Arm: Motor (10-second hold) - 0(No drift) 6a. Left Leg: Motor (5-second hold - always test supine) - 0(No drift) 6b. Right Leg: Motor (5-second hold - always test supine) - 0(No drift) 7. Limb Ataxia (finger/nose \\T\\ heel/marroquin - test with eyes open) - 0(Absent) 8. Sensory Loss (pinprick arms/legs/face) - 0(Normal) 9. Best Language: Aphasia (description/naming/reading) - 1(Mild to moderate aphasia) Initials: snw Signatures: Dispatcher [employer] EDMS Rere Henao, SOREN-C FURNACE ERECTOR-Csnw Kelsea Rosa RN RN ld1 Conchita Suarez, RACHEL RN 3 Corrections: (The following items were deleted from the chart) 22:01 21:50 Patient left the ED. 3 3 22:05 18:57 BP 170 / 124; Pulse 86bpm; Resp 18bpm; Pulse Ox 98% RA; ld1 3
[2022-12-31] MEDS ORDERED: ACETAMINOPHEN 500 MG TAB PO PRN (21:18)
[2022-12-31 22:08] VITALS: BMI 29.1
[2022-12-31] MEDS: HYDRALAZINE HCL 25 MG TABLET PO SCH (23:13)
[2023-01-01 04:13] LABS: Absolute Lymphocytes (CBC) 1.2 K/uL (0.7-4.9); Hematocrit 23.7 % (39.6-49.0); Lymphocytes % 21.8 % (15.3-44.8); MCV 90.2 fL (80-100); MPV 10.3 fL (7.6-11.3); RBC Red Blood Cell Count 2.63 M/uL (4.33-5.43)
[2023-01-01 04:35] LABS: Potassium 3.6 mEq/L (3.5-5.1)
[2023-01-01 04:37] LABS: Troponin High Sensitivity 100.3 pg/mL (<58.9)
[2023-01-01] MEDS ORDERED: COSYNTROPIN 0.25 MG VIAL IV ONE (08:00)
[2023-01-01] MEDS ORDERED: SODIUM CHLORIDE 0.9% 10ML INJ IV ONE (08:00)
[2023-01-01] MEDS: CALCITROL 0.25 MCG CAP PO SCH (09:00)
[2023-01-01] MEDS: ASPIRIN EC 81 MG TAB PO SCH (09:00)
[2023-01-01] MEDS: HYDRALAZINE HCL 25 MG TABLET PO SCH ×3 (09:00→20:38)
[2023-01-01] MEDS ORDERED: HYDRALAZINE HCL 25 MG TABLET PO SCH (09:00)
[2023-01-01] MEDS ORDERED: lisinopriL 20 MG TAB PO SCH (09:00)
[2023-01-01] MEDS: carvediloL 12.5 MG TAB PO SCH ×2 (09:00→20:38)
--- NOTE | 2023-01-01 11:44 | EKG ---
Test Date: 2022-12-31 Test Time: 17:30:50 Process Controls Technician: HEATHER MEASUREMENT RESULTS: Intervals: Rate: 86 OR: 184 QRSD: 98 QT: 398 QTc: 476 Mcbee: P: 71 OR: 184 QRS: -49 T: 34 INTERPRETIVE STATEMENTS: Sinus rhythm with occasional premature ventricular complexes Left axis deviation Nonspecific T wave abnormality Prolonged QT Abnormal ECG Compared to ECG 11/10/2022 14:03:21 Ventricular premature complex(es) now present Left-axis deviation now present T-wave abnormality now present Prolonged QT interval now present Left anterior fascicular block no longer present Electronically Signed On 01-01-23 11:41:35 CDT by Hermann Nunez
[2023-01-01 12:23] LABS: Hepatitis B surface AG Interp. Nonreactive (Nonreactive)
[2023-01-01 12:24] LABS: Hepatitis B Surface Ab - Quant < 3.10 mIU/mL (<8.0)
[2023-01-01] MEDS: dexAMETHasone 4 MG/ML VIAL IV SCH ×2 (14:04→17:18)
[2023-01-01] MEDS ORDERED: ENOXAPARIN 80 MG/0.8 ML SQ SCH (18:00)
--- NOTE | 2023-01-01 18:41 | P.HP ---
Certification for Inpatient Patient admitted to: Inpatient With expected LOS: >2 Midnights Practitioner: I am a practitioner with admitting privileges, knowledge of patient current condition, hospital course, and medical plan of care. Services: Services provided to patient in accordance with Admission requirements found in Title 42 Section 412.3 of the Code of Federal Regulations Patient History Date of Service: 01/01/23 Reason for admission: SPEECH IS SLURRED History of Present Illness: ARIELLA TOLD ME THAT HIS TONGUE IS BIG AND SPEECH IS SLURRING . ER PA THOUGHT OF STROKE AND ORDERED TESTS FOR STROKE. THEY DID TROPONIN AND BNP ALSO. HE HAS CHRONIC NAUSEA BUT NO CHEST PAIN. ARIELLA HAS HAD SEVERE NAUSEA FOR MONTHS. HIS HIDA WAS POSITIVE. CAROLINE WAS TAKEN OUT AND ONE DAY HE FELT WELL BUT AFTER THAT CONTINUED TO HAVE NAUSEA THAT IS CONSTANT AND HE IS NOT EATING. HE HAS NO CHEST PAIN BUT HE IS FATIGUED. HE HAD EGD, SONOGRAM. CT SCAN ALL DONE SO FAR. Allergies No Known Allergies Allergy (Verified 11/23/22 15:26) Home medications list reviewed: Yes Home Medications: Carvedilol [Coreg] 12.5 mg PO BID 05/12/22 Calcitrol [Rocaltrol*] 0.25 mcg PO DIRECTED #30 cap 05/17/22 Hydralazine [Apresoline*] 25 mg PO BID 05/22/22 Lisinopril [Zestril] 20 mg PO DAILY 10/11/22 Pantoprazole [Protonix Tab] 40 mg PO BEDTIME 10/11/22 Potassium Chloride [K-Dur] 10 meq PO DAILY 11/23/22 Zinc Gluconate [Zinc] 50 mg PO BID 11/23/22 - Past Medical/Surgical History Has patient received pneumonia vaccine in the past: Yes Diabetic: Yes -: CHF -: CVA 2018 -: Diabetes -: CKD -: HTN -: vaping -: kidney stones -: hirschsprung disease large intestine surgery - Family History Father -: Hypertension, Diabetes Mother -: Lung disease, Diabetes, Cancer Notes: lung ca Sister -: Diabetes, Kidney disease Notes: HD sister - Social History Smoking Status: Current every day smoker Alcohol use: Yes CD- Drugs: No Caffeine use: No Review of Systems 10-point ROS is otherwise unremarkable General: Weakness, Malaise Physical Examination - Vital Signs Temperature: 97.8 F Blood Pressure: 152/82 Pulse: 109 Respirations: 16 Pulse Ox (%): 94 - Physical Exam General: Oriented x3, Mild distress (TONGUE IS ENLARGED. ) HEENT: Atraumatic, PERRLA, Mucous membr. moist/pink, EOMI, Sclerae nonicteric Neck: Supple, 2+ carotid pulse no bruit, No LAD, Without JVD or thyroid abnormality Respiratory: Clear to auscultation bilaterally, Normal air movement Cardiovascular: Regular rate/rhythm, Normal S1 S2 Gastrointestinal: Normal bowel sounds, No tenderness Musculoskeletal: No tenderness Integumentary: No rashes Neurological: Normal gait, Normal speech, Normal strength at 5/5 x4 extr, Normal tone, Normal affect Lymphatics: No axilla or inguinal lymphadenopathy Assessment and Plan - Problems (Diagnosis) (1) Angioedema Current Visit: Yes Status: Acute Plan: THIS IS FROM LISINOPRIL I STOPPED IT AND GAVE HIM IV STEORIDS. IT SHOULD IMPROVE. (2) Chronic kidney disease, stage V Current Visit: No Status: Chronic Plan: ON HD. CONTINUE. WILL TALK TO ASSURANCE ENGINEER THAT I STOPPED LISINOPRIL. (3) Chronic nausea Current Visit: Yes Status: Acute Plan: IT DOES NOT SEEM TO BE CARDIAC IN ORIGIN. STILL I WILL DO ST TEST AND I DISCUSSED WITH DR. VINES. NAUSEA IS CHRONIC AND NOT EPISODIC. HE MAY HAVE HAD GASTRIC EMPTYING DONE ALREADY. (4) HTN (hypertension) Onset Date: 04/26/18 Current Visit: No Status: Chronic Plan: RAISE HYDRALAZINE. DO SERUM FREE METANEPHRINES RENAL ARTERY DOPPLER FU. Qualifiers: Hypertension type: essential hypertension Qualified Code(s): I10 - Essential (primary) hypertension - Advance Directives Does patient have a Living Will: No Does patient have a Durable POA for Healthcare: No
[2023-01-01] MEDS: PANTOPRAZOLE 40MG TABLET PO SCH (20:37)
[2023-01-02] MEDS: dexAMETHasone 4 MG/ML VIAL IV SCH ×4 (00:25→17:20)
--- NOTE | 2023-01-02 03:48 | CON ---
Date of Consultation: 01/01/2023 Chief Complaint: End-stage renal disease, fluid overload, shortness of breath. History Of Present Illness: Patient presented to the hospital because of difficulty with his speech. He was complaining of slurred speech and he went to the emergency room because of speech problem an d he felt that can be due to stroke. A stroke workup was done in the emergency room and further work up was initiated. The patient was found to have elevated troponin level and BNP was high. Chest x-r ay showed vascular congestion and interstitial pulmonary edema. Patient has multiple medical problem s including end-stage renal disease secondary to diabetic kidney disease. He is dialysis dependent. He has history of malnutrition, hypoalbuminemia, hypertension, hypertensive heart disease, as well a s diabetic kidney disease. Prior to this admission, patient was complaining of poor p.o. intake. He has chronic nausea and diarrhea. Previously, he had workup done and was found to have diabetic vira roparesis. Review of Systems: Constitutional: Patient denies fever or chills. Eyes: Denies vision changes. Ears, Nose, Mouth and Throat: Denies sore throat, earache. Respiratory: Has chronic dyspnea on exertion. Denies wheezing, cough, hemoptysis. Cardiovascular: Denies palpitation, syncope. Denies chest pain. GI: Denies melena, hematemesis. Has chronic nausea as well as diarrhea. : Denies dysuria, hematuria. All other systems reviewed and all are negative. Past Medical History: Congestive heart failure, CVA in 2019, diabetes mellitus, chronic kidney disea se, end-stage renal disease, hypertension, kidney stones. Family History: Father, hypertension, diabetes. Mother, lung disease, diabetes, cancer. Sister, di abetes and kidney disease. His sister is on hemodialysis. Social History: Current everyday smoker. Denies alcohol and illicit drugs. Physical Examination: General: Patient is awake, alert, follows commands. Eyes: Anicteric sclerae. EOMI. Ears, Nose, Mouth and Throat: Oral mucosa moist. No pallor. Neck: Supple. No bruits. Lungs: Few rhonchi and crackles bilaterally. No wheezing. Heart: S1, S2. No pericardial friction rub. Abdomen: Soft, benign, nontender. No rebound. No guarding. Extremities: Edema present in both legs. Vital Signs: Blood pressure 152/82, heart rate 109, temperature 97.8, respiratory rate 16, SpO2 94%. Impression And Plan: 1.Patient was complaining of swelling of his face and he denies swelling of the tongue. He apparent ly was taking lisinopril and it was stopped. Patient received IV steroids and swelling is improving. 2.End-stage renal disease. Patient will have dialysis to obtain negative fluid balance. 3.Patient has congestive heart failure and hypertensive heart disease. Continue blood pressure medi cation, although patient cannot take PHILIP inhibitor due to history of angioedema. 4.Chronic nausea, diabetic gastroparesis disease. Continue anti-nausea medication. 5.Elevated troponin. Patient is undergoing cardiac workup. 6.Hypertension. Hydralazine was increased. PHILIP inhibitor was stopped because of angioedema. EB/MODL Voice ID: [id number] Report ID: [id number]
--- NOTE | 2023-01-02 08:49 | RAD REPORT ---
EXAM DESCRIPTION: US - Abdomen Pelvis Scan US - 01/02/2023 5:43 am CLINICAL HISTORY: High blood pressure Renal failure RENAL ARTERY DOPPLER BILATERAL COMPARISON: Abdomen Pelvis Scan US dated 05/13/2022 TECHNIQUE: Sonographic grayscale and color flow images of the kidneys and bladder were obtained. Sp ectral flow Doppler and color duplex imaging of the renal arteries was also obtained. FINDINGS: Exam is technically limited by poor penetration. Atrophic changes of bilateral kidneys since the prior exam, with cortical thinning, the right measuri ng 8.2 cm and the left measuring 7.6 cm in length. Increased cortical echogenicity. Nonobstructing 5 millimeter calculus seen at the right upper to midpole posteriorly. Incidentally noted mild ascites. Aortic velocity: 87.5 cm/second Right proximal renal artery: 53 cm/second Right mid renal artery: 48.8 cm/second Right distal renal artery: 46 cm/second Right renal arcuate artery resistive index: 0.59 Right renal artery / aorta ratio: 0.53 Left proximal renal artery: 85 cm/second Left mid renal artery: 91.8 cm/second Left distal renal artery: 129.3 cm/second Left renal arcuate artery resistive index: Not calculated. Artery was not visualized. Left renal artery/aorta ratio: 1.5 High resistive flow pattern demonstrated within the left renal artery. Normal waveforms on the right. Bladder suboptimally distended limiting evaluation. IMPRESSION: Technically difficult exam, with inability to assess flow along the left renal arcuate a rtery. No evidence of hemodynamically significant stenosis within the bilateral renal arteries allowi ng for this limitation, however there is relative elevation of velocities throughout the left renal a rtery compared to the right.
[2023-01-02] MEDS: HYDRALAZINE HCL 25 MG TABLET PO SCH ×4 (09:00→21:50)
[2023-01-02] MEDS: carvediloL 12.5 MG TAB PO SCH ×2 (09:00→19:58)
[2023-01-02] MEDS: ASPIRIN EC 81 MG TAB PO SCH (09:00)
--- NOTE | 2023-01-02 13:16 | RAD REPORT ---
EXAM DESCRIPTION: NM - Gastric Emptying Study - 01/02/2023 11:44 am CLINICAL HISTORY: Abdominal pain COMPARISON: None. TECHNIQUE: The patient was administered approximately 1 mCi Tc 99m sulfur colloid in solid egg meal. Imaging of the left upper quadrant was performed with time/activity curve generated. FINDINGS: Cine-loop images show very limited progression of the radiopharmaceutical from the stomach into the small bowel. Time to one-half activity is not calculable due to 95% retention at 2 hours., IMPRESSION: Advanced gastroparesis noted.
[2023-01-02] MEDS ORDERED: EPOETIN ALFA 10,000 UNIT/ML VIAL IV SCH (14:45)
[2023-01-02] MEDS ORDERED: CLONIDINE 0.2 MG/PATCH TD SCH (16:30)
--- NOTE | 2023-01-02 16:57 | PN ---
Date of Progress Note: 01/02/2023 Subjective: The patient was admitted with gastroenteritis, gastroparesis. The patient today tolerated his diet, feeling well. Physical Examination: Vital Signs: Blood pressure 119/75, pulse of 103, afebrile. Chest: Clear to auscultation. Heart: S1, S2. Regular. Abdomen: Soft, nontender. Extremities: No edema. Neuro: Alert. No focality. Laboratory Data: Hemoglobin 8.1. Sodium 132, potassium 3.6, bicarb 28, BUN 9, creatinine 3.3, calcium 7.2. Troponin 93. Magnesium yesterday was low. Current Medications: The patient on include; 1. Aspirin. 2. Carvedilol 12.5. 3. Dexamethasone. 4. Pantoprazole. 5. Calcitriol. Assessment And Plan: 1. End-stage renal disease. We will continue the patient on dialysis. The patient will be scheduled for dialysis tomorrow. We will follow up. 2. Hypertension, controlled, optimal. Continue current treatment. 3. Gastroparesis. We will follow up with GI. Continue to follow up gastric emptying study. 4. Hypomagnesemia, status post supplement. We will follow up level tomorrow. 5. Anemia of chronic kidney disease. Resume Retacrit. 6. Diabetes as by primary. time spend exam the patient face to face , reviewing the DATA lab and Radiology, placing the order, discussing the case with the patient ,reviewing the care plan with logistics team leader including the nursing staff , discussing with the hospitalist >35 min MIKAL Voice ID: [id number] Report ID: [id number] [facility]ITALAnd[facility]
[2023-01-02] MEDS: cloNIDine HCL 0.1 MG TAB PO PRN (17:20)
[2023-01-02] MEDS ORDERED: ONDANSETRON 4 MG/2 ML VIAL IV PRN (19:37)
[2023-01-02] MEDS: PANTOPRAZOLE 40MG TABLET PO SCH (19:58)
--- NOTE | 2023-01-02 20:55 | P.PN ---
Subjective Date of Service: 01/02/23 Chief Complaint: NAUSEA IS CHRONIC Subjective: No new changes THIS AM HE WAS OKAY THEN LATER GOT NAUSEOUS. Review of Systems 10-point ROS is otherwise unremarkable General: Weakness, Malaise Physical Examination - Vital Signs Temperature: 97.6 F Blood Pressure: 193/105 Pulse: 84 Respirations: 18 Pulse Ox (%): 94 - Physical Exam General: Oriented x3, Mild distress, Moderate distress, Other (WEAK) HEENT: Atraumatic, PERRLA, EOMI Neck: Supple, JVD not distended Respiratory: Clear to auscultation bilaterally, Normal air movement Cardiovascular: Regular rate/rhythm, Normal S1 S2 Gastrointestinal: Normal bowel sounds, No tenderness Musculoskeletal: No tenderness Integumentary: No rashes Neurological: Normal speech, Normal tone, Normal affect Lymphatics: No axilla or inguinal lymphadenopathy - Studies Medications List Reviewed: Yes Assessment And Plan - Current Problems (Diagnosis) (1) Angioedema Current Visit: Yes Status: Acute Plan: THIS IS FROM LISINOPRIL I STOPPED IT AND GAVE HIM IV STEORIDS. IT SHOULD IMPROVE. (2) Chronic kidney disease, stage V Current Visit: No Status: Chronic Plan: ON HD. CONTINUE. WILL TALK TO WRAPPING MACHINE TENDER THAT I STOPPED LISINOPRIL. (3) Chronic nausea Current Visit: Yes Status: Acute Plan: IT DOES NOT SEEM TO BE CARDIAC IN ORIGIN. STILL I WILL DO ST TEST AND I DISCUSSED WITH DR. VINES. NAUSEA IS CHRONIC AND NOT EPISODIC. HE MAY HAVE HAD GASTRIC EMPTYING DONE ALREADY. (4) HTN (hypertension) Onset Date: 04/26/18 Current Visit: No Status: Chronic Plan: RAISE HYDRALAZINE. DO SERUM FREE METANEPHRINES RENAL ARTERY DOPPLER FU. Qualifiers: Hypertension type: essential hypertension Qualified Code(s): I10 - Essential (primary) hypertension (5) Diabetic gastroparesis Current Visit: Yes Status: Chronic Plan: SEVERE TRY REGLAN THIS MEDICINE IS NOT TOTALLY SAFE BUT AN ONLY THERAPY FOR NOW. GASTRIC PACEMAKER MAY HELP
[2023-01-02] MEDS: METOCLOPRAMIDE 10 MG/2mL INJ IV SCH (21:49)
[2023-01-03] MEDS: METOCLOPRAMIDE 10 MG/2mL INJ IV SCH ×4 (02:40→21:00)
[2023-01-03 04:30] LABS: Albumin 1.5 g/dL (3.4-5.0); Magnesium 1.6 mg/dL (1.6-2.4); Phosphorus 2.1 mg/dL (2.5-4.9); Potassium 4.1 mEq/L (3.5-5.1); Thyroid Stimulating Hormone 2.38 uIU/mL (0.358-3.740)
[2023-01-03] MEDS ORDERED: REGADENOSON 0.4 MG/5 ML SYR IV ONE (07:18)
[2023-01-03] MEDS: carvediloL 12.5 MG TAB PO SCH ×2 (08:50→22:49)
[2023-01-03] MEDS: HYDRALAZINE HCL 25 MG TABLET PO SCH ×3 (08:50→22:49)
[2023-01-03] MEDS: CALCITROL 0.25 MCG CAP PO SCH (08:50)
[2023-01-03] MEDS: ASPIRIN EC 81 MG TAB PO SCH (08:50)
--- NOTE | 2023-01-03 09:42 | RAD REPORT ---
EXAM DESCRIPTION: NM - Rest Stress Cardiac Imaging - 01/03/2023 8:39 am CLINICAL HISTORY: CP Chest pain. COMPARISON: No comparisons TECHNIQUE: The patient was administered approximately 10mCi of Tc 99m Sestamibi prior to resting SPE CT imaging of the heart. The patient was then administered approximately 30 mCi of Tc 99m Sestamibi f ollowing exercise or pharmacologic stress. Multiplanar SPECT images were reviewed. FINDINGS: There is diminished radiopharmaceutical inferior wall and septum extending to the apex. Th is is relatively large area. In particular, there is diminished radiopharmaceutical accumulation jacquie g the LV apex with stress relative rest. LV cavity also appears to enlarged with stress. The end diastolic volume is 197 ml, the end systolic volume is 150 ml, and the ejection fraction is 2 4 %. IMPRESSION: Examination is positive for stress-induced ischemia particularly involving the LV apex. Diminished radiopharmaceutical accumulation along inferior wall and septum appears similar with rest and stress and may represent hybernating myocardium or scar tissue. The left ventricular cavity appears enlarged with stress which also indicates underlying stress-induc ed ischemia is present.
[2023-01-03] MEDS ORDERED: Magnesium Sulfate 2gm IVPB 2 G/50 ML BAG IV ONE (09:53)
[2023-01-03] MEDS ORDERED: CLONIDINE 0.3 MG/PATCH TD SCH (11:00)
--- NOTE | 2023-01-03 11:43 | PN ---
Date of Progress Note: 01/03/2023 Subjective: The patient was admitted with nausea, decreased intake, failure to thrive. The patient's test showing gastroparesis. Waiting for GI recommendation. Physical Examination: Vital Signs: Blood pressure 173/88, pulse of 72, afebrile. The patient had dialysis the day before yesterday. Chest: Clear to auscultation. Heart: S1, S2. Regular. Abdomen: Soft, nontender. Extremity: No edema. Neurologic: Alert. No focality. Laboratory Data: Hemoglobin 8.1. Sodium 130, potassium 4.1, bicarb 28, BUN 14, creatinine 3.5, calcium 7.5, phosphorus 2.1, magnesium 1.6, albumin 1.5, corrected calcium is 9.5. Current Medications: The patient on include; 1. Aspirin. 2. Epogen. 3. Carvedilol 12.5. 4. Clonidine patch. 5. Hydralazine 100 t.i.d. 6. Pantoprazole. 7. Calcitriol. Assessment And Plan: 1. End-stage renal disease with electrolyte imbalance. We will continue dialysis Sunday, Sunday, Sunday. 2. Hyponatremia secondary to dilutional secondary to renal failure. Will be corrected with dialysis. 3. Hypertension, not controlled. I am going to go ahead and increase clonidine to 0.3 and we will follow up the patient. 4. Failure to thrive secondary to gastroparesis. We will follow up with GI. 5. Coronary artery disease with diabetes. The patient plans for stress test. We will follow up. time spend exam the patient face to face , reviewing the DATA lab and Radiology, placing the order, discussing the case with the patient ,reviewing the care plan with call or contact centre team leader including the nursing staff , discussing with the hospitalist >35 min MARY/GALEN Voice ID: [id number] Report ID: [id number] LUIS
--- NOTE | 2023-01-03 13:59 | TREADPHA ---
DX: CHEST PAIN Date of Study: 01/03/23 Ht: 5' 5 " Wt: 175 lb 0 oz Consulting Physician: BRITTANY MEDICATIONS: ASPIRIN, ROCALTROL, COREG, DECADRON, HAPARIN, APRESOLINE HISTORY: 52 YEAR OLD MALE WITH COMPLAINTS OF CHEST PAIN. DIABETES MELLITUS II, HYPERTENSION, DENIES PREVIOUS HEART HISTORY, DRINKING, DRUG USE, PATIENT REPORTS VAPING PHYSICIAL EXAMINATION: RESTING B.P.: 161/89 RESTING H.R.: 71 RESTING EKG: NORMAL SINUS RHYTHM, NORMAL ST PROTOCOL: LEXISCAN EXERCISE TIME: 3:30 B.P. AT PEAK STRESS: 153/85 IMPRESSION: LEXISCAN INJECTED. CARDIOLITE INJECTED PER PROTOCOL, SEE NUCLEAR MEDICINE REPORT. PATIENT DENIES CHEST PAIN OR SHORTNESS OF BREATH. NO SUPRA VENTRICULAR TACHYCARDIA, VENTRICULAR TACHYCARDIA, PREMATURE ATRIAL COMPLEXES NOTED. OCCASIONAL PREMATURE VENTRICULAR COMLEXES NOTED IN RECOVERY PHASE.
[2023-01-03] MEDS ORDERED: NA CHLORIDE 0.9% 500 ML ONE (15:01)
[2023-01-03] MEDS ORDERED: MIDAZOLAM HCL 2 MG/2 ML INJ ONE (15:32)
[2023-01-03] MEDS ORDERED: ATROPINE SULF 1 MG/10 ML SYR IV ONE (15:32)
[2023-01-03] MEDS ORDERED: FENTANYL CITR 100 MCG/2 ML ONE (15:33)
[2023-01-03] MEDS ORDERED: LIDOCAINE 1% 20 ML MDV ONE (15:37)
[2023-01-03] MEDS ORDERED: HEPA 1000U/500MLS 2,000 UNIT/1,000 ML BAG IV ONE (15:37)
[2023-01-03] MEDS ORDERED: HYDRALAZINE HCL 20 MG/ML VIAL ONE (16:18)
--- NOTE | 2023-01-03 16:55 | OP ---
Date of Procedure: 01/03/2023 Surgeon: AMILCAR VINES Procedures Performed: 1.Selective coronary angiogram. 2.Left heart catheterization. Indication: Abnormal stress test with chest pain. Access: Right femoral artery 6-Mexican closed with 6-Mexican Angio-Seal. Complications: None. Bleeding: Less than 20 mL. Anesthesia: Total sedation time was 20 minutes. Description Of Procedure: After risks, benefits, alternatives were explained, the patient agreed to procedure and signed informed consent. The patient was brought into the cardiac catheterization [facility], prepped and draped in the usual sterile fashion. Then, I accessed right femoral artery using micropuncture kit, fluoroscopy, and ultrasound guidance and placed 6-Mexican [place] sheath and took a 6-Mexican JL4 catheter over the wire into the aortic root, engaged left main, took standard views a nd exchanged for 6-Mexican JR4 catheter, engaged the RCA, took standard views and then the JR4 cathete r was pushed over the wire into the LV, measured the LVEDP and pullback did not record any gradient. Then, I removed the catheter and sheath and placed a 6-Mexican Angio-Seal for closure with good hemos tasis. Findings: 1.Left main; large and normal. 2.LAD; large and normal, normal diagonal branches. 3.Left circumflex; it is very large and codominant and normal. 4.RCA; it is moderate size and codominant and normal. 5.Borderline LVEDP between 10 to 15 mmHg. Conclusion: 1.Normal coronary arteries. 2.Borderline elevated LVEDP. Recommendation: Fluid management through dialysis. SR/MODL Voice ID: [id number] Report ID: [id number]
--- NOTE | 2023-01-03 18:07 | P.DS ---
Admission Date: 12/31/22 Discharge Date: 01/03/23 Disposition: ROUTINE DISCHARGE Discharge Condition: FAIR Reason for Admission: NAUSEA IS CHRONIC - Problems (1) Angioedema Current Visit: Yes Status: Acute (2) Chronic kidney disease, stage V Current Visit: No Status: Chronic (3) Chronic nausea Current Visit: Yes Status: Acute (4) HTN (hypertension) Onset Date: 04/26/18 Current Visit: No Status: Chronic Qualifiers: Hypertension type: essential hypertension Qualified Code(s): I10 - Essen tial (primary) hypertension (5) Diabetic gastroparesis Current Visit: Yes Status: Chronic Brief History of Present Illness: NABOR TOLD ME THAT HIS TONGUE IS BIG AND SPEECH IS SLURRING . ER PA THOUGHT OF STROKE AND ORDERED TESTS FOR STROKE. THEY DID TROPONIN AND BNP ALSO. HE HAS CHRONIC NAUSEA BUT NO CHEST PAIN. NABOR HAS HAD SEVERE NAUSEA FOR MONTHS. HIS HIDA WAS POSITIVE. GB WAS TAKEN OUT AND ONE DAY HE FELT WELL BUT AFTER THAT CONTINUED TO HAVE NAUSEA THAT IS CONSTANT AND HE IS NOT EATING. HE HAS NO CHEST PAIN BUT HE IS FATIGUED. HE HAD EGD, SONOGRAM. CT SCAN ALL DONE SO FAR. Hospital Course: Nabor came with slurred speech, that was actually from angioedema from Lisnopril. He did not have stroke. I gave him a day of steroids and he improved. He also had gastric emptying study for severe nausea. He does have severe issues here. He also had cath done as stress test was pos but his cardiac cath is totally normal. He has not had DE. Troponins are false high in HD patients. I don't know why ER PA ordered Trop and BNP anyway. There are no indications to do so knowing his symptoms. Vital Signs/Physical Exam: Temp Pulse Resp BP Pulse Ox 97.3 F 63 20 159/90 H 97 01/03/23 12:00 01/03/23 16:45 01/03/23 16:45 01/03/23 16:45 01/03/23 12:00 General: Alert, In no apparent distress, Mild distress HEENT: Atraumatic, PERRLA, EOMI Neck: Supple, JVD not distended Respiratory: Clear to auscultation bilaterally, Normal air movement Cardiovascular: Regular rate/rhythm, Normal S1 S2 Gastrointestinal: Normal bowel sounds, No tenderness Musculoskeletal: No tenderness Integumentary: No rashes Neurological: Normal speech, Normal tone, Normal affect Lymphatics: No axilla or inguinal lymphadenopathy Laboratory Data at Discharge: WBC 5.70 thou/uL (4.3-10.9) 01/01/23 02:35 Hgb 8.1 g/dL (13.6-17.9) L 01/01/23 02:35 Hct 23.7 % (39.6-49.0) L 01/01/23 02:35 Plt Count 92 thou/uL (152-406) L 01/01/23 02:35 PT 14.1 SECONDS (9.5-12.5) H 12/31/22 16:57 INR 1.28 12/31/22 16:57 Sodium 130 mEq/L (136-145) L 01/03/23 02:45 Potassium 4.1 mEq/L (3.5-5.1) 01/03/23 02:45 BUN 14 mg/dL (7-18) 01/03/23 02:45 Creatinine 3.59 mg/dL (0.70-1.30) H 01/03/23 02:45 Glucose 179 mg/dL (74-106) H 01/03/23 02:45 Phosphorus 2.1 mg/dL (2.5-4.9) L 01/03/23 02:45 Magnesium 1.6 mg/dL (1.6-2.4) 01/03/23 02:45 Total Bilirubin 0.7 mg/dL (0.2-1.0) 12/31/22 16:57 AST 10 U/L (15-37) L 12/31/22 16:57 ALT < 10 U/L (16-61) L 12/31/22 16:57 Alkaline Phosphatase 61 U/L (45-117) 12/31/22 16:57 Home Medications: Carvedilol [Coreg] 12.5 mg PO BID 05/12/22 Calcitrol [Rocaltrol*] 0.25 mcg PO DIRECTED #30 cap 05/17/22 Hydralazine [Apresoline*] 25 mg PO BID 05/22/22 Pantoprazole [Protonix Tab*] 40 mg PO BEDTIME 10/11/22 Clonidine Patch [Catapres-Tts 3*] 0.3 mg TD EVERY 7TH DAY #4 01/03/23 Hydralazine HCl 100 mg PO TID #90 01/03/23 Metoclopramide HCl [Reglan] 10 mg PO TID #100 01/03/23 New Medications: Clonidine Patch [Catapres-Tts 3*] 0.3 mg TD EVERY 7TH DAY #4 Hydralazine HCl 100 mg PO TID #90 Metoclopramide HCl [Reglan] 10 mg PO TID #100 Followup: Unknown,U [Primary Care Provider] -
[2023-01-03] MEDS: PANTOPRAZOLE 40MG TABLET PO SCH (22:49)
[2023-01-03 23:59] VITALS: O2SAT 97
[2023-01-04] MEDS: cloNIDine HCL 0.1 MG TAB PO PRN ×2 (01:02→05:50)
[2023-01-04] MEDS: METOCLOPRAMIDE 10 MG/2mL INJ IV SCH ×2 (02:28→08:14)
[2023-01-04 04:08] LABS: Albumin 1.4 g/dL (3.4-5.0); Phosphorus 1.7 mg/dL (2.5-4.9)
[2023-01-04 04:10] LABS: Magnesium 1.8 mg/dL (1.6-2.4); Potassium 3.9 mEq/L (3.5-5.1)
[2023-01-04 05:48] VITALS: TEMP 97.8
[2023-01-04] MEDS: ASPIRIN EC 81 MG TAB PO SCH (08:20)
[2023-01-04] MEDS: carvediloL 12.5 MG TAB PO SCH (08:21)
[2023-01-04] MEDS: HYDRALAZINE HCL 25 MG TABLET PO SCH (08:21)
[2023-01-04 08:56] VITALS: BP 159/83
--- NOTE | 2023-01-04 14:00 | CON ---
Date of Consultation: 01/03/2023 History Of Present Illness: Mr. Ny is 52. Has a history of severe hypertension, severe renal insufficiency, came in with chest pain. Troponin was 93.8. Stress test showed significant ischemia in the apical region. The patient has a history of hypertension that is poorly controlled. He was s een because of the positive stress test. When he was seen, his blood pressure was 193/104 and he was asymptomatic except for some chest tightness. Past Medical History: Otherwise stated above. Allergies: HE IS ALLERGIC TO PHILIP INHIBITOR. Medications: Include Lovenox, Coreg, aspirin, clonidine, steroids, and hydralazine. Review of Systems: Negative. Social History: Negative. Family History: Noncontributory. Physical Examination: Vital Signs: Blood pressure 193/104, sinus rhythm. HEENT: Negative. Neck: Supple with no bruit. Chest: Clear to auscultation and percussion. Cardiac: Revealed a regular rhythm and rate. S4 gallops. No murmurs or rubs. Abdomen: Benign. Extremities: Revealed no clubbing, cyanosis, or edema. Diagnostic Data: Showed a positive stress test. Creatinine 3.59. Troponin I 3.8. Impression And Plan: The patient with multiple risk factors for heart disease, severe hypertension. It is possible that the blood pressure would cause his stress test to be positive. We have to be ca reful with his renal function and blood pressure needs to be much better controlled. Catheterization which was done by Dr. Cai on 01/03/2023 showed normal coronaries. The patient can certainly go h ome once his blood pressure is better controlled. Case was discussed with Dr. Harvey. KVNG/GALEN Voice ID: [id number] Report ID: [id number]
--- NOTE | 2023-01-04 21:59 | P.DS ---
Admission Date: 12/31/22 Discharge Date: 01/04/23 Disposition: ROUTINE DISCHARGE Discharge Condition: FAIR Reason for Admission: NAUSEA IS CHRONIC - Problems (1) Angioedema Status: Acute (2) Chronic kidney disease, stage V Status: Chronic (3) Chronic nausea Status: Acute (4) HTN (hypertension) Onset Date: 04/26/18 Status: Chronic Qualifiers: Hypertension type: essential hypertension Qualified Code(s): I10 - Essential (primary) hypertension (5) Diabetic gastroparesis Status: Chronic Brief History of Present Illness: NABOR TOLD ME THAT HIS TONGUE IS BIG AND SPEECH IS SLURRING . ER PA THOUGHT OF STROKE AND ORDERED TESTS FOR STROKE. THEY DID TROPONIN AND BNP ALSO. HE HAS CHRONIC NAUSEA BUT NO CHEST PAIN. NABOR HAS HAD SEVERE NAUSEA FOR MONTHS. HIS HIDA WAS POSITIVE. GB WAS TAKEN OUT AND ONE DAY HE FELT WELL BUT AFTER THAT CONTINUED TO HAVE NAUSEA THAT IS CONSTANT AND HE IS NOT EATING. HE HAS NO CHEST PAIN BUT HE IS FATIGUED. HE HAD EGD, SONOGRAM. CT SCAN ALL DONE SO FAR. Hospital Course: Nabor came with slurred speech, that was actually from angioedema from Lisnopril. He did not have stroke. I gave him a day of steroids and he improved. He also had gastric emptying study for severe nausea. He does have severe issues here. He also had cath done as stress test was pos but his cardiac cath is totally normal. He has not had [place]. Troponins are false high in HD patients. I don't know why ER PA ordered Trop and BNP anyway. There are no indications to do so knowing his symptoms. NABOR COMES FOR [facility] AND ABOVE. HE HAD ANGIOEDEMA FROM [facility] AND WE ALSO FOUND HE HAS SEVERE GASTROPARESIS. REGLAN MAY OR MAY NOT WORK. HE HAD CATH FOR POS ST TEST THAT WAS NEGATIVE. STABLE FOR HOME. Vital Signs/Physical Exam: Temp Pulse Resp BP Pulse Ox 97.8 F 70 18 159/83 H 96 01/04/23 04:00 01/04/23 08:00 01/04/23 04:00 01/04/23 08:00 01/04/23 04:00 Laboratory Data at Discharge: WBC 5.70 thou/uL (4.3-10.9) 01/01/23 02:35 Hgb 8.1 g/dL (13.6-17.9) L 01/01/23 02:35 Hct 23.7 % (39.6-49.0) L 01/01/23 02:35 Plt Count 92 thou/uL (152-406) L 01/01/23 02:35 PT 14.1 SECONDS (9.5-12.5) H 12/31/22 16:57 INR 1.28 12/31/22 16:57 Sodium 131 mEq/L (136-145) L 01/04/23 02:51 Potassium 3.9 mEq/L (3.5-5.1) 01/04/23 02:51 BUN 11 mg/dL (7-18) 01/04/23 02:51 Creatinine 2.76 mg/dL (0.70-1.30) H 01/04/23 02:51 Glucose 96 mg/dL (74-106) 01/04/23 02:51 Phosphorus 1.7 mg/dL (2.5-4.9) L 01/04/23 02:51 Magnesium 1.8 mg/dL (1.6-2.4) 01/04/23 02:51 Total Bilirubin 0.7 mg/dL (0.2-1.0) 12/31/22 16:57 AST 10 U/L (15-37) L 12/31/22 16:57 ALT < 10 U/L (16-61) L 12/31/22 16:57 Alkaline Phosphatase 61 U/L (45-117) 12/31/22 16:57 Home Medications: Carvedilol [Coreg] 12.5 mg PO BID 05/12/22 Calcitrol [Rocaltrol*] 0.25 mcg PO DIRECTED #30 cap 05/17/22 Hydralazine [Apresoline*] 25 mg PO BID 05/22/22 Pantoprazole [Protonix Tab*] 40 mg PO BEDTIME 10/11/22 Clonidine Patch [Catapres-Tts 3*] 0.3 mg TD EVERY 7TH DAY #4 01/03/23 Hydralazine HCl 100 mg PO TID #90 01/03/23 Metoclopramide HCl [Reglan] 10 mg PO TID #100 01/03/23 New Medications: Clonidine Patch [Catapres-Tts 3*] 0.3 mg TD EVERY 7TH DAY #4 Hydralazine HCl 100 mg PO TID #90 Metoclopramide HCl [Reglan] 10 mg PO TID #100 Followup: Hilario Hernandes MD [ACTIVE - CAN ADMIT] - (Follow at hemodialysis) Deepak Harvey MD [ACTIVE - CAN ADMIT] - 1-2 Weeks Shay Cai MD [ACTIVE - CAN ADMIT] - 1-2 Weeks
== END 2023-01-04 09:21 | disposition home or self-care (01) | DRG 915 ==
LOC: ER 16:26 → ERHOLD 21:14 → 2ND 21:23
PROVIDERS: ADMIT Internal Medicine; ATTEND Internal Medicine
PROC: 5A1D70Z Performance of Urinary Filtration, Intermittent, Less than 6 Hours Per Day (ICD-10-PCS; principal; 2023-01-01)
PROC: 4A023N7 Measurement of Cardiac Sampling and Pressure, Left Heart, Percutaneous Approach (ICD-10-PCS; 2023-01-03)
PROC: B2111ZZ Fluoroscopy of Multiple Coronary Arteries using Low Osmolar Contrast (ICD-10-PCS; 2023-01-03)
DX: T78.3XXA Angioneurotic edema, initial encounter (principal); N18.6 End stage renal disease; E87.1 Hypo-osmolality and hyponatremia; I12.0 Hypertensive chronic kidney disease with stage 5 chronic kidney disease or end stage renal disease; E11.22 Type 2 diabetes mellitus with diabetic chronic kidney disease; E11.43 Type 2 diabetes mellitus with diabetic autonomic (poly)neuropathy; K31.84 Gastroparesis; D63.1 Anemia in chronic kidney disease; K52.9 Noninfective gastroenteritis and colitis, unspecified; E83.42 Hypomagnesemia; I25.10 Atherosclerotic heart disease of native coronary artery without angina pectoris; F17.290 Nicotine dependence, other tobacco product, uncomplicated; T46.4X5A Adverse effect of angiotensin-converting-enzyme inhibitors, initial encounter; R62.7 Adult failure to thrive; R77.8 Other specified abnormalities of plasma proteins; Z99.2 Dependence on renal dialysis; Z93.3 Colostomy status; Z86.73 Personal history of transient ischemic attack (TIA), and cerebral infarction without residual deficits; Z68.29 Body mass index [BMI] 29.0-29.9, adult; Z79.01 Long term (current) use of anticoagulants; Z90.49 Acquired absence of other specified parts of digestive tract; Z79.899 Other long term (current) drug therapy
CPT/HCPCS: 36415; 70450; 71045; 76937; 78264; 78452; 80048; 80069; 80076; 82024; 82533; 83735; 83880; 84443; 84484; 85025; 85610; 86706; 87340; 90935; 93005; 93017; 93458; 93975; 94760; 96365; 96372; 96375; 99285; A4216; A9500; A9541; C1760; C1893; G0269; J0360; J0461; J0834; J1100; J1644; J2001; J2250; J2405; J2765; J2785; J3010; J3475; J7040; Q9966

== ENCOUNTER 2023-01-12 11:28 | Emergency (ER) | payer OTHER ==
--- OUTSIDE RECORDS SUMMARY | 2023-01-12 11:32 | XMS REPORT | Continuity of Care Document ---
:1970 Author Organization [facility] t Address [address] [place] [address] [address] [place] [address] Care Team Providers Name Role Phone JARAD EVERETT Attending Clinician Unavailable ADAN BRENNER Attending Clinician Unavailable Adan Brenner MD Attending Clinician AGAPITO HOWARD Attending Clinician Unavailable Chanel Morrissey Attending Clinician Unavailable Conchita Gauthier MA Attending Clinician Unavailable Leighann Agosto RN Attending Clinician Unavailable Marisol Callahan Attending Clinician Unavailable Payers Payer Name Policy Type Policy Number Effective Date Expiration Date S [id number] MEDICARE PART A [id number] 2022 2022 AND B 00:00:00 00:00:00 HUMAN MEDICARE [id number] 2022 ADVANTAGE PPO 00:00:00 [facility] MEDICARE [id number] 2022 ADV 00:00:00 Problems This patient has no known problems. Allergies, Adverse Reactions, Alerts Allergy Allergy Status Severity Reaction(s) Onset Inactive Treating Comm ents Source Name Type Date Date Clinician NO KNOWN Allergy Active [facility] Social History Social Habit Start Date Stop Date Quantity Comments Source Sex Assigned At [birth year] [facility] 00:00:00 00:[facility]:00 [facility] Medications Ordered Filled Start Stop Current Ordering Indication Dosage Frequency Signature Comments Components Source Medication Medication Date Date Medication? Clinician (SIG) Name Name metoclopram No 10mg [id number] Take [address] [facility] HCl 5-04 05-09 [id number] tablet ([facility] ([facility] 10 00:00: 23:59 3D mg total) Medical MG tablet 00 :00 by mouth Center in the morning and 1 tablet (10 mg total) at noon and 1 tablet (10 mg total) in the evening. Do all this for 5 days. metoclopram 0 2022- No 10mg Take [address] [facility] HCl -04 -04 tablet (10 [facility] (REGLAN) 10 00:00: 00:00 mg total) Medical MG tablet 00 :00 by mouth Center every 6 (six) hours for 8 days. chlorproMAZ 0 Yes Take by [facility] INE 3-30 [...] Medical 40 MG 00 Center tablet hydrALAZINE 0 Yes TWICE [facility] (APRESOLINE 9-28 DAILY [facility] ) 25 MG 00:00: Medical tablet 00 [place] calcitrioL Yes As [facility] (ROCALTROL) 9-27 Directed Luke s 0.25 MCG 00:00: Medical capsule 00 [place] carvediloL [address] [facility] (Coreg) 9-22 DAILY [facility] 12.5 MG 00:00: Medical tablet 00 [place] Vital Signs Vital Name Observation Time Observation Value Comments Source HEIGHT 2022-12-20 16:09:00 165.1 cm WEIGHT 2022-12-20 16:09:00 79.379 kg HEIGHT 2022-12-20 16:09:00 165.1 cm WEIGHT 2022-12-20 16:09:00 79.379 kg Systolic blood 2022-12-21 03:00:00 197 mm[Hg] [facility] Diastolic blood 2022-12-21 03:00:00 105 mm[Hg] [facility] Heart rate 2022-12-21 03:00:00 84 /min [facility] Body temperature 2022-12-21 03:00:00 36.89 Mony [facility] Respiratory rate 2022-12-21 03:00:00 18 /min [facility] Oxygen saturation in 2022-12-21 03:00:00 99 /min [facility] Arterial blood by Medical Ce nter Pulse oximetry Body height 2022-12-20 16:09:00 165.1 cm [facility] Body weight 2022-12-20 16:09:00 79.379 kg [facility] BMI 2022-12-20 16:09:00 29.12 kg/m2 [facility] Body height 2022-08-31 07:34:00 167.6 cm [facility] Body weight 2022-08-31 07:34:00 88.996 kg [facility] BMI 2022-08-31 07:34:00 31.67 kg/m2 [facility] Procedures Procedure Date / Time Performed Performing Clinician Sour e HIGH SENSITIVITY 2022-12-20 23:22:00 Lashon [facility] TROPONIN I [facility] CT BRAIN WITHOUT IV 2022-12-20 22:57:00 Mark Wren [facility] CONTRAST [facility] CT NECK SOFT TISSUE 2022-12-20 22:57:00 Lashon [facility] WITHOUT IV CONTRAST Medical [facility] er CT CHEST WITHOUT IV 2022-12-20 22:57:00 Adan Brenner [facility] CONTRAST [facility] CT ABDOMEN/PELVIS 2022-12-20 22:57:00 Adan Brenner [facility] WITHOUT IV CONTRAST Medical [facility] er XR CHEST 1 VIEW PORTABLE 2022-12-20 16:42:00 Mark Wren [facility] / BEDSIDE [facility] CBC W/PLT COUNT & AUTO 2022-12-20 16:19:00 [facility]ABOLIC [facility] 2022-12-20 16:19:00 Mark Wren HI [facility] HEPATIC FUNCTION PANEL 2022-12-20 16:19:00 Mark Wren [facility] LIPASE 2022-12-20 16:19:[address]/INR 2022-12-20 16:19:00 Mark Wren CH I [facility] HIGH SENSITIVITY 2022-12-20 16:19:00 Mark Wren [facility] TROPONIN I [facility] B-TYPE NATRIURETIC 2022-12-20 16:19:00 Mark Wren [facility] FACTOR (BNP) [facility] MAGNESIUM 2022-12-20 16:19:00 Mark Wren [facility] PHOSPHORUS 2022-12-20 16:19:00 Mark Wren [facility] BLOOD GAS, VENOUS 2022-12-20 16:19:00 Mark Wren [facility] CBC W/PLT COUNT & AUTO 2022-12-20 16:19:00 [facility] DIFFERENTIAL [facility] HEPATITIS B SURFACE 2022-05-17 03:53:00 [facility] L [facility] ANTIGEN [facility] HEPATITIS B SURFACE 2022-05-17 03:53:00 [facility] L [facility] ANTIBODY [facility] HEPATITIS B CORE 2022-05-17 03:53:00 [facility] ANTIBODY, TOTAL [facility] HEPATITIS C PCR, 2022-05-17 03:53:00 [facility] QUANTITATIVE [facility] Plan of Care Planned Activity Planned Date Details Comments Source Future Scheduled 2023-04-[address] [facility] Test 00:00:00 (Season Ended) [code = Medic al Center INFLUENZA VACCINE (Season Ended)] Future Scheduled 2023-04-[address] [facility] Test 00:00:00 (Season Ended) [code = Medic al Center INFLUENZA VACCINE (Season Ended)] Future Scheduled 2022-08-20 Medicare IPPE (WELCOME C [...] Medical Center DEPRESSION SCREENING (12+)] Future Scheduled 2022-04-20 INFLUENZA VACCINE (#1) C [...] [facility] 00:00:00 [code = 78931371] Medical Ce nter Future Scheduled 2007 Lipid panel (procedure) [facility] 00:00:00 [code = 66201458] Medical Ce nter Future Scheduled 2007 Lipid panel (procedure) [facility] Test 00:00:00 [code = 90927398] Medical Ce nter Future Scheduled 2007 Lipid panel (procedure) [facility] Test 00:00:00 [code = 11713725] Medical Ce nter Future Scheduled 2007 Lipid panel (procedure) [facility] Test 00:00:00 [code = 93844267] Medical Ce nter Future Scheduled 1991 DTAP/TDAP/TD [...] [facility] Test 00:00:00 [code = CT Colonography [facility] (combo)] Future Scheduled 1972 Screening for malignant [facility] Test 00:00:00 neoplasm of colon Medical Ce nter (procedure) [code = 652898337] Future Scheduled 1972 Screening for malignant [facility] Test 00:00:00 neoplasm of colon Medical Ce nter (procedure) [code = 420335184] Future Scheduled 1972 Screening for malignant [facility] Test 00:00:00 neoplasm of colon Medical Ce nter (procedure) [code = 843673104] Future Scheduled 1972 Screening for malignant [facility] Test 00:00:00 neoplasm of colon Medical Ce nter (procedure) [code = 276001269] Future Scheduled 1970 Sigmoidoscopy [code = [facility] 00:00:00 Sigmoidoscopy] Medical Cente r Future Scheduled 1972 CT Colonography (combo) [facility] Test 00:00:00 [code = CT Colonography [facility] (combo)] Future Scheduled 1972 Screening for malignant [facility] Test 00:00:00 neoplasm of colon Medical Ce nter (procedure) [code = 921684257] Future Scheduled 1972 Screening for malignant [facility] Test 00:00:00 neoplasm of colon Medical Ce nter (procedure) [code = 871869750] Future Scheduled 1972 Screening for malignant [facility] Test 00:00:00 neoplasm of colon Medical Ce nter (procedure) [code = 440954963] Future Scheduled 1972 Screening for malignant [facility] Test 00:00:00 neoplasm of colon Medical Ce nter (procedure) [code = 451651043] Future Scheduled 1970 Sigmoidoscopy [code = [facility] 00:00:00 Sigmoidoscopy] Medical Cente r Future Scheduled 1972 CT Colonography (combo) [facility] Test 00:00:00 [code = CT [facility] ([facility])] Future Scheduled 1972 Screening for malignant [facility] Test 00:00:00 neoplasm of colon Medical Ce nter (procedure) [code = 077606018] Future Scheduled 1972 Screening for malignant [facility] Test 00:00:00 neoplasm of colon Medical Ce nter (procedure) [code = 585585049] Future Scheduled 1972 Screening for malignant [facility] Test 00:00:00 neoplasm of colon Medical Ce nter (procedure) [code = 582757031] Future Scheduled 1972 Screening for malignant [facility] Test 00:00:00 neoplasm of colon Medical Ce nter (procedure) [code = 523779584] Future Scheduled 1970 Sigmoidoscopy [code = [facility] 00:00:00 Sigmoidoscopy] Medical Cente r Future Scheduled 1972 CT Colonography (combo) [facility] Test 00:00:00 [code = CT Colonography [facility] (combo)] Future Scheduled 1972 Screening for malignant [facility] Test 00:00:00 neoplasm of colon Medical Ce nter (procedure) [code = 557842052] Future Scheduled 1972 Screening for malignant [facility] Test 00:00:00 neoplasm of colon Medical Ce nter (procedure) [code = 720137849] Future Scheduled 1972 Screening for malignant [facility] Test 00:00:00 neoplasm of colon Medical Ce nter (procedure) [code = 848030680] Future Scheduled 1972 Screening for malignant [facility] Test 00:00:00 neoplasm of colon Medical Ce nter (procedure) [code = 251429106] Future Scheduled 1970 Sigmoidoscopy [code = [facility] 00:00:00 Sigmoidoscopy] Medical Cente r Future Scheduled 1972 CT Colonography (combo) [facility] Test 00:00:00 [code = CT Colonography [facility] (combo)] Future Scheduled 1972 Screening for malignant [facility] Test 00:00:00 neoplasm of colon Medical Ce nter (procedure) [code = 108182998] Future Scheduled 1972 Screening for malignant [facility] Test 00:00:00 neoplasm of colon Medical Ce nter (procedure) [code = 034339887] Future Scheduled 1972 Screening for malignant [facility] Test 00:00:00 neoplasm of colon Medical Ce nter (procedure) [code = 359139958] Future Scheduled 1972 Screening for malignant [facility] Test 00:00:00 neoplasm of colon Medical Ce nter (procedure) [code = 927932349] Future Scheduled 1970 Sigmoidoscopy [code = [facility] 00:00:00 Sigmoidoscopy] Medical Cente r Encounters Start End Encounter Admission Attending Care Care Encounter Source Date/Time Date/Time Type Type Clinicians Facility Department ID 2022-11-28 Outpatient [facility] [id number] [place] 08:29:08 [id number] [facility] 2022-11-24 Outpatient [facility] [id number] [place] 08:28:47 [id number] [facility] 2022-11-10 Outpatient [facility] [id number] [place] 10:41:29 [id number] [facility] 2022-09-28 Outpatient [facility] [id number] [place] 11:17:06 [id number] [facility] 2022-09-22 Outpatient [facility] [id number] [place] 13:29:04 [id number] [facility] 2022-09-20 Outpatient [facility] [id number] [place] 10:03:28 [id number] [facility] 2022-07-11 Outpatient [facility] [id number] [place] 14:53:52 [id number] [facility] 2022-07-05 Outpatient [facility] [id number] [place] 08:31:43 [id number] [facility] 2022-06-19 Outpatient [facility] [id number] [place] 16:57:00 [id number] [facility] 2022-06-16 Outpatient [facility] [id number] [place] 10:28:00 [id number] [facility] 2023-01-02 2023-01-02 [facility] [id number] [place] 09:30:00 09:30:00 JARAD [facility] 2022-12-20 2022-12-21 Emergency ER FORNAALISA, [facility] Emergency [id number] [facility] 17:50:00 03:58:00 ADAN 2022-12-20 2022-12-21 Emergency ER Lashon, [facility] [id number] 17:50:00 03:58:00 [facility] 2022-12-19 2022-12-19 Outpatient EL LEE, [facility] [id number] [facility] 00:00:00 00:00:00 BHAM[facility]I 2022-12-19 2022-12-19 Outpatient EL LEE, [facility] [id number] [facility] 00:00:00 00:00:00 BHAMIDIPATI 2022-12-19 2022-12-19 Outpatient EL LEE, [facility] [id number] [facility] 00:00:00 00:00:00 BHAM[facility]I 2022-12-19 2022-12-19 Outpatient EL LEE, [facility] [id number] [facility] 00:00:00 00:00:00 BHAMIDIPATI 2022-12-12 2022-12-12 Outpatient [facility] [id number] [place] 13:00:00 13:00:00 Health 2022-11-09 2022-11-09 Outpatient EL [facility] [id number] [facility] 00:00:00 00:00:00 2022-11-09 2022-11-09 Outpatient EL [facility] [id number] [facility] 00:00:00 00:00:00 2022-11-09 2022-11-09 Outpatient EL [facility] [id number] [facility] 00:00:00 00:00:00 2022-11-09 2022-11-09 Outpatient EL [facility] [id number] [facility] 00:00:00 00:00:00 2022-11-09 2022-11-09 Outpatient EL [facility] [id number] [facility] 00:00:00 00:00:00 2022-11-07 2022-11-07 Outpatient [facility] [id number] [place] 09:30:00 09:30:00 [facility] 2022-11-07 2022-11-07 Telephone Ghanshyam [facility] [id number] [facility] 00:00:00 [facility] 2022-10-19 2022-10-19 Telephone Ghanshyam [facility] [id number] [facility] 00:00:00 [facility] 2022-10-12 2022-10-12 Outpatient [facility] [id number] [place] 13:00:00 13:00:00 [facility] 2022-10-09 2022-10-09 Documentat Abrahan [facility] [id number] 00:00[facility]00 00:00:00 [facility] 2022-10-07 2022-10-07 Abstract Triny [facility] [id number] 00:00:00 00:00:00 [facility] 2022-09-28 2022-09-28 Outpatient [facility] [id number] SLE 00:00:00 00:00:00 2022-09-05 2022-09-05 Documentat [place] [facility] [id number] 00:00[facility] 00:00:00 [facility] 2022-08-31 2022-08-31 Telephone [place] [facility] [id number] 00:00[facility]00 00:00:00 [facility] 2022-08-31 2022-08-31 Abstract [place] [facility] [id number] 00:00:00 00:00:00 [facility] 2022-08-31 2022-08-31 Documentat [place] [facility] [id number] 00:00[facility]00 00:00:00 [facility] 2022-08-31 2022-08-31 Abstract Triny [facility] [id number] 00:00:00 00:00:00 [facility] 2022-08-29 2022-08-29 Outpatient [facility] [id number] UT 10:30:00 10:30:00 [facility] 2022-07-04 2022-07-05 Outpatient [facility] [id number] UT 13:30:00 08:32:27 [facility] 2022-06-26 2022-06-26 [facility] [id number] [place] 10:15:00 10:15:00 [facility] 2022-05-17 2022-05-17 Lab [facility] [id number] 00:00:00 00:00:00 [facility] Results Test Description Test Time Test Comments Results Result [facility] e Comments CT, CHEST, 2022-12-21 Unlisted Reason WITHOUT CONTRAST 00:53:00 for Exam - Click Yes and Enter [facility] Reason Below->No [facility] : 1970 Sex: M FI NAL [...] - Click Yes and Enter [facility] Reason [facility] Below->NoProtocol CENTERName: Kandy FREY : [...] - Click Yes and Enter [facility] Reason [facility] Below->YesUnliste CENTERName: jaclyn FREY Reason [...] HIGH SENSITIVITY TROPONIN I (test code = 8100391) 29 pg/ml <=35 Traffic I Manager ID - ADMINThe LUMBER STRAIGHTENED STAT High Sensitivity Troponin-I results should be used in conjunction with other diagnostic information such as ECG, clinical observations and information, and patientsymptoms to aid in the diagnosis of [place]. CT, BRAIN, WITHOUT [id number] 23:11:00 [facility] 1970 Sex: MFINAL REPORT [...] 12/20/2022 23:11:58 RAD, CHEST, 1 VIEW, NON [id number] 17:49:00Reason for exam:->Nausea and vomitingShould this be performed at the bedside?->[facility] : 1970 Sex: MFINAL REPORT AP view of the chest dated 12/20/2022 CLINICAL INFORMATION: Nausea and vomiting Comment: Heart is normal in size. Right IJ central venous catheter is present. Pulmonary vasculature is unremarkable. Lungs are clear. No pulmonary infiltrate, pneumothorax, or pleural effusion is present. Impression: No active cardiopulmonary disease. Signed: Luna Story MDReport Verified Date/Time:12/20/2022 17:49:19 B-TYPE NATRIURETIC FACTOR (BNP)2022-12-20 17:29:28 Test Item Value Reference Range Interpretation Comments B-TYPE NATRIURETIC PEPTIDE 1169 pg/mL 0-100 H (BEAKER) (test code = 700) Traffic I Manager ID - ADMINBASIC METABOLIC [id number] 17:27:26 Test Item Value Reference Range Interpretation [...] not appl icable for dialysis patien ts Traffic I Manager ID - ADMINHIGH SENSITIVITY TROPONIN [id number] 17:27:21 Test Item Value Reference Range Interpretation Comments HIGH SENSITIVITY TROPONIN I (test 19 pg/ml <=35 code = 0358732) Traffic I Manager ID - ADMINThe LUMBER STRAIGHTENED STAT High Sensitivity Troponin-I results should be used in conjunction with other diagnostic information such as ECG, clinical observations and information, and patientsymptoms to aid in the diagnosis of TN. [id number] 17:25:00 Test Item Value Reference Range Interpretation Comments LIPASE (BEAKER) (test code = 749) 14 U/L 8-78 Traffic I Manager ID - [id number] 17:24:59 Test Item Value Reference Range Interpretation Comments MAGNESIUM (BEAKER) 1.6 mg/dL 1.6-2.6 Specimen markedly (test code = 627) hemolyzed Traffic I Manager ID - [id number] 17:24:59 Test Item Value Reference Range Interpretation Comments PHOSPHORUS (BEAKER) 1.6 mg/dL 2.3-4.7 L Specimen markedly (test code = 604) hemolyzed Traffic I Manager ID - ADMINHEPATIC FUNCTION [id number] 17:24:59 Test Item Value Reference Range Interpretation [...] Specimen markedly (test code = 347) hemolyzed Traffic I Manager ID - ADMINPROTHROMBIN [id number] 17:02:15 Test Item Value Reference Range Interpretation [...] mechanical heart valves.CBC W/PLT COUNT & AUTO [id number] 16:56:02 Test Item Value Reference Range Interpretation [...] (BEAKER) (test code = 2801) BLOOD GAS, [id number] 16:42:18 Test Item Value Reference Range Interpretation [...] code = 1819) 21.0 Hepatitis C PCR, [id number] 14:24:46 Test Item Value Reference Range Interpretation Comments HCV PCR, Quantitative HCV RNA not detected HCV RNA not (test code = 20098-2) detected PREMA (test code = PREMA) This test uses a Real-Time Polymerase Chain Reaction (RT-PCR) methodology and was performed using FARSHAD Ampliprep/FARSHAD TaqMan HCV test kit version 2.0 ([employer]). Reportable range for this assay is 15 - 100,000,000 IU per mL (1.18 - 8.00 Log IU/mL). Lab Interpretation Normal (test code = 93271-0) [facility] [id number] 14:24:46 Test Item Value Reference Range Interpretation Comments HCV PCR, Quantitative HCV RNA not detected HCV RNA not (test code = 72445-7) detected PREMA (test code = PREMA) This test uses a Real-Time Polymerase Chain Reaction (RT-PCR) methodology and was performed using FARSHAD Ampliprep/FARSHAD TaqMan HCV test kit version 2.0 ([employer]). Reportable range for this assay is 15 - 100,000,000 IU per mL (1.18 - 8.00 Log IU/mL). Lab Interpretation Normal (test code = 94355-8) [facility] C PCR, [id number] 14:24:46 Test Item Value Reference Range Interpretation Comments HCV PCR, Quantitative HCV RNA not detected HCV RNA not (test code = 00568-8) detected PREMA (test code = PREMA) This test uses a Real-Time Polymerase Chain Reaction (RT-PCR) methodology and was performed using F[employer]AD Ampliprep/FARSHAD TaqMan HCV test kit version 2.0 ([employer]). Reportable range for this assay is 15 - 100,000,000 IU per mL (1.18 - 8.00 Log IU/mL). Lab Interpretation Normal (test code = 87847-1) [facility] C PCR, [id number] 14:24:46 Test Item Value Reference Range Interpretation Comments HCV PCR, Quantitative HCV RNA not detected HCV RNA not (test code = 26647-4) detected PREMA (test code = PREMA) This test uses a Real-Time Polymerase Chain Reaction (RT-PCR) methodology and was performed using F[employer] Ampliprep/FARSHAD TaqMan HCV test kit version 2.0 ([employer]). Reportable range for this assay is 15 - 100,000,000 IU per mL (1.18 - 8.00 Log IU/mL). Lab Interpretation Normal (test code = 32694-1) [facility] C PCR, [id number] 14:24:46 Test Item Value Reference Range Interpretation Comments HCV PCR, Quantitative HCV RNA not detected HCV RNA not (test code = 95200-7) detected PREMA (test code = PREMA) This test uses a Real-Time Polymerase Chain Reaction (RT-PCR) methodology and was performed using F[employer] Ampliprep/FARSHAD TaqMan HCV test kit version 2.0 ([employer]). Reportable range for this assay is 15 - 100,000,000 IU per mL (1.18 - 8.00 Log IU/mL). Lab Interpretation Normal (test code = 71688-3) [facility] C PCR, [id number] 14:24:46 Test Item Value Reference Range Interpretation Comments HCV RESULT COMPONENT HCV RNA not detected HCV RNA not detected (SHARAKER) (test code = 2699) This test uses a Real-Time Polymerase Chain Reaction (RT-PCR) methodology and was performed using FARSHAD Ampliprep/FARSHAD TaqMan HCV test kit version 2.0 ([employer]).Reportable range for this assay is 15 - 100,000,000 IU per mL (1.18 - 8.00 Log IU/mL).Hepatitis B surface [id number] 16:31:21 Test Item Value Reference Range Interpretation Comments Hep B S Ab (test code See_Comment [Auto mated = 17139-7) message] The system which generated this result transmit fletcher reference range : <8.0 mIU/mL. Th e reference range was not used to interpret this result as normal/abnormal . PREMA (test code = PREMA) Traffic I Manager ID - ED Lab Interpretation Normal (test code = 81899-1) [facility] B surface [id number] 16:31:21 Test Item Value Reference Range Interpretation Comments Hep B S Ab (test code <8.0 See_Comment [Auto mated = 49806-7) message] The system which generated this result transmit fletcher reference range : <8.0 mIU/mL. Th e reference range was not used to interpret this result as normal/abnormal . PREMA (test code = PREMA) Traffic I Manager ID - ED Lab Interpretation Normal (test code = 43679-7) [facility] B surface [id number] 16:31:21 Test Item Value Reference Range Interpretation Comments Hep B S Ab (test code <8.0 See_Comment [Auto mated = 73912-8) message] The system which generated this result transmit fletcher reference range : <8.0 mIU/mL. Th e reference range was not used to interpret this result as normal/abnormal . PREMA (test code = PREMA) Traffic I Manager ID - ED Lab Interpretation Normal (test code = 09310-0) [facility] [id number] 16:31:21 Test Item Value Reference Range Interpretation Comments Hep B S Ab (test code See_Comment [Auto mated = 38432-0) message] The system which generated this result transmit fletcher reference range : <8.0 mIU/mL. Th e reference range was not used to interpret this result as normal/abnormal . PREMA (test code = PREMA) Traffic I Manager ID - ED Lab Interpretation Normal (test code = 83104-1) [facility] [id number] 16:31:21 Test Item Value Reference Range Interpretation Comments Hep B S Ab (test code See_Comment [Auto mated = 72368-2) message] The system which generated this result transmit fletcher reference range : <8.0 mIU/mL. Th e reference range was not used to interpret this result as normal/abnormal . PREMA (test code = PREMA) Traffic I Manager ID - ED Lab Interpretation Normal (test code = 83428-9) [facility] [id number] 16:31:21 Test Item Value Reference Range Interpretation Comments HEPATITIS B SURFACE ANTIBODY < mIU/mL <8.0 (BEAKER) (test code = 647) Traffic I [facility] surface [id number] 16:21:45 Test Item Value Reference Range Interpretation Comments Hepatitis B surface Nonreactive Nonreactive antigen (test code = 5195-3) PREMA (test code = PREMA) Specimen is considered negative for HBsAg. Lab Interpretation (test Normal code = 20479-6) [facility] B core antibody, [id number] 16:21:45 Test Item Value Reference Range Interpretation Comments Hep B Core Total Ab (test Nonreactive Nonreactive code = 16456-8) PREMA (test code = PREMA) Traffic I Manager ID - ED Lab Interpretation (test Normal code = 94008-2) [facility] [id number] 16:21:45 Test Item Value Reference Range Interpretation Comments Hepatitis B surface Nonreactive Nonreactive antigen (test code = 5195-3) PREMA (test code = PREMA) Specimen is considered negative for HBsAg. Lab Interpretation (test Normal code = 63761-9) [facility], [id number] 16:21:45 Test Item Value Reference Range Interpretation Comments Hep B Core Total Ab (test Nonreactive Nonreactive code = 51649-4) PREMA (test code = PREMA) Traffic I Manager ID - ED Lab Interpretation (test Normal code = 26425-8) [facility] [id number] 16:21:45 Test Item Value Reference Range Interpretation Comments Hepatitis B surface Nonreactive Nonreactive antigen (test code = 5195-3) PREMA (test code = PREMA) Specimen is considered negative for HBsAg. Lab Interpretation (test Normal code = 19118-0) [facility] B core antibody, [id number] 16:21:45 Test Item Value Reference Range Interpretation Comments Hep B Core Total Ab (test Nonreactive Nonreactive code = 50419-1) PREMA (test code = PREMA) Traffic I Manager ID - ED Lab Interpretation (test Normal code = 24044-8) [facility] [id number] 16:21:45 Test Item Value Reference Range Interpretation Comments Hepatitis B surface Nonreactive Nonreactive antigen (test code = 5195-3) PREMA (test code = PREMA) Specimen is considered negative for HBsAg. Lab Interpretation (test Normal code = 36270-3) [facility], [id number] 16:21:45 Test Item Value Reference Range Interpretation Comments Hep B Core Total Ab (test Nonreactive Nonreactive code = 67463-1) PREMA (test code = PREMA) Traffic I Manager ID - ED Lab Interpretation (test Normal code = 53538-1) [facility] [id number] 16:21:45 Test Item Value Reference Range Interpretation Comments Hepatitis B surface Nonreactive Nonreactive antigen (test code = 5195-3) PREMA (test code = PREMA) Specimen is considered negative for HBsAg. Lab Interpretation (test Normal code = 93006-7) [facility], [id number] 16:21:45 Test Item Value Reference Range Interpretation Comments Hep B Core Total Ab (test Nonreactive Nonreactive code = 76377-2) PREMA (test code = PREMA) Traffic I Manager ID - ED Lab Interpretation (test Normal code = 84117-2) [facility] [id number] 16:21:45 Test Item Value Reference Range Interpretation Comments HEPATITIS B SURFACE ANTIGEN (2) Nonreactive Nonreactive (BEAKER) (test code = 2585) Specimen is considered negative for HBsAg.HEPATITIS B CORE ANTIBODY, TOTAL 2022-05-17 16:21:45 Test Item Value Reference Range Interpretation Comments HEPATITIS B CORE TOTAL ANTIBODY Nonreactive Nonreactive (BEAKER) (test code = 497) Traffic I Manager ID - ED
--- NOTE | 2023-01-12 12:26 | EDPHYS ---
Physician Documentation [facility] Name: Nabor Ny Age: 52 yrs Sex: Male : 1970 Arrival Date: 01/12/2023 Time: 11:28 Bed 15 Private MD: Deepak Harvye V ED Physician Murphy Mcneal HPI: 01/12 11:49 This 52 yrs old Male presents to ER via Wheelchair with complaints of Leg bs3 Swelling, Abnormal US. 11:49 52yo hx of esrd, chf, htn presents for dvt he has had right leg swelling for 1 week, bs3 denies sob or any other complaints. . Historical: - Allergies: 11:44 PHILIP INHIBITORS; bp 11:44 Lisinopril; bp - PMHx: 11:44 CHF 2018; kidney disease; Hypertension; Kidney stone; Hirschsprung's disease; RENAL bp FAILURE; Dialysis; Diabetes - NIDDM; CVA; - PSHx: 11:44 Cholecystectomy; Colostomy; Dialysis Catheter; bp - Immunization history:: Adult Immunizations up to date. - Social history:: Smoking status: Patient denies any tobacco usage or history of. ROS: 12:18 Constitutional: Negative for fever, chills bs3 12:18 All other systems are negative. Exam: 12:18 Constitutional: This is a well developed, well nourished patient who is awake, alert, bs3 and in no acute distress. Head/Face: Normocephalic, atraumatic. Eyes: Pupils equal round and reactive to light, extra-ocular motions intact. Lids and lashes normal. ENT: mmm, no posterior phyarngeal erythema Neck: Trachea midline, no thyromegaly, no neck stiffness Cardiovascular: Regular rate and rhythm with a normal S1 and S2. symmetric pulses in upper extremities Abdomen/GI: Soft, non-tender, no rebound or guarding Skin: Warm, dry with normal turgor. Normal color with no rashes, no lesions, and no evidence of cellulitis. MS/ Extremity: right lower extremity swelling, mild tenderness to palpation. Neuro: Awake and alert, GCS 15, oriented to person, place, time, and situation. Cranial nerves II-XII grossly intact. Motor strength 5/5 in all extremities. Sensory grossly intact. Vital Signs: 11:42 BP 174 / 94; Pulse 74; Resp 16; Temp 97.5; Pulse Ox 100% ; bp 12:03 BP 192 / 99; Pulse 72; Resp 18; Pulse Ox 96% on R/A; mb9 12:35 BP 180 / 88; Pulse 68; Resp 16; Pulse Ox 99% on R/A; mb9 MDM: 11:37 Patient medically screened. bs3 12:23 Data reviewed: vital signs, nurses notes. ED course: Patient with a common femoral and bs3 popliteal DVT it is uncomplicated I discussed with Dr. Harvey and we agreed that outpatient management was most appropriate he is not hypoxic short of breath or complaining of symptoms of a large PE will give 1 dose here patient to follow with Dr. Harvey who will start a prescription and call the pharmacy to arrange for outpatient prescription. Administered Medications: 12:23 Drug: Eliquis PO 5 mg Route: PO; mb9 Disposition Summary: 01/12/23 12:25 Discharge Ordered Location: Home bs3 Problem: new bs3 Symptoms: have improved bs3 Condition: Stable bs3 Diagnosis - Acute embolism and thrombosis of deep veins of right upper extremity bs3 Followup: bs3 - With: Deepak Harvey MD - When: 48 Hours - Reason: Re-evaluation by your physician Discharge Instructions: - Discharge Summary Sheet bs3 - Deep Vein Thrombosis bs3 Forms: - Medication Reconciliation Form bs3 - Thank You Letter bs3 - Antibiotic Education bs3 - Prescription Opioid Use bs3 Signatures: Devon Mojica, RN RN Murphy Chen MD MD bs3 Annie Valencia RN RN mb9
--- NOTE | 2023-01-12 12:26 | ER ---
Nurse's Notes [facility] Name: Nabor Ny Age: 52 yrs Sex: Male : 1970 Arrival Date: 01/12/2023 Time: 11:28 Bed 15 Private MD: Deepak Harvey V Diagnosis: Acute embolism and thrombosis of deep veins of right upper extremity Presentation: 01/12 11:42 Chief complaint: Patient's son or daughter states: [facility] bp RLE. Coronavirus screen: At this time, the client does not indicate any symptoms associated with coronavirus-19. Ebola Screen: No symptoms or risks identified at this time. Initial Sepsis Screen: Does the patient meet any 2 criteria? No. Patient's initial sepsis screen is negative. Does the patient have a suspected source of infection? No. Patient's initial sepsis screen is negative. Risk Assessment: Do you want to hurt yourself or someone else? Patient reports no desire to harm self or others. Onset of symptoms is unknown. 11:42 Method Of Arrival: Wheelchair bp 11:42 Acuity: DEBBIE 3 bp Triage Assessment: 11:45 General: Appears in no apparent distress. Behavior is calm, cooperative, appropriate bp for age. Pain: Denies pain. EENT: No deficits noted. Neuro: No deficits noted. Cardiovascular: No deficits noted. Respiratory: No deficits noted. GI: No signs and/or symptoms were reported involving the gastrointestinal system. : No signs and/or symptoms were reported regarding the genitourinary system. Derm: No deficits noted. Musculoskeletal: Swelling present in right leg. Historical: - Allergies: 11:44 PHILIP INHIBITORS; bp 11:44 Lisinopril; bp - PMHx: 11:44 CHF 2018; kidney disease; Hypertension; Kidney stone; Hirschsprung's disease; RENAL bp FAILURE; Dialysis; Diabetes - NIDDM; CVA; - PSHx: 11:44 Cholecystectomy; Colostomy; Dialysis Catheter; bp - Immunization history:: Adult Immunizations up to date. - Social history:: Smoking status: Patient denies any tobacco usage or history of. Screenin:03 [facility] ED Fall Risk Assessment (Adult) History of falling in the last 3 months, mb9 including since admission No falls in past 3 months (0 pts) Confusion or Disorientation No (0 pts) Intoxicated or Sedated No (0 pts) Impaired Gait Yes (1 pt) Mobility Assist Device Used Yes (1 pt) Altered Elimination No (0 pt) Score/Fall Risk Level 0 - 2 = Low Risk Oriented to surroundings, Maintained a safe environment, Educated pt \T\ family on fall prevention, incl call for assistance when getting out of bed. Abuse screen: Denies threats or abuse. Nutritional screening: No deficits noted. Tuberculosis screening: No symptoms or risk factors identified. Assessment: 12:01 General: Appears uncomfortable, ill, Behavior is appropriate for age. Pain: Complains mb9 of pain in right leg Pain does not radiate. Quality of pain is described as throbbing, Is continuous. Neuro: Holt Agitation-Sedation Scale (RASS): 0 - Alert and Calm Level of Consciousness is awake, alert, obeys commands, Oriented to person, place, time, situation, Appropriate for age. Cardiovascular: Denies chest pain, shortness of breath, Heart tones S1 S2 present Capillary refill is > 3 seconds is sluggish in right toes Rhythm is regular. Cardiovascular: Pulses are 1+ in right posterior tibial artery and right dorsalis pedis artery Edema is 1+ to right midcalf and right foot pitting to right ankle and right foot. Respiratory: Airway is patent Respiratory effort is even, unlabored, Respiratory pattern is regular, symmetrical, Breath sounds are clear bilaterally. GI: Abdomen is flat, non-distended, Bowel sounds present X 4 quads. Abd is soft and non tender X 4 quads. Reports nausea. Derm: Skin is intact, Skin is dry, Skin is pale, Skin temperature is warm. Musculoskeletal: Range of motion: Swelling present in right foot and right leg. Vital Signs: 11:42 BP 174 / 94; Pulse 74; Resp 16; Temp 97.5; Pulse Ox 100% ; bp 12:03 BP 192 / 99; Pulse 72; Resp 18; Pulse Ox 96% on R/A; mb9 12:35 BP 180 / 88; Pulse 68; Resp 16; Pulse Ox 99% on R/A; mb9 ED Course: 11:32 Patient arrived in ED. am2 11:32 Deepak Harvey MD is Private Physician. am2 11:37 Murphy Mcneal MD is Attending Physician. bs3 11:44 Triage completed. bp 11:44 Arm band placed on. bp 11:53 Annie Valencia, RN is Primary Nurse. mb9 11:53 Placed in gown. Bed in low position. Call light in reach. Side rails up X 1. Client mb9 placed on continuous cardiac and pulse oximetry monitoring. NIBP monitoring applied. precision machinist on. 12:03 No provider procedures requiring assistance completed. mb9 12:24 Deepak Harvey MD is Referral Physician. bs3 12:40 Patient did not have IV access during this emergency room visit. mb9 Administered Medications: 12:23 Drug: Eliquis PO 5 mg Route: PO; mb9 Medication: 11:53 VIS not applicable for this client. mb9 Outcome: 12:25 Discharge ordered by . bs3 12:40 Discharged to home via wheelchair. mb9 12:40 Condition: stable 12:40 Discharge instructions given to patient, Instructed on discharge instructions, follow up and referral plans. Demonstrated understanding of instructions, follow-up care. 12:41 Patient left the ED. mb9 Signatures: Sydney Riley am2 Devon Mojica, RN RN bp Murphy Mcneal MD MD bs3 Annei Valencia, RN RN mb9 Corrections: (The following items were deleted from the chart) 12:03 11:53 Reassessment: see triage assessment mb9 mb9
[2023-01-12] MEDS ORDERED: APIXABAN 5 MG TABLET ONE (12:29)
[2023-01-12 13:08] VITALS: TEMP 97.5
[2023-01-12 13:12] VITALS: BP 180/88; O2SAT 99
== END 2023-01-12 12:41 | disposition home or self-care (01) ==
LOC: ER 11:28
DX: I82.401 Acute embolism and thrombosis of unspecified deep veins of right lower extremity (principal); Z88.8 Allergy status to other drugs, medicaments and biological substances
CPT/HCPCS: 99284

== ENCOUNTER 2023-01-15 17:42 | Inpatient (IN) | payer OTHER ==
--- OUTSIDE RECORDS SUMMARY | 2023-01-15 17:53 | XMS REPORT | Continuity of Care Document ---
:1970 Author Organization Formerly [facility] t Address [address] [place] [address] Care Team Providers Name Role Phone [phone] Attending Clinician Unavailable JARAD EVERETT Attending Clinician Unavailable ADAN BRENNER Attending Clinician Unavailable Adan Brenner MD Attending Clinician AGAPITO HOWARD Attending Clinician Unavailable Chanel Morrissey Attending Clinician Unavailable Conchita Gauthier MA Attending Clinician Unavailable Leighann Agosto RN Attending Clinician Unavailable Marisol Callahan Attending Clinician Unavailable [id number] Admitting Clinician Unavailable Payers Payer Name Policy Type Policy Number Effective Date Expiration Date Christy FABIAN [id number] MEDICARE PART A [id number] 2022 2022 AND B 00:00:00 00:00:00 [employer] MEDICARE [id number] 2022 ADVANTAGE PPO 00:00:00 [employer] MEDICARE [id number] 2022 ADV 00:00:00 Problems This patient has no known problems. Allergies, Adverse Reactions, Alerts Allergy Allergy Status Severity Reaction(s) Onset Inactive Treating Comm ents Source Name Type Date Date Clinician NO KNOWN Allergy Active [facility] Social History Social Habit Start Date Stop Date Quantity Comments Source Sex Assigned At [birth year] [facility]s 00:00:00 00:00:00 [facility] Medications Ordered Filled Start Stop Current Ordering Indication Dosage Frequency Signature Comments Components Source Medication Medication Date Date Medication? Clinician (SIG) Name Name metoclopram 2022- No 10mg [id number] Take [address] [facility] HCl -11 22- [id number] tablet (10 [facility] (REGLAN) 10 00:00: 23:59 3D mg total) Medical MG tablet 00 :00 by mouth Center in the morning and 1 tablet (10 mg total) at noon and 1 tablet (10 mg total) in the evening. Do all this for 5 days. metoclopram 2022- No 10mg Take [address] [facility] HCl -11 22-04 tablet (10 [facility] (REGLAN) 10 00:00: 00:00 mg total) Medical MG tablet 00 :00 by mouth Center every 6 (six) hours for 8 days. chlorproMAZ Yes Take by [facility]E 3-30 mouth. [facility] (THORAZINE) 00:00: Medica l 25 MG 00 [place] tablet potassium Yes 10meq QD Take 1 [facility] chloride 3-13 tablet (10 [facility] (KLOR-CON-M 00:00: mEq total) Medical ) 10 MEQ CR 00 by mouth Cent er tablet in the morning. lisinopriL Yes DAILY [facility] (PRINIVIL,Z 2-22 [facility] ESTRIL) 20 00:00: Medical MG tablet 00 [place] pantoprazol Yes AT BEDTIME [facility] e 2-22 [facility] (PROTONIX) 00:00: Medical 40 MG 00 [place] tablet hydrALAZINE Yes TWICE [facility] (APRESOLINE 9-28 DAILY [facility] ) 25 MG 00:00: Medical tablet 00 [place] calcitrioL Yes As [facility] (ROCALTROL) 9-27 Directed Luke s 0.25 MCG 00:00: Medical capsule 00 [place] carvediloL Yes TWICE [facility] (Coreg) 9-22 DAILY [facility] 12.5 MG 00:00: Medical tablet 00 [place] Vital Signs Vital Name Observation Time Observation Value Comments Source HEIGHT 2022-12-20 16:09:00 165.1 cm WEIGHT 2022-12-20 16:09:00 79.379 kg HEIGHT 2022-12-20 16:09:00 165.1 cm WEIGHT 2022-12-20 16:09:00 79.379 kg Systolic blood 2022-12-21 03:00:00 197 mm[Hg] [facility] Diastolic blood 2022-12-21 03:00:00 105 mm[Hg] [facility] Heart rate 2022-12-21 03:00:00 84 /min [facility] Body temperature 2022-12-21 03:00:00 36.89 [facility] Respiratory rate 2022-12-21 03:00:00 18 /min [facility] Oxygen saturation in 2022-12-21 03:00:00 99 /min [facility] Arterial blood by Medical Ce nter Pulse oximetry Body height 2022-12-20 16:09:00 165.1 cm [facility] Body weight 2022-12-20 16:09:00 79.379 kg [facility] BMI 2022-12-20 16:09:00 29.12 kg/m2 [facility] Body height 2022-08-31 07:34:00 167.6 cm [facility] Body weight 2022-08-31 07:34:00 88.996 kg [facility] BMI 2022-08-31 07:34:00 31.67 kg/m2 [facility] Procedures Procedure Date / Time Performed Performing Clinician Sour e HIGH SENSITIVITY 2022-12-20 23:22:00 Adan Brenner [facility] TROPONIN I [facility] CT BRAIN WITHOUT IV 2022-12-20 22:57:00 Mark Wren [facility] CONTRAST [facility] CT NECK SOFT TISSUE 2022-12-20 22:57:00 Adan Brenner [facility] WITHOUT IV CONTRAST Medical [facility] er CT CHEST WITHOUT IV 2022-12-20 22:57:00 [facility] CONTRAST [facility] CT ABDOMEN/PELVIS 2022-12-20 22:57:00 Adan Brenner [facility] WITHOUT IV CONTRAST Medical [facility] er XR CHEST 1 VIEW PORTABLE 2022-12-20 16:42:00 Mark Wren [facility] / BEDSIDE Medical Center CBC W/PLT COUNT & AUTO 2022-12-20 16:19:00 Mark Wren [facility] DIFFERENTIAL [facility] BASIC METABOLIC PANEL 2022-12-20 16:19:00 Mark Wren [facility] HEPATIC FUNCTION PANEL 2022-12-20 16:19:00 Mark Wren [facility] LIPASE 2022-12-20 16:19:00 Mark Wren [facility] PROTHROMBIN TIME/INR 2022-12-20 16:19:00 Mark Wren [facility] HIGH SENSITIVITY 2022-12-20 16:19:00 Mark Wren [facility] TROPONIN I [facility] B-TYPE NATRIURETIC 2022-12-20 16:19:00 Mark Wren [facility] FACTOR (BNP) Medical Center MAGNESIUM 2022-12-20 16:19:00 Mark Wren [facility] PHOSPHORUS 2022-12-20 16:19:00 Mark Wren [facility] BLOOD GAS, VENOUS 2022-12-20 16:19:00 Mark Wren [facility] CBC W/PLT COUNT & AUTO 2022-12-20 16:19:00 Mark Wren [facility] HEPATITIS B SURFACE 2022-05-17 03:53:00 [facility] ANTIGEN [facility] HEPATITIS B SURFACE 2022-05-17 03:53:[address] [facility] [facility] ANTIBODY [facility] HEPATITIS B CORE 2022-05-17 03:53:00 [facility] s ANTIBODY, TOTAL [facility] HEPATITIS C PCR, 2022-05-17 03:53:00 [facility] QUANTITATIVE [facility] Plan of Care Planned Activity [...] [facility] Test 00:00:00 [code = 76254932] Medical Ce nter Future Scheduled 2007 Lipid panel (procedure) [facility] Test 00:00:00 [code = 75846776] Medical Ce nter Future Scheduled 2007 Lipid panel (procedure) [facility] Test 00:00:00 [code = 16814828] Medical Ce nter Future Scheduled 2007 Lipid panel (procedure) [facility] Test 00:00:00 [code = 89109488] Medical Ce nter Future Scheduled 2007 Lipid panel (procedure) [facility] Test 00:00:00 [code = 36740380] Medical Ce nter Future Scheduled 1991 DTAP/TDAP/TD [...] Test 00:00:00 [code = CT Colonography Medi [facility] (combo)] Future Scheduled 1972 Screening [facility] malignant [facility] Test 00:00:00 neoplasm of colon Medical Ce nter (procedure) [code = 569709232] Future Scheduled 1972 Screening for malignant [facility] Test 00:00:00 neoplasm of colon Medical Ce nter (procedure) [code = 401102734] Future Scheduled 1972 Screening for malignant [facility] Test 00:00:00 neoplasm of colon Medical Ce nter (procedure) [code = 836668244] Future Scheduled 1972 Screening for malignant [facility] Test 00:00:00 neoplasm of colon Medical Ce nter (procedure) [code = 944637193] Future Scheduled 1970 Sigmoidoscopy [code = [facility] Test 00:00:00 [facility]] [place] Future Scheduled 1972 CT Colonography (combo) [facility] Test 00:00:00 [code = CT Colonography [facility] (combo)] Future Scheduled 1972 Screening for malignant [facility] Test 00:00:00 neoplasm of colon Medical Ce nter (procedure) [code = 365347821] Future Scheduled 1972 Screening for malignant [facility] Test 00:00:00 neoplasm of colon Medical Ce nter (procedure) [code = 687135951] Future Scheduled 1972 Screening for malignant [facility] Test 00:00:00 neoplasm of colon Medical Ce nter (procedure) [code = 924828986] Future Scheduled 1972 Screening for malignant [facility] Test 00:00:00 neoplasm of colon Medical Ce nter (procedure) [code = 767715707] Future Scheduled 1970 Sigmoidoscopy [code = [facility] Test 00:00:00 Sigmoidoscopy] Medical Catye r Future Scheduled 1972 CT Colonography (combo) [facility] Test 00:00:00 [code = CT Colonography [facility] (combo)] Future Scheduled 1972 Screening for malignant [facility] Test 00:00:00 neoplasm of colon Medical Ce nter (procedure) [code = 004823214] Future Scheduled 1972 Screening for malignant [facility] Test 00:00:00 neoplasm of colon Medical Ce nter (procedure) [code = 129136104] Future Scheduled 1972 Screening for malignant [facility] Test 00:00:00 neoplasm of colon Medical Ce nter (procedure) [code = 260877867] Future Scheduled 1972 Screening for malignant [facility] Test 00:00:00 neoplasm of colon Medical Ce nter (procedure) [code = 106703524] Future Scheduled 1970 Sigmoidoscopy [code = [facility] Test 00:00:00 Sigmoidoscopy] Medical Yolette r Future Scheduled 1972 CT Colonography (combo) [facility] Test 00:00:00 [code = CT Colonography [facility] (combo)] Future Scheduled 1972 Screening for malignant [facility] Test 00:00:00 neoplasm of colon Medical Ce nter (procedure) [code = 233008163] Future Scheduled 1972 Screening for malignant [facility] Test 00:00:00 neoplasm of colon Medical Ce nter (procedure) [code = 692591652] Future Scheduled 1972 Screening for malignant [facility] Test 00:00:00 neoplasm of colon Medical Ce nter (procedure) [code = 862770559] Future Scheduled 1972 Screening for malignant [facility] Test 00:00:00 neoplasm of colon Medical Ce nter (procedure) [code = 272460630] Future Scheduled 1970 Sigmoidoscopy [code = [facility] 00:00:00 Sigmoidoscopy] Medical Catye r Future Scheduled 1972 CT Colonography (combo) [facility] Test 00:00:00 [code = CT Colonography [facility] (combo)] Future Scheduled 1972 Screening for malignant [facility] Test 00:00:00 neoplasm of colon Medical Ce nter (procedure) [code = 525255992] Future Scheduled 1972 Screening for malignant [facility] Test 00:00:00 neoplasm of colon Medical Ce nter (procedure) [code = 163565609] Future Scheduled 1972 Screening for malignant [facility] Test 00:00:00 neoplasm of colon Medical Ce nter (procedure) [code = 003108956] Future Scheduled 1972 Screening [facility] malignant [facility] Test 00:00:00 neoplasm of colon Medical Ce nter (procedure) [code = 100606458] Future Scheduled 1970 Sigmoidoscopy [code = [facility] 00:00:00 Sigmoidoscopy] Medical Cente r Encounters Start End Encounter Admission Attending Care Care Encounter Source Date/Time Date/Time Type Type Clinicians Facility Department ID 2023-01-12 Outpatient [id number] [facility] REF [id number] [facility] 11:33:16 [facility]26 [facility] [place] 2022-11-28 Outpatient [facility] [id number] [place] 08:29:08 [id number] [facility] 2022-11-24 Outpatient [facility] [id number] [place] 08:28:47 [id number] [facility] 2022-11-10 Outpatient [facility] [id number] [place] 10:41:29 [id number] [facility] 2022-09-28 Outpatient [facility] [id number] [place] 11:17:06 [id number] [facility] 2022-09-22 Outpatient [facility] [id number] [place] 13:29:04 [id number] [facility] 2022-09-20 Outpatient [facility] [id number] [place] 10:03:28 [id number] [facility] 2022-07-11 Outpatient [facility] [id number] [place] 14:53:52 [id number] [facility] 2022-07-05 Outpatient [facility] [id number] UT 08:31:43 [id number] [facility] 2022-06-19 Outpatient [facility] [id number] [place] 16:57:00 [id number] [facility] 2022-06-16 Outpatient [facility] [id number] UT 10:28:00 [id number] Health 2023-01-02 2023-01-02 Outpatient KARLOS [facility] [id number] UT 09:30:00 09:30:00 [facility] 2022-12-20 2022-12-21 Emergency ER FORNAGE, SLE Emergency [id number] SLE 17:50:00 03:58:00 ADAN 2022-12-20 2022-12-21 Emergency ER [place], [facility] [id number] [facility] 17:50:00 03:58:00 Adan [facility] 2022-12-19 2022-12-19 Outpatient EL LEE, SLEH [facility] [id number] [facility] 00:00:00 00:00:00 BHAMIDIPATI 2022-12-19 2022-12-19 Outpatient EL LEE, [facility]H [facility] [id number] [facility] 00:00:00 00:00:00 BHAMIDIPATI 2022-12-19 2022-12-19 Outpatient EL LEE, SLEH SLEH [id number] [facility]H 00:00:00 00:00:00 BHAMIDIPATI 2022-12-19 2022-12-19 Outpatient EL LEE, SLEH [facility] [id number] [facility]H 00:00:00 00:00:00 BHAMIDIPATI 2022-12-12 2022-12-12 Outpatient [facility] [id number] UT 13:00:00 13:00:00 Health 2022-11-09 2022-11-09 Outpatient EL SLEH SLEH [id number] [facility]H 00:00:00 00:00:00 2022-11-09 2022-11-09 Outpatient EL SLEH [facility]H [id number] [facility]H 00:00:00 00:00:00 2022-11-09 2022-11-09 Outpatient EL SLEH [facility] [id number] [facility]H 00:00:00 00:00:00 2022-11-09 2022-11-09 Outpatient EL SLEH [facility]H [id number] [facility]H 00:00:00 00:00:00 2022-11-09 2022-11-09 Outpatient EL SLEH SLEH [id number] [facility]H 00:00:00 00:00:00 2022-11-07 2022-11-07 [facility] [id number] [place] 09:30:00 09:30:00 [facility] 2022-11-07 2022-11-07 Telephone Ghanshyam [facility] [id number] 00:00:00 00:00:00 [facility] 2022-10-19 2022-10-19 Telephone Rudyaamir [facility] [id number] 00:[facility] 00:00:00 [facility] 2022-10-12 2022-10-12 Outpatient [facility] [id number] UT 13:00:00 13:00:00 [facility] 2022-10-09 2022-10-09 Mauro Gauthier [facility] [id number] 00:00:00 00:00:00 [facility] 2022-10-07 2022-10-07 Sky Agosto [facility] [id number] 00:00:00 00:00:00 [facility] 2022-09-28 2022-09-28 Outpatient [facility] [id number] SLE 00:00:00 00:00:00 2022-09-05 2022-09-05 Mauro Callahan [facility] [id number] 00:00:00 00:00:00 [facility] 2022-08-31 2022-08-31 Tele[place] [facility] [id number] 00:00:00 00:00:00 [facility] 2022-08-31 2022-08-31 Abstract [place] [facility] [id number] 00:00:00 00:00:00 [facility] 2022-08-31 2022-08-31 Mauro Callahan [facility] [id number] 00:00:00 00:00:00 [facility] 2022-08-31 2022-08-31 Abstract Triny [facility] [id number] 00:00:00 00:00:00 [facility] 2022-08-29 2022-08-29 Outpatient KARLOS, [facility] [id number] UT 10:30:00 10:30:00 [facility] 2022-07-04 2022-07-05 [facility] [id number] [place] 13:30:00 08:32:27 [facility] 2022-06-26 2022-06-26 [facility] [id number] [place] 10:15:00 10:15:00 [facility] 2022-05-17 2022-05-17 Lab [facility] [id number] 00:00[facility]00 00:00:00 [facility] Results Test Description Test Time Test Comments Results Result [facility] e Comments CT, CHEST, 2022-12-21 Unlisted Reason WITHOUT CONTRAST 00:53:00 for Exam - Click Yes and Enter [facility] Below[facility] 1970 Sex: M [...] - Click Yes and Enter [facility] Reason [facility] Below->NoProtocol CENTERName: Kandy FREY : 1970 Specify:->Standar [...] - Click Yes and Enter [facility]I Reason [facility] Below->YesUnliste CENTERName: jaclyn FREY Reason for ARIELLA [...] HIGH SENSITIVITY TROPONIN I (test code = 2283899) 29 pg/ml <=35 [employer] Operator ID - ADMINThe MASCARA MOLDER STAT High Sensitivity Troponin-I results should be used in conjunction with other diagnostic information such as ECG, clinical observations and information, and patientsymptoms to aid in the diagnosis of NE. CT, BRAIN, WITHOUT [id number] 23:11:00 [facility] CENTERName: ARIELLA FREY : 1970 Sex: MFINAL REPORT CLINICAL HISTORY: [...] 12/20/2022 23:11:58 RAD, CHEST, 1 VIEW, NON [id number] 17:49:00Reason for exam:->Nausea and vomitingShould this be performed at the bedside?->[facility] : 1970 Sex: MFINAL [...] 0-100 H (BEAKER) (test code = 700) [employer] Operator ID - ADMINBASIC METABOLIC [id number] 17:27:26 Test Item Value Reference Range Interpretation [...] not as accur ate as Creatinine Citlaly javier in predicting glom erular filtration rate . Estimated GFR is not appl icable for dialysis patien ts [employer] Operator ID - ADMINHIGH SENSITIVITY TROPONIN [id number] 17:27:21 Test Item Value Reference Range Interpretation Comments HIGH SENSITIVITY TROPONIN I (test 19 pg/ml <=35 code = 4362476) [employer] Operator ID - ADMINThe [facility]CAR[facility] MOLDER STAT High Sensitivity Troponin-I results should be used in conjunction with other diagnostic information such as ECG, clinical observations and information, and patientsymptoms to aid in the diagnosis of NE. [id number] 17:25:00 Test Item Value Reference Range Interpretation Comments LIPASE (BEAKER) (test code = 749) 14 U/L 8-78 [employer] ID - [id number] 17:24:59 Test Item Value Reference Range Interpretation Comments MAGNESIUM (BEAKER) 1.6 mg/dL 1.6-2.6 Specimen markedly (test code = 627) hemolyzed [employer] ID - [id number] 17:24:59 Test Item Value Reference Range Interpretation Comments PHOSPHORUS (BEAKER) 1.6 mg/dL 2.3-4.7 L Specimen markedly (test code = 604) hemolyzed [employer] ID - ADMINHEPATIC FUNCTION [id number] 17:24:59 Test Item Value Reference Range Interpretation [...] Specimen markedly (test code = 347) hemolyzed [employer] ID - ADMINPROTHROMBIN [id number] 17:02:15 Test Item Value Reference Range Interpretation [...] mechanical heart valves.CBC W/PLT COUNT & AUTO [id number] 16:56:02 Test Item Value Reference Range Interpretation [...] (BEAKER) (test code = 2801) BLOOD GAS, [id number] 16:42:18 Test Item Value Reference Range Interpretation [...] code = 1819) 21.0 Hepatitis C PCR, [id number] 14:24:46 Test Item Value Reference Range Interpretation Comments HCV PCR, Quantitative HCV RNA not detected HCV RNA not (test code = 92534-8) detected PREMA (test code = PREMA) This test uses a Real-Time Polymerase Chain Reaction (RT-PCR) methodology and was performed using FARSHAD Ampliprep/FARSHAD TaqMan HCV test kit version 2.0 ([employer] Reportable range for this assay is 15 - 100,000,000 IU per mL (1.18 - 8.00 Log IU/mL). Lab Interpretation Normal (test code = 26682-3) [facility] C PCR, [id number] 14:24:46 Test Item Value Reference Range Interpretation Comments HCV PCR, Quantitative HCV RNA not detected HCV RNA not (test code = 03552-8) detected PREMA (test code = PREMA) This test uses a Real-Time Polymerase Chain Reaction (RT-PCR) methodology and was performed using [employer] Ampliprep/FAR[employer]AD TaqMan HCV test kit version 2.0 ([employer]). Reportable range for this assay is 15 - 100,000,000 IU per mL (1.18 - 8.00 Log IU/mL). Lab Interpretation Normal (test code = 00725-2) [facility] C PCR, [id number] 14:24:46 Test Item Value Reference Range Interpretation Comments HCV PCR, Quantitative HCV RNA not detected HCV RNA not (test code = 48373-9) detected PREMA (test code = PREMA) This test uses a Real-Time Polymerase Chain Reaction (RT-PCR) methodology and was performed using [employer] Ampliprep/FARSHAD TaqMan HCV test kit version 2.0 ([employer]). Reportable range for this assay is 15 - 100,000,000 IU per mL (1.18 - 8.00 Log IU/mL). Lab Interpretation Normal (test code = 66967-3) [facility] C PCR, [id number] 14:24:46 Test Item Value Reference Range Interpretation Comments HCV PCR, Quantitative HCV RNA not detected HCV RNA not (test code = 32447-0) detected PREMA (test code = PREMA) This test uses a Real-Time Polymerase Chain Reaction (RT-PCR) methodology and was performed using [employer] Ampliprep/FARSHAD TaqMan HCV test kit version 2.0 ([employer]). Reportable range for this assay is 15 - 100,000,000 IU per mL (1.18 - 8.00 Log IU/mL). Lab Interpretation Normal (test code = 71816-7) [facility] C PCR, [id number] 14:24:46 Test Item Value Reference Range Interpretation Comments HCV PCR, Quantitative HCV RNA not detected HCV RNA not (test code = 16340-9) detected PREMA (test code = PREMA) This test uses a Real-Time Polymerase Chain Reaction (RT-PCR) methodology and was performed using [employer] Ampliprep/FARSHAD TaqMan HCV test kit version 2.0 ([employer]). Reportable range for this assay is 15 - 100,000,000 IU per mL (1.18 - 8.00 Log IU/mL). Lab Interpretation Normal (test code = 87246-2) [facility] C PCR, [id number] 14:24:46 Test Item Value Reference Range Interpretation Comments HCV RESULT COMPONENT HCV RNA not detected HCV RNA not detected (BEAKER) (test code = 2699) This test uses a Real-Time Polymerase Chain Reaction (RT-PCR) methodology and was performed using [employer] Ampliprep/FARSHAD TaqMan HCV test kit version 2.0 ([employer]).Reportable range for this assay is 15 - 100,000,000 IU per mL (1.18 - 8.00 Log IU/mL).Hepatitis B surface [id number] 16:31:21 Test Item Value Reference Range Interpretation Comments Hep B S Ab (test code See_Comment [Auto mated = 03559-1) message] The system which generated this result transmit fletcher reference range : <8.0 mIU/mL. Th e reference range was not used to interpret this result as normal/abnormal . PREMA (test code = PREMA) [employer] Operator ID - ED Lab Interpretation Normal (test code = 38067-3) [facility] B surface [id number] 16:31:21 Test Item Value Reference Range Interpretation Comments Hep B S Ab (test code <8.0 See_Comment [Auto mated = 97941-4) message] The system which generated this result transmit fletcher reference range : <8.0 mIU/mL. Th e reference range was not used to interpret this result as normal/abnormal . PREMA (test code = PREMA) [employer] Operator ID - ED Lab Interpretation Normal (test code = 40037-8) [facility] [id number] 16:31:21 Test Item Value Reference Range Interpretation Comments Hep B S Ab (test code <8.0 See_Comment [Auto mated = 95960-2) message] The system which generated this result transmit fletcher reference range : <8.0 mIU/mL. Th e reference range was not used to interpret this result as normal/abnormal . PREAM (test code = PREMA) [employer] Operator ID - ED Lab Interpretation Normal (test code = 24796-9) [facility] [id number] 16:31:21 Test Item Value Reference Range Interpretation Comments Hep B S Ab (test code See_Comment [Auto mated = 65027-7) message] The system which generated this result transmit fletcher reference range : <8.0 mIU/mL. Th e reference range was not used to interpret this result as normal/abnormal . PREMA (test code = PREMA) [employer] Operator ID - ED Lab Interpretation Normal (test code = 58156-3) [facility] surface [id number] 16:31:21 Test Item Value Reference Range Interpretation Comments Hep B S Ab (test code See_Comment [Auto mated = 17515-3) message] The system which generated this result transmit fletcher reference range : <8.0 mIU/mL. Th e reference range was not used to interpret this result as normal/abnormal . PREMA (test code = PREMA) Rod Mill Operator ID - ED Lab Interpretation Normal (test code = 18116-4) [facility] SUR[facility] [id number] 16:31:21 Test Item Value Reference Range Interpretation Comments HEPATITIS B SURFACE ANTIBODY < mIU/mL <8.0 (BEAKER) (test code = 647) [facility] Operator [facility] - [facility] surface [id number] 16:21:45 Test Item Value Reference Range Interpretation Comments Hepatitis B surface Nonreactive Nonreactive antigen (test code = 5195-3) PREMA (test code = PREMA) Specimen is considered negative for HBsAg. Lab Interpretation (test Normal code = 39106-7) [facility] core antibody, [id number] 16:21:45 Test Item Value Reference Range Interpretation Comments Hep B Core Total Ab (test Nonreactive Nonreactive code = 55983-5) PREMA (test code = PREMA) [employer] Operator ID - ED Lab Interpretation (test Normal code = 25229-0) [facility] [id number] 16:21:45 Test Item Value Reference Range Interpretation Comments Hepatitis B surface Nonreactive Nonreactive antigen (test code = 5195-3) PREMA (test code = PREMA) Specimen is considered negative for HBsAg. Lab Interpretation (test Normal code = 20130-5) [facility] antibody, [id number] 16:21:45 Test Item Value Reference Range Interpretation Comments Hep B Core Total Ab (test Nonreactive Nonreactive code = 51363-9) PREMA (test code = PREMA) [employer] Operator ID - ED Lab Interpretation (test Normal code = 01045-0) [facility] [id number] 16:21:45 Test Item Value Reference Range Interpretation Comments Hepatitis B surface Nonreactive Nonreactive antigen (test code = 5195-3) PREMA (test code = PREMA) Specimen is considered negative for HBsAg. Lab Interpretation (test Normal code = 93509-8) [facility], [id number] 16:21:45 Test Item Value Reference Range Interpretation Comments Hep B Core Total Ab (test Nonreactive Nonreactive code = 99046-0) PREMA (test code = PREMA) [employer] Operator ID - ED Lab Interpretation (test Normal code = 23150-4) [facility] [id number] 16:21:45 Test Item Value Reference Range Interpretation Comments Hepatitis B surface Nonreactive Nonreactive antigen (test code = 5195-3) PREMA (test code = PREMA) Specimen is considered negative for HBsAg. Lab Interpretation (test Normal code = 35572-8) [facility], [id number] 16:21:45 Test Item Value Reference Range Interpretation Comments Hep B Core Total Ab (test Nonreactive Nonreactive code = 78078-9) PREMA (test code = PREMA) [employer] Operator ID - ED Lab Interpretation (test Normal code = 22113-5) [facility] [id number] 16:21:45 Test Item Value Reference Range Interpretation Comments Hepatitis B surface Nonreactive Nonreactive antigen (test code = 5195-3) PREMA (test code = PREMA) Specimen is considered negative for HBsAg. Lab Interpretation (test Normal code = 89092-6) [facility], [id number] 16:21:45 Test Item Value Reference Range Interpretation Comments Hep B Core Total Ab (test Nonreactive Nonreactive code = 58380-2) PREMA (test code = PREMA) [employer] Operator ID - ED Lab Interpretation (test Normal code = 30923-3) [facility] [id number] 16:21:45 Test Item Value Reference Range Interpretation Comments HEPATITIS B SURFACE ANTIGEN (2) Nonreactive Nonreactive (BEAKER) (test code = 2585) Specimen is considered negative for HBsAg.HEPATITIS B CORE ANTIBODY, TOTAL 2022-05-17 16:21:45 Test Item Value Reference Range Interpretation Comments HEPATITIS B CORE TOTAL ANTIBODY Nonreactive Nonreactive (BEAKER) (test code = 497) [employer] Mill Operator ID - ED
[2023-01-15 18:54] LABS: Absolute Lymphocytes (CBC) 0.9 K/uL (0.7-4.9); Hematocrit 18.1 % (39.6-49.0); Lymphocytes % 12.4 % (15.3-44.8); MCV 91.3 fL (80-100); MPV 8.6 fL (7.6-11.3); RBC Red Blood Cell Count 1.99 M/uL (4.33-5.43)
--- NOTE | 2023-01-15 19:07 | RAD REPORT ---
EXAM DESCRIPTION: RAD - Chest Single View - 01/15/2023 7:02 pm CLINICAL HISTORY: COUGH COMPARISON: Head Brain Wo Cont dated 12/31/2022; Head Brain Wo Cont dated 09/16/2022hest Single View dated 12/31/2022; Chest Single View dated 10/10/2022; Chest Single View dated 06/06/2022; Chest Single View dated 05/23/2022 FINDINGS: Lines: Right IJ approach dialysis catheter with tip overlying the SVC. Lungs: No evidence of edema or pneumonia. Pleural: No significant pleural effusions or pneumothorax. Cardiac: Cardiomegaly. Mediastinum: Within normal limits. Bones: No acute fractures. Other: None IMPRESSION: No acute cardiopulmonary disease.
--- NOTE | 2023-01-15 19:07 | RAD REPORT ---
EXAM DESCRIPTION: CT - Head Brain Wo Cont - 01/15/2023 6:54 pm CLINICAL HISTORY: CONFUSED COMPARISON: 12/31/2022 TECHNIQUE: All CT scans are performed using dose optimization technique as appropriate and may inclu de automated exposure control or mA/KV adjustment according to patient size. FINDINGS: No intracranial hemorrhage, hydrocephalus or extra-axial fluid collection.No areas of brai n edema or evidence of midline shift. Left maxillary sinus is nearly completely opacified. The calvarium is intact. IMPRESSION: No acute intracranial abnormality.
[2023-01-15 19:09] LABS: AST/SGOT 9 U/L (15-37); Albumin 1.7 g/dL (3.4-5.0); Alkaline Phosphatase 54 U/L (45-117); BUN Blood Urea Nitrogen 13 mg/dL (7-18); Bicarbonate 29 mEq/L (21-32); Bilirubin Direct 0.3 mg/dL (0-0.2); Bilirubin Indirect, Calculated 0.3 mg/dL (0.2-0.8); Bilirubin Total 0.6 mg/dL (0.2-1.0); Glomerular Filtration Rate 35 ml/min (=/>90); Glucose Level 98 mg/dL (74-106); Magnesium 1.6 mg/dL (1.6-2.4); Potassium 3.2 mEq/L (3.5-5.1); Protein, Total 4.9 g/dL (6.4-8.2); Sodium Level 138 mEq/L (136-145)
[2023-01-15 19:14] LABS: ALT/SGPT < 10 U/L (16-61)
[2023-01-15 19:16] LABS: Troponin High Sensitivity 285.8 pg/mL (<58.9)
--- NOTE | 2023-01-15 19:19 | ER ---
Nurse's Notes [facility] Name: Nabor Ny Age: 52 yrs Sex: Male : 1970 Arrival Date: 01/15/2023 Time: 17:42 Bed 3 Private MD: Diagnosis: Encephalopathy, unspecified;Anemia, unspecified Presentation: 01/15 18:00 Chief complaint: EMS states: Was at dialysis, staff called EMS for confusion, pt A\\T\\O x ph 4 for EMS, dialysis staff stated that pt asked, " Are we almost done?" multiple times, 1,193 mL fluid removed during tx, VSS, pt awake but lethargic upon arrival to ED, reports dizziness and bilateral leg weakness x 4 months, recently started taking a new BP medciation. Coronavirus screen: Vaccine status: Patient reports receiving the 2nd dose of the covid vaccine. Ebola Screen: No symptoms or risks identified at this time. Initial Sepsis Screen: Does the patient meet any 2 criteria? No. Patient's initial sepsis screen is negative. Does the patient have a suspected source of infection? No. Patient's initial sepsis screen is negative. Risk Assessment: Do you want to hurt yourself or someone else? Patient reports no desire to harm self or others. Onset of symptoms was January 15, 2023. 18:00 Method Of Arrival: EMS: [facility] 18:00 Acuity: DEBBIE 3 ph Triage Assessment: 18:22 General: Appears in no apparent distress. well groomed, Behavior is calm, cooperative, ph drowsy. Pain: Denies pain. 18:22 Neuro: Level of Consciousness is awake, obeys commands, lethargic, Oriented to person, ph place, situation, Reports dizziness, weakness in right leg and left leg. Cardiovascular: Capillary refill < 3 seconds in bilateral fingers Patient's skin is warm and dry. Dialysis shunt: in the anterior aspect of right upper chest. Respiratory: Airway is patent Respiratory effort is even, unlabored. GI: No signs and/or symptoms were reported involving the gastrointestinal system. Derm: Skin is pale. Musculoskeletal: Circulation, motion, and sensation intact. Range of motion: intact in all extremities. Historical: - Allergies: 18:21 PHILIP INHIBITORS; ph 18:21 Lisinopril; ph - PMHx: 18:21 CHF 2018; CVA; Diabetes - NIDDM; Dialysis; Hirschsprung's disease; Hypertension; kidney ph disease; Kidney stone; RENAL FAILURE; - PSHx: 18:21 Cholecystectomy; Colostomy; Dialysis Catheter; ph - Immunization history:: Adult Immunizations up to date. - Social history:: Smoking status: Reported history of juuling and/or vaping. Screenin:25 [facility] ED Fall Risk Assessment (Adult) History of falling in the last 3 months, ph including since admission No falls in past 3 months (0 pts) Confusion or Disorientation Yes (5 pts) Intoxicated or Sedated No (0 pts) Impaired Gait Yes (1 pt) Mobility Assist Device Used Yes (1 pt) Altered Elimination Yes (1 pt) Score/Fall Risk Level 3 or more points = High Risk Oriented to surroundings, Maintained a safe environment, Hourly rounding (assess needs \\T\\ fall precautionary measures) done, Used ambulatory aids as needed (educated on \\T\\ assisted with). Abuse screen: Denies threats or abuse. Denies injuries from another. Nutritional screening: No deficits noted. Tuberculosis screening: No symptoms or risk factors identified. 18:50 Hailee Swallow Protocol Brief Cognitive Screen What is your name? Normal, Where are you ph right now? Normal, What year is it? Normal. Oral Mechanism Examination Facial Symmetry: Normal, Motion: Normal, Lip Closure: Normal, Oral Mechanism Result: Normal. 3 oz Water Swallow Challenge: Pt able to drink all water without stopping, coughing, choking or throat clearing: Yes Result: PASS. Assessment: 18:23 Reassessment: at bedside states that pt has been having episodes of confusion at home for a few days. General: SEE TRIAGE ASSESSMENT. 18:50 Reassessment: Patient appears in no apparent distress at this time. Patient and/or ph family updated on plan of care and expected duration. Pain level reassessed. Pt taken to CT via stretcher. 19:23 General: Appears comfortable, Behavior is calm, cooperative. Pain: Denies pain. Neuro: ph Level of Consciousness is awake, alert, obeys commands, Oriented to person, place, time, situation. Neuro: Denies dizziness. Respiratory: Respiratory effort is even, unlabored, Respiratory pattern is regular, symmetrical. Derm: Skin is pink, warm \\T\\ dry. Musculoskeletal: Reports General weakness for past few days. Vital Signs: 18:00 BP 153 / 82; Pulse 72; Resp 18; Temp 98; Pulse Ox 100% on R/A; Weight 74.84 kg; Height ph 5 ft. 5 in. ; 19:23 BP 176 / 81; Pulse 78; Resp 17; Pulse Ox 100% on R/A; ph 20:53 BP 182 / 90; Pulse 76; Resp 17; Pulse Ox 99% on R/A; ph 18:00 Body Mass Index 27.46 (74.84 kg, 165.1 cm) ph ED Course: 18:00 Patient arrived in ED. ph 18:02 Murphy Mcneal MD is Attending Physician. bs3 18:21 Triage completed. ph 18:25 Patient has correct armband on for positive identification. Bed in low position. Call ph light in reach. Side rails up X 1. Client placed on continuous cardiac and pulse oximetry monitoring. NIBP monitoring applied. 18:26 Arm band placed on Patient placed in an exam room. ph 18:27 Chary Suarez, RN is Primary Nurse. ph 18:45 Inserted saline lock: 20 gauge in right antecubital area, using aseptic technique. ph Blood collected. 18:48 AMMONIA Sent. ph 18:49 Basic Metabolic Panel Sent. ph 18:49 CBC with Diff Sent. ph 18:49 High Sensitivity Troponin Sent. ph 18:50 LFT's Sent. ph 18:50 Magnesium Sent. ph 18:50 Protime (+inr) Sent. ph 18:50 Ptt, Activated Sent. ph 18:50 No provider procedures requiring assistance completed. ph 18:56 CT Head Brain wo Cont In Process Unspecified. EDMS 19:04 Stroke CXR 1 View In Process Unspecified. EDMS 19:10 SARS-COV-2 Antigen Rapid Sent. rs5 19:11 Influenza Screen (a \\T\\ B) Sent. rs5 19:16 Notified ED physician of a critical lab result(s). Trop 285.8. ph 19:18 Deepak Harvey MD is Hospitalizing Provider. bs3 19:55 Primary Nurse role handed off by Chary Suarez, RN rv1 20:54 Patient admitted, IV remains in place. ph Administered Medications: No medications were administered Medication: 18:25 VIS not applicable for this client. ph Outcome: 19:19 Decision to Hospitalize by Provider. bs3 20:54 Admitted to Med/surg accompanied by gabriel, via stretcher, room 207, with chart, Report ph called to RACHEL Lanza 20:54 Condition: stable 20:54 Instructed on the need for admit, Demonstrated understanding of instructions. 21:11 Patient left the ED. ph Signatures: Dispatcher [employer] Chary Tracey RN RN ph Murphy Mcneal MD MD bs3 No Godinez rv1 Micha Odonnell rs5 Corrections: (The following items were deleted from the chart) 19:18 19:16 Notified ED physician of a critical lab result(s). Trop 285 ph ph
--- NOTE | 2023-01-15 19:19 | EDPHYS ---
Physician Documentation [facility] Name: Nabor Ny Age: 52 yrs Sex: Male : 1970 Arrival Date: 01/15/2023 Time: 17:42 Bed 3 Private MD: ED Physician Murphy Mcneal HPI: 01/15 18:30 This 52 yrs old Male presents to ER via EMS with complaints of confusion. bs3 18:30 52-year-old male history of CVA diabetes CHF ESRD Sunday recent DVT bs3 presents with intermittent confusion since Sunday he was seen by myself on Sunday after being referred in for DVT he is started to develop confusion on Sunday night after starting his Eliquis and has been intermittent his noted that at times he did not have recollection of certain things that he would he thought it was nighttime when it was daytime and today during dialysis he was more confused where he was asking multiple times if he was done when he was not finished he denies any chest pain shortness of breath nausea vomiting but does note a slight headache denies any fevers or chills he makes a small amount of urine denies any urinary complaints. Historical: - Allergies: 18:21 PHILIP INHIBITORS; ph 18:21 Lisinopril; ph - PMHx: 18:21 CHF 2018; CVA; Diabetes - NIDDM; Dialysis; Hirschsprung's disease; Hypertension; kidney ph disease; Kidney stone; RENAL FAILURE; - PSHx: 18:21 Cholecystectomy; Colostomy; Dialysis Catheter; ph - Immunization history:: Adult Immunizations up to date. - Social history:: Smoking status: Reported history of juuling and/or vaping. ROS: 18:30 Constitutional: Negative for fever, chills bs3 18:30 All other systems are negative. Exam: 18:30 Constitutional: This is a well developed, well nourished patient who is awake, alert, bs3 and in no acute distress. Head/Face: Normocephalic, atraumatic. Eyes: Pupils equal round and reactive to light, extra-ocular motions intact. Lids and lashes normal. ENT: mmm, no posterior phyarngeal erythema Neck: Trachea midline, no thyromegaly, no neck stiffness Chest/axilla: Normal chest wall appearance and motion. Nontender with no deformity. No lesions are appreciated. Cardiovascular: Regular rate and rhythm with a normal S1 and S2. symmetric pulses in upper extremities Respiratory: Lungs have equal breath sounds bilaterally, clear to auscultation, no respiratory distress Abdomen/GI: Soft, non-tender, no rebound or guarding MS/ Extremity: Pulses equal, no cyanosis. Neurovascular intact. Full, normal range of motion. Neuro: Awake and alert, GCS 15, oriented to person, place, time, and situation. Cranial nerves II-XII grossly intact. He has left-sided weakness which is his baseline he is able to name objects he knows his family members in the room he recalls going to dialysis today Psych: Awake, alert, with orientation to person, place and time. Behavior, mood, and affect are within normal limits. 19:22 rNormal sinus rhythm at 71 t wave inversion in the lateral leads QTc 495 as interpreted bs3 Vital Signs: 18:00 BP 153 / 82; Pulse 72; Resp 18; Temp 98; Pulse Ox 100% on R/A; Weight 74.84 kg; Height ph 5 ft. 5 in. ; 19:23 BP 176 / 81; Pulse 78; Resp 17; Pulse Ox 100% on R/A; ph 20:53 BP 182 / 90; Pulse 76; Resp 17; Pulse Ox 99% on R/A; ph 18:00 Body Mass Index 27.46 (74.84 kg, 165.1 cm) ph MDM: 18:00 Patient medically screened. bs3 19:14 Data reviewed: vital signs, nurses notes. ED course: Discussed with Dr. Harvey who bs3 recommended neurology and nephrology consultation recommended admission I did a rectal exam which was negative for bright red blood or black stool per family no recent bowel movements that were dark will admit per Dr. Harvey request holding Eliquis and holding transfusion and he may transfuse tomorrow during dialysis. 01/15 18:14 Order name: Basic Metabolic Panel; Complete Time: 19:17 bs3 01/15 18:14 Order name: CBC with Diff; Complete Time: 18:59 bs3 01/15 18:14 Order name: High Sensitivity Troponin; Complete Time: 19:17 bs3 01/15 18:14 Order name: Magnesium; Complete Time: 19:17 bs3 01/15 18:14 Order name: Protime (+inr) bs3 01/15 18:14 Order name: Ptt, Activated [facility] 01/15 18:14 Order name: LFT's; Complete Time: 19:17 [facility] 01/15 18:14 Order name: AMMONIA; Complete Time: 19:11 [facility] 01/15 18:14 Order name: Influenza Screen (a \T\ B) [facility] 01/15 18:14 Order name: SARS-COV-2 Antigen Rapid [facility] 01/15 18:14 Order name: Urinalysis w/ reflexes [facility] 01/15 18:14 Order name: Stroke CXR 1 View; Complete Time: 19:11 [facility] 01/15 18:14 Order name: CT Head Brain wo Cont; Complete Time: 19:11 [facility] 01/15 18:14 Order name: EKG; Complete Time: 18:15 [facility] 01/15 18:14 Order name: Accucheck; Complete Time: 18:48 [facility] 01/15 18:14 Order name: Cardiac monitoring; Complete Time: 18:48 [facility] 01/15 18:14 Order name: EKG - Nurse/Tech; Complete Time: 18:48 [facility] 01/15 18:14 Order name: IV Saline Lock; Complete Time: 18:48 [facility] 01/15 18:14 Order name: Labs collected and sent; Complete Time: 18:48 [facility] 01/15 18:14 Order name: O2 Per Protocol; Complete Time: 18:49 [facility] 01/15 18:14 Order name: O2 Sat Monitoring; Complete Time: 18:48 [facility] 01/15 18:14 Order name: Stroke Swallow Screen; Complete Time: 18:48 [facility] 01/15 19:35 Order name: Misc. Order: Recollect BLUE TOP; Complete Time: 20:32 rv1 Administered Medications: No medications were administered Disposition Summary: 01/15/23 19:19 Hospitalization Ordered Hospitalization Status: Inpatient Admission bs3 Provider: Deepak Harvey bs3 Location: Telemetry/MedSurg (Inpatient) bs3 Condition: Stable bs3 Problem: new bs3 Symptoms: have improved bs3 Bed/Room Type: Standard bs3 Room Assignment: 207(01/15/23 19:53) cg Diagnosis - Encephalopathy, unspecified bs3 - Anemia, unspecified bs3 Forms: - Medication Reconciliation Form bs3 - SBAR form bs3 Signatures: Dispatcher [employer] EDMS Chary Suarez RN RN ph Sarah Moe RN RN cg Murphy Mcneal MD MD bs3 No Godinez 1 Corrections: (The following items were deleted from the chart) 18:33 18:15 CT-STROKE BRAIN W/O CONTRAST+CT.RAD.BRZ ordered. EDMS EDMS 18:49 18:14 NPO ordered. bs3 ph 19:53 19:19 bs3
[2023-01-15 19:29] LABS: SARS-CoV-2 Antigen Rapid Res Negative (Negative)
[2023-01-15] MEDS: INSULIN -REGULAR HUMAN 50 UNIT/0.5 ML ML SQ SCH (21:17)
[2023-01-15] MEDS ORDERED: ONDANSETRON 4 MG/2 ML VIAL IV PRN (21:17)
[2023-01-15] MEDS ORDERED: ACETAMINOPHEN 500 MG TAB PO PRN (21:17)
[2023-01-15 22:41] LABS: Magnesium 1.6 mg/dL (1.6-2.4); Troponin High Sensitivity 273.6 pg/mL (<58.9)
[2023-01-15 22:58] LABS: Protime INR 1.82
[2023-01-15] MEDS ORDERED: POTASSIUM CL SA 10 MEQ TAB PO ONE (23:00)
[2023-01-15] MEDS ORDERED: POTASSIUM PHOS 10 MM in NA CHLORIDE 0.9% 250 ML IV ONE (23:03)
[2023-01-15] MEDS ORDERED: THIAMINE 200 MG/2 ML INJ IVP ONE (23:06)
[2023-01-15] MEDS ORDERED: MAGNESIUM SULFATE 1 gm IVPB 1 GM/100 ML BAG IV ONE (23:30)
[2023-01-16] MEDS ORDERED: POTASSIUM PHOS IN 0.9 % NACL 15 MMOL/250 ML BAG IV ONE (00:12)
[2023-01-16 03:50] LABS: Absolute Lymphocytes (CBC) 0.9 K/uL (0.7-4.9); Hematocrit 16.4 % (39.6-49.0); Lymphocytes % 12.2 % (15.3-44.8); MPV 8.8 fL (7.6-11.3)
[2023-01-16 04:29] LABS: Ferritin 647.9 ng/mL (26-388); Magnesium 1.8 mg/dL (1.6-2.4); Potassium 3.3 mEq/L (3.5-5.1)
[2023-01-16 04:30] LABS: Troponin High Sensitivity 228.2 pg/mL (<58.9)
[2023-01-16] MEDS: INSULIN -REGULAR HUMAN 50 UNIT/0.5 ML ML SQ SCH ×4 (07:30→21:00)
[2023-01-16] MEDS ORDERED: NA CHLORIDE 0.9% 250 ML ONE ×2 (07:42→12:35)
[2023-01-16] MEDS ORDERED: MAGNESIUM SULFATE 1 gm IVPB 1 GM/100 ML BAG IV ONE ×2 (08:00→09:46)
[2023-01-16] MEDS: FOLBIC 1 TAB PO SCH (08:48)
[2023-01-16] MEDS: MULTIVITAMINS,THERAPEUT 1 TAB PO SCH (08:50)
[2023-01-16] MEDS: CALCITROL 0.25 MCG CAP PO SCH (08:50)
[2023-01-16] MEDS ORDERED: HYDRALAZINE HCL 25 MG TABLET PO SCH (09:00)
[2023-01-16] MEDS ORDERED: THIAMINE HCL 100 MG TABLET PO SCH (09:00)
[2023-01-16] MEDS ORDERED: HOME MED 1 EA UNK (Folic Acid/Vit B Complex And C [Dialyvite 800 Chewable Wafer] 800 MCG T PO SCH (09:00)
[2023-01-16] MEDS ORDERED: EPOETIN ALFA 10,000 UNIT/ML VIAL IV ONE ×2 (09:00→11:15)
[2023-01-16] MEDS ORDERED: METOCLOPRAMIDE 5 MG TAB PO SCH (09:00)
[2023-01-16] MEDS ORDERED: CLONIDINE 0.3 MG/PATCH TD SCH (09:00)
[2023-01-16 09:44] LABS: Potassium 3.6 mEq/L (3.5-5.1)
[2023-01-16] MEDS ORDERED: POTASSIUM PHOS 10 MM in NA CHLORIDE 0.9% 250 ML IV ONE (09:48)
[2023-01-16 09:56] LABS: Phosphorus 1.1 mg/dL (2.5-4.9)
--- NOTE | 2023-01-16 10:15 | CON ---
Date of Consultation: 01/16/2023 Reason For Consultation: Elevated BUN and creatinine, altered mental status, electrolyte imbalance. History Of Present Illness: This is a pleasant 52-year-old gentleman, well known to me from the dialysis and previous admission with significant past medical history of end-stage renal disease, on hemodialysis, diabetes complicated with neuropathy and nephropathy, gastroparesis newly diagnosed, hypertension, anemia of chronic kidney disease, the patient recently admitted to the hospital, diagnosed with gastroparesis, placed on metoclopramide, showed some improvement with increased p.o. intake. The patient also had cholecystectomy. The patient started having some hallucination and altered mental status. For that reason, the patient was brought to the hospital. The patient denied any fever or chills. Past Medical History: Includes; 1. Hypertension. 2. Diabetes complicated with neuropathy, retinopathy, and nephropathy. 3. Hyperlipidemia. 4. Gastroparesis. 5. Anemia of chronic kidney disease. 6. End-stage renal disease, on hemodialysis Sunday, Sunday, Sunday at [facility]. Past Surgical History: Includes; 1. PermCath placement. 2. EGD. 3. Cholecystectomy. Allergies: NO KNOWN DRUGS ALLERGY. Home Medications: Include; 1. Metoclopramide. 2. Plavix. 3. Atorvastatin. 4. Hydralazine. 5. Calcitriol. 6. Folic acid with vitamin. 7. Pantoprazole. 8. Clonidine. Family History: Positive for diabetes and end-stage renal disease. Social History: Lives with family. Active alcohol. Denied drugs abuse. Review of Systems: Head and Neck: No red eye. No ear pain. GI: Still has nausea, decreased intake, but slightly better. : No polyuria. No dysuria. No hematuria. Art Objects Supervisor: Not applicable. Respiratory: No shortness of breath. Cardiovascular: No chest pain. Endocrine: No polydipsia. Skin: No rash. Neuro: Has altered mental status. No focality. Musculoskeletal: No joint pain. Physical Examination: Vital Signs: When I saw the patient; blood pressure 190/90, pulse of 78, afebrile. Chest: Clear to auscultation. Heart: S1, S2. Regular. Abdomen: Soft, nontender. Extremity: No edema. Neuro: Alert, pleasantly confused, oriented to person and place, not oriented to time. Laboratory Data: WBC 7.2, H and H 5.6/16.4, platelet 108. Sodium 137, potassium 3.3, bicarb 29, BUN 15, creatinine 2.6. Calcium 7.3, phosphorus 1, magnesium 1.6. Iron saturation 33. Current Medications: In the hospital include; 1. Epogen. 2. Clonidine p.r.n. 3. Clonidine patch. 4. Hydralazine 25 b.i.d. 5. Pantoprazole. 6. Zofran. 7. Insulin. 8. Magnesium sulfate. 9. Calcitriol. 10. Multivitamin. 11. Thiamin. Assessment And Plan: 1. End-stage renal disease, severely malnourished. I am going to go ahead and start the patient on his dialysis Sunday, Sunday, Sunday. We will schedule the patient for dialysis tomorrow and we will monitor. The patient is going to receive dialysis on high potassium bath and receive 2 units of blood transfusion with dialysis tomorrow and we will follow up. 2. Hypomagnesemia, hypophosphatemia, hypokalemia. I am going to go ahead and replenish the potassium phosphate. We will follow up the patient. 3. Severely malnourished. We will go ahead and arrange for PPN. 4. Altered mental status, possible secondary to metoclopramide. We will discontinue metoclopramide. We will follow up improvement after dialysis. The patient may need lumbar puncture to evaluate for any other etiology. CT head was done and was negative. 5. Malnourished. We will start the patient on PPN and we will follow up. 6. Diabetes as by primary. time spend exam the patient face to face reviewing data lab and radiology , placing order discussing the case with the by bedside , discussing with the nursing staff , discussing with the hospitalist >65 min MIKAL Voice ID: [id number] Report ID: [id number] LUIS
[2023-01-16] MEDS ORDERED: DEXTROSE 10%-WATER 500 ML IV SCH (11:00)
[2023-01-16] MEDS ORDERED: POTASSIUM CL SA 10 MEQ TAB PO ONE (11:00)
[2023-01-16] MEDS: CYANOCOBALAMIN 1000MCG/ML INJ IM SCH (11:36)
[2023-01-16] MEDS: HYDRALAZINE HCL 25 MG TABLET PO SCH ×2 (13:50→22:43)
[2023-01-16 14:23] LABS: Hepatitis B Core Ab, Total Nonreactive (Nonreactive); Hepatitis B surface AG Interp. Nonreactive (Nonreactive)
[2023-01-16 16:57] LABS: Hematocrit 25.2 % (39.6-49.0)
[2023-01-16] MEDS: cloNIDine HCL 0.1 MG TAB PO PRN (17:19)
[2023-01-16] MEDS: AA 4.25 %/D5W/ELECTROLYTES 2,000 ML IV SCH (17:59)
--- NOTE | 2023-01-16 21:18 | P.HP ---
Certification for Inpatient Patient admitted to: Inpatient With expected LOS: >2 Midnights Practitioner: I am a practitioner with admitting privileges, knowledge of patient current condition, hospital course, and medical plan of care. Services: Services provided to patient in accordance with Admission requirements found in Title 42 Section 412.3 of the Code of Federal Regulations Patient History Date of Service: 01/16/23 Reason for admission: WEAKNESS, HALLUCINATIONS, ANEMIA History of Present Illness: ARIELLA HAS MANY MEDICAL ISSUES. HE HAS HAD DM FOR LONG DURATION WITH COMP LICATIONS OF CKD5 NEEDING HD, NEUROPATHY AND NOW SEVERE GASTROPARESIS. SINCE LAST ADMISSION HE IS ON REGLAN FOR GASTROPARESIS WHILE HE IS WAITING TO SEE EXPERT IN THIS ISSUE FOR PACEMAKER. I TOLD FAMILY THAT THIS IS THE ONLY MEDICINE AVAILABLE FOR THIS ISSUE AND HAS SOME NEUROLOGICAL SE. PER FAMILY HE STARTED TO EAT WITH THE MEDICINE BUT ALSO STARTED TO GET HALLUCINATIONS. Allergies PHILIP Inhibitors Adverse Reaction (Verified 01/02/23 03:27) Angioedema lisinopril Adverse Reaction (Verified 01/02/23 03:26) Angioedema Home Medications: Hydralazine [Apresoline*] 25 mg PO BID 05/22/22 Pantoprazole [Protonix Tab*] 40 mg PO BEDTIME 10/11/22 Clonidine Patch [Catapres-Tts 3*] 0.3 mg TD EVERY 7TH DAY #4 01/03/23 Metoclopramide HCl [Reglan] 10 mg PO TID #100 01/03/23 Apixaban [Eliquis] 5 mg PO BID 01/15/23 Calcitrol [Rocaltrol*] 0.25 mcg PO Q48H 01/15/23 Folic Acid/Vit B Complex and C [Dialyvite 800 Chewable Wafer] 1 tab PO DAILY 01/15/23 - Past Medical/Surgical History Has patient received pneumonia vaccine in the past: No Diabetic: Yes -: CHF -: CVA 2018 -: Diabetes -: CKD -: HTN -: vaping -: kidney stones -: hirschsprung disease large intestine surgery - Family History Father -: Hypertension, Diabetes Mother -: Lung disease, Diabetes, Cancer Notes: lung ca Sister -: Diabetes, Kidney disease Notes: HD sister - Social History Smoking Status: Current every day smoker Alcohol use: No CD- Drugs: No Caffeine use: Yes Place of Residence: Home Review of Systems 10-point ROS is otherwise unremarkable General: Weakness, Malaise Physical Examination - Vital Signs Temperature: 97.7 F Blood Pressure: 179/81 Pulse: 71 Respirations: 14 Pulse Ox (%): 98 - Physical Exam General: Oriented x3, Mild distress, Other (TRING TO PICK THINGS FROM AIR BUT ALSO HE IS LUCID AND SOMEWHAT LETHARGIC.) HEENT: Atraumatic, PERRLA, Mucous membr. moist/pink, EOMI, Sclerae nonicteric Neck: Supple, 2+ carotid pulse no bruit, No LAD, Without JVD or thyroid abnormality Respiratory: Clear to auscultation bilaterally, Normal air movement Cardiovascular: Regular rate/rhythm, Normal S1 S2 Gastrointestinal: Normal bowel sounds, No tenderness Musculoskeletal: No tenderness Integumentary: No rashes Neurological: Normal speech, Abnormal strength (GEN WEAK) Lymphatics: No axilla or inguinal lymphadenopathy - Studies Microbiology Data (last 24 hrs): 01/15/23 19:06 Nasopharnyx Influenza Type A Antigen Screen - Final 01/15/23 19:06 Nasopharnyx Influenza Type B Antigen Screen - Final Assessment and Plan - Problems (Diagnosis) (1) Severe anemia Current Visit: Yes Status: Acute Plan: THIS CAN BE COMBINATION OF ACUTE AND ANEMIA OF CHRONIC DISEASE. HE CAN'T TAKE ELIQUIS ANY LONGER. HE WILL NEED GI ROBERTS BUT HE ALSO IS VERY WEAK TO TOLERATE PROCEDURE FOR NOW. (2) DVT (deep venous thrombosis) Current Visit: Yes Status: Acute Plan: STOP ELIQUIS INSERT IVC FILTER. (3) Chronic kidney disease, stage V Current Visit: No Status: Chronic (4) Debility Current Visit: Yes Status: Chronic Plan: HE IS NOT GETTING BETTER. HIS NECK IS SUPPLE I AM HOPING AFTER GASTROPARESIS IMPROVES, HE WILL IMPROVE. UNTIL THEN HE MAY NEED PARENTRAL NUTRITION. WILL DISCUSS WITH DR. DALAL. - Advance Directives Does patient have a Living Will: No Does patient have a Durable POA for Healthcare: No
[2023-01-16] MEDS: PANTOPRAZOLE 40MG TABLET PO SCH (22:43)
[2023-01-16 23:05] VITALS: BMI 27.4
[2023-01-17] MEDS: cloNIDine HCL 0.1 MG TAB PO PRN ×3 (00:54→12:24)
[2023-01-17 03:59] LABS: Magnesium 1.9 mg/dL (1.6-2.4)
[2023-01-17 04:05] LABS: Phosphorus 1.4 mg/dL (2.5-4.9)
--- NOTE | 2023-01-17 07:10 | EKG ---
Test Date: 2023-01-15 Test Time: 18:32:06 Waiter/Waitress Second Class: DEV MEASUREMENT RESULTS: Intervals: Rate: 71 GA: 182 QRSD: 108 QT: 456 QTc: 495 [place]: P: 58 GA: 182 QRS: -24 T: -29 INTERPRETIVE STATEMENTS: Normal sinus rhythm T wave abnormality, consider lateral ischemia Prolonged QT Abnormal ECG Compared to ECG 12/31/2022 17:30:50 Possible ischemia now present Ventricular premature complex(es) no longer present Left-axis deviation no longer present T-wave abnormality still present Electronically Signed On 01-17-23 07:07:00 CDT by Hermann Nunez
[2023-01-17] MEDS: INSULIN -REGULAR HUMAN 50 UNIT/0.5 ML ML SQ SCH ×4 (07:30→20:37)
[2023-01-17] MEDS ORDERED: POTASSIUM PHOS IN 0.9 % NACL 15 MMOL/250 ML BAG IV ONE (08:00)
[2023-01-17] MEDS: THIAMINE 200 MG/2 ML INJ IVP SCH (08:23)
[2023-01-17] MEDS: FOLBIC 1 TAB PO SCH (08:23)
[2023-01-17] MEDS: HYDRALAZINE HCL 25 MG TABLET PO SCH ×3 (08:23→20:20)
[2023-01-17] MEDS: MULTIVITAMINS,THERAPEUT 1 TAB PO SCH (08:23)
[2023-01-17] MEDS ORDERED: MAGNESIUM SULFATE 1 gm IVPB 1 GM/100 ML BAG IV ONE (10:00)
--- NOTE | 2023-01-17 11:09 | PN ---
Date of Progress Note: 01/17/2023 Subjective: The patient was admitted with metoclopramide toxicity. The patient had dialysis yesterday. We hold on metoclopramide. The patient today more awake, still not eating. The patient status post dialysis yesterday. Physical Examination: Vital Signs: When I saw to the patient; blood pressure 170/84, pulse of 75, temperature 98.1. Chest: Clear to auscultation. Heart: S1, S2. Regular. Abdomen: Soft, nontender. Extremity: No edema. Neuro: Alert. No focality. Laboratory Data: Hemoglobin 8.6. Sodium 136, potassium 4, bicarb 29, BUN 12, creatinine 1.9, calcium 7.2, phosphorus 1.4, magnesium 1.9. Current Medications: The patient on include; 1. Clonidine patch 0.3. 2. Hydralazine 25 t.i.d. 3. Tylenol. 4. PPN. 5. Pantoprazole. 6. Zofran p.r.n. Assessment And Plan: 1. End-stage renal disease. We will continue the patient on dialysis. The patient received dialysis yesterday. I am going to arrange for another session tomorrow. His schedule will be dialyzed as TTS for the time being and we will follow up the patient. 2. Metoclopramide toxicity, on the recovery. Keep holding metoclopramide. 3. Anemia secondary to GI loss, gastroparesis, chronic kidney disease. Continue KATEY. Status post transfusion. We will follow up. 4. Hypertension, not controlled. Increase hydralazine to 50 mg. 5. Gastroparesis with severe side effects/toxicity to metoclopramide. We will consult GI to evaluate if the patient can be expedite the pacemaker insertion and we will follow up. If not available, we will try to transfer the patient to another facility for expedite that. 6. Malnourish. Continue PPN. 7. Deconditioning, declining. Continue full workup. We will consider Hematology evaluation. 8. Hypomagnesemia, hypophosphatemia. We will supplement. Continue PPN. 9- Unprovoke DVT on Eliquis with the recurrent Gastritis and GI blood loss plan for IVC filter placement , will need hematology evaluation time spend exam the patient face to face reviewing data lab and radiology , placing order discussing the case with the patient , discussing with the nursing staff , discussing with the hospitalist >35 min MIKAL Voice ID: [id number] Report ID: [id number] MTDAndry
[2023-01-17] MEDS ORDERED: HEPA 1000U/500MLS 2,000 UNIT/1,000 ML BAG IV ONE (15:36)
[2023-01-17] MEDS ORDERED: LIDOCAINE 1% 20 ML MDV ONE (15:36)
[2023-01-17] MEDS ORDERED: FENTANYL CITR 100 MCG/2 ML ONE (15:52)
[2023-01-17] MEDS ORDERED: MIDAZOLAM HCL 2 MG/2 ML INJ ONE (15:52)
[2023-01-17] MEDS ORDERED: NA CHLORIDE 0.9% 500 ML ONE (16:15)
[2023-01-17] MEDS: AA 4.25 %/D5W/ELECTROLYTES 2,000 ML, Lipids 20% 250 ML with MULTIVITAMINS INJ 10 ML IV SCH ×3 (17:58)
[2023-01-17] MEDS: PANTOPRAZOLE 40MG TABLET PO SCH (20:20)
--- NOTE | 2023-01-17 20:22 | P.PN ---
Subjective Date of Service: 01/17/23 Chief Complaint: WEAKNESS, HALLUCINATIONS, ANEMIA Subjective: No new changes PER HE HAD BETTER NIGHT WITH NO HALLUCINATIONS WITHOUT REGLAN. I TALKED TO DR. ROJO AND HE DID IVC FILTER THIS PM. HE CAN'T DO ANTICOAGUATION WITH SEVERE ANEMIA. EH IS STILL NOT EATING. Review of Systems is unable to be obtained Physical Examination - Vital Signs Temperature: 97.7 F Blood Pressure: 156/89 Pulse: 70 Respirations: 18 Pulse Ox (%): 97 - Physical Exam General: Oriented x2, Cachectic, Mild distress HEENT: Atraumatic, PERRLA, EOMI Neck: Supple, JVD not distended Respiratory: Clear to auscultation bilaterally, Normal air movement Cardiovascular: Regular rate/rhythm, Normal S1 S2 Gastrointestinal: Normal bowel sounds, No tenderness Musculoskeletal: No tenderness Integumentary: No rashes Neurological: Normal speech, Normal tone, Normal affect Lymphatics: No axilla or inguinal lymphadenopathy - Studies Medications List Reviewed: Yes Assessment And Plan - Current Problems (Diagnosis) (1) Severe anemia Current Visit: Yes Status: Acute Plan: THIS CAN BE COMBINATION OF ACUTE AND ANEMIA OF CHRONIC DISEASE. HE CAN'T TAKE ELIQUIS ANY LONGER. HE WILL NEED GI ROBERTS BUT HE ALSO IS VERY WEAK TO TOLERATE PROCEDURE FOR NOW. DAILY LAB. CHECK HG. (2) DVT (deep venous thrombosis) Current Visit: Yes Status: Acute Plan: STOP ELIQUIS INSERT IVC FILTER. IVC FILTER DONE. OFF ELIQUIS NOW. (3) Chronic kidney disease, stage V Current Visit: No Status: Chronic (4) Debility Current Visit: Yes Status: Chronic Plan: HE IS NOT GETTING BETTER. HIS NECK IS SUPPLE I AM HOPING AFTER GASTROPARESIS IMPROVES, HE WILL IMPROVE. UNTIL THEN HE MAY NEED PARENTRAL NUTRITION. WILL DISCUSS WITH DR. DALAL. J TUBE WILL BE GOOD OPTION BUT MAY NEED TO BE DONE IN [place]. PROGNOSIS IS POOR I SUSPECT THE CUSE OF DEBILITY IS SEVERE GASTROPARESIS. ONCE AGAIN WE NEED EXPERT FOR THIS ISSUE. FAMILY HAS TWO NAMES TO MAKE APT WITH.
[2023-01-18 06:11] LABS: Magnesium 2.2 mg/dL (1.6-2.4); Phosphorus 2.5 mg/dL (2.5-4.9); Potassium 4.4 mEq/L (3.5-5.1)
[2023-01-18] MEDS: INSULIN -REGULAR HUMAN 50 UNIT/0.5 ML ML SQ SCH ×4 (07:30→21:00)
[2023-01-18] MEDS: HYDRALAZINE HCL 25 MG TABLET PO SCH ×4 (08:07→21:23)
[2023-01-18] MEDS: CALCITROL 0.25 MCG CAP PO SCH (08:07)
[2023-01-18] MEDS: MULTIVITAMINS,THERAPEUT 1 TAB PO SCH (08:07)
[2023-01-18] MEDS: THIAMINE 200 MG/2 ML INJ IVP SCH (08:08)
[2023-01-18] MEDS: FOLBIC 1 TAB PO SCH (08:08)
--- NOTE | 2023-01-18 10:34 | PN ---
Date of Progress Note: 01/18/2023 Subjective: The patient was admitted with metoclopramide toxicity and symptomatic anemia. The patient undergone IVC filter placement yesterday, tolerated well. The patient is scheduled for dialysis today. The patient on PPN. Physical Examination: Vital Signs: Blood pressure 164/90, pulse of 74, afebrile. Chest: Clear to auscultation. Heart: S1, S2. Regular. Abdomen: Soft, nontender. No guarding or rebound. Extremities: No edema. Neuro: Alert, pleasantly confused, but much better than yesterday. No focality. Laboratory Data: Hemoglobin 8.6. Sodium 133, potassium 4.4, bicarb 27, BUN 26, creatinine 2.8, calcium 7.2, phosphorus 2.5, magnesium 2.2. Current Medications: The patient on include clonidine patch, hydralazine 50 t.i.d., PPN, pantoprazole, insulin, magnesium sulfate. Assessment And Plan: 1. End-stage renal disease. We will continue dialysis this week as TTS, scheduled for dialysis today and then we will switch back to his regular schedule as Sunday, Sunday, Sunday. 2. Hyponatremia, will be corrected with dialysis. 3. Hypokalemia. Continue PPN. Will be corrected with dialysis. 4. Hypomagnesemia, status post supplement, resolved. 5. Hypophosphatemia, resolved. 6. Severe gastroparesis with toxicity to metoclopramide. Continue PPN. Awaiting for transfer for pacemaker placement. 7. Deep vein thrombosis with gastrointestinal bleed, status post IVC filter. Eliquis has been discontinued. 8. Hypercoagulopathy, unknown etiology. Awaiting for Oncology workup. 9. Malnourish with severe weight loss. Awaiting for Oncology workup and gastric pacemaker/G-tube insertion and transfer. time spend exam the patient face to face reviewing data lab and radiology , discussing the case with the patient and the by the bed side , discussing the case with the steam frame operator ambel her and Dr Harvey , placing order more than 35 min MARY/GALEN Voice ID: [id number] Report ID: [id number] [facility]
[2023-01-18] MEDS: AA 4.25 %/D5W/ELECTROLYTES 2,000 ML IV SCH (16:40)
[2023-01-18] MEDS: PANTOPRAZOLE 40MG TABLET PO SCH (21:23)
--- NOTE | 2023-01-18 21:58 | P.PN ---
Subjective Date of Service: 01/18/23 Chief Complaint: WEAKNESS, HALLUCINATIONS, ANEMIA Subjective: Improving PER HE HAD BETTER NIGHT WITH NO HALLUCINATIONS WITHOUT REGLAN. I TALKED TO DR. ROJO AND HE DID IVC FILTER THIS PM. HE CAN'T DO ANTICOAGUATION WITH SEVERE ANEMIA. EH IS STILL NOT EATING. HE IS LITTLE BETTER TODAY. HE IS BEING FED BY PPN. HE CAN STILL EAT IF HE IS ABLE TO TOLERATE IT. Physical Examination - Vital Signs Temperature: 98.3 F Blood Pressure: 176/90 Pulse: 71 Respirations: 16 Pulse Ox (%): 97 - Physical Exam General: Oriented x3, Cachectic, Mild distress, Moderate distress HEENT: Atraumatic, PERRLA, EOMI Neck: Supple, JVD not distended Respiratory: Clear to auscultation bilaterally, Normal air movement Cardiovascular: Regular rate/rhythm, Normal S1 S2 Gastrointestinal: Normal bowel sounds, No tenderness Musculoskeletal: No tenderness Integumentary: No rashes Neurological: Normal speech, Normal tone, Normal affect Lymphatics: No axilla or inguinal lymphadenopathy - Studies Medications List Reviewed: Yes Assessment And Plan - Current Problems (Diagnosis) (1) Severe anemia Current Visit: Yes Status: Acute Plan: THIS CAN BE COMBINATION OF ACUTE AND ANEMIA OF CHRONIC DISEASE. HE CAN'T TAKE ELIQUIS ANY LONGER. HE WILL NEED GI ROBERTS BUT HE ALSO IS VERY WEAK TO TOLERATE PROCEDURE FOR NOW. DAILY LAB. CHECK HG. (2) DVT (deep venous thrombosis) Current Visit: Yes Status: Acute Plan: STOP ELIQUIS INSERT IVC FILTER. IVC FILTER DONE. OFF ELIQUIS NOW. (3) Chronic kidney disease, stage V Current Visit: No Status: Chronic (4) Debility Current Visit: Yes Status: Chronic Plan: DR. DALAL CALLED [facility]. NONE DO J TUBE INSERTION. 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 I PREFER HE GOES TO A PLACE DR. DALAL CAN GO TO TAKE CARE OF HI FAMILY IS AWARE..
[2023-01-19 02:51] LABS: Absolute Lymphocytes (CBC) 0.8 K/uL (0.7-4.9); Hematocrit 24.8 % (39.6-49.0); Lymphocytes % 14.1 % (15.3-44.8); MCV 89.4 fL (80-100); MPV 9.2 fL (7.6-11.3); RBC Red Blood Cell Count 2.77 M/uL (4.33-5.43)
[2023-01-19 03:17] LABS: Potassium 4.3 mEq/L (3.5-5.1)
[2023-01-19] MEDS: INSULIN -REGULAR HUMAN 50 UNIT/0.5 ML ML SQ SCH ×4 (07:30→20:36)
[2023-01-19] MEDS: HYDRALAZINE HCL 25 MG TABLET PO SCH ×3 (10:31→20:35)
[2023-01-19] MEDS: MULTIVITAMINS,THERAPEUT 1 TAB PO SCH (10:31)
[2023-01-19] MEDS: FOLBIC 1 TAB PO SCH (10:31)
[2023-01-19] MEDS: THIAMINE 200 MG/2 ML INJ IVP SCH (10:40)
--- NOTE | 2023-01-19 15:07 | P.PN ---
Subjective Date of Service: 01/19/23 Chief Complaint: WEAKNESS, HALLUCINATIONS, ANEMIA Subjective: No new changes Physical Examination - Vital Signs Temperature: 98.8 F Blood Pressure: 151/91 Pulse: 74 Respirations: 16 Pulse Ox (%): 98 - Physical Exam General: Other (appears as his stated age) HEENT: Atraumatic Neck: Supple, JVD not distended Respiratory: Other (symmetric chest expansion) Cardiovascular: No rubs, No murmurs Gastrointestinal: Soft and benign, No guarding Musculoskeletal: No clubbing Integumentary: No warmth Neurological: Normal tone Urinary: Other (no bladder distention) External genitalia: Deferred Rectal: Deferred - Studies Medications List Reviewed: Yes Assessment And Plan - Plan 1. End-stage renal disease. no acute indication for patient today. Next HD tomorrow and then we will switch back to his regular schedule Sunday, Sunday, Sunday next week. 2. Anemia. Monitor CBC. 3. Hypokalemia. Continue PPN. Will be corrected with dialysis. 4. Hypomagnesemia. Mg suppl prn. 5. Severe gastroparesis with toxicity to metoclopramide. Continue PPN. Awaiting for transfer to [facility] for gastric pacemaker placement. 6. Deep vein thrombosis with gastrointestinal bleed, status post IVC filter. Eliquis has been discontinued. 7. Hypercoagulability, unknown etiology. Awaiting for Oncology workup. 8. Malnourish with severe weight loss. Awaiting for Oncology workup and gastric pacemaker/Gtube insertion and transfer. 9. DM2. Mngt per primary team.
--- NOTE | 2023-01-19 16:32 | P.PN ---
Subjective Date of Service: 01/19/23 Chief Complaint: WEAKNESS, HALLUCINATIONS, ANEMIA Subjective: No new changes HE CONTINUES TO HALLUCINATE. HE IS WEAK, GETS HD. HE HAD IVC FILTER PLACED ALREADY. Review of Systems 10-point ROS is otherwise unremarkable General: Weakness, Malaise Neurological: Weakness, Confusion Physical Examination - Vital Signs Temperature: 98.8 F Blood Pressure: 151/91 Pulse: 74 Respirations: 16 Pulse Ox (%): 98 - Physical Exam General: Oriented x2, Mild distress, Confused HEENT: Atraumatic, PERRLA, EOMI Neck: Supple, JVD not distended Respiratory: Clear to auscultation bilaterally, Normal air movement Cardiovascular: Regular rate/rhythm, Normal S1 S2 Gastrointestinal: Normal bowel sounds, No tenderness Musculoskeletal: No tenderness Integumentary: No rashes Neurological: Normal speech, Other, Abnormal strength (GEN WEAK) Lymphatics: No axilla or inguinal lymphadenopathy - Studies Medications List Reviewed: Yes Assessment And Plan - Current Problems (Diagnosis) (1) Severe anemia Current Visit: Yes Status: Acute Plan: THIS CAN BE COMBINATION OF ACUTE AND ANEMIA OF CHRONIC DISEASE. HE CAN'T TAKE ELIQUIS ANY LONGER. HE WILL NEED GI ROBERTS BUT HE ALSO IS VERY WEAK TO TOLERATE PROCEDURE FOR NOW. DAILY LAB. CHECK HG. (2) DVT (deep venous thrombosis) Current Visit: Yes Status: Acute Plan: STOP ELIQUIS INSERT IVC FILTER. IVC FILTER DONE. OFF ELIQUIS NOW. (3) Chronic kidney disease, stage V Current Visit: No Status: Chronic (4) Debility Current Visit: Yes Status: Chronic Plan: DR. DALAL CALLED [facility]. NONE DO J TUBE INSERTION. 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 I PREFER HE GOES TO A PLACE DR. DALAL CAN GO TO TAKE CARE OF HI FAMILY IS AWARE.. (5) Altered mental state Current Visit: Yes Status: Acute Plan: DR. BULLARD SAW HIM. HE DID NOT FIND ANY PARTICULAR PATHOLOGY TO HAVE CAUSED THE HALLUCINATIONS. HE SUSEPCTED SOME ATTENTION SEEKING BEHAVIOUR ALSO. Qualifiers: Altered mental status type: delirium Qualified Code(s): R41.0 - Disorientation, unspecified
[2023-01-19] MEDS: AA 4.25 %/D5W/ELECTROLYTES 2,000 ML, Lipids 20% 250 ML with MULTIVITAMINS INJ 10 ML IV SCH ×3 (16:40)
--- NOTE | 2023-01-19 18:30 | CON ---
Reason For Consultation: Consultation called because of hallucinations and confusion. History Of Present Illness: Mr. Ny is a 52-year-old patient with multiple medical pro blems including end-stage renal disease on hemodialysis on Sunday, , and Sunday. He has h ypertension, diabetes mellitus, Hirschsprung disease. Reportedly, the patient's said he was sandy ing about 8 doses of Reglan and began to be more confused, disoriented, was seeing things not there, hearing people speak children, and other hallucinations. In addition, he was not making sense when h e would speak, seemed to be confused and disoriented and asking the same thing multiple times. The p krysten came to [facility] on 01/15/2023. The emergency room physician did note that he was saying when he would finish dialysis and asking that again and again and could not recall what he was told and that he even believed that it was daytime when it was nighttime. His head CT scan showed n o acute ischemic hemorrhagic findings. His blood work revealed on the , his severely low hemoglo bin of 5.6. He received 3 units of red blood cells and today hemoglobin is 8.3, INR 1.82, and creati nine today is 2.23, calcium 7.4 that is low and sodium low at 134, glucose ranged from 125 to 146. P hosphorus and magnesium levels are normal after initially phosphorus being low at 1.4. His liver fun ction studies essentially unremarkable. Ammonia was 18. Troponins were elevated. He has been seen by the Renal Service first, then cardiology Service. He had a negative COVID test and nonreactive he patitis core antibody and hepatitis antigen nonreactive. At the time of my evaluation, patient's wif silvino was at the bedside, he thought that he was in [place] and he thought it was in December, when this is i n January. He was able to immediately repeat 3 words, but could not recall them later and he did identi fy properly a pen, glasses, a watch, and cellphone. He did follow simple commands in terms of moving his arms and legs. Past Medical History: As noted above. Allergies: PHILIP INHIBITOR AND INCLUDING LISINOPRIL. Past Surgical History: Cholecystectomy, colostomy, and dialysis catheter placement. Social History: The patient does vaping with [employer]. Reports smoking in the past. No alcohol cons umption. No marijuana use. Family History: Noncontributory. Review of Systems: No recent fevers or chills. No confusion is noted. No myalgias or arthralgias. No headache. No ra sh. Physical Examination: Vital Signs: Blood pressure 151/91, pulse 74, respiratory rate 16, temperature 98.8. Oxygen saturat ion 95% on room air. General: Mr. Ny is resting in bed. He has his eyes partially closed, but does open them up wh en has to. HEENT: He appears normocephalic, atraumatic. His sclerae are anicteric. Neck: He has bulging arterial area in the right neck. Extremities: His arms show no significant abnormalities as well as lower extremities. Neurological: In terms of his ability to follow instructions, he is able to do that. He can identif y objects. He can repeat, but has difficulty with recall, difficulty with orientation. Cranial nerv es show no obvious focal deficits. He has no asymmetries in terms of arm and leg strength, sensation , coordination. In terms of his gait, there was an attempt to work with him by the physical therapis t. He took 2 steps towards the head of his bed. Appeared to fatigue very easily and wanted to sit d own and did not want to ambulate further. He is working while sitting in bed to move arms and legs, but has generalized weakness and the therapist noted that he appeared to be poorly motivated and gets fatigued very easily. Assessment: Mr. Ny is a 52-year-old patient with multiple medical problems as noted including end-stage renal disease on hemodialysis, hypertension. He is having hallucinations and delusions, re portedly after receiving 8 doses of Reglan. He does appear to have psychiatric overlay to his respon ses. He appears to not be as forthcoming with his answers as he perhaps could be. He does not have focal neurological deficits both on clinical exam and the brain imaging does not show acute ischemic or hemorrhagic stroke. It may be possible due to his severe anemia that he has a hypoxic ischemic en cephalopathy for which he is receiving 3 units of blood and potentially that should improve, perhaps an arterial blood gas can be done to rule out CO2 retention and the CO2 psychosis. His BUN and creat inine are not elevated to the point that will explain his condition and his ammonia level also does n ot explain his condition. The possibility of seizures is always a consideration and does not have ou tward manifestation of that. Plan: 1.Continue with his dialysis as scheduled. 2.If he has episodes of hallucinations, delusions, perhaps EEG, long-term monitoring may help to mónica racterize those with respect to any abnormal brain activity. 3.Otherwise, the patient may be seen by Psychiatry to determine if he could benefit from psychiatric intervention for possible psychiatric overlay for his condition and he may follow up with Dr. Ioana erickson within the month after discharge. MCKAYLA/GALEN Voice ID: [id number] Report ID: [id number]
[2023-01-19] MEDS: PANTOPRAZOLE 40MG TABLET PO SCH (20:36)
[2023-01-20] MEDS: cloNIDine HCL 0.1 MG TAB PO PRN (00:33)
[2023-01-20] MEDS: CALCITROL 0.25 MCG CAP PO SCH (06:45)
[2023-01-20] MEDS: INSULIN -REGULAR HUMAN 50 UNIT/0.5 ML ML SQ SCH ×4 (07:30→21:00)
[2023-01-20] MEDS: FOLBIC 1 TAB PO SCH (09:29)
[2023-01-20] MEDS: MULTIVITAMINS,THERAPEUT 1 TAB PO SCH (09:29)
[2023-01-20] MEDS: HYDRALAZINE HCL 25 MG TABLET PO SCH ×3 (09:29→21:26)
[2023-01-20] MEDS: THIAMINE 200 MG/2 ML INJ IVP SCH (09:30)
[2023-01-20 09:56] LABS: Absolute Lymphocytes (CBC) 0.8 K/uL (0.7-4.9); Hematocrit 25.8 % (39.6-49.0); Lymphocytes % 11.5 % (15.3-44.8); MCV 90.2 fL (80-100); MPV 9.4 fL (7.6-11.3); RBC Red Blood Cell Count 2.86 M/uL (4.33-5.43)
[2023-01-20 10:07] LABS: Potassium 4.9 mEq/L (3.5-5.1)
--- NOTE | 2023-01-20 15:29 | CON ---
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 Noted that he continued to have worsening mental status with altered mental status and decrease d p.o. intake. He is maintained also on hemodialysis currently. I am requested to talk to the patie nt about possible feeding tube access, GJ versus J versus other options for feeding. I presented to the patient with his family present at the bedside. Past Medical History: CHF, CVA, diabetes, CKD on hemodialysis, hypertension, neuropathy, severe vira roparesis, history of vaping, nephrolithiasis, Hirschsprung disease. Past Surgical History: Hemodialysis access. Allergies: TO PHILIP INHIBITORS, WHICH CAUSE ANGIOEDEMA. Home Medications: Include Apresoline, Protonix, Catapres, Reglan, Eliquis, calcitriol, folic acid, B 12 complex. Family History: Significant for hypertension, diabetes in the father. Lung disease, diabetes, and c ancer in the mother. Sister is currently on hemodialysis. Social History: He still continues to smoke cigarettes. Denies alcohol or recreational drug use. Review of Systems: Ten-point review of systems other than HPI weakness, fatigue, malaise, decreased p.o. intake, early s atiety. Physical Examination: Vital Signs: At time of my examination, his blood pressure was 145/81, pulse 79, respiratory rate 16 , temperature 98.2, SpO2 is 98% on room air. General: He is awake, alert, and oriented. Psychiatric: Appropriate. Conversive. HEENT: Normocephalic. His sclerae were anicteric. Mucous membranes are moist. Oropharynx clear. Neck: Supple without JVD. Chest: Normal expansion and excursion. Cardiovascular: Regular rate and rhythm. Pulmonary: Clear to auscultation bilaterally. Abdomen: Soft, nontender, nondistended. No rebound. No guarding. No focal peritonitis. Skin: Warm and dry. Laboratory Data: Revealed a white blood cell count of 6.7, hemoglobin 8.7, hematocrit 25.8, platelet count was 111. His sodium was 138, potassium 4.9, chloride was 101, carbon dioxide 25, BUN was 41, creatinine 3.01. His glucose is 146. He had a head CT on 01/15/2023, officially read as no acute in tracranial abnormality. Assessment And Plan: This is a 52-year-old male who presents with severe gastroparesis and decreased p.o. intake. 1.I have discussed options for alleviation of his gastroparesis, which include he is currently recei ving Reglan. If this is becoming ineffective, he needs to seek alternative methods for nutrition eit her supplementation via p.o. intake with supplemental-high caloric shakes such as Boost, Ensure, or s imilar. 2.The patient is considering gastric pacemaker with another provider. 3.I have explained the risks, benefits, and alternatives of placement of endoscopic gastrojejunostom y tube versus a laparoscopic or open gastrostomy and jejunostomy tubes and variations of these variou s options and what the benefits and risks associated with each of these modalities which were include d bleeding, infection, damage to surrounding tissues, need for repositioning, intestinal injury, eve l obstructions, need for further surgery, trouble related to anesthesia complications, blood clots, s trokes, other unforeseen complications in the perioperative period. I also discussed feeding options with respect to how feeds are applied in the jejunostomy tube as opposed to bolus feeding through ga strostomy or gastric roots. 4.The family and the patient would like to attempt ongoing p.o. intake to see if he can meet his nut ritional goals with p.o. supplementation and we consider gastric pacemaker at this point, but will wa nt to discuss the possibilities of feeding tube access going forward, but are not ready to proceed wi th that at this time. Therefore, I will sign off at this time, but remain available for the patient and per Dr. Harvey should they consider a feeding tube option which we have discussed. TK/CINTHIAL Voice ID: [id number] Report ID: [id number]
[2023-01-20] MEDS: AA 4.25 %/D5W/ELECTROLYTES 2,000 ML IV SCH (16:34)
--- NOTE | 2023-01-20 16:37 | P.PN ---
Subjective Date of Service: 01/20/23 Chief Complaint: WEAKNESS, HALLUCINATIONS, ANEMIA Subjective No overnight events tolerated diet today pending other facility acceptance HD today then [place] Cont TPN Physical exam General: Awake, NAD HEENT: Atraumatic, Normocephalic Neck: Supple, no elevated JVD Respiratory: CTAB Cardiovascular: No rubs, No murmurs Gastrointestinal: Soft and benign, Non-distended Musculoskeletal: No clubbing Integumentary: No warmth Neurological: Normal tone, Sensation intact A/P # End-stage renal disease. HD today then MWF renal dose meds # Anemia. Monitor CBC. Will start Epogen # Hypokalemia. Continue PPN. Will be corrected with dialysis. #Hypomagnesemia. Mg suppl prn. # Severe gastroparesis with toxicity to metoclopramide. Continue PPN. Awaiting for transfer to [facility] for gastric pacemaker placement. #. Deep vein thrombosis with gastrointestinal bleed, status post IVC filter. Eliquis has been discontinued. # Hypercoagulability, unknown etiology. Awaiting for Oncology workup. # Malnourish with severe weight loss. Awaiting for Oncology workup and gastric pacemaker/Gtube insertion and transfer. # DM2. Mngt per primary team. Physical Examination - Vital Signs Temperature: 97.5 F Blood Pressure: 166/83 Pulse: 76 Respirations: 16 Pulse Ox (%): 96 - Studies Medications List Reviewed: Yes
[2023-01-20] MEDS ORDERED: EPOETIN 4,000 UNIT/ML VIAL IV SCH (16:45)
--- NOTE | 2023-01-20 19:58 | P.PN ---
Subjective Date of Service: 01/20/23 Chief Complaint: LOT BETTER PER Subjective: Improving HE CONTINUES TO HALLUCINATE. HE IS WEAK, GETS HD. HE HAD IVC FILTER PLACED ALREADY. HE IS NOT BAD TODAY. HE IS ABLE TO CONVERSE. HE IS STILL SLEEPY. HE AT SOMEWHAT TODAY. Review of Systems 10-point ROS is otherwise unremarkable General: Weakness Physical Examination - Vital Signs Temperature: 97.5 F Blood Pressure: 166/83 Pulse: 76 Respirations: 16 Pulse Ox (%): 96 - Physical Exam General: Oriented x2, Cooperative, Mild distress, Moderate distress HEENT: Atraumatic, PERRLA, EOMI Neck: Supple, JVD not distended Respiratory: Clear to auscultation bilaterally, Normal air movement Cardiovascular: Regular rate/rhythm, Normal S1 S2 Gastrointestinal: Normal bowel sounds, No tenderness Musculoskeletal: No tenderness Integumentary: No rashes Neurological: Normal speech, Normal tone, Normal affect Lymphatics: No axilla or inguinal lymphadenopathy - Studies Medications List Reviewed: Yes Assessment And Plan - Current Problems (Diagnosis) (1) Severe anemia Current Visit: Yes Status: Acute Plan: THIS CAN BE COMBINATION OF ACUTE AND ANEMIA OF CHRONIC DISEASE. HE CAN'T TAKE ELIQUIS ANY LONGER. HE WILL NEED GI ROBERTS BUT HE ALSO IS VERY WEAK TO TOLERATE PROCEDURE FOR NOW. DAILY LAB. CHECK HG. (2) DVT (deep venous thrombosis) Current Visit: Yes Status: Acute Plan: STOP ELIQUIS INSERT IVC FILTER. IVC FILTER DONE. OFF ELIQUIS NOW. (3) Chronic kidney disease, stage V Current Visit: No Status: Chronic (4) Debility Current Visit: Yes Status: Chronic Plan: DR. DALAL CALLED [facility]. NONE DO J TUBE INSERTION. 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 I PREFER HE GOES TO A PLACE DR. DALAL CAN GO TO TAKE CARE OF HI FAMILY IS AWARE.. (5) Altered mental state Current Visit: Yes Status: Acute Plan: DR. BULLARD SAW HIM. HE DID NOT FIND ANY PARTICULAR PATHOLOGY TO HAVE CAUSED THE HALLUCINATIONS. HE SUSEPCTED SOME ATTENTION SEEKING BEHAVIOUR ALSO. Qualifiers: Altered mental status type: delirium Qualified Code(s): R41.0 - Disorientation, unspecified (6) Metabolic encephalopathy Current Visit: Yes Status: Acute Plan: DR. BULLARD IS NOT SURE WHY IS IS HALLUCINATING. IT MAY BE FROM REGLAN WE SUSPECTED. THERE ARE NO MENINGEAL SIGNS. HE IS ABLE TO SIT UP AND NOT ABLE TO WALK YET. HE IS GETTING THAIMIN IV AND TPN (7) Diabetic gastroparesis Current Visit: No Status: Chronic Plan: I THINK THIS IS THE CRUX OF ALL HIS CHRONIC ISSUES. HE IS MALNOURSHED FOR LONG TIME. DR MEJÍA CALLED. SHE CAN'T TAKE HIM TRANSFER GASTRIC PACEMAKER IS AN OUTPATINET PROCEDURE I ASKED DR. PEREZ TO PERFORM J TUBE HE NEEDS TO BE FED. FAMILY UNDERSTANDS.
[2023-01-20] MEDS: PANTOPRAZOLE 40MG TABLET PO SCH (21:26)
[2023-01-21] MEDS: cloNIDine HCL 0.1 MG TAB PO PRN (01:04)
[2023-01-21] MEDS: INSULIN -REGULAR HUMAN 50 UNIT/0.5 ML ML SQ SCH ×4 (07:30→21:00)
[2023-01-21] MEDS ORDERED: CLONIDINE 0.3 MG/PATCH TD SCH (09:00)
[2023-01-21 09:12] LABS: Hematocrit 25.2 % (39.6-49.0); Lymphocytes % 18.2 % (15.3-44.8); MCV 90.9 fL (80-100); MPV 9.6 fL (7.6-11.3); RBC Red Blood Cell Count 2.78 M/uL (4.33-5.43)
[2023-01-21] MEDS: THIAMINE 200 MG/2 ML INJ IVP SCH (09:23)
[2023-01-21] MEDS: FOLBIC 1 TAB PO SCH (09:23)
[2023-01-21] MEDS: MULTIVITAMINS,THERAPEUT 1 TAB PO SCH (09:23)
[2023-01-21] MEDS: HYDRALAZINE HCL 25 MG TABLET PO SCH ×3 (09:23→21:19)
[2023-01-21 09:26] LABS: Potassium 4.8 mEq/L (3.5-5.1)
--- NOTE | 2023-01-21 10:22 | P.PN ---
Subjective Date of Service: 01/21/23 Chief Complaint: LOT BETTER PER Subjective Pt with ESRD on HD MWF, DM with gastroparesis, admitted for weakness , hallucination and poor oral intake Today No overnight events cont on PPN pt declined J-tube placement, family want to discuss with surgeon again HD tomorrow Rt Arm Phlebitis, can start Vanco with dialysis Physical exam General: Awake, NAD HEENT: Atraumatic, Normocephalic Neck: Supple, no elevated JVD Respiratory: CTAB Cardiovascular: No rubs, No murmurs Gastrointestinal: Soft and benign, Non-distended Musculoskeletal: No clubbing Integumentary: No warmth Neurological: Normal tone, Sensation intact A/P # End-stage renal disease. HD MWF renal dose meds # Anemia. Monitor CBC. Cont Epogen # Hypokalemia. Continue PPN. Will be corrected with dialysis. #Hypomagnesemia. Mg suppl prn. # Severe gastroparesis with toxicity to metoclopramide. Continue PPN. Pt offered J tube placement ,but de he declined #. Deep vein thrombosis with gastrointestinal bleed, status post IVC filter. Eliquis has been discontinued. # Hypercoagulability, unknown etiology. Awaiting for Oncology workup. #Rt Arm phlebitis : can start vancomcyin # DM2. Mngt per primary team. Physical Examination - Vital Signs Temperature: 97.7 F Blood Pressure: 163/90 Pulse: 74 Respirations: 14 Pulse Ox (%): 98 - Studies Medications List Reviewed: Yes
[2023-01-21] MEDS ORDERED: VANCOMYCIN 1.5 GM in NA CHLORIDE 0.9% 500 ML IVPB ONE (11:00)
--- NOTE | 2023-01-21 11:26 | P.PN ---
Subjective Date of Service: 01/21/23 Chief Complaint: HE IS PARANOID AND ANGRY TODAY. HE IS LOT MORE AWAKE BUT ALSO ANGRY AND PARANOID. HE IS HUNGRY AND EATING NOW. HE DOES NOT WANT J TUBE FOR NOW. HE HAS PAIN ON R FOREARM AT IV SITE. Review of Systems 10-point ROS is otherwise unremarkable General: Weakness Physical Examination - Vital Signs Temperature: 97.7 F Blood Pressure: 163/90 Pulse: 74 Respirations: 14 Pulse Ox (%): 98 - Physical Exam General: Oriented x3, Cachectic, Mild distress HEENT: Atraumatic, PERRLA, EOMI Neck: Supple, JVD not distended Respiratory: Clear to auscultation bilaterally, Normal air movement Cardiovascular: Regular rate/rhythm, Normal S1 S2 Gastrointestinal: Normal bowel sounds, No tenderness Musculoskeletal: No tenderness Integumentary: No rashes, Tenderness/swelling (RIGHT FOREARM PHLEBITIS. MOD.), Other Neurological: Normal speech, Normal tone, Normal affect Lymphatics: No axilla or inguinal lymphadenopathy - Studies Medications List Reviewed: Yes Assessment And Plan - Current Problems (Diagnosis) (1) Severe anemia Current Visit: Yes Status: Acute Plan: THIS CAN BE COMBINATION OF ACUTE AND ANEMIA OF CHRONIC DISEASE. HE CAN'T TAKE ELIQUIS ANY LONGER. HE WILL NEED GI ROBERTS BUT HE ALSO IS VERY WEAK TO TOLERATE PROCEDURE FOR NOW. DAILY LAB. CHECK HG. (2) DVT (deep venous thrombosis) Current Visit: Yes Status: Acute Plan: STOP ELIQUIS INSERT IVC FILTER. IVC FILTER DONE. OFF ELIQUIS NOW. (3) Chronic kidney disease, stage V Current Visit: No Status: Chronic (4) Debility Current Visit: Yes Status: Chronic Plan: DR. DALAL CALLED [facility]. NONE DO J TUBE INSERTION. 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 I PREFER HE GOES TO A PLACE DR. DALAL CAN GO TO TAKE CARE OF HI FAMILY IS AWARE.. AFTER TPN HE IS ABLE TO GET HUNGRY NOW. HOPEFULLY HE WILL NOT STAY HUNGRY AND ABLE TO TOLERATE FOOD. HE HAS SEVERE GASTROPARESIS AND DR MEJÍA WILL SEE HIM ON OUTPATIENT BASIS. (5) Altered mental state Current Visit: Yes Status: Acute Plan: DR. BULLARD SAW HIM. HE DID NOT FIND ANY PARTICULAR PATHOLOGY TO HAVE CAUSED THE HALLUCINATIONS. HE SUSEPCTED SOME ATTENTION SEEKING BEHAVIOUR ALSO. Qualifiers: Altered mental status type: delirium Qualified Code(s): R41.0 - Disorient ation, unspecified (6) Metabolic encephalopathy Current Visit: Yes Status: Acute Plan: DR. BULLARD IS NOT SURE WHY IS IS HALLUCINATING. IT MAY BE FROM REGLAN WE SUSPECTED. THERE ARE NO MENINGEAL SIGNS. HE IS ABLE TO SIT UP AND NOT ABLE TO WALK YET. HE IS GETTING THAIMIN IV AND TPN (7) Diabetic gastroparesis Current Visit: No Status: Chronic Plan: I THINK THIS IS THE CRUX OF ALL HIS CHRONIC ISSUES. HE IS MALNOURSHED FOR LONG TIME. DR MEJÍA CALLED. SHE CAN'T TAKE HIM TRANSFER GASTRIC PACEMAKER IS AN OUTPATINET PROCEDURE I ASKED DR. PEREZ TO PERFORM J TUBE HE NEEDS TO BE FED. FAMILY UNDERSTANDS. (8) Thrombophlebitis Current Visit: Yes Status: Acute Plan: R SIDE FOREARM. HE NEEDS VANCOMYCIN IT IS TENDER LIKE WE SEE WITH MRSA. AVOID SULFA.
[2023-01-21] MEDS: AA 4.25 %/D5W/ELECTROLYTES 2,000 ML IV SCH (17:49)
[2023-01-21] MEDS: PANTOPRAZOLE 40MG TABLET PO SCH (21:18)
[2023-01-22] MEDS: INSULIN -REGULAR HUMAN 50 UNIT/0.5 ML ML SQ SCH ×4 (07:30→20:18)
[2023-01-22 08:06] LABS: Absolute Lymphocytes (CBC) 0.9 K/uL (0.7-4.9); Hematocrit 24.4 % (39.6-49.0); Lymphocytes % 15.6 % (15.3-44.8); MCV 91.2 fL (80-100); MPV 10.1 fL (7.6-11.3); RBC Red Blood Cell Count 2.67 M/uL (4.33-5.43)
[2023-01-22 08:19] LABS: Potassium 5.4 mEq/L (3.5-5.1)
[2023-01-22] MEDS: FOLBIC 1 TAB PO SCH (09:49)
[2023-01-22] MEDS: MULTIVITAMINS,THERAPEUT 1 TAB PO SCH (09:50)
[2023-01-22] MEDS: THIAMINE 200 MG/2 ML INJ IVP SCH (09:50)
[2023-01-22] MEDS: HYDRALAZINE HCL 25 MG TABLET PO SCH ×3 (09:50→20:17)
[2023-01-22] MEDS: CALCITROL 0.25 MCG CAP PO SCH (09:50)
[2023-01-22] MEDS ORDERED: VANCOMYCIN 500 MG in NA CHLORIDE 0.9% 100 ML IVPB SCH (11:00)
--- NOTE | 2023-01-22 12:58 | P.PN ---
Subjective Date of Service: 01/22/23 Chief Complaint: LOT BETTER TODAY Subjective: Improving HE IS LOT MORE AWAKE BUT ALSO ANGRY AND PARANOID. HE IS HUNGRY AND EATING NOW. HE DOES NOT WANT J TUBE FOR NOW. HE HAS PAIN ON R FOREARM AT IV SITE. HIS APPETITE FLUCTUATES. HE IS LOT BETTER AND BACK TO HIS NORMAL FOR MOOD. Review of Systems 10-point ROS is otherwise unremarkable General: Weakness Physical Examination - Vital Signs Temperature: 97.8 F Blood Pressure: 163/91 Pulse: 77 Respirations: 16 Pulse Ox (%): 98 - Physical Exam General: Oriented x3, Mild distress HEENT: Atraumatic, PERRLA, EOMI Neck: Supple, JVD not distended Respiratory: Clear to auscultation bilaterally, Normal air movement Cardiovascular: Regular rate/rhythm, Normal S1 S2 Gastrointestinal: Normal bowel sounds, No tenderness Musculoskeletal: No tenderness Integumentary: No rashes Neurological: Normal speech, Normal tone, Normal affect Lymphatics: No axilla or inguinal lymphadenopathy - Studies Medications List Reviewed: Yes Assessment And Plan - Current Problems (Diagnosis) (1) Severe anemia Current Visit: Yes Status: Acute Plan: THIS CAN BE COMBINATION OF ACUTE AND ANEMIA OF CHRONIC DISEASE. HE CAN'T TAKE ELIQUIS ANY LONGER. HE WILL NEED GI ROBERTS BUT HE ALSO IS VERY WEAK TO TOLERATE PROCEDURE FOR NOW. DAILY LAB. CHECK HG. (2) DVT (deep venous thrombosis) Current Visit: Yes Status: Acute Plan: STOP ELIQUIS INSERT IVC FILTER. IVC FILTER DONE. OFF ELIQUIS NOW. (3) Chronic kidney disease, stage V Current Visit: No Status: Chronic (4) Debility Current Visit: Yes Status: Chronic Plan: DR. DALAL CALLED [facility]. NONE DO J TUBE INSERTION. 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 I PREFER HE GOES TO A PLACE DR. DALAL CAN GO TO TAKE CARE OF HI FAMILY IS AWARE.. AFTER TPN HE IS ABLE TO GET HUNGRY NOW. HOPEFULLY HE WILL NOT STAY HUNGRY AND ABLE TO TOLERATE FOOD. HE HAS SEVERE GASTROPARESIS AND DR MEJÍA WILL SEE HIM ON OUTPATIENT BASIS. (5) Altered mental state Current Visit: Yes Status: Acute Plan: DR. BULLARD SAW HIM. HE DID NOT FIND ANY PARTICULAR PATHOLOGY TO HAVE CAUSED THE HALLUCINATIONS. HE SUSEPCTED SOME ATTENTION SEEKING BEHAVIOUR ALSO. Qualifiers: Altered mental status type: delirium Qualified Code(s): R41.0 - Disorientation, unspecified (6) Metabolic encephalopathy Current Visit: Yes Status: Acute Plan: DR. BULLARD IS NOT SURE WHY IS IS HALLUCINATING. IT MAY BE FROM REGLAN WE SUSPECTED. THERE ARE NO MENINGEAL SIGNS. HE IS ABLE TO SIT UP AND NOT ABLE TO WALK YET. HE IS GETTING THAIMIN IV AND TPN (7) Diabetic gastroparesis Current Visit: No Status: Chronic Plan: I THINK THIS IS THE CRUX OF ALL HIS CHRONIC ISSUES. HE IS MALNOURSHED FOR LONG TIME. DR MEJÍA CALLED. SHE CAN'T TAKE HIM TRANSFER GASTRIC PACEMAKER IS AN OUTPATINET PROCEDURE I ASKED DR. PEREZ TO PERFORM J TUBE HE NEEDS TO BE FED. FAMILY UNDERSTANDS. HE REFUSES J TUBE FOR NOW AND WANTS TO TRY EATING AT HOME IF HE CAN. (8) Thrombophlebitis Current Visit: Yes Status: Acute Plan: R SIDE FOREARM. HE NEEDS VANCOMYCIN IT IS TENDER LIKE WE SEE WITH MRSA. AVOID SULFA. THIS COULD EXPLAIN THE PARANOIA AND ANGER. VANCOMYCIN IV HAS IMPROVE IT ALREADY. HE KNOWS IF HE WALKS AND EATS HE WOULD GO HOME.
[2023-01-22] MEDS: AA 4.25 %/D5W/ELECTROLYTES 2,000 ML, Lipids 20% 250 ML with MULTIVITAMINS INJ 10 ML IV SCH ×3 (17:36)
[2023-01-22] MEDS: PANTOPRAZOLE 40MG TABLET PO SCH (20:17)
--- NOTE | 2023-01-23 05:20 | PN ---
Date of Progress Note: 01/22/2023 Chief Complaint: End-stage renal disease, on hemodialysis Sunday, Sunday, Sunday. The patient moody s history of diabetes mellitus with gastroparesis. He was admitted with generalized weakness, halluc ination, and poor p.o. intake. He was started on TPN and dialysis were resumed in the hospital. The patient today was found to have borderline hyperkalemia and dialysis was scheduled today. Review of Systems: Denies fever, chills. Physical Examination: Lungs: Clear to auscultation bilaterally. Heart: S1, S2. Abdomen: Soft. Extremities: Slight edema. Impression And Plan: 1.End-stage renal disease. Continue dialysis on Sunday, Sunday, Sunday. 2.Anemia. Continue KATEY for anemia due to chronic kidney disease. 3.Hyperkalemia. Patient will have dialysis with 2 potassium dialysate to correct hyperkalemia. 4.Hypomagnesemia, supplementation with magnesium as needed. 5.Severe gastroparesis. Continue TPN. The patient refused the J-tube placement. 6.Hypercoagulability. Patient will continue anticoagulation as ordered by primary team. 7.Diabetes mellitus. Management per primary team. BASILIA/GALEN Voice ID: [id number] Report ID: [id number]
[2023-01-23] MEDS: INSULIN -REGULAR HUMAN 50 UNIT/0.5 ML ML SQ SCH ×4 (07:30→21:00)
[2023-01-23] MEDS: HYDRALAZINE HCL 25 MG TABLET PO SCH ×3 (09:23→21:33)
[2023-01-23] MEDS: FOLBIC 1 TAB PO SCH (09:24)
[2023-01-23] MEDS: MULTIVITAMINS,THERAPEUT 1 TAB PO SCH (09:24)
[2023-01-23] MEDS: THIAMINE 200 MG/2 ML INJ IVP SCH (09:25)
[2023-01-23] MEDS: CYANOCOBALAMIN 1000MCG/ML INJ IM SCH (09:25)
[2023-01-23 10:05] LABS: Absolute Lymphocytes (CBC) 0.7 K/uL (0.7-4.9); Lymphocytes % 5.4 % (15.3-44.8); MCV 91.1 fL (80-100); RBC Red Blood Cell Count 2.52 M/uL (4.33-5.43)
[2023-01-23 10:09] LABS: Potassium 4.5 mEq/L (3.5-5.1)
[2023-01-23] MEDS ORDERED: EPOETIN ALFA 10,000 UNIT/ML VIAL IV SCH (10:34)
--- NOTE | 2023-01-23 12:35 | PN ---
Date of Progress Note: 01/23/2023 Subjective: The patient was admitted with symptomatic gastroparesis and toxicity to metoclopramide. Metoclopramide has been discontinued. The patient continued to have malnourish. The patient had DV T with symptomatic anemia. Xarelto has been discontinued. The patient received transfusion. Accord ing to the patient, the patient started eating slightly better. Physical Examination: Vital Signs: Blood pressure 141/79, pulse of 91, afebrile. Chest: Clear to auscultation. Heart: S1, S2. Regular. Abdomen: Soft, nontender. No guarding or rebound. Extremities: No edema. Neurologic: Alert. No focality. Laboratory Data: Hemoglobin 7.7. Sodium 132, potassium 4.5, bicarb 28, BUN 34, creatinine 2.4, calc ium 7.2. Current Medications: The patient on include; 1.Vancomycin. 2.Epogen. 3.Heparin. 4. . 5.Hydralazine 50 t.i.d. 6.PPN at rate of 90 mL per hour. 7.Zofran. 8.Pantoprazole. 9.Calcitriol. 10.Multivitamin. 11.Thiamin. Assessment And Plan: 1.End-stage renal disease, normal volume with hyponatremia and hyperkalemia. I am going to go ahead and arrange for another session of dialysis tomorrow. The patient is going to be dialyzed on high s odium bath and low potassium bath and we will follow up the patient. The patient looked to me normal volume. 2.Hyponatremia, will be corrected with dialysis. 3.Hyperkalemia, will be corrected with dialysis. 4.Anemia of chronic kidney disease/GI loss. Continue p.r.n. transfusion. I am going to go ahead an d increase his Epogen to 10,000 and we will follow up the patient. 5.Deep vein thrombosis, status post IVC filter. Xarelto has been discontinued. 6.Hypertension, controlled, optimal. Continue current treatment. 7.Malnourish secondary to severe gastroparesis. I am going to go ahead and consult dietitian for ca dane count. Advised the patient to multiply his meals to every 4 hours instead of every 8 hours and we will ask dietitian for calorie count. We will decrease PPN to 60 mL per hour and we will follow up. The patient still pending gastric pacemaker placement. We will follow up with primary and GI. Continue PPI. Unfortunately cannot resume metoclopramide given the toxicity before. We will follow up the patient. 8.Hyperkalemia. The patient is going to be dialyzed on low potassium bath. 9.Secondary hyperparathyroidism. Continue calcitriol. MIKAL Voice ID: [id number] Report ID: [id number]
[2023-01-23] MEDS ORDERED: AA 4.25 %/D5W/ELECTROLYTES 2,000 ML IV SCH (17:00)
--- NOTE | 2023-01-23 21:31 | P.PN ---
Subjective Date of Service: 01/23/23 Chief Complaint: LOT BETTER TODAY Subjective: Improving HE IS LOT MORE AWAKE BUT ALSO ANGRY AND PARANOID. HE IS HUNGRY AND EATING NOW. HE DOES NOT WANT J TUBE FOR NOW. HE HAS PAIN ON R FOREARM AT IV SITE. HIS APPETITE FLUCTUATES. HE IS LOT BETTER AND BACK TO HIS NORMAL FOR MOOD. HE IS EATING SOME. HE HAS NO PAIN. Review of Systems 10-point ROS is otherwise unremarkable Physical Examination - Vital Signs Temperature: 98.0 F Blood Pressure: 126/73 Pulse: 79 Respirations: 16 Pulse Ox (%): 95 - Physical Exam General: Oriented x3, Mild distress, Other (PALE) HEENT: Atraumatic, PERRLA, EOMI Neck: Supple, JVD not distended Respiratory: Clear to auscultation bilaterally, Normal air movement Cardiovascular: Regular rate/rhythm, Normal S1 S2 Gastrointestinal: Normal bowel sounds, No tenderness Musculoskeletal: No tenderness Integumentary: No rashes Neurological: Normal speech, Normal tone, Normal affect Lymphatics: No axilla or inguinal lymphadenopathy - Studies Medications List Reviewed: Yes Assessment And Plan - Current Problems (Diagnosis) (1) Severe anemia Current Visit: Yes Status: Acute Plan: THIS CAN BE COMBINATION OF ACUTE AND ANEMIA OF CHRONIC DISEASE. HE CAN'T TAKE ELIQUIS ANY LONGER. HE WILL NEED GI ROBERTS BUT HE ALSO IS VERY WEAK TO TOLERATE PROCEDURE FOR NOW. DAILY LAB. CHECK HG. HE WILL NEED BLOOD AGAIN. HE NEEDS GI WORK UP AND HAS BEEN SEEN BY DR DE PAZ FOR IT. HAS HAD EGD AND CRC ALREADY. MAY NEED CAPSULE SCOPE. THIS IS OUTPATIENT. (2) DVT (deep venous thrombosis) Current Visit: Yes Status: Acute Plan: STOP ELIQUIS INSERT IVC FILTER. IVC FILTER DONE. OFF ELIQUIS NOW. (3) Chronic kidney disease, stage V Current Visit: No Status: Chronic (4) Debility Current Visit: Yes Status: Chronic Plan: DR. DALAL CALLED [facility]. NONE DO J TUBE INSERTION. 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 I PREFER HE GOES TO A PLACE DR. DALAL CAN GO TO TAKE CARE OF HI FAMILY IS AWARE.. AFTER TPN HE IS ABLE TO GET HUNGRY NOW. HOPEFULLY HE WILL NOT STAY HUNGRY AND ABLE TO TOLERATE FOOD. HE HAS SEVERE GASTROPARESIS AND DR MEJÍA WILL SEE HIM ON OUTPATIENT BASIS. (5) Altered mental state Current Visit: Yes Status: Acute Plan: DR. BULLARD SAW HIM. HE DID NOT FIND ANY PARTICULAR PATHOLOGY TO HAVE CAUSED THE HALLUCINATIONS. HE SUSEPCTED SOME ATTENTION SEEKING BEHAVIOUR ALSO. Qualifiers: Altered mental status type: delirium Qualified Code(s): R41.0 - Di sorientation, unspecified (6) Metabolic encephalopathy Current Visit: Yes Status: Acute Plan: DR. BULLARD IS NOT SURE WHY IS IS HALLUCINATING. IT MAY BE FROM REGLAN WE SUSPECTED. THERE ARE NO MENINGEAL SIGNS. HE IS ABLE TO SIT UP AND NOT ABLE TO WALK YET. HE IS GETTING THAIMIN IV AND TPN (7) Diabetic gastroparesis Current Visit: No Status: Chronic Plan: I THINK THIS IS THE CRUX OF ALL HIS CHRONIC ISSUES. HE IS MALNOURSHED FOR LONG TIME. DR MEJÍA CALLED. SHE CAN'T TAKE HIM TRANSFER GASTRIC PACEMAKER IS AN OUTPATINET PROCEDURE I ASKED DR. PEREZ TO PERFORM J TUBE HE NEEDS TO BE FED. FAMILY UNDERSTANDS. HE REFUSES J TUBE FOR NOW AND WANTS TO TRY EATING AT HOME IF HE CAN. (8) Thrombophlebitis Current Visit: Yes Status: Acute Plan: R SIDE FOREARM. HE NEEDS VANCOMYCIN IT IS TENDER LIKE WE SEE WITH MRSA. AVOID SULFA. THIS COULD EXPLAIN THE PARANOIA AND ANGER. VANCOMYCIN IV HAS IMPROVE IT ALREADY. HE KNOWS IF HE WALKS AND EATS HE WOULD GO HOME.
[2023-01-23] MEDS: PANTOPRAZOLE 40MG TABLET PO SCH (21:33)
[2023-01-24] MEDS: INSULIN -REGULAR HUMAN 50 UNIT/0.5 ML ML SQ SCH ×4 (07:30→21:50)
[2023-01-24] MEDS: FOLBIC 1 TAB PO SCH (09:27)
[2023-01-24] MEDS: MULTIVITAMINS,THERAPEUT 1 TAB PO SCH (09:27)
[2023-01-24] MEDS: CALCITROL 0.25 MCG CAP PO SCH (09:27)
[2023-01-24] MEDS: HYDRALAZINE HCL 25 MG TABLET PO SCH ×3 (09:28→20:48)
[2023-01-24] MEDS: THIAMINE 200 MG/2 ML INJ IVP SCH (09:30)
[2023-01-24 10:13] LABS: Absolute Lymphocytes (CBC) 0.8 K/uL (0.7-4.9); Hematocrit 22.2 % (39.6-49.0); Lymphocytes % 7.5 % (15.3-44.8); MCV 91.6 fL (80-100); MPV 10.2 fL (7.6-11.3); RBC Red Blood Cell Count 2.42 M/uL (4.33-5.43)
[2023-01-24 11:01] LABS: White Blood Cell Scan OK (OK)
[2023-01-24 11:02] LABS: Anisocytosis 1+; Blood Morphology Comment NOTED (NOT SEEN); Platelet Estimate DECR
[2023-01-24 11:08] LABS: Potassium 4.7 mEq/L (3.5-5.1)
[2023-01-24] MEDS ORDERED: METOCLOPRAMIDE 5 MG TAB PO SCH (11:30)
--- NOTE | 2023-01-24 11:33 | P.PN ---
Subjective Date of Service: 01/24/23 Chief Complaint: LOT BETTER TODAY Physical Examination - Vital Signs Temperature: 97.1 F Blood Pressure: 164/85 Pulse: 72 Respirations: 16 Pulse Ox (%): 97 - Physical Exam General: Alert, Oriented x3, Cooperative HEENT: Atraumatic Neck: Supple, Without JVD or thyroid abnormality Respiratory: Clear to auscultation bilaterally Cardiovascular: No edema, Normal S1 S2, Systolic murmur Gastrointestinal: Normal bowel sounds, Soft and benign Musculoskeletal: No clubbing, No erythema Neurological: Normal gait, Normal speech, Cranial nerves 3-12 intact, Normal affect, Abnormal strength - Studies Sodium 128 hemoglobin 7.4 Medications List Reviewed: Yes Assessment And Plan - Plan 1. End-stage renal disease, normal volume with hyponatremia and hyperkalemia. I am going to go ahead and arrange for another session of dialysis tomorrow. The patient is going to be dialyzed on high sodium bath and low potassium bath and we will follow up the patient. The patient looked to me normal volume. 2. Hyponatremia, will be corrected with dialysis. 3. Hyperkalemia, will be corrected with dialysis. PROGRESS NOTE 4. Anemia of chronic kidney disease/GI loss. Plan for transfusion today to unit with the dialysis. I am going to go ahead and yesterday we had increased his Epogen to 10,000 and we will follow up the patient. 5. Deep vein thrombosis, status post IVC filter. Xarelto has been discontinued. 6. Hypertension, controlled, optimal. Continue current treatment. 7. Malnourish secondary to severe gastroparesis. I am going to go ahead and consult dietitian for calorie count. Advised the patient to multiply his meals to every 4 hours instead of every 8 hours and we will ask dietitian for calorie count. Continue other current rate of PPN to 60 mL per hour and we will follow up. The patient still pending gastric pacemaker placement. We will follow up with primary and GI. Continue PPI. We will go ahead and initiate low-dose of metoclopramide 5 mg before the lunch meal we will monitor the patient closely giving given the toxicity before. We will follow up the patient. 8. Hyperkalemia. The patient is going to be dialyzed on low potassium bath. 9. Secondary hyperparathyroidism. Continue calcitriol. Time spent examining the patient [id number], reviewing the data, lab and radiology, discussing the case with the patient and the daughter by bedside, discussing the case with the steam flattener including nursing staff on the floor, placing order, discussing the case with the hospitalist more than 35 minutes
--- NOTE | 2023-01-24 13:03 | P.PN ---
Subjective Date of Service: 01/24/23 Chief Complaint: LOT BETTER TODAY Subjective: Improving HE IS LOT MORE AWAKE BUT ALSO ANGRY AND PARANOID. HE IS HUNGRY AND EATING NOW. HE DOES NOT WANT J TUBE FOR NOW. HE HAS PAIN ON R FOREARM AT IV SITE. HIS APPETITE FLUCTUATES. HE IS LOT BETTER AND BACK TO HIS NORMAL FOR MOOD. HE IS EATING SOME. HE HAS NO PAIN. HE WILL GET BLOOD TODAY HE HAS REFUSED TO GET J TUBE. Physical Examination - Vital Signs Temperature: 97.1 F Blood Pressure: 164/85 Pulse: 72 Respirations: 16 Pulse Ox (%): 97 - Physical Exam General: Oriented x3, Mild distress HEENT: Atraumatic, PERRLA, EOMI Neck: Supple, JVD not distended Respiratory: Clear to auscultation bilaterally, Normal air movement Cardiovascular: Regular rate/rhythm, Normal S1 S2 Gastrointestinal: Normal bowel sounds, No tenderness Musculoskeletal: No tenderness Integumentary: No rashes Neurological: Normal speech, Normal tone, Normal affect Lymphatics: No axilla or inguinal lymphadenopathy - Studies Medications List Reviewed: Yes Assessment And Plan - Current Problems (Diagnosis) (1) Severe anemia Current Visit: Yes Status: Acute Plan: THIS CAN BE COMBINATION OF ACUTE AND ANEMIA OF CHRONIC DISEASE. HE CAN'T TAKE ELIQUIS ANY LONGER. HE WILL NEED GI ROBERTS BUT HE ALSO IS VERY WEAK TO TOLERATE PROCEDURE FOR NOW. DAILY LAB. CHECK HG. HE WILL NEED BLOOD AGAIN. HE NEEDS GI WORK UP AND HAS BEEN SEEN BY DR DE PAZ FOR IT. HAS HAD EGD AND CRC ALREADY. MAY NEED CAPSULE SCOPE. THIS IS OUTPATIENT. TRANSUFSE KNOWS TO GET HIM TO DR PEOPLES FOR CRC AND CAPSULE ENDOSCOPY. (2) DVT (deep venous thrombosis) Current Visit: Yes Status: Acute Plan: STOP ELIQUIS INSERT IVC FILTER. IVC FILTER DONE. OFF ELIQUIS NOW. (3) Chronic kidney disease, stage V Current Visit: No Status: Chronic (4) Debility Current Visit: Yes Status: Chronic Plan: DR. DALAL CALLED [facility]. NONE DO J TUBE INSERTION. 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 I PREFER HE GOES TO A PLACE DR. DALAL CAN GO TO TAKE CARE OF HI FAMILY IS AWARE.. AFTER TPN HE IS ABLE TO GET HUNGRY NOW. HOPEFULLY HE WILL NOT STAY HUNGRY AND ABLE TO TOLERATE FOOD. HE HAS SEVERE GASTROPARESIS AND DR MEJÍA WILL SEE HIM ON OUTPATIENT BASIS. (5) Altered mental state Current Visit: Yes Status: Acute Plan: DR. BULLARD SAW HIM. HE DID NOT FIND ANY PARTICULAR PATHOLOGY TO HAVE CAUSED THE HALLUCINATIONS. HE SUSEPCTED SOME ATTENTION SEEKING BEHAVIOUR ALSO. Qualifiers: Altered mental status type: delirium Qualified Code(s): R41.0 - Disorientation, unspecified (6) Metabolic encephalopathy Current Visit: Yes Status: Acute Plan: DR. BULLARD IS NOT SURE WHY IS IS HALLUCINATING. IT MAY BE FROM REGLAN WE SUSPECTED. THERE ARE NO MENINGEAL SIGNS. HE IS ABLE TO SIT UP AND NOT ABLE TO WALK YET. HE IS GETTING THAIMIN IV AND TPN (7) Diabetic gastroparesis Current Visit: No Status: Chronic Plan: I THINK THIS IS THE CRUX OF ALL HIS CHRONIC ISSUES. HE IS MALNOURSHED FOR LONG TIME. DR MEJÍA CALLED. SHE CAN'T TAKE HIM TRANSFER GASTRIC PACEMAKER IS AN OUTPATINET PROCEDURE I ASKED DR. PEREZ TO PERFORM J TUBE HE NEEDS TO BE FED. FAMILY UNDERSTANDS. HE REFUSES J TUBE FOR NOW AND WANTS TO TRY EATING AT HOME IF HE CAN. (8) Thrombophlebitis Current Visit: Yes Status: Acute Plan: R SIDE FOREARM. HE NEEDS VANCOMYCIN IT IS TENDER LIKE WE SEE WITH MRSA. AVOID SULFA. THIS COULD EXPLAIN THE PARANOIA AND ANGER. VANCOMYCIN IV HAS IMPROVE IT ALREADY. HE KNOWS IF HE WALKS AND EATS HE WOULD GO HOME.
[2023-01-24] MEDS ORDERED: NA CHLORIDE 0.9% 250 ML IV SCH (14:00)
[2023-01-24] MEDS ORDERED: AA 4.25 %/D5W/ELECTROLYTES 2,000 ML, Lipids 20% 250 ML with MULTIVITAMINS INJ 10 ML IV SCH ×3 (17:00)
[2023-01-24 18:03] LABS: Hematocrit 27.2 % (39.6-49.0)
[2023-01-24] MEDS: PANTOPRAZOLE 40MG TABLET PO SCH (20:48)
[2023-01-24] MEDS: ENSURE CLEAR 200 ML CAN PO SCH (20:49)
[2023-01-24 21:54] VITALS: O2SAT 95
[2023-01-25] MEDS: cloNIDine HCL 0.1 MG TAB PO PRN (05:30)
[2023-01-25 06:04] VITALS: TEMP 98.2
[2023-01-25] MEDS: INSULIN -REGULAR HUMAN 50 UNIT/0.5 ML ML SQ SCH (07:30)
[2023-01-25 08:33] VITALS: BP 156/85
[2023-01-25] MEDS: ENSURE CLEAR 200 ML CAN PO SCH (09:00)
[2023-01-25] MEDS: HYDRALAZINE HCL 25 MG TABLET PO SCH (09:07)
[2023-01-25] MEDS: THIAMINE 200 MG/2 ML INJ IVP SCH (09:07)
[2023-01-25] MEDS: FOLBIC 1 TAB PO SCH (09:07)
[2023-01-25] MEDS: MULTIVITAMINS,THERAPEUT 1 TAB PO SCH (09:07)
--- NOTE | 2023-01-25 11:49 | PN ---
Date of Progress Note: 01/25/2023 Subjective: The patient was admitted with GI bleed, severe gastroparesis. The patient also had [place]xi [place] secondary to metoclopramide. The patient waiting for gastric pacemaker placement. Unfortunatel y, we could not do it as inpatient because of lack of GI. Yesterday, we gave the patient a single do se of metoclopramide, the patient started having again hallucination. Physical Examination: Vital Signs: Blood pressure 156/85, pulse of 79, afebrile. Chest: Clear to auscultation. Heart: S1, S2. Regular. Abdomen: Soft, nontender. Extremity: No edema. Neuro: Alert, pleasantly confused. No focality. Laboratory Data: Hemoglobin 9.1. Sodium 128, potassium 4.7, bicarb 28, BUN 46, creatinine 3.1, calc ium 7.5. Current Medications: The patient on include; 1.Vancomycin. 2.Epogen. 3.Clonidine p.r.n. 4.Clonidine 0.3 t.i.d. 5.Hydralazine 50 t.i.d. 6.Ensure. 7.PPN. 8.Pantoprazole. 9.Calcitriol. 10.Multivitamin. 11.Thiamin. Assessment And Plan: 1.End-stage renal disease, stable, normal volume. I am going to continue the patient on his dialysi s schedule, status post dialysis yesterday. We will continue Sunday, Sunday, Sunday. 2.Hypertension, controlled, optimal. Continue current medications. 3.Deep vein thrombosis, status post IVC filter with GI bleed. Anticoagulation has been discontinued . 4.Hyponatremia, corrected with dialysis. 5.Hyperkalemia, corrected with dialysis. 6.Malnourished with severe gastroparesis. Could not tolerate metoclopramide. I am going to go ahea d and discontinue it as symptoms recovered by even low dosage. 7.Hyperkalemia, resolved. 8.Secondary hyperparathyroidism. PTH on the goal. We will continue current treatment. MIKAL Voice ID: [id number] Report ID: [id number]
--- NOTE | 2023-01-25 21:24 | P.DS ---
Admission Date: 01/15/23 Discharge Date: 01/25/23 Disposition: DC HOME/HOME HEALTH CARE Discharge Condition: FAIR Reason for Admission: LOT BETTER TODAY - Problems (1) Severe anemia Status: Acute (2) DVT (deep venous thrombosis) Status: Acute (3) Chronic kidney disease, stage V Status: Chronic (4) Debility Status: Chronic (5) Altered mental state Status: Acute Qualifiers: Altered mental status type: delirium Qualified Code(s): R41.0 - Disorientation, unspecified (6) Metabolic encephalopathy Status: Acute (7) Diabetic gastroparesis Status: Chronic (8) Thrombophlebitis Status: Acute Brief History of Present Illness: ARIELLA HAS MANY MEDICAL ISSUES. HE HAS HAD DM FOR LONG DURATION WITH COMPLICATIONS OF CKD5 NEEDING HD, NEUROPATHY AND NOW SEVERE GASTROPARESIS. SINCE LAST ADMISSION HE IS ON REGLAN FOR GASTROPARESIS WHILE HE IS WAITING TO SEE EXPERT IN THIS ISSUE FOR PACEMAKER. I TOLD FAMILY THAT THIS IS THE ONLY MEDICINE AVAILABLE FOR THIS ISSUE AND HAS SOME NEUROLOGICAL SE. PER FAMILY HE STARTED TO EAT WITH THE MEDICINE BUT ALSO STARTED TO GET HALLUCINATIONS. Hospital Course: ARIELLA COMES IN WITH WEAKNESS, FATIGUE AND ANEMIA. HE HAD RECENT DIAGNOSIS OF DVT R SIDE. HE DID NOT TOLERATE ELIQUIS. HG DROPPED. HE IS ALSO NOT EATING. HE HAS SEVERE GASTROPARESIS. I HAD IVC FILTER PLACED. I ASKD FOR DR ALBA TO INSERT J TUBE HE IS NOT EATING FOR A WHILE. HE AND REFUSED. HE HAS STARTED TO EAT SOME MORE. HE HAD SEVERE HALLUCINATIONS FROM REGLAN SO WE STOPPED. I HAVE TALKED TO DR. MEJÍA FOR GASTRIC PACEMAKER AND SHE WILL SEE HIM ON OP BASIS. HE IS STABLE TO GO HOME. HE WILL FU WITH DR FARAH. FOR RECURRNENT ANEMIA. HE NEEDS CRC AND CAPSULE SCOPE. Vital Signs/Physical Exam: Temp Pulse Resp BP Pulse Ox 98.2 F 79 22 H 156/85 H 96 01/25/23 08:00 01/25/23 08:00 01/25/23 08:00 01/25/23 08:00 01/25/23 08:00 Laboratory Data at Discharge: WBC 10.00 thou/uL (4.3-10.9) 01/24/23 09:55 Hgb 9.1 g/dL (13.6-17.9) L D 01/24/23 17:50 Hct 27.2 % (39.6-49.0) L 01/24/23 17:50 Plt Count 124 thou/uL (152-406) L 01/24/23 09:55 PT 20.0 SECONDS (9.5-12.5) H 01/15/23 22:10 INR 1.82 01/15/23 22:10 APTT 35.5 SECONDS (24.3-36.9) 01/15/23 22:10 Sodium 128 mEq/L (136-145) L D 01/24/23 09:55 Potassium 4.7 mEq/L (3.5-5.1) 01/24/23 09:55 BUN 46 mg/dL (7-18) H 01/24/23 09:55 Creatinine 3.13 mg/dL (0.70-1.30) H 01/24/23 09:55 Glucose 138 mg/dL (74-106) H 01/24/23 09:55 Phosphorus 2.5 mg/dL (2.5-4.9) 01/18/23 05:12 Magnesium 2.2 mg/dL (1.6-2.4) 01/18/23 05:12 Total Bilirubin 0.6 mg/dL (0.2-1.0) 01/15/23 18:35 AST 9 U/L (15-37) L 01/15/23 18:35 ALT < 10 U/L (16-61) L 01/15/23 18:35 Alkaline Phosphatase 54 U/L (45-117) 01/15/23 18:35 Home Medications: Hydralazine [Apresoline*] 25 mg PO BID 05/22/22 Pantoprazole [Protonix Tab*] 40 mg PO BEDTIME 10/11/22 Clonidine Patch [Catapres-Tts 3*] 0.3 mg TD EVERY 7TH DAY #4 01/03/23 Calcitrol [Rocaltrol*] 0.25 mcg PO Q48H 01/15/23 Folic Acid/Vit B Complex and C [Dialyvite 800 Chewable Wafer] 1 tab PO DAILY 01/15/23 Followup: Deepak Harvey MD [Primary Care Provider] -
== END 2023-01-25 10:25 | disposition home health service (06) | DRG 981 ==
LOC: ER 17:42 → ERHOLD 19:18 → 2ND 20:29
PROVIDERS: ADMIT Internal Medicine; ATTEND Internal Medicine
PROC: 30233N1 Transfusion of Nonautologous Red Blood Cells into Peripheral Vein, Percutaneous Approach (ICD-10-PCS; 2023-01-16)
PROC: 06U Lower Veins, Supplement (ICD-10-PCS; principal; 2023-01-17)
PROC: 06HM33Z Insertion of Infusion Device into Right Femoral Vein, Percutaneous Approach (ICD-10-PCS; 2023-01-17)
PROC: 3E0336Z Introduction of Nutritional Substance into Peripheral Vein, Percutaneous Approach (ICD-10-PCS; 2023-01-17)
DX: E11.43 Type 2 diabetes mellitus with diabetic autonomic (poly)neuropathy (principal); E43 Unspecified severe protein-calorie malnutrition; N18.6 End stage renal disease; G92.8 Other toxic encephalopathy; I12.0 Hypertensive chronic kidney disease with stage 5 chronic kidney disease or end stage renal disease; R64 Cachexia; E87.1 Hypo-osmolality and hyponatremia; N25.81 Secondary hyperparathyroidism of renal origin; E11.22 Type 2 diabetes mellitus with diabetic chronic kidney disease; E11.40 Type 2 diabetes mellitus with diabetic neuropathy, unspecified; D63.1 Anemia in chronic kidney disease; K31.84 Gastroparesis; E78.5 Hyperlipidemia, unspecified; E87.5 Hyperkalemia; E83.42 Hypomagnesemia; E83.39 Other disorders of phosphorus metabolism; I80.8 Phlebitis and thrombophlebitis of other sites; E87.6 Hypokalemia; F17.200 Nicotine dependence, unspecified, uncomplicated; T45.0X5A Adverse effect of antiallergic and antiemetic drugs, initial encounter; Z99.2 Dependence on renal dialysis; Z93.3 Colostomy status; Z88.8 Allergy status to other drugs, medicaments and biological substances; Z79.02 Long term (current) use of antithrombotics/antiplatelets; Z68.27 Body mass index [BMI] 27.0-27.9, adult; Z79.01 Long term (current) use of anticoagulants; Z86.73 Personal history of transient ischemic attack (TIA), and cerebral infarction without residual deficits; Z90.49 Acquired absence of other specified parts of digestive tract; Z79.899 Other long term (current) drug therapy; Z20.822 Contact with and (suspected) exposure to COVID-19
CPT/HCPCS: 36005; 36415; 36430; 70450; 71045; 76937; 80048; 80076; 80202; 82140; 82728; 82947; 83540; 83735; 84100; 84466; 84484; 85014; 85018; 85025; 85610; 85730; 86704; 86850; 86900; 86901; 86920; 87340; 87804; 87811; 90935; 93005; 94760; 97110; 97116; 97161; 97165; 97530; 99285; C1893; J1644; J1815; J2001; J2250; J3010; J3411; J3420; J3475; J7040; J7050; P9016; Q5105

== ENCOUNTER 2023-12-13 07:29 | Day surgery (SDC) | payer OTHER ==
[2023-12-13] MEDS: DIPHENHYDRAMINE 50 MG/ML VIAL ONE (08:12)
[2023-12-13] MEDS: ACETAMINOPHEN 325 MG TABLET ONE (08:12)
[2023-12-13] MEDS: NA CHLORIDE 0.9% 500 ML ONE (08:41)
[2023-12-13 12:46] VITALS: BMI 33.3
[2023-12-13 13:53] VITALS: BP 155/60; TEMP 98.4; O2SAT 100
== END 2023-12-13 13:35 | disposition home or self-care (01) ==
LOC: DS 07:29
PROVIDERS: ATTEND Internal Medicine
DX: D64.9 Anemia, unspecified (principal)
CPT/HCPCS: 36430; 86850; 86900; 86901; 86920; J1200; J7040; P9016

== ENCOUNTER 2023-12-26 10:41 | Emergency (ER) | payer OTHER ==
--- NOTE | 2023-12-26 11:38 | RAD REPORT ---
EXAM DESCRIPTION: RAD - Chest Pa And Lat (2 Views) - 12/26/2023 11:31 am CLINICAL HISTORY: CHEST PAIN COMPARISON: Chest Single View dated 01/15/2023; Chest Single View dated 12/31/2022; Chest Single View dated 10/10/2022; Chest Single View dated 06/06/2022 FINDINGS: Lines: None. Lungs: No evidence of edema or pneumonia. Pleural: No significant pleural effusions or pneumothorax. Cardiac: The heart size is within normal limits. Mediastinum: Within normal limits. Bones: No acute fractures. Other: None IMPRESSION: No acute cardiopulmonary disease.
[2023-12-26 11:46] LABS: Absolute Basophils 0.1 K/uL (0-0.5); Absolute Eosinophils 0.6 K/uL (0-0.5); Absolute Lymphocytes (CBC) 1.1 K/uL (0.7-4.9); Absolute Monocytes 0.6 K/uL (0.1-1.3); Absolute Neutrophil 3.4 K/uL (1.8-8.0); Basophils % 1.8 % (0-1.3); Eosinophils % 9.7 % (0-4.4); Hemoglobin 8.9 g/dL (13.6-17.9); Lymphocytes % 18.7 % (15.3-44.8); MCH 32.7 pg (27.0-35.0); MCHC 33.1 g/dL (32.0-36.0); MCV 98.8 fL (80-100); MPV 9.7 fL (7.6-11.3); Monocytes % 10.5 % (3.3-12.3); Neutrophils % 59.3 % (41.7-73.7); Platelets 165 thou/uL (152-406); RBC Red Blood Cell Count 2.74 M/uL (4.33-5.43); Red Cell Distribution Width 15.1 % (12.1-15.2)
[2023-12-26 12:18] LABS: Albumin 3.4 g/dL (3.4-5.0); Albumin/Globulin Ratio 0.9 (1.1-1.8); Bilirubin Direct 0.2 mg/dL (0-0.2); Bilirubin Indirect, Calculated 0.3 mg/dL (0.2-0.8); Bilirubin Total 0.5 mg/dL (0.2-1.0); Globulin 3.9 g/dL (2.3-3.5); Magnesium 1.9 mg/dL (1.6-2.4); Protein, Total 7.3 g/dL (6.4-8.2); Troponin High Sensitivity 23.3 pg/mL (<58.9)
--- NOTE | 2023-12-26 14:23 | ER ---
Nurse's Notes [facility] Name: Nabor Ny Age: 53 yrs Sex: Male : 1970 Arrival Date: 12/26/2023 Time: 10:41 Bed 17 Private MD: Deepak Harvey V Diagnosis: Chest pain, unspecified Presentation: 12/25 10:53 Chief complaint: Patient states: pain in left rib since last Sunday , pain worsens when iw lying on right side. Coronavirus screen: At this time, the client does not indicate any symptoms associated with coronavirus-19. Ebola Screen: No symptoms or risks identified at this time. Initial Sepsis Screen: Does the patient meet any 2 criteria? No. Patient's initial sepsis screen is negative. Does the patient have a suspected source of infection? No. Patient's initial sepsis screen is negative. Risk Assessment: Do you want to hurt yourself or someone else? Patient reports no desire to harm self or others. 10:53 Method Of Arrival: Ambulatory iw 10:53 Acuity: DEBBIE 3 iw 10:53 Onset of symptoms was December 21, 2023. iw Triage Assessment: 13:00 General: Appears in no apparent distress. comfortable, Behavior is calm, cooperative, ld1 appropriate for age. Pain: Complains of pain in rib pain Pain does not radiate. Pain currently is 8 out of 10 on a pain scale. Quality of pain is described as throbbing. 13:00 EENT: No signs and/or symptoms were reported regarding the EENT system. Neuro: Level of ld1 Consciousness is awake, alert, obeys commands, Oriented to person, place, time, situation. Cardiovascular: Capillary refill < 3 seconds Patient's skin is warm and dry. Respiratory: Airway is patent Respiratory effort is even, unlabored. GI: Abdomen is round non-distended. : No signs and/or symptoms were reported regarding the genitourinary system. Historical: - Allergies: 10:54 PHILIP INHIBITORS; iw 10:54 Lisinopril; iw - PMHx: 10:54 Hypertension; Kidney stone; RENAL FAILURE; Dialysis; CVA; CHF 2018; Hirschsprung's iw disease; kidney disease; - PSHx: 10:54 Cholecystectomy; Colostomy; Dialysis Catheter; iw - Immunization history:: Adult Immunizations up to date. - Infectious Disease History:: Denies. - Social history:: Smoking status: Reported history of juuling and/or vaping. Screenin:36 [facility] ED Fall Risk Assessment (Adult) History of falling in the last 3 months, ld1 including since admission No falls in past 3 months (0 pts). Abuse screen: Denies threats or abuse. Denies injuries from another. Nutritional screening: No deficits noted. Tuberculosis screening: No symptoms or risk factors identified. Assessment: 11:54 Reassessment: Patient and/or family updated on plan of care and expected duration. Pain ll1 level reassessed. 13:00 Reassessment: Patient appears in no apparent distress at this time. No changes from ld1 previously documented assessment. Patient and/or family updated on plan of care and expected duration. Pain level reassessed. 14:36 Reassessment: Patient appears in no apparent distress at this time. No changes from ld1 previously documented assessment. Patient and/or family updated on plan of care and expected duration. Pain level reassessed. Vital Signs: 10:53 BP 114 / 61; Pulse 65; Resp 18; Pulse Ox 99% ; Pain 3/10; iw 10:57 Temp 98.5(O); Weight 92.08 kg; Height 5 ft. 5 in. ; iw 13:30 BP 119 / 65; Pulse 61; Resp 18; Pulse Ox 100% on R/A; ld1 10:57 Body Mass Index 33.78 (92.08 kg, 165.1 cm) iw 10:53 Pain Scale: Adult iw ED Course: 10:43 Patient arrived in ED. rg4 10:43 Deepak Harvey MD is Private Physician. rg4 10:51 Jesus Rosa DO is Attending Physician. ms3 10:54 Triage completed. iw 10:55 Arm band placed on. iw 11:26 Chest Pa And Lat (2 Views) XRAY In Process Unspecified. EDMS 11:31 Initial lab(s) drawn, by me, sent to lab. Inserted saline lock: 22 gauge in left iw antecubital area, using aseptic technique. Blood collected. 11:51 Kelsea Rosa, RN is Primary Nurse. ld1 11:53 Patient placed in an exam room, on a stretcher. ll1 13:00 Patient has correct armband on for positive identification. Placed in gown. Bed in low ld1 position. Call light in reach. Side rails up X2. hall monitor on. Pulse ox on. NIBP on. 13:00 No provider procedures requiring assistance completed. IV discontinued, intact, ld1 bleeding controlled, No redness/swelling at site. 14:22 Deepak Harvey MD is Referral Physician. ms3 14:22 Shay Cai MD is Referral Physician. ms3 Administered Medications: No medications were administered Medication: 14:38 VIS not applicable for this client. ld1 Outcome: 14:22 Discharge ordered by . ms3 14:38 Discharged to home ambulatory, ld1 14:38 Condition: stable 14:38 Discharge instructions given to patient, Instructed on discharge instructions, follow up and referral plans. Demonstrated understanding of instructions, follow-up care, 14:38 Patient left the ED. ld1 Signatures: Dispatcher [employer] EDMS Eugenia Ruiz RN RN iw Garcia, Rubi rg4 Anton Alvarez RN RN ll1 Jesus Rosa DO DO ms3 Kelsea Rosa RN RN ld1 Corrections: (The following items were deleted from the chart) 10:54 10:53 Pulse 65bpm; Resp 18bpm; Pulse Ox 99%; Pain 3/10, Adult; iw priya
--- NOTE | 2023-12-26 14:23 | EDPHYS ---
Physician Documentation [facility] Name: Nabor Ny Age: 53 yrs Sex: Male : 1970 Arrival Date: 12/26/2023 Time: 10:41 Bed 17 Private MD: Deepak Harvey V ED Physician Jesus Rosa HPI: 12/25 12:12 This 53 yrs old Male presents to ER via Ambulatory with complaints of Rib Pain.ms3 12:12 53-year-old male with past medical history of hypertension, kidney stones, renal ms3 failure, CVA, Hirschsprung's disease, heart failure presents to the emergency department for left rib pain that is sharp and began on Sunday. He states the pain becomes worse when sleeping on his right side. Laying on his right side sleeping the pain is a 7/10 and currently the pain is a 2/10. . Historical: - Allergies: 10:54 PHILIP INHIBITORS; iw 10:54 Lisinopril; iw - PMHx: 10:54 Hypertension; Kidney stone; RENAL FAILURE; Dialysis; CVA; CHF 2018; Hirschsprung's iw disease; kidney disease; - PSHx: 10:54 Cholecystectomy; Colostomy; Dialysis Catheter; iw - Immunization history:: Adult Immunizations up to date. - Infectious Disease History:: Denies. - Social history:: Smoking status: Reported history of juuling and/or vaping. ROS: 12:12 Constitutional: Negative for fever, and chills. ms3 12:12 Respiratory: Negative for shortness of breath, cough, wheezing, and pleuritic chest pain, Abdomen/GI: Negative for abdominal pain, nausea, vomiting, diarrhea, and constipation, MS/Extremity: Negative for injury and deformity, Skin: Negative for injury, rash, and discoloration, 12:12 Cardiovascular: Positive for chest pain, Exam: 12:12 ECG was reviewed by the Attending Physician. ms3 12:12 Constitutional: This is a well developed, well nourished patient who is awake, alert, ms3 and in no acute distress. Head/Face: Normocephalic, atraumatic. Chest/axilla: Normal chest wall appearance and motion. Nontender with no deformity. Cardiovascular: Regular rate and rhythm with a normal S1 and S2. No gallops, murmurs, or rubs. Normal PMI, no JVD. No pulse deficits. Respiratory: Lungs have equal breath sounds bilaterally, clear to auscultation and percussion. No rales, rhonchi or wheezes noted. No increased work of breathing, no retractions or nasal flaring. Abdomen/GI: Soft, non-tender, with normal bowel sounds. No distension or tympany. No guarding or rebound. No evidence of tenderness throughout. Skin: Warm, dry with normal turgor. Normal color with no rashes, no lesions, and no evidence of cellulitis. MS/ Extremity: Pulses equal, no cyanosis. Neurovascular intact. Full, normal range of motion. Vital Signs: 10:53 BP 114 / 61; Pulse 65; Resp 18; Pulse Ox 99% ; Pain 3/10; iw 10:57 Temp 98.5(O); Weight 92.08 kg; Height 5 ft. 5 in. ; iw 13:30 BP 119 / 65; Pulse 61; Resp 18; Pulse Ox 100% on R/A; ld1 10:57 Body Mass Index 33.78 (92.08 kg, 165.1 cm) iw 10:53 Pain Scale: Adult iw MDM: 10:55 Patient medically screened. ms3 12:12 Differential diagnosis: abnormal EKG, acute myocardial infarction, coronary artery ms3 disease. HEART Score: History: Slightly Suspicious (0), ECG: Non specific repolarization disturbance / LBTB / PM (1), Age: > 45 and < 65 years (1), Risk Factors: 1 or 2 risk factors (1), [Hypertension] Troponin: < or = 1 x Normal Limit (0), Total Score = 3. Data reviewed: vital signs, nurses notes, lab test result(s), EKG, radiologic studies, and as a result, I will discharge patient. Independent interpretation of the following test(s) in the Emergency Department X-Ray: My interpretation is CXR image reviewed does not reveal pleural effusion or PNA. Counseling: I had a detailed discussion with the patient and/or guardian regarding the historical points, exam findings, and any diagnostic results supporting the discharge/admit diagnosis, lab results, radiology results, the need for outpatient follow up, to return to the emergency department if symptoms worsen or persist or if there are any questions or concerns that arise at home. Special discussion: Based on the patient's history, exam, and Dx evaluation, there is no indication for emergent intervention or inpatient Tx. It is understood by the patient/guardian that if the Sx's persist or worsen they need to return immediately for re-evaluation. ED course: Discussed labs, EKG, chest x-ray with patient. All questions were answered. Return precautions discussed include worsening symptoms, or any other concerns. On reevaluation patient is alert and oriented x 4, in no apparent distress, nontoxic-appearing, ambulatory in emergency department, speaking full sentences. 12/25 10:56 Order name: Basic Metabolic Panel; Complete Time: 12:24 ms3 12/25 10:56 Order name: CBC with Diff; Complete Time: 12:24 ms3 12/25 10:56 Order name: LFT's; Complete Time: 12:24 ms3 12/25 10:56 Order name: Magnesium; Complete Time: 12:24 ms3 12/25 10:56 Order name: NT PRO-BNP; Complete Time: 12:24 ms3 12/25 10:56 Order name: Troponin HS; Complete Time: 12:24 ms3 12/25 12:25 Order name: Troponin High Sensitivity; Complete Time: 13:50 ms3 12/25 10:56 Order name: Chest Pa And Lat (2 Views) XRAY; Complete Time: 12:24 ms3 12/25 10:56 Order name: EKG; Complete Time: 10:56 ms3 12/25 10:56 Order name: Cardiac monitoring; Complete Time: 12:28 ms3 12/25 10:56 Order name: EKG - Nurse/Tech; Complete Time: 12:19 ms3 12/25 10:56 Order name: IV Saline Lock; Complete Time: 11:51 ms3 12/25 10:56 Order name: Labs collected and sent; Complete Time: 11:51 ms3 12/25 10:56 Order name: O2 Per Protocol; Complete Time: 11:51 ms3 12/25 10:56 Order name: O2 Sat Monitoring; Complete Time: 11:51 ms3 EC:12 Rate is 63 beats/min. Rhythm is regular. Left axis deviation noted. LA interval is ms3 normal. QRS interval is normal. Clinical impression: NSR w/ Non-specific ST/T Changes. Interpreted by me. Reviewed by me. Administered Medications: No medications were administered Disposition Summary: 12/26/23 14:22 Discharge Ordered Notes: Location: Home ms3 Condition: Stable ms3 Diagnosis - Chest pain, unspecified ms3 Followup: ms3 - With: Deepak Harvey MD - When: 2 - 3 days - Reason: Recheck today's complaints Followup: ms3 - With: Shay Cai MD - When: 1 - 2 days - Reason: Recheck today's complaints Discharge Instructions: - Discharge Summary Sheet ms3 - Nonspecific Chest Pain, Adult ms3 Forms: - Medication Reconciliation Form ms3 - Antibiotic Education ms3 - Prescription Opioid Use ms3 - Patient Portal Instructions ms3 - Leadership Thank You Letter ms3 Signatures: Dispatcher [employer] EDEugenia Meyer RN RN iw Jesus Rosa DO DO ms3 Corrections: (The following items were deleted from the chart) 10:56 10:56 BASIC METABOLIC PANEL+C.LAB.BRZ ordered. EDMS EDMS 10:56 10:56 CBC+H.LAB.BRZ ordered. EDMS EDMS 10:56 10:56 HEPATIC FUNCTION+C.LAB.BRZ ordered. EDMS EDMS 10:56 10:56 MAGNESIUM+C.LAB.BRZ ordered. EDMS EDMS 10:56 10:56 PROBNP+C.LAB.BRZ ordered. EDMS EDMS 10:56 10:56 Troponin High Sensitivity+C.LAB.BRZ ordered. EDMS EDMS 10:56 10:56 Chest Pa And Lat (2 Views)+RAD.RAD.BRZ ordered. EDMS EDMS
[2023-12-26 15:01] VITALS: BP 119/65; TEMP 98.5; O2SAT 100
--- NOTE | 2023-12-27 14:03 | EKG ---
Test Date: 2023-12-26 Test Time: 12:12:16 [employer]: YESSICA MEASUREMENT RESULTS: Intervals: Rate: 63 RI: 202 QRSD: 116 QT: 462 QTc: 472 [place]: P: 43 RI: 202 QRS: -50 T: 97 INTERPRETIVE STATEMENTS: Normal sinus rhythm Left axis deviation Left ventricular hypertrophy with QRS widening T wave abnormality, consider lateral ischemia Prolonged QT Abnormal ECG Compared to ECG 01/15/2023 18:32:06 Left-axis deviation now present Left ventricular hypertrophy now present T-wave abnormality still present Possible ischemia still present Electronically Signed On 12-27-23 13:59:56 CDT by Shay Cai
== END 2023-12-26 14:38 | disposition home or self-care (01) ==
LOC: ER 10:41
DX: R07.9 Chest pain, unspecified (principal); I13.2 Hypertensive heart and chronic kidney disease with heart failure and with stage 5 chronic kidney disease, or end stage renal disease; N18.6 End stage renal disease; I50.9 Heart failure, unspecified; Z99.2 Dependence on renal dialysis; Z88.8 Allergy status to other drugs, medicaments and biological substances
CPT/HCPCS: 36415; 71046; 80048; 80076; 83735; 83880; 84484; 85025; 93005